=== PATIENT | male | born 1950 | race Caucasian/White ===

== ENCOUNTER 2017-01-30 04:39 | Inpatient (IN) | payer MEDICARE, BC ==
[2017-01-30] VITALS (11 sets, daily range): BP systolic 95–115; BP diastolic 51–59; PULSE 107–130; RESP 16–50; TEMP 97.8; Ht 177.8 cm; Wt 108.0 kg
[~2017-01-30] VITALS: Ht 177.8 cm; Wt 108.0 kg
[~2017-01-30 04:39] MED LIST: BICA50TA PO; SMV40T PO; TRIA1TAB PO; WARF2TAB PO
[2017-01-30] MEDS ORDERED: CEFTRIAXONE 1 GM/50 ML (PMX) 50 ML IVPB ONE (05:00)
[2017-01-30] MEDS ORDERED: SOD CHLORIDE 0.9% 1,000 ML IV ONE ×4 (05:00→07:00)
[2017-01-30 05:27] LABS: ADD SCAN DIFF NO
[2017-01-30] MEDS ORDERED: SOD CHLORIDE 0.9% 500 ML IV ONE (05:30)
[2017-01-30 05:34] LABS: ABNORMAL IP MESSAGE 1; BASOPHIL # 0.1 10^3/ul (0.0-0.1); BASOPHILS % 0.2 % (0.0-2.0); EOSINOPHILS % 0.1 % (0.0-7.0); HEMATOCRIT 35.5 % (42.0-52.0); HEMOGLOBIN 11.3 g/dl (14.0-18.0); LYMPHOCYTES # 1.3 10^3/ul (0.8-2.9); LYMPHOCYTES % 5.4 % (15.0-51.0); MEAN CORPUSCULAR HEMOGLOBIN 27.2 pg (29.0-33.0); MEAN CORPUSCULAR HGB CONC 31.8 g/dl (32.0-37.0); MEAN CORPUSCULAR VOLUME 85.5 fl (82.0-101.0); MEAN PLATELET VOLUME 11.8 fl (7.4-10.4); MONOCYTE # 1.2 10^3/ul (0.3-0.9); NEUTROPHIL # 20.1 10^3/ul (1.6-7.5); NEUTROPHILS % 85.3 % (39.0-77.0); NUCLEATED RED BLOOD CELLS% 0.1 /100WBC (0.0-0.0); PLATELET COUNT 345 10^3/UL (140-415); RED BLOOD COUNT 4.15 10^6/ul (4.70-6.10); RED CELL DISTRIBUTION WIDTH 16.3 % (11.5-14.5); WHITE BLOOD COUNT 23.5 10^3/ul (4.8-10.8)
[2017-01-30 05:42] LABS: ALBUMIN 3.8 g/dl (3.3-4.9)
[2017-01-30 05:43] LABS: INR 5.83; POTASSIUM 4.3 mmol/L (3.5-5.1)
[2017-01-30 05:45] LABS: ALBUMIN/GLOBULIN RATIO 0.9; BILIRUBIN,INDIRECT 0.9 mg/dl (0-1.1); BILIRUBIN,TOTAL 0.9 mg/dl (0.2-1.3); CALCIUM 9.7 mg/dl (8.4-10.2); CREATININE 1.74 mg/dl (0.61-1.24)
[2017-01-30 05:57] LABS: TROPONIN-I 0.03 ng/ml (0.00-0.12)
[2017-01-30] MEDS ORDERED: VANCOMYCIN 1 GM (PMX) 250 ML IVPB SCH (06:00)
[2017-01-30 06:25] LABS: URINE BILIRUBIN (Dip) NEGATIVE (NEGATIVE); URINE BLOOD (Dip) NEGATIVE (NEGATIVE); URINE COLOR LT. YELLOW (YELLOW); URINE GLUCOSE (Dip) NEGATIVE (NEGATIVE); URINE KETONES (Dip) NEGATIVE (NEGATIVE); URINE LEUKOCYTE ESTERASE (Dip) NEGATIVE (NEGATIVE); URINE NITRITE (Dip) NEGATIVE (NEGATIVE); URINE UROBILINOGEN (Dip) 0.2 E.U./dL (0.1-1.0)
[2017-01-30 06:33] LABS: ADD UMIC NO; URINE TOTAL PROTEIN (Dip) NEGATIVE (NEGATIVE)
[2017-01-30 06:39] LABS: PARTIAL THROMBOPLASTIN TIME 117.5 Sec (25.0-35.0)
[2017-01-30 06:42] LABS: PROTIME 54.7 Sec (12.2-14.2); PT RATIO 4.3
--- NOTE | 2017-01-30 06:49 | ERA ---
ER Documentation Chief Complaint Date/Time DATE: 01/30/17 TIME: 06:32 Chief Complaint hypotension, sob, diaphoresis tonight, from home HPI This 66-year-old male is brought in by ambulance for feeling "sick" at home. Patient states that he has had some chest pain with cough. He was hypotensive according to paramedics blood pressure of 60/40 with significant tachycardia. He has remained completely conscious is alert and oriented. Denies any abdominal pain though states he does have a history of a AAA. Also has current prostate cancer. ROS All systems reviewed and are negative except as per history of present illness. Medications Home Meds Reported Medications Bicalutamide* (Casodex*) 50 Mg Tablet, PO DAILY 09/23/13 Triamterene-HCTZ* (Triamterene-HCTZ*) 1 Tab Tablet, PO DAILY 09/23/13 Warfarin Sodium* (Coumadin*) 2 Mg Tablet, 7.5 MG PO DAILY 09/23/13 Simvastatin (Simvastatin) 40 Mg Tablet, PO HS 09/23/13 Allergies Allergies: Coded Allergies: No Known Allergy (Unverified , 09/23/13) PMhx/Soc History of Surgery: Yes (lt knee surgery,AVR 1989) Anesthesia Reaction: No Hx Neurological Disorder: No Hx Respiratory Disorders: No Hx Cardiac Disorders: Yes (AORTIC STENOSIS) Hx Psychiatric Problems: No Hx Miscellaneous Medical Probl: Yes (cardiac history) Hx Alcohol Use: Yes (8 OZ OF RED WINE PER DAY) Hx Substance Use: No Hx Tobacco Use: No Smoking Status: Never smoker Physical Exam Vitals Vital Signs Date Time Temp Pulse Resp B/P Pulse Ox O2 Delivery O2 Flow Rate FiO2 01/30/17 07:05 97.8 109 21 83/56 98 Room Air 01/30/17 06:00 97.6 106 22 107/80 98 Room Air 01/30/17 05:21 97.6 113 22 76/57 97 Room Air 01/30/17 05:04 97.6 133 22 76/57 97 Physical Exam Const: [] Mild distress, somewhat diaphoretic Head: Atraumatic Eyes: Normal Conjunctiva ENT: Normal External Ears, Nose and Mouth. Neck: Full range of motion..~ No meningismus. Resp: Decreased bibasilar breath sounds otherwise clear with good air movement Cardio: Regular tachycardia, no murmurs Abd: Soft, non tender, non distended. Normal bowel sounds Skin: No petechiae or rashes, cold clammy Back: No midline or flank tenderness Ext: No cyanosis, or edema Neur: Awake and alert and oriented 3, cranial nerves II through XII intact, no focal deficits Psych: Normal Mood and Affect Result Diagram: 01/30/17 0450 01/30/17 0450 Results 24 hrs Laboratory Tests Test 01/30/17 04:50 01/30/17 06:00 Activated Partial Thromboplast Time 117.5Sec Alanine Aminotransferase (ALT/SGPT) 60IU/L Albumin 3.8g/dl Albumin/Globulin Ratio 0.90 Alkaline Phosphatase 417IU/L Anion Gap 24 Aspartate Amino Transf (AST/SGOT) 183IU/L Basophils # 0.110^3/ul Basophils % 0.2% Blood Urea Nitrogen 34mg/dl Calcium Level 9.7mg/dl Carbon Dioxide Level 21mmol/L Chloride Level 95mmol/L Creatinine 1.74mg/dl Direct Bilirubin 0.00mg/dl Eosinophils # 0.010^3/ul Eosinophils % 0.1% Globulin 4.20g/dl Glucose Level 168mg/dl Hematocrit 35.5% Hemoglobin 11.3g/dl INR International Normalized Ratio 5.83 Indirect Bilirubin 0.9mg/dl Lactic Acid Level 7.8mmol/L Lymphocytes # 1.310^3/ul Lymphocytes % 5.4% Mean Corpuscular Hemoglobin 27.2pg Mean Corpuscular Hemoglobin Concent 31.8g/dl Mean Corpuscular Volume 85.5fl Mean Platelet Volume 11.8fl Monocytes # 1.210^3/ul Monocytes % 5.0% Neutrophils # 20.110^3/ul Neutrophils % 85.3% Nucleated Red Blood Cells # 0.010^3/ul Nucleated Red Blood Cells % 0.1/100WBC Platelet Count 09296^3/UL Potassium Level 4.3mmol/L Prothrombin Time 54.7Sec Prothrombin Time Ratio 4.3 Red Blood Count 4.1510^6/ul Red Cell Distribution Width 16.3% Sodium Level 136mmol/L Total Bilirubin 0.9mg/dl Total Protein 8.0g/dl Troponin I 0.030ng/ml White Blood Count 23.510^3/ul Urine Bilirubin NEGATIVE Urine Clarity CLEAR Urine Color LT. YELLOW Urine Glucose NEGATIVE% Urine Hemoglobin NEGATIVE Urine Ketones NEGATIVE Urine Leukocyte Esterase NEGATIVE Urine Nitrite NEGATIVE Urine Specific [place] 1.020 Urine Total Protein NEGATIVE Urine Urobilinogen 0.2 E.U./dL Urine pH 5.5 Current Medications Medications (Trade) Dose Ordered Sig/Dario Route PRN Reason Start Time Stop Time Status Last Admin Dose Admin Ceftriaxone Sodium 50 ml @ 100 mls/hr ONCE ONCE IVPB 01/30/17 05:00 01/30/17 05:29 DC 01/30/17 05:16 Sodium Chloride 1,000 ml @ 1,000 mls/hr Q1H ONCE IV 01/30/17 05:00 01/30/17 05:59 DC 01/30/17 05:16 Sodium Chloride 1,000 ml @ 1,000 mls/hr Q1H ONCE IV 01/30/17 05:30 01/30/17 06:29 DC 01/30/17 05:19 Sodium Chloride 1,000 ml @ 1,000 mls/hr Q1H ONCE IV 01/30/17 05:30 01/30/17 06:29 DC 01/30/17 05:43 Sodium Chloride 500 ml @ 500 mls/hr Q1H ONCE IV 01/30/17 05:30 01/30/17 06:29 DC 01/30/17 05:18 Vancomycin HCl 250 ml @ 125 mls/hr ONCE IVPB 01/30/17 06:00 01/30/17 07:59 01/30/17 06:14 Sodium Chloride (NS) 1,000 ml @ 1,000 mls/hr Q1H ONCE IV 01/30/17 07:00 01/30/17 07:59 Ondansetron HCl (Zofran Inj) 4 mg ER BRIDGE PRN IV NAUSEA AND/OR VOMITING 01/30/17 07:00 01/31/17 06:59 Acetaminophen (Tylenol Tab) 650 mg ER BRIDGE PRN PO MILD PAIN/FEVER 01/30/17 07:00 01/31/17 06:59 Procedures/MDM Patient with septic shock with no apparent source yet. Urinalysis is negative for infections. Most likely patient has a respiratory infection as his symptoms of all been upper respiratory with cough and shortness of breath. I see no obvious pneumonia on x-ray. Patient is wide awake with no abdominal pain or tenderness. This hydrated with 30 cc/kg of IV fluid. Given Rocephin and vancomycin. Tachycardia improved greatly. Blood pressure improved significantly however patient still had a systolic around 100. From the patient would like to place a central line however he refused. He states that he would like to try more fluid and does not want a central line placed. Patient is supratherapeutic on his Coumadin and also has an elevated PTT currently. No signs of active bleeding. I spoke with Dr. aMrtin will be admitting the patient to telemetry. Critical care time 41 minutes: This includes treatment of septic shock from unknown source, careful fluid administration, correction of unstable vital signs , early antibiotic administration, multiple visits the patient's bedside to reassess status, chart reviewed, discussion with patient, family and admitting doctor. This does not include any billable procedures. Ultrasound-guided peripheral line placement: Indication is that the staff could not obtain may be large enough to draw blood through. Patient in need of fluid hydration. Ultrasound guidance was used easily introduced an 18-gauge Angiocath the patient's right basilic vein. There is good blood flow and labs are obtained from this port. IV line flushed well. Patient tolerated procedure well with no complications. Reperfusion assessment for septic shock: Time 06 30 Vital signs: Blood pressure 107/68, heart rate 104, respiratory rate 16, temperature 97.4, oxygen saturation 96% on room air Cardiac exam: Sinus tachycardia without murmurs, lung exam, mild decreased bibasilar breath sounds without any rails Skin exam: No mottling,, dry warm Capillary refill: Less than 1 second Distal pulses intact all 4 extremities EKG interpretation: Sinus tachycardia rate of 137, normal axis, no ST or T-wave changes concerning for acute ischemia. Single PVC versus artifact, normal intervals. business banking representative interpretation: Sinus tachycardia greatly improved with IV fluids. Chest x-ray interpretation: Poor inspiration, I see no other acute process, no infiltrates, no pneumothorax, no obvious pulmonary edema, no fractures Departure Diagnosis: Primary Impression: Septic shock Additional Impressions: Renal insufficiency Lactic acidosis Chest pain Condition: Serious MICHA MOORE DO Jan 30, 2017 06:42
[2017-01-30] MEDS ORDERED: ACETAMINOPHEN 325 MG TAB PO PRN (07:00)
[2017-01-30] MEDS ORDERED: ONDANSETRON 4 MG INJ IV PRN (07:00)
--- NOTE | 2017-01-30 07:58 | RADRPT ---
PROCEDURE: XR Chest. CLINICAL INDICATION: 66-year-old male with sepsis. TECHNIQUE: Single frontal view of the chest was obtained COMPARISON: Chest x-ray 09/23/2013 11:08 p.m. FINDINGS: The soft tissues are normal. There are degenerative osteophytes in the thoracic spine. The heart i s enlarged. The cardiomediastinal silhouette, pulmonary vasculature and hilar structures are normal . There are vascular calcifications and ectasia of the left-sided aorta. There is compressive atelec tasis in the bases of the lungs. The costophrenic angles are normal. A mediastinotomy was performed . No significant changes noted compared to the prior study. IMPRESSION: 1. Cardiomegaly with compressive atelectasis in the bases of the lungs. 2. Status post median sternotomy. 3. Atherosclerotic vascular disease with ectasia of the left-sided aorta. RPTAT:AAJJ Physician Usha Date Time Electronically viewed and signed by Physician Usha on 01/30/2017 07:58 /
[2017-01-30] MEDS ORDERED: SOD CHLORIDE 0.9% 1,000 ML IV SCH (10:55)
[2017-01-30] MEDS ORDERED: NACL 0.9% 3 ML SYG IV SCH (11:00)
[2017-01-30] MEDS ORDERED: DOCUSATE SODIUM 100 MG CAP PO PRN (11:00)
--- NOTE | 2017-01-30 11:31 | HP ---
Date/Time of Note Date/Time of Note DATE: 01/30/17 TIME: 11:16 Assessment/Plan VTE Prophylaxis VTE Prophylaxis Intervention: contraindicated VTE Contraindication Reason: patient non compliant Lines/Catheters IV Catheter Type (from Nrs): Peripheral IV Assessment/Plan Chief Complaint/Hosp Course see above Problems: Assessment/Plan see note HPI/ROS Admit Date/Time Admit Date/Time Jan 30, 2017 at 07:00 Hx of Present Illness 67 yo male fell at home early this am and was brought to ER. Found to have hypotension, elevated WBC, mild anemia and creatinine of 1.7. stabilized in ER and admitted to telemetry PMH/Family/Social Past Medical History HTN Obesity [facility] AVR in 1989 Chronic anticoagulation mild anemia Mild renal insufficiency Prostate cancer on hormone deprivation Rx; GNRH agonist and bicalutamide. last PSA >100. bicalutamide stopped and awaiting visit with oncology Prior CVA Ataxia Aortic Aneurism Past Surgical History AVR [facility] Umbilical hernai Tonsils Family History Significant Family History: no pertinent family hx Social History Alcohol Use: none Smoking Status: Never smoker Drug Use: none Exam/Review of Systems Vital Signs Vitals Vital Signs Date Time Temp Pulse Resp B/P Pulse Ox O2 Delivery O2 Flow Rate FiO2 01/30/17 09:41 117 01/30/17 08:33 21 123/89 99 Room Air 01/30/17 07:41 97.8 Exam Exam ROS completed . Family History noncontributory alert. seen with daughter . reports tired and some reduction ni speech fluency. recent increased low back and ribcage pain HEENT supple no bruit UMER speech fluent oriented x4 Chest clear Cor crisp valve sounds Abd soft Ext 1+ pitting edema Neuro moves all extremities neg Babinski Assessment: hypotension; renal insufficiency; full Code; fall ; altered mental state: AVR; castration resistant prostate cancer Plan antibiotics; cultures; CT of head ; MRI of LS s[pine Neuro checks; Echocardiogram; cardiology and oncology consults Constitutional: No alert, No distress, No frail, No non-verbal, No oriented, No other, No well developed Labs Result Diagram: 01/30/17 0450 01/30/17 0450 Medications Medications Current Medications Sodium Chloride (NS) 1,000 ml @ 20 mls/hr Q24H IV ; Start 01/30/17 at 10:55; Status UNV Docusate Sodium (Colace) 100 mg Q12H PRN PO CONSTIPATION; Start 01/30/17 at 11: 00; Status UNV Magnesium Hydroxide (Milk Of Mag) 30 ml DAILY PRN PO CONSTIPATION; Start at 11:00; Status UNV Pantoprazole (Protonix Tab) 40 mg DAILY@06 PO ; Start 01/31/17 at 06:00; Status UNV BETTY CUMMINGS MD Jan 30, 2017 11:28
[2017-01-30 11:47] LABS: BARBITURATES Negative (NEGATIVE)
[2017-01-30 11:48] LABS: CANNABINOIDS Negative (NEGATIVE); COCAINE Negative (NEGATIVE)
[2017-01-30 12:09] LABS: CREATINE KINASE 171 IU/L (23-200)
[2017-01-30 13:30] LABS: CK-MB < 0.22 ng/ml (0.0-2.4); TROPONIN-I < 0.012 ng/ml (0.00-0.12)
[2017-01-30 14:02] LABS: BENZODIAZEPINES Negative (NEGATIVE); OPIATES Positive (NEGATIVE)
[2017-01-30 14:06] LABS: CREATINE KINASE 163 IU/L (23-200)
[2017-01-30 14:27] LABS: CK-MB < 0.22 ng/ml (0.0-2.4); TROPONIN-I < 0.012 ng/ml (0.00-0.12)
[2017-01-30] MEDS ORDERED: VANCOMYCIN IV PER PHARMACY XX SCH (16:00)
[2017-01-30] MEDS ORDERED: VANCOMYCIN 1 GM in NS 250 ML IVPB SCH (17:00)
[2017-01-30 17:22] LABS: CREATINE KINASE 175 IU/L (23-200)
--- NOTE | 2017-01-30 17:27 | RADRPT ---
PROCEDURE: CT Head without. CLINICAL INDICATION: Fall, altered speech. TECHNIQUE: The study was performed utilizing a multi-slice, multidetector CT scanner. Direct spira l 1 mm axial sections were obtained through the head without the use of intravenous contrast materia l. 1 or more of the following dose reduction techniques were utilized: Automated exposure control, adjustment of the mA and/or kV according to patient's size, iterative reconstruction technique. Co audi and sagittal reformations were obtained. The images were reviewed on a PACS workstation. RADIATION DOSE: CTDIvol: 45.0 mGyDLP: 990.3 mGy-cm COMPARISON: No prior studies are available for comparison. FINDINGS: There is a moderate amount of motion artifact through the mid and lower cranial vault as well as the skull base, slightly limiting evaluation in these regions. There is no intracranial hemorrhage, ex tra-axial fluid collection, mass lesion, midline shift or hydrocephalus. There is mild prominence o f the cerebral sulci, lateral and third ventricles. There is mild periventricular and subcortical w jean matter hypodensity. There is mild arteriosclerotic calcification of the parasellar internal ca rotid arteries. The blackburn-white matter differentiation is preserved. The basal cisterns are patent. The midline structures are intact. The orbits, calvarium and extracranial soft tissues are normal in appearance. There is a prominent mucous attention cyst in the inferior left maxillary sinus. Th ere is a small mucous attention cyst in the anterior aspect of the left sphenoid sinus. The mastoid air cells and middle ear cavities are normally aerated. IMPRESSION: 1. No acute intracranial abnormality. No intracranial hemorrhage, extra-axial fluid collection, ma ss lesion or hydrocephalous. 2. Mild peripheral and central cerebral volume loss. 3. Mild periventricular and subcortical white matter hypodensity, likely related to chronic microan giopathic changes. RPTAT: HGAS .Yazan Bateman MD, Date Time Electronically viewed and signed by .Yazan Bateman MD, MD on 01/30/2017 17:27 .S/
[2017-01-30 17:39] LABS: CK-MB < 0.22 ng/ml (0.0-2.4); TROPONIN-I < 0.012 ng/ml (0.00-0.12)
--- NOTE | 2017-01-30 17:44 | RADRPT ---
PROCEDURE: US bilateral lower extremity veins. CLINICAL INDICATION: Bilateral leg pain and swelling. TECHNIQUE: Multiple longitudinal and transverse images of the bilateral lower extremity veins were obtained with blackburn scale and color Doppler imaging. The common femoral vein, femoral vein, and popl iteal vein were evaluated. 2D grayscale measurements with compression sonography, color Doppler, and pulsed Doppler with augmentation. COMPARISON: No prior studies are available for comparison. FINDINGS: The bilateral common femoral, femoral and popliteal veins are normally compressible throughout. Col or flow demonstrates normal filling of the vessels. Normal waveforms are visualized and there is no rmal response to augmentation. IMPRESSION: 1. No evidence of deep vein thrombosis involving either lower extremity. RPTAT: QQ .Curt Lee MD, MD Date Time Electronically viewed and signed by .Curt Lee MD, on 01/30/2017 17:44 .R/
[2017-01-30 19:41] LABS: CREATINE KINASE 198 IU/L (23-200)
[2017-01-30 20:00] LABS: CK-MB < 0.22 ng/ml (0.0-2.4)
[2017-01-30 20:05] LABS: TROPONIN-I 0.013 ng/ml (0.00-0.12)
[2017-01-30] MEDS ORDERED: FUROSEMIDE 40 MG INJ IV ONE (21:30)
[2017-01-30] MEDS ORDERED: HYDROCODONE/APAP (5/325) TAB PO PRN (21:30)
[2017-01-30] MEDS ORDERED: FUROSEMIDE 20 MG INJ IV ONE (22:00)
[2017-01-30] MEDS: PIPER-TAZO 3.375 GM IV (PMX) 100 ML IVPB SCH (23:22)
[2017-01-31] VITALS (36 sets, daily range): BP systolic 89–137; BP diastolic 49–85; PULSE 109–145; RESP 24–47
[2017-01-31 00:56] LABS: AADO2 Arterial 91.3 mmHg (7.0-24.0); Allen Test ACCEPTAB; Arterial Base Excess -1.8 mmol/L (-3.0-3); Arterial COHb 0.5 % (0.0-3.0); Arterial Fraction of Oxyhgb 95.6 % (93.0-99.0); Arterial HCO3 20.5 mmol/L (22.0-26.0); Arterial MetHb 0.3 % (0.0-1.5); Arterial Total Hemglobin 12.9 g/dl (12.0-18.0); MODE NASAL CANNULA
--- NOTE | 2017-01-31 01:38 | RADRPT ---
PROCEDURE: XR Chest. CLINICAL INDICATION: Congestive heart failure. TECHNIQUE: Single frontal view of the chest was obtained COMPARISON: Chest dated today, about 18 hours ago. FINDINGS: Hypoinflated lungs, patient body habitus and portable technique accentuates pulmonary vascular boo ngs. There is cardiomegaly. Mild bilateral patchy air space disease with small pleural effusions. L judi inflation is decreased over interval. There is no pneumothorax. IMPRESSION: Mild failure. RPTAT: UU Physician Miki Date Time Electronically viewed and signed by Eyal Morelos Physician on 01/31/2017 01:37 RS/
--- NOTE | 2017-01-31 03:27 | CONS ---
DATE OF ADMISSION: 01/30/2017 DATE OF CONSULTATION: 01/30/2017 CARDIOLOGY CONSULTATION HISTORY OF PRESENT ILLNESS: Mr. Noel is a 66-year-old gentleman who presents with cough and feelin g ill. On admission, he was noted to be hypotensive with blood pressure of 60/40 and elevated white blood count. He was treated for sepsis and was given ceftriaxone and vancomycin for possible pneumo naman. His blood pressures improved, and he was transferred to telemetry. Here he has remained alert and oriented; however, he is noted to have increasing congestion and persistent tachycardia. REVIEW OF SYSTEMS: As per HPI. HOME MEDICATIONS: 1. Casodex. 2. Triamterene-hydrochlorothiazide. 3. Warfarin. 4. Simvastatin. ALLERGIES: NO KNOWN ALLERGIES. PAST MEDICAL HISTORY: Aortic valve replacement in 1989. PHYSICAL EXAMINATION: VITAL SIGNS: Temperature 99.4, pulse 129, blood pressure 115/56, O2 saturation 97% on 2 liters of n josue cannula. GENERAL: He is cold and clammy to the touch. He is mildly diaphoretic. CARDIAC: Reveals a metallic valve, tachycardic rhythm. LABORATORY DATA: INR 5.8. Troponins negative x3. Sodium 136, potassium 4.3, BUN 34, creatinine 1. 7, lactic acid 7.3. ASSESSMENT: The patient is suffering from septic shock. He has received reportedly 5 liters of flu id and appears congested at this time. I will give him a small dose of Lasix with monitoring of his blood pressure. However, I am concerned that he is not being adequately treated with broad spectru m antibiotics as he is only on vancomycin which does not provide adequate coverage at this time. I will attempt to consult critical care for broadening of antibiotic advice. I will order repeat x- ray and labs at this time. He will be monitored carefully with low threshold to transfer to intensi ve care. Dictated By: WEI LEONARDO/MALICK Conf#: [id number] DID#: [id number]
[2017-01-31] MEDS: ACETAMINOPHEN 325 MG TAB PO PRN (05:17)
[2017-01-31] MEDS: PANTOPRAZOLE (EC) 40 MG TAB PO SCH (05:29)
[2017-01-31] MEDS: PIPER-TAZO 3.375 GM IV (PMX) 100 ML IVPB SCH ×3 (05:30→18:22)
[2017-01-31] MEDS ORDERED: VANCOMYCIN 2 GM in SOD CHLORIDE 0.9% 500 ML IVPB SCH (06:00)
[2017-01-31 06:38] LABS: ADD SCAN DIFF NO
[2017-01-31 06:55] LABS: ABNORMAL IP MESSAGE 1; HEMOGLOBIN 8.7 g/dl (14.0-18.0); MEAN CORPUSCULAR HEMOGLOBIN 26.8 pg (29.0-33.0); MEAN CORPUSCULAR HGB CONC 31.1 g/dl (32.0-37.0); MEAN CORPUSCULAR VOLUME 86.2 fl (82.0-101.0); MEAN PLATELET VOLUME 11.9 fl (7.4-10.4); PLATELET COUNT 266 10^3/UL (140-415); RED BLOOD COUNT 3.25 10^6/ul (4.70-6.10); RED CELL DISTRIBUTION WIDTH 16.2 % (11.5-14.5); WHITE BLOOD COUNT 22.9 10^3/ul (4.8-10.8)
[2017-01-31 06:59] LABS: POTASSIUM 4.2 mmol/L (3.5-5.1)
[2017-01-31 07:02] LABS: CREATININE 0.92 mg/dl (0.61-1.24)
[2017-01-31 07:03] LABS: CALCIUM 8.4 mg/dl (8.4-10.2)
[2017-01-31] MEDS ORDERED: MELA5TAB4 PO (07:03)
[2017-01-31] MEDS ORDERED: TAMS-14 PO (07:03)
[2017-01-31] MEDS ORDERED: METO-448 PO (07:03)
[2017-01-31] MEDS ORDERED: COU25 PO ×2 (07:03)
[2017-01-31] MEDS ORDERED: TRAM50TA2 PO (07:03)
--- NOTE | 2017-01-31 07:40 | RADRPT ---
PROCEDURE: XR Chest. CLINICAL INDICATION: Shortness of breath. TECHNIQUE: Single frontal view. COMPARISON: 01/30/2017. FINDINGS: There is mild atelectasis at the lung bases and mild pulmonary edema, slightly worse than seen previ ously. The lungs are otherwise clear. The heart is enlarged. There are sternal wires. Calcification is present in the aorta consistent w ith atherosclerosis. There is no pleural effusion. There is no pneumothorax. IMPRESSION: 1. Slightly worse appearance of the lungs. 2. Cardiomegaly and previous median sternotomy. RPTAT: QQ .Curt Lee MD, MD Date Time Electronically viewed and signed by .Curt Lee MD, MD on 01/31/2017 07:39 .R/
[2017-01-31 08:35] LABS: AADO2 Arterial 64.4 mmHg (7.0-24.0); Allen Test ACCEPTAB; Arterial Base Excess -2.7 mmol/L (-3.0-3); Arterial COHb 0.2 % (0.0-3.0); Arterial Fraction of Oxyhgb 96.7 % (93.0-99.0); Arterial HCO3 20.3 mmol/L (22.0-26.0); Arterial MetHb 0.3 % (0.0-1.5); Arterial Total Hemglobin 9.8 g/dl (12.0-18.0); MODE NASAL CANNULA
--- NOTE | 2017-01-31 08:55 | PN ---
Date/Time of Note Date/Time of Note DATE: 01/31/17 TIME: 08:49 Assessment/Plan VTE Prophylaxis VTE Prophylaxis Intervention: contraindicated VTE Contraindication Reason: bleeding Lines/Catheters IV Catheter Type (from Nrs): Saline Lock Urinary Cath still in place: No Assessment/Plan Chief Complaint/Hosp Course see above Problems: Subjective 24 Hr Interval Summary Free Text/Dictation developed tachycardia and pulmonary edema . transferred to ICU and diuresed 600cc with iv lasix. seen by cardiology and echocardiogram pending. positive 1/ 2 blood cultures for gram positive in clusters. Hb down from 11 to 8.5 this am. no evidence of bleeding meds reviewed. CXR this am shows cardiomegaly and pulmonary edema P.E.: alert. seen with daughter. Chest scattered rhonchi Cor rapid rhythm no rub ext 1+ pitting edema Assessment: bacteremia; CHF; AVR; anemia; CHF Plan: repeat Hb. diuresis. Echocardiogram. full code Exam/Review of Systems Vital Signs Vitals Vital Signs Date Time Temp Pulse Resp B/P Pulse Ox O2 Delivery O2 Flow Rate FiO2 01/31/17 07:00 133 39 105/60 99 01/31/17 05:00 99.0 01/31/17 03:31 Nasal Cannula 2.0 Intake and Output 01/30/17 01/30/17 01/31/17 15:00 23:00 07:00 Intake Total 2770 ml 1230 ml Output Total 750 ml 1530 ml Balance 2020 ml -300 ml Results Result Diagram: 01/31/17 0600 01/31/17 0530 Results 24 hrs Laboratory Tests Test 01/30/17 11:43 01/30/17 13:40 01/30/17 16:43 01/30/17 19:06 Creatine Kinase 171 163 175 198 Creatine Kinase Index 0.1 0.1 Creatinine Kinase MB (Mass) < 0.22 < 0.22 < 0.22 < 0.22 Troponin I < 0.012 < 0.012 < 0.012 0.013 Uric Acid 8.1 H Test 01/30/17 23:36 01/31/17 00:30 01/31/17 02:01 01/31/17 05:30 Bedside Glucose 153 164 Arterial Blood HCO3 20.5 L Arterial Blood Base Excess -1.8 Arterial Blood Oxygen Saturation 96.4 [place] Test ACCEPTAB Arterial Blood Gas Puncture Site Right Radial Arterial Blood Carboxyhemoglobin 0.5 Arterial Blood Date Drawn 01/31/2017 12:48:24 AM Arterial Blood Methemoglobin 0.3 Arterial Blood pCO2 (Temp correct) 28.2 L Arterial Blood pH (Temp corrected) 7.479 H Arterial Blood pO2 (Temp corrected) 82.3 Blood Gas A-a O2 Differential 91.3 H Blood Gas Modality NASAL CANNULA Blood Gas Notified Time 01/31/2017 12:55:53 AM Blood Gas Notified Whom BR Blood Gas Specimen Source Blood arterial Blood Gas Temperature 37.0 FiO2 29.0 Oxyhemoglobin Percent 95.6 Total Hemoglobin 12.9 Anion Gap 16 # Blood Urea Nitrogen 21 #H Calcium Level 8.4 Carbon Dioxide Level 25 Chloride Level 93 L Creatinine 0.92 Glucose Level 122 # Potassium Level 4.2 Sodium Level 130 L Test 01/31/17 05:38 01/31/17 06:00 01/31/17 07:00 Thyroid Stimulating Hormone (TSH) 0.609 Basophils # 0.0 Basophils % 0.1 Eosinophils # 0.0 Eosinophils % 0.0 Hematocrit 28.0 #L Hemoglobin 8.7 #L Lymphocytes # 1.2 Lymphocytes % 5.2 L Mean Corpuscular Hemoglobin 26.8 L Mean Corpuscular Hemoglobin Concent 31.1 L Mean Corpuscular Volume 86.2 Mean Platelet Volume 11.9 H Monocytes # 0.6 Monocytes % 2.6 Neutrophils # 19.5 H Neutrophils % 85.5 H Nucleated Red Blood Cells # 0.0 Nucleated Red Blood Cells % 0.0 Platelet Count 266 # Red Blood Count 3.25 #L Red Cell Distribution Width 16.2 H White Blood Count 22.9 H Arterial Blood HCO3 20.3 L Arterial Blood Base Excess -2.7 Arterial Blood Oxygen Saturation 97.2 [place] Test ACCEPTAB Arterial Blood Gas Puncture Site Left Radial Arterial Blood Carboxyhemoglobin 0.2 Arterial Blood Date Drawn 01/31/2017 7:40:50 AM Arterial Blood Methemoglobin 0.3 Arterial Blood pCO2 (Temp correct) 28.8 L Arterial Blood pH (Temp corrected) 7.465 H Arterial Blood pO2 (Temp corrected) 94.1 Blood Gas A-a O2 Differential 64.4 H Blood Gas Modality NASAL CANNULA Blood Gas Notified Time 01/31/2017 8:35:14 AM Blood Gas Notified Whom SELENED Blood Gas Specimen Source Blood arterial Blood Gas Temperature 37.0 FiO2 27.0 Oxyhemoglobin Percent 96.7 Total Hemoglobin 9.8 L Medications Medications Current Medications Docusate Sodium (Colace) 100 mg Q12H PRN PO CONSTIPATION; Start 01/30/17 at 11: 00 Magnesium Hydroxide (Milk Of Mag) 30 ml DAILY PRN PO CONSTIPATION; Start at 11:00 Pantoprazole 40 mg 40 mg DAILY@06 PO Last administered on 01/31/17 05:29; Admin Dose 40 MG; Start 01/31/17 at 06:00 Vancomycin HCl/ Sodium Chloride (Vancocin/NS) 500 ml @ 125 mls/hr Q24H IVPB Last administered on 01/31/17 05:30; Admin Dose 125 MLS/HR; Start 01/31/17 at 06:00 Acetaminophen (Tylenol Tab) 650 mg Q6H PRN PO PAIN AND OR ELEVATED TEMP Last administered on 01/31/17 05:17; Admin Dose 650 MG; Start 01/30/17 at 21:30 Acetaminophen/ Hydrocodone Bitart 1 tab 1 tab Q6H PRN PO PAIN; Start 01/30/17 at 21:30 Piperacillin Sod/ Tazobactam Sod (Zosyn 3.375gm/ 100 ml (Pmx)) 100 ml @ 200 mls /hr Q6 IVPB Last administered on 01/31/17 05:30; Admin Dose 200 MLS/HR; Start 01/30/17 at 23:00 Furosemide (Lasix) 20 mg ONCE ONCE IV ; Start 01/31/17 at 09:00; Stop 01/31/17 at 09:01; Status BETTY JAIMES MD Jan 31, 2017 08:54
[2017-01-31] MEDS ORDERED: FUROSEMIDE 20 MG INJ IV ONE ×2 (09:00→16:00)
[2017-01-31] MEDS ORDERED: DIGOXIN 500 MCG INJ IV ONE ×2 (10:30→16:30)
--- NOTE | 2017-01-31 12:45 | RADRPT ---
PROCEDURE: MRI lumbar spine without contrast CLINICAL INDICATION: Back pain ; prostate cancer, ataxia TECHNIQUE: An high-resolution MRI of the lumbar spine was performed utilizing the following sequen allison: Sagittal and axial T1 weighted, sagittal and axial T2 weighted, and sagittal fat suppressed T2. COMPARISON: None FINDINGS: No acute vertebral compression fracture. Heterogeneous T1 hypointense marrow signal identified. The conus medullaris terminates at L1-2. T11-12: Small disk bulge with central disk annular fissure narrowing the ventral thecal sac with mi ld spinal canal narrowing. T12 - L1: Degenerative appearance of the disk. There is no significant disk protrusion, spinal lili l or foraminal stenosis. L1 - L2: Degenerative appearance of the disk. Facet arthropathy. No significant spinal canal or foraminal stenosis. L2 - L3: Degenerative appearance of the disk. Facet arthropathy. Small disk bulge with central d isk annular fissure. No significant spinal canal or foraminal stenosis. L3 - L4: Degenerative appearance of the disk. Facet arthropathy. Moderate disk bulge without sig nificant spinal canal or foraminal stenosis. L4 - L5: Degenerative appearance of the disk. Facet arthropathy. Moderate disk bulge with mild bilateral foraminal narrowing. No significant spinal canal stenosis. L5 - S1: Degenerative appearance of the disk. Facet arthropathy. No significant spinal canal or foraminal stenosis. Scattered prominent retroperitoneal lymph nodes are seen. IMPRESSION: No acute compression fracture or high-grade lumbar spinal canal stenosis. Mild spinal canal stenosis T11-12. Mild multilevel degenerative changes. Heterogeneous T1 hypointense marrow signal identified. This may be due to red marrow reconversion, h owever, given the provided history, osseous metastasis cannot be excluded. Recommend future followu p with nuclear medicine bone scan and CT as warranted. RPTAT: AA .Faisal Hernandez MD, Date Time Electronically viewed and signed by .Faisal Hernandez MD, MD on 01/31/2017 12:44 .T/
[2017-01-31 13:28] LABS: LYMPHOCYTES # 2.1 10^3/ul (0.8-2.9); MONOCYTE # 0.5 10^3/ul (0.3-0.9); NEUTROPHIL # 15.8 10^3/ul (1.6-7.5)
[2017-01-31 13:29] LABS: PLATELET ESTIMATE PLT APPEAR ADEQUATE
--- NOTE | 2017-01-31 15:08 | RADRPT ---
Echocardiogram Report Patient Name: BANDAR SOLIZ Gender: Male Date: 1950 Study Date: 31-Jan-2017 [employer] [facility] Coordinator: Bishop Ward RDCS Location: [id number] Ref. Physician: EBTTY CUMMINGS Quality: Adequate Procedures: Transthoracic echocardiogram with complete 2D, M-Mode, and doppler examination. Indications: Aortic Valve Replacement. Fever. 2D/M Mode Doppler Measurement Value Normal Ranges Measurement Value Normal Ranges LVIDd 2D 5.3 3.5 - 5.6 cm AV Mean Eloy 1.6 m/sec LVIDs 2D 3.6 2.1 - 4.1 cm AV Mean PG 12.3 mmHg LVPWd 2D 1.2 0.6 - 1.1 cm AV Peak Eloy 2.3 m/sec IVSd 2D 1.3 0.6 - 1.1 cm AV Peak PG 22.0 mmHg AoR Diam 2D 2.4 2.0 - 3.7 cm AV VTI 36.9 cm EDV 2D 132.8 cm3 LVOT Peak Eloy 1.0 m/sec ESV 2D 46.1 cm3 LVOT Peak PG 4.2 mmHg LA Dimen 2D 4.5 2.3 - 4.0 cm Findings Left Ventricle: Normal left ventricular systolic function. Normal left ventricular cavity size. Normal left ventricular wall thickness. Ejection fraction is visually estimated at 55 %. Abnormal Diastolic Function. Right Ventricle: Normal right ventricular size. Normal right ventricular systolic function. Left Atrium: There is mild enlargement of left atrium. Right Atrium: The right atrium is normal in size. Mitral Valve: Mild mitral leaflet calcification. Moderate mitral annular calcification. Trace mitral regurgitation. Aortic Valve: Aortic Valve Bio Prosthesis. Aortic valve Max velocity 2.35 m/sec. Max PG 22.00 mmHg. Mean PG 12.00 mmHg. Tricuspid Valve: Normal appearance of the tricuspid valve. Unable to obtain RVSP due to minimal presence of tricuspid regurgitation. Pulmonic Valve: Normal pulmonic valve appearance. Pericardium: Normal pericardium with no significant pericardial effusion. Aorta: Normal aortic root. IVC: Dilated IVC with respiratory collapse consistent with elevated right atrial pressure. Conclusions Normal left ventricular systolic function. Normal left ventricular cavity size. Normal left ventricular wall thickness. Ejection fraction is visually estimated at 55 %. Abnormal Diastolic Function. Normal right ventricular size. Normal right ventricular systolic function. There is mild enlargement of left atrium. The right atrium is normal in size. Aortic Valve Bio Prosthesis. Normal functioning. No significant valvular stenosis or regurgitation seen of remaining visualized valves. Normal pericardium with no significant pericardial effusion. Electronically Signed By: Elias Deleon 31-Jan-2017 15:07:46 -0700 Patient Name: BANDAR SOLIZ Study Date: 31-Jan-2017 [id number]
[2017-01-31 15:17] LABS: INR 6.04; POTASSIUM 4.1 mmol/L (3.5-5.1); PT RATIO 4.3
[2017-01-31 15:19] LABS: CREATININE 0.84 mg/dl (0.61-1.24)
[2017-01-31 15:20] LABS: ALBUMIN/GLOBULIN RATIO 0.81; CALCIUM 8.6 mg/dl (8.4-10.2); TOTAL PROTEIN 6.7 g/dl (6.1-8.1)
[2017-01-31 15:35] LABS: ADD SCAN DIFF NO
[2017-01-31 15:37] LABS: ABNORMAL IP MESSAGE 1; HEMATOCRIT 31.2 % (42.0-52.0); HEMOGLOBIN 9.7 g/dl (14.0-18.0); MEAN CORPUSCULAR HEMOGLOBIN 27.3 pg (29.0-33.0); MEAN CORPUSCULAR HGB CONC 31.1 g/dl (32.0-37.0); MEAN CORPUSCULAR VOLUME 87.9 fl (82.0-101.0); MEAN PLATELET VOLUME 11.7 fl (7.4-10.4); PLATELET COUNT 261 10^3/UL (140-415); RED BLOOD COUNT 3.55 10^6/ul (4.70-6.10); RED CELL DISTRIBUTION WIDTH 16.5 % (11.5-14.5); WHITE BLOOD COUNT 21.3 10^3/ul (4.8-10.8)
[2017-01-31] MEDS ORDERED: METOPROLOL 25 MG TAB PO ONE (16:04)
[2017-01-31] MEDS ORDERED: DILTIAZEM 25 MG INJ IV STA (16:35)
[2017-01-31 16:54] LABS: HYPOCHROMASIA 1+; LYMPHOCYTES # 1.9 10^3/ul (0.8-2.9); NEUTROPHIL # 19.4 10^3/ul (1.6-7.5); PLATELET ESTIMATE PLT APPEAR ADEQUATE
[2017-01-31] MEDS ORDERED: MAGNESIUM SULFATE 2 GM/50 ML 50 ML IVPB ONE (17:30)
[2017-01-31] MEDS ORDERED: AMIODARONE 150MG/D5W BOLUS 100 ML IV ONE (17:30)
--- NOTE | 2017-01-31 17:31 | CONS ---
Date/Time of Note Date/Time of Note DATE: 01/31/17 TIME: 17:26 Assessment/Plan Assessment/Plan Additional Assessment/Plan SIRS with concern for sepsis Acute decompensated diastolic congestive heart failure History of mechanical aortic valve replacement Preserved ejection fraction Bacteremia Prostate cancer Tachycardia -Patient with improvement in symptoms after diuretics. Concern of sepsis and source is still unclear. Patient initially with elevated lactic acid and leukocytosis. Blood cultures are positive, would repeat, consider ID evaluation , follow lactic acid levels. Patient also with tachycardia, at times it appears atrial flutter and at times atrial tachycardia. Given the fast heart rates, this could possibly be contributing to his lower blood pressure. Patient is anticoagulated secondary to mechanical valve, would start IV amiodarone. Beta-kamini as blood pressure permits. Would continue diuretics as blood pressure and renal function permits. Plan of care discussed in detail with patient's family at bedside. Consultation Date/Type/Reason Admit Date/Time Jan 30, 2017 at 07:00 Initial Consult Date Type of Consultation: cv 24 HR Interval Summary Free Text/Dictation Patient feeling better, still with shortness of breath but improved. Denies fevers or chills, denies chest pain, nausea or abdominal pain Exam/Review of Systems Vital Signs Vitals Vital Signs Date Time Temp Pulse Resp B/P Pulse Ox O2 Delivery O2 Flow Rate FiO2 01/31/17 16:00 139 01/31/17 15:25 98 2.0 01/31/17 14:00 29 109/62 01/31/17 12:00 98.5 01/31/17 08:15 Nasal Cannula Intake and Output 01/30/17 01/30/17 01/31/17 14:59 22:59 06:59 Intake Total 2770 ml 1105 ml Output Total 750 ml 1530 ml Balance 2020 ml -425 ml Exam Mildly dyspneic Constitutional: alert, obese, oriented Head: normocephalic Neck: supple Respiratory: other (Coarse breath sounds bilaterally, scattered mild crackles, no wheezing) Cardiovascular: other (S1-S2 heard), regular rate and rhythm, systolic murmur Gastrointestinal: bowel sounds, non-tender, other (No guarding), soft Extremities: edema, other (No cyanosis) Results Result Diagram: 01/31/17 1525 01/31/17 1416 Results 24 hrs Laboratory Tests Test 01/30/17 19:06 01/30/17 23:36 01/31/17 00:30 01/31/17 02:01 Creatine Kinase 198 Creatine Kinase Index Creatinine Kinase MB (Mass) < 0.22 Troponin I 0.013 Bedside Glucose 153 164 Arterial Blood HCO3 20.5 L Arterial Blood Base Excess -1.8 Arterial Blood Oxygen Saturation 96.4 [place] Test ACCEPTAB Arterial Blood Gas Puncture Site Right Radial Arterial Blood Carboxyhemoglobin 0.5 Arterial Blood Date Drawn 01/31/2017 12:48:24 AM Arterial Blood Methemoglobin 0.3 Arterial Blood pCO2 (Temp correct) 28.2 L Arterial Blood pH (Temp corrected) 7.479 H Arterial Blood pO2 (Temp corrected) 82.3 Blood Gas A-a O2 Differential 91.3 H Blood Gas Modality NASAL CANNULA Blood Gas Notified Time 01/31/2017 12:55:53 AM Blood Gas Notified Whom BR Blood Gas Specimen Source Blood arterial Blood Gas Temperature 37.0 FiO2 29.0 Oxyhemoglobin Percent 95.6 Total Hemoglobin 12.9 Test 01/31/17 05:30 01/31/17 05:38 01/31/17 06:00 01/31/17 07:00 Anion Gap 16 # Blood Urea Nitrogen 21 #H Calcium Level 8.4 Carbon Dioxide Level 25 Chloride Level 93 L Creatinine 0.92 Glucose Level 122 # Potassium Level 4.2 Sodium Level 130 L Thyroid Stimulating Hormone (TSH) 0.609 Basophils # Basophils % Eosinophils # Eosinophils % Hematocrit 28.0 #L Hemoglobin 8.7 #L Lymphocytes # 2.1 Lymphocytes % 9.0 L Mean Corpuscular Hemoglobin 26.8 L Mean Corpuscular Hemoglobin Concent 31.1 L Mean Corpuscular Volume 86.2 Mean Platelet Volume 11.9 H Monocytes # 0.5 Monocytes % 2.0 Neutrophils # 15.8 H Neutrophils % 69.0 Nucleated Red Blood Cells # 0.0 Nucleated Red Blood Cells % 0.0 Platelet Count 266 # Platelet Estimate PLT APPEAR ADEQUATE Red Blood Count 3.25 #L Red Cell Distribution Width 16.2 H White Blood Count 22.9 H Arterial Blood HCO3 20.3 L Arterial Blood Base Excess -2.7 Arterial Blood Oxygen Saturation 97.2 [place]w Test ACCEPTAB Arterial Blood Gas Puncture Site Left Radial Arterial Blood Carboxyhemoglobin 0.2 Arterial Blood Date Drawn 01/31/2017 7:40:50 AM Arterial Blood Methemoglobin 0.3 Arterial Blood pCO2 (Temp correct) 28.8 L Arterial Blood pH (Temp corrected) 7.465 H Arterial Blood pO2 (Temp corrected) 94.1 Blood Gas A-a O2 Differential 64.4 H Blood Gas Modality NASAL CANNULA Blood Gas Notified Time 01/31/2017 8:35:14 AM Blood Gas Notified Whom JLD Blood Gas Specimen Source Blood arterial Blood Gas Temperature 37.0 FiO2 27.0 Oxyhemoglobin Percent 96.7 Total Hemoglobin 9.8 L Test 01/31/17 14:16 01/31/17 15:25 Alanine Aminotransferase (ALT/SGPT) 36 Albumin 3.0 L Albumin/Globulin Ratio 0.81 Alkaline Phosphatase 544 H Anion Gap 19 H Aspartate Amino Transf (AST/SGOT) 181 H Blood Urea Nitrogen 20 Calcium Level 8.6 Carbon Dioxide Level 22 Chloride Level 97 Creatinine 0.84 Direct Bilirubin 0.00 Globulin 3.70 H Glucose Level 132 INR International Normalized Ratio 6.04 *H Indirect Bilirubin 1.0 Magnesium Level 1.9 Potassium Level 4.1 Prothrombin Time 55.0 H Prothrombin Time Ratio 4.3 Sodium Level 134 L Total Bilirubin 1.0 Total Protein 6.7 # Hematocrit 31.2 L Hemoglobin 9.7 L Hypochromasia 1+ Lymphocytes # 1.9 Lymphocytes % 9.0 L Mean Corpuscular Hemoglobin 27.3 L Mean Corpuscular Hemoglobin Concent 31.1 L Mean Corpuscular Volume 87.9 Mean Platelet Volume 11.7 H Neutrophils # 19.4 H Neutrophils % 91.0 H Platelet Count 261 Platelet Estimate PLT APPEAR ADEQUATE Red Blood Count 3.55 L Red Cell Distribution Width 16.5 H White Blood Count 21.3 H Medications Medications Current Medications Docusate Sodium (Colace) 100 mg Q12H PRN PO CONSTIPATION; Start 01/30/17 at 11: 00 Magnesium Hydroxide (Milk Of Mag) 30 ml DAILY PRN PO CONSTIPATION; Start at 11:00 Pantoprazole (Protonix Tab) 40 mg DAILY@06 PO Last administered on 01/31/17 05 :29; Admin Dose 40 MG; Start 01/31/17 at 06:00 Acetaminophen (Tylenol Tab) 650 mg Q6H PRN PO PAIN AND OR ELEVATED TEMP Last administered on 01/31/17 05:17; Admin Dose 650 MG; Start 01/30/17 at 21:30 Acetaminophen/ Hydrocodone Bitart 1 tab 1 tab Q6H PRN PO PAIN; Start 01/30/17 at 21:30 Piperacillin Sod/ Tazobactam Sod 100 ml @ 200 mls/hr Q6 IVPB Last administered on 01/31/17t 14:53; Admin Dose 200 MLS/HR; Start 01/30/17 at 23:00 Vancomycin HCl/ Sodium Chloride (Vancocin/NS) 250 ml @ 83.333 mls/ hr Q12H IVPB ; Start 01/31/17 at 18:00 Miscellaneous Information (*Rx Drug Level Order Reminder*) 1 ONCE ONCE XX ; Start 02/01/17 at 05:00; Stop 02/01/17 at 05:01 Metoprolol Tartrate 25 mg 25 mg BID PO ; Start 01/31/17 at 21:00 Amiodarone HCl 100 ml @ 600 mls/hr ONCE ONCE IV ; Start 01/31/17 at 17:30; Stop 01/31/17 at 17:39; Status UNV Amiodarone HCl 900 mg/Dextrose 500 ml @ 0 mls/hr Q0M IV ; Start 01/31/17 at 17: 30; Status UNV Magnesium Sulfate (Magnesium Sulfate 2 Gm/50 ml) 50 ml @ 25 mls/hr ONCE ONCE IVPB ; Start 01/31/17 at 17:30; Stop 01/31/17 at 19:29; Status UNV Elias Deleon DO Jan 31, 2017 17:30
[2017-01-31] MEDS ORDERED: AMIODARONE 900 MG in DEXTROSE 5% 482 ML IV SCH (18:30)
[2017-01-31] MEDS: VANCOMYCIN 1.25 GM in SOD CHLORIDE 0.9% 250 ML IVPB SCH (19:50)
--- NOTE | 2017-01-31 21:20 | CONS ---
DATE OF ADMISSION: 01/30/2017 DATE OF CONSULTATION: TYPE OF CONSULTATION: Medical oncology. PHYSICIAN REQUESTING CONSULTATION: Dr. Diego Gagnon REASON FOR CONSULTATION: Hormone-resistant prostatic carcinoma. Dear Dr. Gagnon: Thank you very much for asking us to see this very interesting and pleasant patient in oncologic consultation. HISTORY OF PRESENT ILLNESS: As you know, Mr. Noel is a 66-year-old male who has a history of prostatic carcinoma. The patient diagnosis was made approximately 18 months ago. The patient was diagnosed after being found to have a rising PSA. The patient apparently was found to have prostatic nodule which was biopsied and found to be prostatic carcinoma. It was decided at that time, the patient would be treated only with hormonal therapy. The patient did receive Lupron (leuprolide) and bicalutamide for 1 year with an excellent response. The patient was taken off Lupron and continued on bicalutamide but has recently been noted to have a rising PSA. Leuprolide was reinstituted, but the PSA has continued to rise. At the same time, the patient has been experiencing increasing diffuse and migratory bone pain over the past 2 months. The patient also has become increasingly debilitated over the past 5 to 6 weeks. He is no longer able to ambulate. According to a petal shaper hand, he has lost approximately 20 pounds in the past 2 months, but this may be attributed to a change in diet. The patient has had the bicalutamide discontinued and was to see Dr. Brynn Herron in outpatient oncologic consultation tomorrow. The patient, however, was admitted to [facility] on morning of 01/30/2017 after having a fall at home and being unable to get up. On admission, the patient had a white count of 23,500 with an absolute neutrophil count of 20,100, hemoglobin 11.3, hematocrit 35.5 and platelet count was 345,000. Also on admission, the patient's chemistry panel revealed a BUN of 34, creatinine 1.74. AST was 183. Alkaline phosphatase was 417, albumin 3.8, globulin 4.2. Lactic acid was 7.8. Today, the sodium is 130, creatinine is now 0.92, BUN 21, white count 22,900, hemoglobin 8.7, hematocrit 38.0, and platelet count is 266,000. Other studies have included a bilateral lower extremity venous Doppler study which did not show any evidence of deep vein thrombosis. A brain scan did not show any acute intracranial process. An MRI of the lumbosacral spine done without contrast does show some changes in marrow suggesting the possibility of osseous metastases. There are also scattered prominent retroperitoneal lymph nodes seen. The patient has had positive blood cultures. There is a gram-positive in clusters in 1 out of 2 bottles suggesting a Staphylococcus species. There is also gram-positive elizabeth seen in 1 bottle. PAST MEDICAL HISTORY: Significant in that he does have a history of a congenital bicuspid aortic valve, which was replaced with a [employer] Angel Luis valve in 1989. He has since been on chronic anticoagulation with warfarin. 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 The patient has a history of hypertension, as well as obesity. MEDICATIONS AT THE TIME OF ADMISSION: Included: 1. Bicalutamide 50 mg daily. 2. Triamterene with hydrochlorothiazide 1 tablet daily. 3. Warfarin 7.5 mg alternating with 5 mg. 4. Simvastatin 40 mg per day. ALLERGIES: HE HAS NO KNOWN ALLERGIES. FAMILY HISTORY: Includes the fact that his father did have prostatic carcinoma. SOCIAL HISTORY: The patient is . He has never been a smoker or user of tobacco products. He does drink 1 glass of wine per day. PHYSICAL EXAMINATION GENERAL: Reveals a well-developed, obese male who is in no acute distress. VITAL SIGNS: Temperature 98.5, pulse 120 per minute and regular, respirations 28 per minute. Blood pressure is 106/58, pulse oximetry 100% nasal cannula by 2 liters. SKIN: Pale but no ecchymosis, no petechiae or rashes. HEENT: Normocephalic. No evidence of trauma. Pupils equal, round, reactive to light and accommodation. Sclerae nonicteric. Oral mucosa is moist without lesions. Tongue is well papillated. There is nasal oxygen in place. NECK: Supple, no jugular venous distention or thyroid enlargement. CHEST: Decreased breath sounds in both bases. There is a sternotomy scar. There is also a sinus tachycardia. There is a sound of the clicking of the prosthetic aortic valve. ABDOMEN: Obese without masses or ascites. Bowel sounds are active. EXTREMITIES: Trace bilateral pretibial pitting edema. There are no palpable cords or Homans sign. NEUROLOGIC: Normal except for some right-sided weakness. DISCUSSION: This patient has a history of prostatic carcinoma. He did have x- rays of the pelvis and left hip in November of this year as an outpatient when he was complaining of pain in these areas. These x-rays apparently did not show evidence of metastases or pathologic fractures. I do feel, however, that the patient's migratory bone pain is likely on the basis of metastatic prostate carcinoma. This is further suggested by the alkaline phosphatase level of 417 on admission. Also, the patient is said to have had rising PSA in spite of hormonal therapy. It is likely that the patient has now become hormonal resistant. If osseous metastases are actually demonstrated and these are felt to be the etiology for the bone pain, then a change in therapy will be indicated. This could include enzalutamide or similar agents such as abiraterone. Other options would include chemotherapy with docetaxel. I have had a long discussion with the patient's family including ex-, son, daughter as well the patient describing the above concerns. Would suggest a bone scan when the patient is physically able. Also, would consider acute rehabilitation evaluation. Dictated By: PIPPA MONTGOMERY MD, SR/MALICK Conf#: [id number] DID#: [id number] MTDD
--- NOTE | 2017-01-31 21:58 | RADRPT ---
PROCEDURE: Complete abdominal and retroperitoneum ultrasound. CLINICAL INDICATION: Abdominal pain TECHNIQUE: Miguel scale and color doppler ultrasound images of the abdomen and retroperitoneum. COMPARISON: None FINDINGS: Pancreas: Poorly visualized due to overlying bowel gas. Liver: Morphology: The right lobe of the liver is elongated measuring up to 26.4 cm which may reflect Christen del's lobe configuration. Echogenicity: Mildly increased echogenicity of the liver suggestive of hepatic steatosis. Focal lesions: None. Main portal vein: Patent with hepatopetal flow. Biliary System: Degraded visualization of the gallbladder wall. Gallbladder is completely filled with gallstones. No intrahepatic biliary dilatation. Common bile duct diameter: 3.6 mm Kidneys: Right length: 12.6 cm. Right renal cortical thickness is preserved. Left length: 11.6 cm. Left renal cortical thickness is preserved. Normal echogenicity. No hydronephrosis. No renal calculi. No focal renal lesions. Spleen: Slightly enlarged measuring 13.9 cm. No free fluid identified. Normal caliber of the partially visualized aorta. IMPRESSION: Gallbladder is completely filled with gallstones. Shadowing from gallstones degrades evaluation gallbladder wall thickness. Gallbladder wall thickeni ng cannot be completely excluded. If clinical concern for cholecystitis suggest HIDA scan for furth er evaluation. No intrahepatic or extrahepatic biliary dilatation. . Enlarged liver and spleen. Mildly increased echogenicity of the liver suggestive of hepatic steatosis. RPTAT: AADD .Agustin Lynch MD, MD Date Time Electronically viewed and signed by .Agustin Lynch MD, MD on 01/31/2017 21:57 .B/
[2017-01-31] MEDS: METOPROLOL 25 MG TAB PO SCH (23:04)
[2017-02-01] VITALS (30 sets, daily range): BP systolic 88–120; BP diastolic 49–80; PULSE 90–118; RESP 24–43
[2017-02-01 06:16] LABS: INR 4.4; PROTIME 42.8 Sec (12.2-14.2); PT RATIO 3.3
[2017-02-01 06:25] LABS: POTASSIUM 3.7 mmol/L (3.5-5.1)
[2017-02-01] MEDS: PIPER-TAZO 3.375 GM IV (PMX) 100 ML IVPB SCH ×4 (06:25→17:38)
[2017-02-01 06:27] LABS: CREATININE 0.91 mg/dl (0.61-1.24)
[2017-02-01 06:28] LABS: CALCIUM 8.4 mg/dl (8.4-10.2)
[2017-02-01] MEDS: PANTOPRAZOLE (EC) 40 MG TAB PO SCH (06:28)
[2017-02-01] MEDS: VANCOMYCIN 1.25 GM in SOD CHLORIDE 0.9% 250 ML IVPB SCH ×2 (07:03→18:22)
--- NOTE | 2017-02-01 07:57 | CONS ---
DATE OF ADMISSION: 01/30/2017 DATE OF CONSULTATION: 01/31/2017 INFECTIOUS DISEASE CONSULTATION REASON FOR CONSULTATION: Antibiotic management. HISTORY OF PRESENT ILLNESS: Fahad Noel is a 66-year-old male patient of Dr. Gagnon who fell at home on the , was brought to the emergency room was found to be hypotensive with an elevated whi te count and was admitted. His past problems include: 1. Hypertension. 2. Obesity. 3. Aortic valve replacement with a [employer]. Angel Luis valve in 1989. 4. Chronic anticoagulation. 5. Mild anemia. 6. Mild renal insufficiency. 7. Prostate cancer, on hormone deprivation. 8. Prior CVA. 9. Ataxia. 10. Aortic aneurysm. 11. Umbilical hernia repair. 12. Status post tonsillectomy and adenoidectomy. PAST MEDICAL HISTORY: Operations as outlined. FAMILY HISTORY: Noncontributory. SOCIAL HISTORY: He does not smoke, drink or abuse drugs. ALLERGIES: NONE TO PENICILLIN, SULFA OR FOODS. MEDICATIONS: Per chart. REVIEW OF SYSTEMS: Noncontributory. PHYSICAL EXAMINATION: GENERAL: The patient is a well-developed, well-nourished male who is awake, responsive, in no acute distress. VITAL SIGNS: Stable. He is afebrile. SKIN: Without generalized rash. HEENT: Within normal limits. NECK: Supple. LYMPH NODES: None palpable. CHEST: Decreased breath sounds at the bases. HEART: Without murmur or gallop. He has crisp valve sounds. ABDOMEN: Soft, nontender, without organosplenomegaly or masses. EXTREMITIES: Without cyanosis or clubbing. He has 1+ pitting edema. RECTAL AND GENITAL: Deferred. NEUROLOGIC: No focal neurological abnormalities. ANCILLARY LABORATORY DATA: White count 23.5 on admission, H and H 11.3 and 35.5, platelet count 345 ,000. BUN and creatinine 34/1.74, glucose 168. IMPRESSION AND PLAN: The patient comes in with hypotension, renal insufficiency, altered mental sta tus, and numerous other problems. He was started on vancomycin and Zosyn. Blood cultures were posit shaan for staph species and Clostridium perfringens, actually both drawn 15 minutes apart, so these re sults are probably accurate. Urine culture is negative. Influenza A and B are negative. Urine cul ture is negative. HOSPITAL COURSE Doppler study was negative. Chest x-ray shows cardiomegaly with compressive atelect asis in the bases of the lung, status post median sternotomy, atherosclerotic vascular disease with ectasia of the left side of the aorta. A lumbar spine MRI was done which showed no acute compressio n fracture or high grade lumbar spinal canal stenosis. Heterogeneous T1 hypointense marrow signal i dentified. Given the provided history, osseous metastasis cannot be excluded. Recommend follow up with nuclear medicine bone scan and CT as warranted. The patient had an abdominal ultrasound, gallb ladder completely filled with gallstones, shadowing from gallstones to grades evaluation of the gall bladder wall thickening. His clinical concern for cholecystitis suggests HIDA scan, enlarged liver and spleen, mild increased echogenicity of the liver suggesting a hepatic steatosis. A chest x-ray today slightly worse appearance of the lungs with some mild pulmonary edema. The patient was also s een in consultation by Dr. Godwin Solis, hematology/oncology, who noted he had a history of prost atic carcinoma. He had x-rays of the pelvis and left hip in November, which did not show pathologica l fractures. He does think that the migratory bone pain is secondary to metastatic prostate carcino ma. He has and alkaline phosphatase of 417 and is said to have a rising PSA. He may be hormone res istant at this point and may need a change in therapy. He suggested that a bone scan be done. Give n his blood culture positivity, it is unclear exactly where the source of infection is, it could cer tainly be his gallbladder. Currently he is covered well with vancomycin and Zosyn. I will dictate my findings to Dr. Gagnon and to Dr. Solis. Dictated By: LIVE GOLDMAN MD, JD/MALICK Conf#: [id number] DID#: [id number]
--- NOTE | 2017-02-01 08:11 | RADRPT ---
PROCEDURE: XR Chest. CLINICAL INDICATION: Sepsis, CHF TECHNIQUE: An AP view of the chest was obtained. COMPARISON: Chest x-ray dated 01/31/2017 FINDINGS: Lung volumes are low. There is prominence of the interstitial markings with small bilateral pleura l effusions. No focal airspace opacification or pneumothorax is seen. The cardiomediastinal silho uette is mildly enlarged . Calcifications are seen within the aortic arch. There are post cardiac s urgery changes with sternotomy wires. The osseous structures demonstrate senescent changes. IMPRESSION: 1. Low lung volumes with findings suggesting interstitial edema and small bilateral pleural effusio ns. Lung aeration is mildly improved when compared to the prior examination. 2. Mild cardiomegaly and aortic atherosclerosis. RPTAT: HH .Nathaly Singh MD, MD Date Time Electronically viewed and signed by .Nathaly Singh MD, on 02/01/2017 08:11 .G/
[2017-02-01 08:21] LABS: THYROID STIMULATING HORMONE 0.648 MIU/L (0.465-4.680)
--- NOTE | 2017-02-01 08:30 | PN ---
Date/Time of Note Date/Time of Note DATE: 02/01/17 TIME: 08:26 Assessment/Plan VTE Prophylaxis VTE Prophylaxis Intervention: other VTE Contraindication Reason: bleeding Lines/Catheters IV Catheter Type (from Nrs): Saline Lock Urinary Cath still in place: No Assessment/Plan Chief Complaint/Hosp Course see above Problems: Subjective 24 Hr Interval Summary Free Text/Dictation seen in ICU. positive blood C&S for clostridium perfrengens and seen by ID DR Blevins and Oncology. heart rate 117 and feels less dyspneic. Echocardiogram shows 55 EF diastolic dysfunction and intact AVR function. Abd ultrasound shows GB stones. Blood C&S from 01/31/17 negative Exam : alert VS stable pulse 117 bpm sinus rhythm Chest decreased sounds Cor no rub abd soft Ext 1+ pitting edema Assessment: CHF clost perfrengens bacteremia; GB stones Plan: antibiotics rate control Exam/Review of Systems Vital Signs Vitals Vital Signs Date Time Temp Pulse Resp B/P Pulse Ox O2 Delivery O2 Flow Rate FiO2 02/01/17 06:30 110 38 98/70 96 02/01/17 06:00 Nasal Cannula 01/31/17 20:44 2.0 01/31/17 20:00 97.6 Intake and Output 01/31/17 01/31/17 02/01/17 15:00 23:00 07:00 Intake Total 395 ml 867.333 ml 1133.36 ml Output Total 1370 ml 440 ml 930 ml Balance -975 ml 427.333 ml 203.36 ml Results Result Diagram: 01/31/17 1525 02/01/17 0525 Results 24 hrs Laboratory Tests Test 01/31/17 14:16 01/31/17 15:25 01/31/17 19:22 02/01/17 05:25 Alanine Aminotransferase (ALT/SGPT) 36 Albumin 3.0 L Albumin/Globulin Ratio 0.81 Alkaline Phosphatase 544 H Anion Gap 19 H 16 Aspartate Amino Transf (AST/SGOT) 181 H Blood Urea Nitrogen 20 21 H Calcium Level 8.6 8.4 Carbon Dioxide Level 22 25 Chloride Level 97 95 L Creatinine 0.84 0.91 Direct Bilirubin 0.00 Globulin 3.70 H Glucose Level 132 122 INR International Normalized Ratio 6.04 *H 4.40 Indirect Bilirubin 1.0 Magnesium Level 1.9 2.0 Potassium Level 4.1 3.7 Prothrombin Time 55.0 H 42.8 #H Prothrombin Time Ratio 4.3 3.3 Sodium Level 134 L 132 L Total Bilirubin 1.0 Total Protein 6.7 # Hematocrit 31.2 L Hemoglobin 9.7 L Hypochromasia 1+ Lymphocytes # 1.9 Lymphocytes % 9.0 L Mean Corpuscular Hemoglobin 27.3 L Mean Corpuscular Hemoglobin Concent 31.1 L Mean Corpuscular Volume 87.9 Mean Platelet Volume 11.7 H Neutrophils # 19.4 H Neutrophils % 91.0 H Platelet Count 261 Platelet Estimate PLT APPEAR ADEQUATE Red Blood Count 3.55 L Red Cell Distribution Width 16.5 H White Blood Count 21.3 H Lactic Acid Level 2.3 H 1.6 Thyroid Stimulating Hormone (TSH) 0.648 Vancomycin Level Trough 15.1 Medications Medications Current Medications Docusate Sodium (Colace) 100 mg Q12H PRN PO CONSTIPATION; Start 01/30/17 at 11: 00 Magnesium Hydroxide (Milk Of Mag) 30 ml DAILY PRN PO CONSTIPATION; Start at 11:00 Pantoprazole (Protonix Tab) 40 mg DAILY@06 PO Last administered on 02/01/17 06 :28; Admin Dose 40 MG; Start 01/31/17 at 06:00 Acetaminophen (Tylenol Tab) 650 mg Q6H PRN PO PAIN AND OR ELEVATED TEMP Last administered on 01/31/17 05:17; Admin Dose 650 MG; Start 01/30/17 at 21:30 Acetaminophen/ Hydrocodone Bitart 1 tab 1 tab Q6H PRN PO PAIN; Start 01/30/17 at 21:30 Piperacillin Sod/ Tazobactam Sod 100 ml @ 200 mls/hr Q6 IVPB Last administered on 02/01/17 06:25; Admin Dose 200 MLS/HR; Start 01/30/17 at 23:00 Vancomycin HCl/ Sodium Chloride (Vancocin/NS) 250 ml @ 83.333 mls/ hr Q12H IVPB Last administered on 02/01/17 07:03; Admin Dose 83.333 MLS/HR; Start at 18:00 Metoprolol Tartrate 25 mg 25 mg BID PO Last administered on 01/31/17 23:04; Admin Dose 25 MG; Start 01/31/17 at 21:00 Amiodarone HCl/ Dextrose (Cordarone Iv/ D5W) 500 ml @ 0 mls/hr Q0M IV Last administered on 01/31/17t 18:00; Admin Dose 33.4 MLS/HR; Start 01/31/17 at 18:30 BETTY CUMMINGS MD Feb 01, 2017 08:30
[2017-02-01] MEDS: METOPROLOL 25 MG TAB PO SCH ×2 (12:14→21:59)
[2017-02-01] MEDS: MAGNESIUM HYDROXIDE 30ML CUP PO PRN (12:19)
--- NOTE | 2017-02-01 13:21 | PN ---
Date/Time of Note Date/Time of Note DATE: 02/01/17 TIME: 13:17 Assessment/Plan VTE Prophylaxis VTE Prophylaxis Intervention: other (per primary) Lines/Catheters [facility] Saline Lock Urinary Cath still in place: No Assessment/Plan Assessment/Plan Pt is stable presently. He will need a bone scan to see if he should continue Lupron and Casodex or change to another program. Please also note that the current hormonal program is not immunosuppressive and would not be an explanation for infection. Bone scan will be ordered once he is stable and able to leave ICU. Subjective 24 Hr Interval Summary Free Text/Dictation Pt is alert and oriented. He says that he is feeling better and is not having pain now. Exam/Review of Systems Vital Signs Vitals Vital Signs Date Time Temp Pulse Resp B/P Pulse Ox O2 Delivery O2 Flow Rate FiO2 02/01/17 08:00 115 02/01/17 06:30 38 98/70 96 02/01/17 06:00 Nasal Cannula 01/31/17 20:44 2.0 01/31/17 20:00 97.6 Intake and Output 01/31/17 01/31/17 02/01/17 15:00 23:00 07:00 Intake Total 395 ml 867.333 ml 1133.36 ml Output Total 1370 ml 440 ml 930 ml Balance -975 ml 427.333 ml 203.36 ml Exam Constitutional: alert, oriented Head: normocephalic Eyes: nl conjunctiva ENMT: nl external ears & nose Neck: non-tender, supple Respiratory: clear to auscultation Cardiovascular: regular rate and rhythm Gastrointestinal: non-tender, soft Results Result Diagram: 01/31/17 1525 02/01/17 0525 Results 24 hrs Laboratory Tests Test 01/31/17 14:16 01/31/17 15:25 01/31/17 19:22 02/01/17 05:25 Alanine Aminotransferase (ALT/SGPT) 36 Albumin 3.0 L Albumin/Globulin Ratio 0.81 Alkaline Phosphatase 544 H Anion Gap 19 H 16 Aspartate Amino Transf (AST/SGOT) 181 H Blood Urea Nitrogen 20 21 H Calcium Level 8.6 8.4 Carbon Dioxide Level 22 25 Chloride Level 97 95 L Creatinine 0.84 0.91 Direct Bilirubin 0.00 Globulin 3.70 H Glucose Level 132 122 INR International Normalized Ratio 6.04 *H 4.40 Indirect Bilirubin 1.0 Magnesium Level 1.9 2.0 Potassium Level 4.1 3.7 Prothrombin Time 55.0 H 42.8 #H Prothrombin Time Ratio 4.3 3.3 Sodium Level 134 L 132 L Total Bilirubin 1.0 Total Protein 6.7 # Hematocrit 31.2 L Hemoglobin 9.7 L Hypochromasia 1+ Lymphocytes # 1.9 Lymphocytes % 9.0 L Mean Corpuscular Hemoglobin 27.3 L Mean Corpuscular Hemoglobin Concent 31.1 L Mean Corpuscular Volume 87.9 Mean Platelet Volume 11.7 H Neutrophils # 19.4 H Neutrophils % 91.0 H Platelet Count 261 Platelet Estimate PLT APPEAR ADEQUATE Red Blood Count 3.55 L Red Cell Distribution Width 16.5 H White Blood Count 21.3 H Lactic Acid Level 2.3 H 1.6 Thyroid Stimulating Hormone (TSH) 0.648 Vancomycin Level Trough 15.1 Medications Medications Current Medications Docusate Sodium (Colace) 100 mg Q12H PRN PO CONSTIPATION; Start 01/30/17 at 11: 00 Magnesium Hydroxide (Milk Of Mag) 30 ml DAILY PRN PO CONSTIPATION Last administered on 02/01/17 12:19; Admin Dose 30 ML; Start 01/30/17 at 11:00 Pantoprazole (Protonix Tab) 40 mg DAILY@06 PO Last administered on 02/01/17 06 :28; Admin Dose 40 MG; Start 01/31/17 at 06:00 Acetaminophen (Tylenol Tab) 650 mg Q6H PRN PO PAIN AND OR ELEVATED TEMP Last administered on 01/31/17 05:17; Admin Dose 650 MG; Start 01/30/17 at 21:30 Acetaminophen/ Hydrocodone Bitart 1 tab 1 tab Q6H PRN PO PAIN; Start 01/30/17 at 21:30 Piperacillin Sod/ Tazobactam Sod 100 ml @ 200 mls/hr Q6 IVPB Last administered on 02/01/17 12:13; Admin Dose 200 MLS/HR; Start 01/30/17 at 23:00 Vancomycin HCl/ Sodium Chloride (Vancocin/NS) 250 ml @ 83.333 mls/ hr Q12H IVPB Last administered on 02/01/17 07:03; Admin Dose 83.333 MLS/HR; Start at 18:00 Metoprolol Tartrate 25 mg 25 mg BID PO Last administered on 02/01/17 12:14; Admin Dose 25 MG; Start 01/31/17 at 21:00 Amiodarone HCl/ Dextrose (Cordarone Iv/ D5W) 500 ml @ 0 mls/hr Q0M IV Last administered on 01/31/17 18:00; Admin Dose 33.4 MLS/HR; Start 01/31/17 at 18:30 Furosemide (Lasix) 40 mg ONCE ONCE IV Last administered on 02/01/17 13:14; Admin Dose 40 MG; Start 02/01/17 at 13:30; Stop 02/01/17 at 13:31 FELICITAS THURMAN MD Feb 01, 2017 13:21
[2017-02-01] MEDS ORDERED: FUROSEMIDE 40 MG INJ IV ONE (13:30)
[2017-02-01] MEDS ORDERED: POTASSIUM CHLORIDE (SR) 20 MEQ TAB PO STA (14:39)
--- NOTE | 2017-02-01 14:46 | CONS ---
Date/Time of Note Date/Time of Note DATE: 02/01/17 TIME: 14:41 Assessment/Plan Assessment/Plan Additional Assessment/Plan Sepsis with bacteremia Acute decompensated diastolic congestive heart failure, improving History of mechanical aortic valve replacement Preserved ejection fraction Prostate cancer -Patient lung examination improved. Would start standing IV diuretics to assist with diuresis as blood pressure and renal function permits. Abdominal ultrasound with evidence of gallstones, unclear if acute cholecystitis. Patient undergoing infectious disease workup. Limited transthoracic echocardiogram performed today with lower heart rates to better visualize aortic valve. No clear vegetation seen but there is shadowing secondary to prosthetic valve. If respiratory status improves, would plan to proceed with trans-esophageal echocardiogram. Antibiotics as per infectious disease colleagues. Maintain potassium above 4.0 and magnesium above 2.0. Plan of care discussed with patient and daughter at bedside. Consultation Date/Type/Reason Admit Date/Time Jan 30, 2017 at 07:00 Type of Consultation: cv 24 HR Interval Summary Free Text/Dictation Patient with improved shortness of breath. Denies abdominal pain, chest pain Exam/Review of Systems Vital Signs Vitals Vital Signs Date Time Temp Pulse Resp B/P Pulse Ox O2 Delivery O2 Flow Rate FiO2 02/01/17 12:00 116 02/01/17 06:30 38 98/70 96 02/01/17 06:00 Nasal Cannula 01/31/17 20:44 2.0 01/31/17 20:00 97.6 Intake and Output 01/31/17 01/31/17 02/01/17 15:00 23:00 07:00 Intake Total 395 ml 867.333 ml 1133.36 ml Output Total 1370 ml 440 ml 930 ml Balance -975 ml 427.333 ml 203.36 ml Exam No apparent distress Constitutional: alert, obese, oriented Head: normocephalic Neck: supple Respiratory: other (Coarse breath sounds bilaterally with mild scattered crackles, no wheezing) Cardiovascular: other (S1-S2 heard), regular rate and rhythm, systolic murmur Gastrointestinal: bowel sounds, non-tender, other (No guarding), soft Extremities: edema, other (No cyanosis) Results Result Diagram: 01/31/17 1525 02/01/17 0525 Results 24 hrs Laboratory Tests Test 01/31/17 15:25 01/31/17 19:22 02/01/17 05:25 Hematocrit 31.2 L Hemoglobin 9.7 L Hypochromasia 1+ Lymphocytes # 1.9 Lymphocytes % 9.0 L Mean Corpuscular Hemoglobin 27.3 L Mean Corpuscular Hemoglobin Concent 31.1 L Mean Corpuscular Volume 87.9 Mean Platelet Volume 11.7 H Neutrophils # 19.4 H Neutrophils % 91.0 H Platelet Count 261 Platelet Estimate PLT APPEAR ADEQUATE Red Blood Count 3.55 L Red Cell Distribution Width 16.5 H White Blood Count 21.3 H Lactic Acid Level 2.3 H 1.6 Anion Gap 16 Blood Urea Nitrogen 21 H Calcium Level 8.4 Carbon Dioxide Level 25 Chloride Level 95 L Creatinine 0.91 Glucose Level 122 INR International Normalized Ratio 4.40 Magnesium Level 2.0 Potassium Level 3.7 Prothrombin Time 42.8 #H Prothrombin Time Ratio 3.3 Sodium Level 132 L Thyroid Stimulating Hormone (TSH) 0.648 Vancomycin Level Trough 15.1 Medications Medications Current Medications Docusate Sodium (Colace) 100 mg Q12H PRN PO CONSTIPATION; Start 01/30/17 at 11: 00 Magnesium Hydroxide (Milk Of Mag) 30 ml DAILY PRN PO CONSTIPATION Last administered on 02/01/17 12:19; Admin Dose 30 ML; Start 01/30/17 at 11:00 Pantoprazole (Protonix Tab) 40 mg DAILY@06 PO Last administered on 02/01/17 06 :28; Admin Dose 40 MG; Start 01/31/17 at 06:00 Acetaminophen (Tylenol Tab) 650 mg Q6H PRN PO PAIN AND OR ELEVATED TEMP Last administered on 01/31/17 05:17; Admin Dose 650 MG; Start 01/30/17 at 21:30 Acetaminophen/ Hydrocodone Bitart 1 tab 1 tab Q6H PRN PO PAIN; Start 01/30/17 at 21:30 Piperacillin Sod/ Tazobactam Sod 100 ml @ 200 mls/hr Q6 IVPB Last administered on 02/01/17 12:13; Admin Dose 200 MLS/HR; Start 01/30/17 at 23:00 Vancomycin HCl/ Sodium Chloride (Vancocin/NS) 250 ml @ 83.333 mls/ hr Q12H IVPB Last administered on 02/01/17 07:03; Admin Dose 83.333 MLS/HR; Start at 18:00 Metoprolol Tartrate 25 mg 25 mg BID PO Last administered on 02/01/17 12:14; Admin Dose 25 MG; Start 01/31/17 at 21:00 Amiodarone HCl/ Dextrose (Cordarone Iv/ D5W) 500 ml @ 0 mls/hr Q0M IV Last administered on 01/31/17 18:00; Admin Dose 33.4 MLS/HR; Start 01/31/17 at 18:30 Elias Deleon DO Feb 01, 2017 14:45
[2017-02-01] MEDS ORDERED: MAGNESIUM SULFATE 3 GM in SOD CHLORIDE 0.9% 100 ML IVPB ONE (16:30)
--- NOTE | 2017-02-01 16:59 | RADRPT ---
Vent Rate: 110 bpm RR Interval: [address] Interval: 184 msec QRS Duration: 100 msec QT Interval: 328 msec QTC Interval: 443 msec P-R-T [place]: 19 - -3 - 84 degrees Sinus tachycardia Left ventricular hypertrophy with repolarization abnormality Abnormal ECG Electronically Signed By: Ryan Kearney [id number]
[2017-02-01] MEDS ORDERED: FUROSEMIDE 20 MG INJ IV SCH (18:00)
[2017-02-01] MEDS ORDERED: MAGNESIUM SULFATE 1 GM/D5W 100 ML IVPB ONE (19:00)
[2017-02-01] MEDS ORDERED: POTASSIUM CHLORIDE (SR) 20 MEQ TAB PO ONE (22:00)
[2017-02-01] MEDS: ACETAMINOPHEN 325 MG TAB PO PRN (22:02)
[2017-02-02] VITALS (30 sets, daily range): BP systolic 95–136; BP diastolic 60–103; PULSE 84–112; RESP 20–41
[2017-02-02] MEDS: PIPER-TAZO 3.375 GM IV (PMX) 100 ML IVPB SCH ×5 (00:39→23:44)
[2017-02-02] MEDS: PANTOPRAZOLE (EC) 40 MG TAB PO SCH (05:45)
[2017-02-02] MEDS ORDERED: FUROSEMIDE 20 MG INJ IV SCH (06:00)
[2017-02-02] MEDS: VANCOMYCIN 1.25 GM in SOD CHLORIDE 0.9% 250 ML IVPB SCH ×2 (06:26→17:57)
--- NOTE | 2017-02-02 08:16 | RADRPT ---
Vent Rate: 139 bpm RR Interval: 0 msec CA Interval: 128 msec QRS Duration: 86 msec QT Interval: 326 msec QTC Interval: 496 msec P-R-T [place]: 0 - -24 - 76 degrees Sinus tachycardia with premature atrial complexes Left ventricular hypertrophy with repolarization abnormality Abnormal ECG Electronically Signed By: Ryan Kearney [id number]
--- NOTE | 2017-02-02 08:17 | RADRPT ---
Vent Rate: 141 bpm RR Interval: 0 msec AL Interval: 120 msec QRS Duration: 86 msec QT Interval: 284 msec QTC Interval: 434 msec P-R-T [place]: 34 - -1 - 83 degrees Sinus tachycardia with occasional premature ventricular complexes and fusion complexes Cannot rule out Anterior infarct , age undetermined Abnormal ECG Electronically Signed By: Ryan Kearney [id number]
--- NOTE | 2017-02-02 08:21 | PN ---
DATE: 02/02/2017 HEMATOLOGY/ONCOLOGY PROGRESS NOTE HISTORY OF PRESENT ILLNESS: Mr. Noel is doing well. He states he is feeling better. He is not ex periencing any pain at this time. The patient does complain of a productive cough. He states he is producing white sputum. There has been no hemoptysis. He is not experiencing any pleuritic chest pain. OBJECTIVE PHYSICAL EXAMINATION: VITAL SIGNS: Temperature 98.4, pulse 99 per minute and regular, respirations 30 per minute, blood p ressure 105/63 and pulse oximetry is 100% on 2 liters. SKIN: Pale. No ecchymosis, no petechiae or rashes. HEENT: No mucosal lesions. No scleral icterus. The mucosa is pale. There is nasal oxygen in plac e. NECK: Supple, no jugular venous distention or thyroid enlargement. CHEST: Decreased breath sounds in the bases. There are bilateral rhonchi which do not clear comple tely with cough. No rubs or wheezes. HEART: Sinus tachycardia. There is clicking sounds of the prosthetic aortic valve. ABDOMEN: Obese without masses or ascites. EXTREMITIES: Trace pretibial pitting edema. NEUROLOGIC: Right-sided weakness. The patient has had an ultrasound of the abdomen which does show evidence of hepatosplenomegaly. Th ere is also some degree of possible fatty infiltration of the liver. Although, there is a mention of splenomegaly, the spleen size is only 13.9 which is only slightly ab ove the upper limits of normal. Blood cultures are growing Clostridium perfringens as well as coagulase negative staph. ASSESSMENT: 1. Septicemia. 2. Mild congestive heart failure. 3. Probable metastatic prostate carcinoma. PLAN: The patient is to have a transesophageal echocardiogram. I will repeat a CBC and a CMP today. The patient has had leukocytosis which is most likely due to i nfection. I feel it is unlikely this patient has a myeloproliferative disorder but if the leukocyto sis persists, will request a JAK2 mutation as well as BCR-ABL. This is especially pertinent given t he finding of mild splenomegaly. The patient is improving sufficiently that I feel a bone scan will be able to be done in the next 24 to 48 hours. Dictated By: PIPPA MONTGOMERY MD SR/NTS Conf#: [id number] DID#: [id number] CC: BETTY CUMMINGS MD;*End*
[2017-02-02 08:24] LABS: ADD SCAN DIFF NO
[2017-02-02 08:27] LABS: BASOPHILS % 0.1 % (0.0-2.0); EOSINOPHILS # 0.1 10^3/ul (0.0-0.5); EOSINOPHILS % 0.7 % (0.0-7.0); HEMATOCRIT 27.3 % (42.0-52.0); HEMOGLOBIN 8.4 g/dl (14.0-18.0); LYMPHOCYTES # 1.2 10^3/ul (0.8-2.9); LYMPHOCYTES % 7.1 % (15.0-51.0); MEAN CORPUSCULAR HEMOGLOBIN 26.3 pg (29.0-33.0); MEAN CORPUSCULAR HGB CONC 30.8 g/dl (32.0-37.0); MEAN CORPUSCULAR VOLUME 85.6 fl (82.0-101.0); MEAN PLATELET VOLUME 11.3 fl (7.4-10.4); MONOCYTE # 0.8 10^3/ul (0.3-0.9); NEUTROPHIL # 13.8 10^3/ul (1.6-7.5); NEUTROPHILS % 82.3 % (39.0-77.0); NUCLEATED RED BLOOD CELLS # 0.1 10^3/ul (0.0-0.0); NUCLEATED RED BLOOD CELLS% 0.4 /100WBC (0.0-0.0); PLATELET COUNT 296 10^3/UL (140-415); RED BLOOD COUNT 3.19 10^6/ul (4.70-6.10); RED CELL DISTRIBUTION WIDTH 16.8 % (11.5-14.5); WHITE BLOOD COUNT 16.8 10^3/ul (4.8-10.8)
--- NOTE | 2017-02-02 08:35 | PN ---
Date/Time of Note Date/Time of Note DATE: 02/02/17 TIME: 08:33 Assessment/Plan VTE Prophylaxis VTE Prophylaxis Intervention: other VTE Contraindication Reason: bleeding Lines/Catheters IV Catheter Type (from Nrs): Saline Lock Urinary Cath still in place: No Assessment/Plan Chief Complaint/Hosp Course see above Problems: Subjective 24 Hr Interval Summary Free Text/Dictation seen in room with son. rate 110 bpm. color and breathing better. TTE today. cultures from 01/31/2017 negative so far meds re viewed. Exam: alert skin warm dry. Chest clear Cor drisp valve sounds Abd soft Ext 1 + pitting edema Plan: CXR; [id number] blood C&S. TTE Exam/Review of Systems Vital Signs Vitals Vital Signs Date Time Temp Pulse Resp B/P Pulse Ox O2 Delivery O2 Flow Rate FiO2 02/02/17 06:00 99 32 105/63 100 Nasal Cannula 2.0 02/02/17 04:00 98.4 Intake and Output 02/01/17 02/01/17 02/02/17 14:59 22:59 06:59 Intake Total 430 ml 400 ml 100 ml Output Total 1060 ml 100 ml 850 ml Balance -630 ml 300 ml -750 ml Results Result Diagram: 01/31/17 1525 02/01/17 0525 Medications Medications Current Medications Docusate Sodium (Colace) 100 mg Q12H PRN PO CONSTIPATION; Start 01/30/17 at 11: 00 Magnesium Hydroxide (Milk Of Mag) 30 ml DAILY PRN PO CONSTIPATION Last administered on 02/01/17 12:19; Admin Dose 30 ML; Start 01/30/17 at 11:00 Pantoprazole (Protonix Tab) 40 mg DAILY@06 PO Last administered on 02/01/17 06 :28; Admin Dose 40 MG; Start 01/31/17 at 06:00 Acetaminophen (Tylenol Tab) 650 mg Q6H PRN PO PAIN AND OR ELEVATED TEMP Last administered on 02/01/17 22:02; Admin Dose 650 MG; Start 01/30/17 at 21:30 Acetaminophen/ Hydrocodone Bitart 1 tab 1 tab Q6H PRN PO PAIN; Start 01/30/17 at 21:30 Piperacillin Sod/ Tazobactam Sod 100 ml @ 200 mls/hr Q6 IVPB Last administered on 02/02/17 05:44; Admin Dose 200 MLS/HR; Start 01/30/17 at 23:00 Vancomycin HCl/ Sodium Chloride (Vancocin/NS) 250 ml @ 83.333 mls/ hr Q12H IVPB Last administered on 02/02/17 06:26; Admin Dose 83.333 MLS/HR; Start at 18:00 Metoprolol Tartrate (Lopressor) 25 mg BID PO Last administered on 02/01/17 21: 59; Admin Dose 25 MG; Start 01/31/17 at 21:00 BETTY CUMMINGS MD Feb 02, 2017 08:35
[2017-02-02 08:40] LABS: ALBUMIN 2.9 g/dl (3.3-4.9)
[2017-02-02 08:41] LABS: POTASSIUM 4.1 mmol/L (3.5-5.1)
[2017-02-02 08:43] LABS: ALBUMIN/GLOBULIN RATIO 0.8; BILIRUBIN,INDIRECT 0.6 mg/dl (0-1.1); BILIRUBIN,TOTAL 0.6 mg/dl (0.2-1.3); CALCIUM 8.7 mg/dl (8.4-10.2); CREATININE 1.04 mg/dl (0.61-1.24); TOTAL PROTEIN 6.5 g/dl (6.1-8.1)
[2017-02-02] MEDS: METOPROLOL 25 MG TAB PO SCH ×2 (08:43→22:28)
[2017-02-02] MEDS ORDERED: MAGNESIUM HYDROXIDE 30ML CUP PO PRN (09:00)
--- NOTE | 2017-02-02 10:21 | RADRPT ---
PROCEDURE: XR Chest 1 view. CLINICAL INDICATION: Shortness of breath TECHNIQUE: AP views of the chest was obtained. COMPARISON: Yesterday FINDINGS: The heart is large. Calcified atherosclerosis is noted in the aorta. Median sternotomy wires overli e the heart. The lungs are hypoinflated. Small bilateral pleural effusions with associated basilar atelectasis/infiltrates are unchanged. The osseous structures are unchanged. IMPRESSION: Cardiomegaly with calcified atherosclerosis in the aorta. Hypoinflated lungs. Stable small bilateral pleural effusions with associated basilar atelectasis/infiltrates. RPTAT: AA .Luigi Acosta MD, Date Time Electronically viewed and signed by .Luigi Acosta MD, on 02/02/2017 10:21 .P/
[2017-02-02] MEDS ORDERED: PROPOFOL 20 ML ONE (15:12)
--- NOTE | 2017-02-02 15:41 | CONS ---
Date/Time of Note Date/Time of Note DATE: 02/02/17 TIME: 15:36 Assessment/Plan Assessment/Plan Additional Assessment/Plan Sepsis with bacteremia Acute decompensated diastolic congestive heart failure, improving History of mechanical aortic valve replacement Preserved ejection fraction Prostate cancer -Patient with improvement in respiratory status. Transesophageal echocardiogram performed today. No evidence of vegetation on visualized portions of mechanical aortic valve, or on paimiut mitral valve. Would pursue other etiologies of patient's sepsis. Would increase diuretic regimen to 40 mg IV twice daily as blood pressure and renal function permits. Continue beta- kamini as blood pressure permits. 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 Consultation Date/Type/Reason Admit Date/Time Jan 30, 2017 at 07:00 Type of Consultation: cv 24 HR Interval Summary Free Text/Dictation Shortness of breath is better today. Denies chest pain, palpitations, dizziness Exam/Review of Systems Vital Signs Vitals Vital Signs Date Time Temp Pulse Resp B/P Pulse Ox O2 Delivery O2 Flow Rate FiO2 02/02/17 12:00 91 02/02/17 12:00 97.5 37 121/72 97 Nasal Cannula 2.0 Intake and Output 02/01/17 02/01/17 02/02/17 15:00 23:00 07:00 Intake Total 430 ml 400 ml 283.33 ml Output Total 950 ml 100 ml 850 ml Balance -520 ml 300 ml -566.67 ml Exam No apparent distress Constitutional: alert, obese, oriented Head: normocephalic Neck: supple Respiratory: other (Coarse breath sounds bilaterally, decreased at the bases, mild scattered crackles, no wheezing) Cardiovascular: other (S1-S2 heard), regular rate and rhythm, systolic murmur Gastrointestinal: bowel sounds, non-tender, other (No guarding), soft Extremities: edema (Trace), other (No cyanosis) Results Result Diagram: 02/02/17 0818 02/02/17 0818 Results 24 hrs Laboratory Tests Test 02/02/17 08:18 White Blood Count 16.8 #H Red Blood Count 3.19 L Hemoglobin 8.4 L Hematocrit 27.3 L Mean Corpuscular Volume 85.6 Mean Corpuscular Hemoglobin 26.3 L Mean Corpuscular Hemoglobin Concent 30.8 L Red Cell Distribution Width 16.8 H Platelet Count 296 Mean Platelet Volume 11.3 H Neutrophils % 82.3 H Lymphocytes % 7.1 L Monocytes % 5.0 Eosinophils % 0.7 Basophils % 0.1 Nucleated Red Blood Cells % 0.4 H Neutrophils # 13.8 H Lymphocytes # 1.2 Monocytes # 0.8 Eosinophils # 0.1 Basophils # 0.0 Nucleated Red Blood Cells # 0.1 H Sodium Level 138 Potassium Level 4.1 Chloride Level 100 Carbon Dioxide Level 25 Anion Gap 17 H Blood Urea Nitrogen 23 H Creatinine 1.04 Glucose Level 105 Calcium Level 8.7 Total Bilirubin 0.6 Direct Bilirubin 0.00 Indirect Bilirubin 0.6 Aspartate Amino Transf (AST/SGOT) 128 H Alanine Aminotransferase (ALT/SGPT) 36 Alkaline Phosphatase 581 H Total Protein 6.5 Albumin 2.9 L Globulin 3.60 H Albumin/Globulin Ratio 0.80 Medications Medications Current Medications Docusate Sodium (Colace) 100 mg Q12H PRN PO CONSTIPATION; Start 01/30/17 at 11: 00 Magnesium Hydroxide (Milk Of Mag) 30 ml DAILY PRN PO CONSTIPATION Last administered on 02/01/17 12:19; Admin Dose 30 ML; Start 01/30/17 at 11:00 Pantoprazole (Protonix Tab) 40 mg DAILY@06 PO Last administered on 02/01/17 06 :28; Admin Dose 40 MG; Start 01/31/17 at 06:00 Acetaminophen (Tylenol Tab) 650 mg Q6H PRN PO PAIN AND OR ELEVATED TEMP Last administered on 02/01/17 22:02; Admin Dose 650 MG; Start 01/30/17 at 21:30 Acetaminophen/ Hydrocodone Bitart 1 tab 1 tab Q6H PRN PO PAIN; Start 01/30/17 at 21:30 Piperacillin Sod/ Tazobactam Sod 100 ml @ 200 mls/hr Q6 IVPB Last administered on 02/02/17 12:30; Admin Dose 200 MLS/HR; Start 01/30/17 at 23:00 Vancomycin HCl/ Sodium Chloride (Vancocin/NS) 250 ml @ 83.333 mls/ hr Q12H IVPB Last administered on 02/02/17 06:26; Admin Dose 83.333 MLS/HR; Start at 18:00 Metoprolol Tartrate (Lopressor) 25 mg BID PO Last administered on 02/02/17 08: 43; Admin Dose 25 MG; Start 01/31/17 at 21:00 Polyethylene Glycol (Miralax) 17 gm DAILY PO ; Start 02/02/17 at 09:00 Magnesium Hydroxide (Milk Of Mag) 30 ml ONCE PRN PO CONSTIPATION; Start at 09:00; Stop 02/04/17 at 08:59 Elias Deleon DO Feb 02, 2017 15:41
--- NOTE | 2017-02-02 17:28 | CARRPT ---
DATE OF PROCEDURE: 02/02/2017 PROCEDURE: Transesophageal echocardiogram. PATIENT HISTORY: The patient presents with sepsis with a mechanical aortic valve, to be evaluated for endocarditis. DESCRIPTION OF PROCEDURE: The patient was seen in the ICU. Anesthesia was available for anesthesia. As the patient was consented, the patient was anesthetized. The patient was intubated with RICHARD probe. Images were obtained and probed removed. There were no immediate complications. FINDINGS: 1. LV function is normal with ejection fraction of 55%. 2. Aortic valve is mechanical. There is shadowing seen. Visualized portions of the aortic valve do not demonstrate any vegetation. There is trace regurgitation. 3. Mitral valve appears thickened with mitral annular calcification. There is no clear vegetation seen. There is mild to moderate regurgitation seen. 4. Tricuspid valve is poorly visualized with mild regurgitation seen. 5. Right ventricle appears grossly normal with grossly normal systolic function. 6. Right atrial size appears within normal limits. The size appears mildly enlarged. 7. Visualized portions of the aorta, descending, evidence of mild diffuse atheroma. IMPRESSION: 1. Status post aortic valve mechanical valve. 2. Mitral and tricuspid valve regurgitation. 3. No clear evidence of valvular vegetations. COMPLICATIONS: None. BLOOD LOSS: None. RECOMMENDATIONS: As per primary team. Dictated By: ISABEL PATEL/MALICK Conf#: [id number] DID#: [id number] MTDD
--- NOTE | 2017-02-02 17:43 | PN ---
DATE: 02/02/2017 SUBJECTIVE: Infectious disease consultation. No acute changes overnight. The patient looks comfortable. He is sleeping. No fevers overnight per report. He had a RICHARD this morning and preliminary report negative. VITAL SIGNS: Temperature 97.5, pulse 100, respirations 20, blood pressure 95/ 81, saturation 98% on 2 liters. WBC 16.8, H and H 8.4 and 27.3, platelets 296, neutrophils 82.3. BUN 23, creatinine 1.04. MICROBIOLOGY: Blood culture on admission grew coag negative staph species and Clostridium perfringens. Urine culture had been negative. Influenza swab came back negative. Repeat blood culture as well negative. DIAGNOSTICS: Chest x-ray this morning revealed cardiomegaly, hypoinflated lungs. Stable bilateral pleural effusion with associated basilar atelectasis/ infiltrates. INDWELLINGS: Peripheral IV. ANTIMICROBIALS: The patient is on vancomycin and Zosyn. PHYSICAL EXAMINATION: GENERAL: This is an obese, well-developed elderly man who is in no distress. HEENT: Head atraumatic, normocephalic. Sclerae anicteric. Buccal mucosa dry. NECK: Supple, trachea midline. CHEST: Rise symmetrical. Breath sounds diminished to bases. HEART: S1, S2. ABDOMEN: Soft, bowel tones present. EXTREMITIES: Without cyanosis. ASSESSMENT: 1. Sepsis with GNR bacteremia on admission==> coag negative staph cw contaminant. Repeat blood cultures negative. 2. Gall stones. Questionable cholecystitis. 3. History of aortic valve replacement. 4. History of prostate cancer. 5. History of cerebrovascular accident. 6. Obesity. 7. Sta PLAN: The patient remains stable. White blood cell count tracing down. RICHARD negative. Repeat blood cultures negative. We will keep him on Zosyn and dc Vanco. Pending HIDA scan. DW Dr Blevins Dictated By: JAMES KAPLAN SPOOL CLEANER HAND for LIVE GRANDA/MALICK Conf#: [id number] DID#: [id number] MTDD
[2017-02-02] MEDS: FUROSEMIDE 40 MG INJ IV SCH (17:58)
[2017-02-02] MEDS: POLYETHYLENE GLYCOL 17 GM PACKET PO SCH (22:28)
--- NOTE | 2017-02-02 22:33 | RADRPT ---
PROCEDURE: Nuclear medicine HIDA scan CLINICAL INDICATION: Right upper quadrant pain. TECHNIQUE: 8.6 mCi of technetium-99m Choletec was administered intravenously. Planar imaging of t he hepatic biliary system was performed. Delayed images were obtained. Images were reviewed on the high resolution PACS workstation. COMPARISON: Abdominal ultrasound dated 01/31/2017. FINDINGS: There is normal homogeneous hepatic uptake. The bile ducts are visualized at 10 minutes. The common bile duct is not dilated. There is visualization of the small bowel at 10 minutes. There is no gallb ladder visualization for 60 minutes, after which the study was halted. IMPRESSION: 1. No gallbladder visualization for the length of the examination, compatible with cystic duct obst ruction. This could represent cholecystitis in the correct clinical setting. 2. Normal radiotracer excretion through the common bile duct into the small bowel. RPTAT: HTAR .Ari Hilario MD, Date Time Electronically viewed and signed by .Ari Hilario MD, on 02/02/2017 22:33 .R/
[2017-02-03] VITALS (24 sets, daily range): BP systolic 89–119; BP diastolic 58–77; PULSE 83–113; RESP 23–37
[2017-02-03] MEDS: PIPER-TAZO 3.375 GM IV (PMX) 100 ML IVPB SCH ×3 (05:25→19:12)
[2017-02-03] MEDS: PANTOPRAZOLE (EC) 40 MG TAB PO SCH (05:25)
[2017-02-03] MEDS: FUROSEMIDE 40 MG INJ IV SCH ×2 (05:26→19:12)
--- NOTE | 2017-02-03 08:28 | PN ---
Date/Time of Note Date/Time of Note DATE: 02/03/17 TIME: 08:26 Assessment/Plan VTE Prophylaxis VTE Prophylaxis Intervention: contraindicated VTE Contraindication Reason: bleeding Lines/Catheters IV Catheter Type (from Nrs): Saline Lock Urinary Cath still in place: No Assessment/Plan Chief Complaint/Hosp Course see above Problems: Subjective 24 Hr Interval Summary Free Text/Dictation alert. VS stable. CXR pleural effusions with clearing of CHF. HIDA scan shows cystic duct obstruction. PE: tired. seen in ICU VS stable sinus rhythm Chest clear Cor reg rhythm Abd soft Ext 1+ pitting edema Plan : surgery consult. transfer to tele when cleared by cardiology Exam/Review of Systems Vital Signs Vitals Vital Signs Date Time Temp Pulse Resp B/P Pulse Ox O2 Delivery O2 Flow Rate FiO2 02/03/17 08:00 97.7 97 29 109/58 94 Nasal Cannula 2.0 Intake and Output 02/02/17 02/02/17 02/03/17 14:59 22:59 06:59 Intake Total 470.00 ml 733.33 ml 700 ml Output Total 450 ml 850 ml 250 ml Balance 20.00 ml -116.67 ml 450 ml Results Result Diagram: 02/02/1718 02/02/17 0818 Results 24 hrs Laboratory Tests Test 02/03/17 05:18 Magnesium Level 2.1 Medications Medications Current Medications Docusate Sodium (Colace) 100 mg Q12H PRN PO CONSTIPATION; Start 01/30/17 at 11: 00 Magnesium Hydroxide (Milk Of Mag) 30 ml DAILY PRN PO CONSTIPATION Last administered on 02/01/17 12:19; Admin Dose 30 ML; Start 01/30/17 at 11:00 Pantoprazole (Protonix Tab) 40 mg DAILY@06 PO Last administered on 02/03/17 05 :25; Admin Dose 40 MG; Start 01/31/17 at 06:00 Acetaminophen (Tylenol Tab) 650 mg Q6H PRN PO PAIN AND OR ELEVATED TEMP Last administered on 02/01/17 22:02; Admin Dose 650 MG; Start 01/30/17 at 21:30 Acetaminophen/ Hydrocodone Bitart 1 tab 1 tab Q6H PRN PO PAIN; Start 01/30/17 at 21:30 Piperacillin Sod/ Tazobactam Sod (Zosyn 3.375gm/ 100 ml (Pmx)) 100 ml @ 200 mls /hr Q6 IVPB Last administered on 02/03/17 05:25; Admin Dose 200 MLS/HR; Start 01/30/17 at 23:00 Metoprolol Tartrate (Lopressor) 25 mg BID PO Last administered on 02/02/17 22: 28; Admin Dose 25 MG; Start 01/31/17 at 21:00 Polyethylene Glycol (Miralax) 17 gm DAILY PO ; Start 02/02/17 at 09:00 Magnesium Hydroxide (Milk Of Mag) 30 ml ONCE PRN PO CONSTIPATION; Start at 09:00; Stop 02/04/17 at 08:59 BETTY CUMMINGS MD Feb 03, 2017 08:28
[2017-02-03] MEDS: METOPROLOL 25 MG TAB PO SCH ×2 (09:00→20:57)
[2017-02-03] MEDS: POLYETHYLENE GLYCOL 17 GM PACKET PO SCH (09:00)
--- NOTE | 2017-02-03 11:22 | CONS ---
Date/Time of Note Date/Time of Note DATE: 02/03/17 TIME: 11:18 Assessment/Plan Assessment/Plan Additional Assessment/Plan Sepsis with bacteremia (no vegetation seen on RICHARD) Acute decompensated diastolic congestive heart failure, improving History of mechanical aortic valve replacement Preserved ejection fraction Prostate cancer -Patient with improvement in symptoms with increased dose of Lasix. Would continue as blood pressure and renal function permits. Would check chemistry panel today as well as INR level. Continue beta-kamini as blood pressure permits. Okay to transfer out of ICU from a cardiovascular standpoint. Consultation Date/Type/Reason Admit Date/Time Jan 30, 2017 at 07:00 Type of Consultation: cv 24 HR Interval Summary Free Text/Dictation Patient feeling better with less shortness of breath. Denies chest pain or dizziness Exam/Review of Systems Vital Signs Vitals Vital Signs Date Time Temp Pulse Resp B/P Pulse Ox O2 Delivery O2 Flow Rate FiO2 02/03/17 08:00 97.7 97 29 109/58 94 Nasal Cannula 2.0 Intake and Output 02/02/17 02/02/17 02/03/17 15:00 23:00 07:00 Intake Total 286.67 ml 733.33 ml 700 ml Output Total 450 ml 850 ml 250 ml Balance -163.33 ml -116.67 ml 450 ml Exam No apparent distress Constitutional: alert, obese, oriented Head: normocephalic Neck: supple Respiratory: other (Coarse breath sounds bilaterally, no wheezing) Cardiovascular: other (S1-S2 heard), regular rate and rhythm, systolic murmur Gastrointestinal: bowel sounds, non-tender, other (No guarding), soft Extremities: edema (Trace), other (No cyanosis) Results Result Diagram: 02/02/1781702/02/1718 Results 24 hrs Laboratory Tests Test 02/03/17 05:18 Magnesium Level 2.1 Medications Medications Current Medications Docusate Sodium (Colace) 100 mg Q12H PRN PO CONSTIPATION; Start 01/30/17 at 11: 00 Magnesium Hydroxide (Milk Of Mag) 30 ml DAILY PRN PO CONSTIPATION Last administered on 02/01/17 12:19; Admin Dose 30 ML; Start 01/30/17 at 11:00 Pantoprazole (Protonix Tab) 40 mg DAILY@06 PO Last administered on 02/03/17 05 :25; Admin Dose 40 MG; Start 01/31/17 at 06:00 Acetaminophen (Tylenol Tab) 650 mg Q6H PRN PO PAIN AND OR ELEVATED TEMP Last administered on 02/01/17 22:02; Admin Dose 650 MG; Start 01/30/17 at 21:30 Acetaminophen/ Hydrocodone Bitart 1 tab 1 tab Q6H PRN PO PAIN; Start 01/30/17 at 21:30 Piperacillin Sod/ Tazobactam Sod (Zosyn 3.375gm/ 100 ml (Pmx)) 100 ml @ 200 mls /hr Q6 IVPB Last administered on 02/03/17 05:25; Admin Dose 200 MLS/HR; Start 01/30/17 at 23:00 Metoprolol Tartrate (Lopressor) 25 mg BID PO Last administered on 02/02/17 22: 28; Admin Dose 25 MG; Start 01/31/17 at 21:00 Polyethylene Glycol (Miralax) 17 gm DAILY PO ; Start 02/02/17 at 09:00 Magnesium Hydroxide (Milk Of Mag) 30 ml ONCE PRN PO CONSTIPATION; Start at 09:00; Stop 02/04/17 at 08:59 Elias Deleon DO Feb 03, 2017 11:22
[2017-02-03] MEDS ORDERED: BARIUM SULF 2% 450 ML BTL (BERRY SMOOTHIE) PO ONE (11:30)
--- NOTE | 2017-02-03 12:12 | CONS ---
DATE OF ADMISSION: 01/30/2017 DATE OF CONSULTATION: GASTROENTEROLOGY CONSULTATION Dear Dr. Gagnon: Thank you for asking me to participate in the care of Fahad Noel. HISTORY OF PRESENT ILLNESS: The patient is a pleasant 66-year-old gentleman who presented, history is obtained from the patient's fall, from the patient. He has a history of multiple medical problem s including congestive heart failure. According to the patient, he had a fall. He was placed on IV antibiotics and the patient was noted to have positive blood cultures for Clostridium perfringens. He also had a HIDA scan. The patient was unable to complete a total HIDA scan because of back prob lems. The patient denies having any abdominal pain, weight loss, nausea, or vomiting. He has not b een having any fever or chills. REVIEW OF SYSTEMS: GENERAL: No fever, chills, weight loss, or night sweats. EYES: No eye pain, tearing, visual loss, double vision. EARS, NOSE, AND THROAT: No symptoms. RESPIRATORY: No wheezing, shortness of breath, TB, wheezing, hemoptysis, or asthma. CARDIAC: No recent symptoms. GASTROINTESTINAL: See history of present illness. GENITOURINARY: No complaints. DERMATOLOGIC: No complaints. NEUROLOGIC: History of a fall, but no other neurologic problems. PAST MEDICAL HISTORY: Review of chart reveals the patient has a history of hypertension, obesity, S t. Angel Luis's aortic valve replacement 1989, chronic anticoagulation, anemia, renal insufficiency, prost ate cancer, on hormone deprivation, prior CVA, ataxia, aortic aneurysm, umbilical hernia repair, ton sillectomy. FAMILY HISTORY: Nothing pertinent. HABITS: Alcohol use negative. The patient is a nonsmoker, nondrug user. PHYSICAL EXAMINATION: GENERAL: Reveals a well-developed, well-nourished gentleman with slight tachypnea. He has not comp laining of any pain or acute distress otherwise. HEENT: Normocephalic, atraumatic. Pupils equal and reactive to light. No scleral icterus. Fundi benign without hemorrhages or exudate. Ears clear. Nose clear. Mouth, no lesions. NECK: Supple without adenopathy, masses, thyromegaly, or carotid bruits. CHEST: Clear to auscultation and percussion. HEART: Regular rhythm. No murmurs or gallops. ABDOMEN: No masses, tenderness, hepatosplenomegaly. Abdomen is soft. EXTREMITIES: No cyanosis, clubbing, edema. Pulses 2+ bilaterally. LABORATORY DATA: Yesterday white count 16.8, hemoglobin 8.4, hematocrit 27.3, platelet count 296. PT 42.8 on February 01, INR 4.4. Chemistries: Calcium 2.1, albumin 2.9. TSH 0.6 yesterday. Sodium , potassium normal, chloride, CO2 normal, BUN 17, creatinine 1.04, glucose 105. Chest x-ray yesterd ay: Cardiomegaly, calcified atherosclerosis of the aorta, hypo-inflation of the lungs, stable pulmo nary effusions with bibasilar atelectasis and infiltrates. Lower extremity venous Doppler negative. HIDA scan reveals non-filling of gallbladder with normal trace radiotracer excretion through the co mmon bile duct into the small bowel. Urinalysis unremarkable. On 01/30/2017, 2 blood cultures were positive for Clostridium perfringens. IMPRESSION: Clostridium perfringens sepsis, etiology unclear. PLAN: Will order a CAT scan of the abdomen and pelvis to identify any GI source other than the gall bladder. The cystic duct is obstructed. The patient may require laparoscopic cholecystectomy as we ll. Thank you for this interesting consultation. Dictated By: BRUCE COLLADO/MALICK Conf#: [id number] DID#: [id number]
[2017-02-03 12:13] LABS: ADD SCAN DIFF NO
[2017-02-03 12:15] LABS: ABNORMAL IP MESSAGE 1; MEAN CORPUSCULAR HEMOGLOBIN 26.5 pg (29.0-33.0); MEAN CORPUSCULAR HGB CONC 30.8 g/dl (32.0-37.0); MEAN CORPUSCULAR VOLUME 86.1 fl (82.0-101.0); MEAN PLATELET VOLUME 11.2 fl (7.4-10.4); PLATELET COUNT 269 10^3/UL (140-415); RED BLOOD COUNT 3.02 10^6/ul (4.70-6.10); RED CELL DISTRIBUTION WIDTH 16.9 % (11.5-14.5); WHITE BLOOD COUNT 12.2 10^3/ul (4.8-10.8)
[2017-02-03 12:26] LABS: ALBUMIN/GLOBULIN RATIO 0.78; BILIRUBIN,INDIRECT 0.5 mg/dl (0-1.1); BILIRUBIN,TOTAL 0.5 mg/dl (0.2-1.3); CALCIUM 8.5 mg/dl (8.4-10.2); CREATININE 0.96 mg/dl (0.61-1.24); TOTAL PROTEIN 6.8 g/dl (6.1-8.1)
[2017-02-03 12:30] LABS: INR 3.56; PROTIME 36.2 Sec (12.2-14.2); PT RATIO 2.8
--- NOTE | 2017-02-03 12:39 | PN ---
Date/Time of Note Date/Time of Note DATE: 02/03/17 TIME: 12:31 Assessment/Plan VTE Prophylaxis VTE Prophylaxis Intervention: other (per primary) Lines/Catheters [facility] Saline Lock Urinary Cath still in place: No Assessment/Plan Assessment/Plan WBC continues to decline and is now down to ~12K. I do not think this is a myeloproliferative or myelodysplastic disorder. Hgb is 8.0 but he is clinically stable. Will follow but he may need transfusion is it falls further. Continue treatment of his infection as is being done. INR is coming down and is now 3.56. Bone scan will be needed ( Re: prostate cancer). RICHARD negative for valvular vegetations. Subjective 24 Hr Interval Summary Free Text/Dictation Pt is eating without problem. He says he had a bowel movement . Exam/Review of Systems Vital Signs Vitals Vital Signs Date Time Temp Pulse Resp B/P Pulse Ox O2 Delivery O2 Flow Rate FiO2 02/03/17 08:00 Nasal Cannula 2.0 02/03/17 08:00 97.7 97 29 109/58 94 Intake and Output 02/02/17 02/02/17 02/03/17 15:00 23:00 07:00 Intake Total 286.67 ml 733.33 ml 700 ml Output Total 450 ml 850 ml 250 ml Balance -163.33 ml -116.67 ml 450 ml Exam Constitutional: alert, oriented Head: normocephalic Eyes: nl conjunctiva, other (pallor) Neck: supple Respiratory: clear to auscultation Cardiovascular: regular rate and rhythm Gastrointestinal: non-tender, soft Lymph: nl lymph nodes Results Result Diagram: 02/03/17 1210 02/02/17 0818 Results 24 hrs Laboratory Tests Test 02/03/17 05:18 02/03/17 12:10 Magnesium Level 2.1 White Blood Count 12.2 #H Red Blood Count 3.02 L Hemoglobin 8.0 L Hematocrit 26.0 L Mean Corpuscular Volume 86.1 Mean Corpuscular Hemoglobin 26.5 L Mean Corpuscular Hemoglobin Concent 30.8 L Red Cell Distribution Width 16.9 H Platelet Count 269 Mean Platelet Volume 11.2 H Prothrombin Time Pending Prothrombin Time Ratio 2.8 INR International Normalized Ratio 3.56 Medications Medications Current Medications Docusate Sodium (Colace) 100 mg Q12H PRN PO CONSTIPATION; Start 01/30/17 at 11: 00 Magnesium Hydroxide (Milk Of Mag) 30 ml DAILY PRN PO CONSTIPATION Last administered on 02/01/17 12:19; Admin Dose 30 ML; Start 01/30/17 at 11:00 Pantoprazole (Protonix Tab) 40 mg DAILY@06 PO Last administered on 02/03/17 05 :25; Admin Dose 40 MG; Start 01/31/17 at 06:00 Acetaminophen (Tylenol Tab) 650 mg Q6H PRN PO PAIN AND OR ELEVATED TEMP Last administered on 02/01/17 22:02; Admin Dose 650 MG; Start 01/30/17 at 21:30 Acetaminophen/ Hydrocodone Bitart 1 tab 1 tab Q6H PRN PO PAIN; Start 01/30/17 at 21:30 Piperacillin Sod/ Tazobactam Sod (Zosyn 3.375gm/ 100 ml (Pmx)) 100 ml @ 200 mls /hr Q6 IVPB Last administered on 02/03/17 05:25; Admin Dose 200 MLS/HR; Start 01/30/17 at 23:00 Metoprolol Tartrate (Lopressor) 25 mg BID PO Last administered on 02/02/17 22: 28; Admin Dose 25 MG; Start 01/31/17 at 21:00 Polyethylene Glycol (Miralax) 17 gm DAILY PO ; Start 02/02/17 at 09:00 Magnesium Hydroxide (Milk Of Mag) 30 ml ONCE PRN PO CONSTIPATION; Start at 09:00; Stop 02/04/17 at 08:59 FELICITAS THURMAN MD Feb 03, 2017 12:39
[2017-02-03 12:59] LABS: HYPOCHROMASIA 2+; LYMPHOCYTES # 1.7 10^3/ul (0.8-2.9); MICROCYTOSIS 1+; MONOCYTE # 0.6 10^3/ul (0.3-0.9); MYELOCYTES # 0.1; NEUTROPHIL # 8.3 10^3/ul (1.6-7.5); POLYCHROMASIA OCCASIONAL
--- NOTE | 2017-02-03 13:31 | PN ---
DATE: 02/03/2017 SUBJECTIVE: No acute changes. The patient is alert, feels better. Looks comfortable. No fevers. VITAL SIGNS: Stable, temperature 97.7, pulse 99, respirations 29, blood pressure 109/58, saturation 94% on 2 liters. LABORATORY DATA: WBC 12.2, H and H 8 and 26, platelets 269, bands 9, lymphs 14, monos 5. BUN 21, c reatinine 0.96. MICROBIOLOGY: Blood culture on admission grew Clostridium perfringens and coagulase-negative staph species. Repeat blood culture negative. Urine culture negative. DIAGNOSTICS: The patient had a RICHARD that revealed no vegetations. A HIDA scan was compatible with c ystic duct obstruction and possible cholecystitis. ANTIMICROBIALS: 1. Zosyn. 2. Status post vancomycin. PHYSICAL EXAMINATION: GENERAL: This is a morbidly obese elderly man who is alert, in no distress. HEENT: Head atraumatic, normocephalic. Sclerae anicteric. Buccal mucosa pink. NECK: Supple. CHEST: Rise symmetrical. Breath sounds diminished to bases. HEART: S1, S2. ABDOMEN: Obese, soft, bowel sounds present. EXTREMITIES: Without cyanosis. Bilateral edema, right upper extremity more edematous than left. ASSESSMENT: 1. Biliary sepsis. 2. Clostridium perfringens bacteremia secondary to #1. 3. Choledocholithiasis with cystic duct obstruction as per HIDA scan. 4. Right upper extremity edema, rule out deep venous thrombosis. 5. Coronary artery disease, history of aortic valve replacement. 6. History of prostate cancer. PLAN: The patient remains hemodynamically stable, covered with appropriate antimicrobials. He is b eing seen by multiple consultants. He was seen by gastroenterology, pending CAT scan of the abdomen and pelvis. We will order ultrasound of his right upper extremity to rule out DVT. Dictated By: JAMES KAPLAN FICTION AND NONFICTION AUTHOR for LIVE GRANDA/MALICK Conf#: [id number] DID#: [id number]
[2017-02-03] MEDS ORDERED: DIATR MEGLU/DIATRIZOATE SODIUM 30 ML SOLUTION PO SCH (14:00)
[2017-02-03] MEDS ORDERED: IOHEXOL 300MG/ML 30 ML BTL ONE (14:29)
--- NOTE | 2017-02-03 14:33 | RADRPT ---
PROCEDURE: US right upper extremity veins. CLINICAL INDICATION: Right arm pain and swelling. TECHNIQUE: Multiple longitudinal and transverse images of the right upper extremity venous tree wa s obtained with blackburn scale, pulsed Doppler, and color Doppler imaging. COMPARISON: None available FINDINGS: The right internal jugular, subclavian, axillary, brachial, basilic, cephalic, radial, and ulnar vei ns are patent. There is normal flow with augmentation and compressibility throughout. There is no t hrombus or occlusion. IMPRESSION: 1. Normal venous system of the right upper extremity. No evidence of thrombus or occlusion. RPTAT: QQ .Curt Lee MD, MD Date Time Electronically viewed and signed by .Curt Lee MD, MD on 02/03/2017 14:32 .R/
--- NOTE | 2017-02-03 16:50 | RADRPT ---
Echocardiogram Report Patient Name: BANDAR SOLIZ Gender: Male Date: 1950 Study Date: 01-Feb-2017 Wire Products Inspector: Bishop Ward BRETT Location: 118 Ref. Physician: ELIAS DELEON Quality: Adequate Procedures: Transthoracic echocardiogram examination. Indications: Aortic Valve Replacement. Findings Left Ventricle: Normal left ventricular systolic function. Mitral Valve: Mitral valve leaflets appear mildly thickened. Aortic Valve: Mechanical aortic valve. The aortic valve is not well visualized secondary to shadowing. No clear vegetation seen. Recommendations: Consider RICHARD if clinically indicated. Conclusions 1.Normal left ventricular systolic function. 2.Mechanical aortic valve. The aortic valve is not well visualized secondary to shadowing. No clear vegetation seen. 3.Mitral valve leaflets appear mildly thickened. Electronically Signed By: Elias Deleon 03-Feb-2017 16:49:50 -0700 Patient Name: BANDAR SOLIZ Study Date: 01-Feb-2017 [id number]
--- NOTE | 2017-02-03 20:24 | RADRPT ---
PROCEDURE: CT Abdomen and Pelvis without contrast. CLINICAL INDICATION: Abdominal and pelvic pain. TECHNIQUE: CT scan of the abdomen and pelvis without contrast was performed. Coronal and sagittal reformatted images were obtained from the axial source images. Images were reviewed on a high-resolu JIT [employer] PACS workstation. Total exam DLP is 1543.28 mGy-cm. CTDIvol is 22.07 mGy. One or more of the following dose reduction techniques were used: Automated exposure control, adjustment of the mA and/ or kV according to patient size, use of iterative reconstruction technique. COMPARISON: Ultrasound of the abdomen and retroperitoneum dated 01/31/2017. FINDINGS: There are small bilateral pleural effusions and there is atelectasis at the lung bases posteriorly. The lung bases are otherwise normal. The heart is enlarged. There is no pericardial effusion. Th ere are sternal wires and there is a mitral valve replacement. There may also be an aortic valve re placement. The ascending aorta is dilated measuring 5.5 cm. The liver is normal in size and attenuation. There is no focal hepatic lesion. Multiple gallstones are present in the gallbladder. There is no evidence of cholecystitis. The melyssa e ducts are normal. There is a small hiatus hernia. The spleen is normal in size. There is no focal splenic lesion. Both adrenals are normal with no enlargement or mass. The pancreas is unremarkable with no mass or evidence of pancreatitis. There is no renal mass or hydronephrosis. There is no renal calculus or ureteral calculus. The abdominal aorta is not dilated. There is calcification in the aorta consistent with atheroscler osis. There are multiple mildly enlarged retroperitoneal lymph nodes extending from the retrocrural region to the aortic bifurcation region. These measure between 0.2 cm and 1.6 cm. There is bilateral pelvic lymphadenopathy. A left pelvic sidewall lymph node measures 5.0 x 2.3 cm and a right distal iliac lymph node measures 5.0 x 3.4 cm. The bladder and distal ureters are normal. The appendix is well seen and appears normal. The bowel and mesentery are normal. There is no free fluid or free gas. There are multiple mixed lytic and blastic lesions throughout the visualized ribs, spine, and pelvis . There is no fracture. IMPRESSION: 1. Small bilateral pleural effusions and atelectasis at the lung bases posteriorly. 2. Cardiomegaly. 3. Prior mitral valve replacement and possible aortic valve replacement. 4. Dilated ascending aorta measures 5.5 cm. 5. Gallstones in the gallbladder. No evidence of cholecystitis. 6. Atherosclerosis. 7. Retroperitoneal and pelvic lymphadenopathy, consistent with neoplasm. 8. Multiple mixed lytic and blastic lesions throughout the visualized ribs, spine, and pelvis consi stent with metastatic disease. RPTAT: QQ .Curt Lee MD, MD Date Time Electronically viewed and signed by .Curt Lee MD, MD on 02/03/2017 20:24 .R/
[2017-02-04] VITALS (21 sets, daily range): BP systolic 97–125; BP diastolic 59–78; PULSE 80–103; RESP 18–33
[2017-02-04] MEDS: PIPER-TAZO 3.375 GM IV (PMX) 100 ML IVPB SCH ×4 (00:33→18:09)
[2017-02-04] MEDS: PANTOPRAZOLE (EC) 40 MG TAB PO SCH (06:04)
[2017-02-04] MEDS: FUROSEMIDE 40 MG INJ IV SCH ×2 (06:04→18:10)
[2017-02-04 06:31] LABS: ADD SCAN DIFF NO
[2017-02-04 06:57] LABS: POTASSIUM 3.7 mmol/L (3.5-5.1)
[2017-02-04 06:58] LABS: INR 3.29; PT RATIO 2.7
[2017-02-04 06:59] LABS: CREATININE 0.96 mg/dl (0.61-1.24)
[2017-02-04 07:00] LABS: CALCIUM 8.6 mg/dl (8.4-10.2)
[2017-02-04 07:03] LABS: ABNORMAL IP MESSAGE 1; BASOPHILS % 0.2 % (0.0-2.0); EOSINOPHILS # 0.2 10^3/ul (0.0-0.5); EOSINOPHILS % 1.9 % (0.0-7.0); HEMATOCRIT 26.4 % (42.0-52.0); HEMOGLOBIN 7.9 g/dl (14.0-18.0); LYMPHOCYTES # 1.3 10^3/ul (0.8-2.9); MEAN CORPUSCULAR HEMOGLOBIN 26.2 pg (29.0-33.0); MEAN CORPUSCULAR HGB CONC 29.9 g/dl (32.0-37.0); MEAN CORPUSCULAR VOLUME 87.4 fl (82.0-101.0); MEAN PLATELET VOLUME 11.8 fl (7.4-10.4); MONOCYTE # 0.8 10^3/ul (0.3-0.9); MONOCYTES % 6.3 % (0.0-11.0); NEUTROPHIL # 8.2 10^3/ul (1.6-7.5); NEUTROPHILS % 66.7 % (39.0-77.0); NUCLEATED RED BLOOD CELLS # 0.1 10^3/ul (0.0-0.0); NUCLEATED RED BLOOD CELLS% 0.5 /100WBC (0.0-0.0); PLATELET COUNT 278 10^3/UL (140-415); RED BLOOD COUNT 3.02 10^6/ul (4.70-6.10); RED CELL DISTRIBUTION WIDTH 17.2 % (11.5-14.5); WHITE BLOOD COUNT 12.2 10^3/ul (4.8-10.8)
[2017-02-04] MEDS: POLYETHYLENE GLYCOL 17 GM PACKET PO SCH (08:16)
--- NOTE | 2017-02-04 08:22 | PN ---
Date/Time of Note Date/Time of Note DATE: 02/04/17 TIME: 08:19 Assessment/Plan VTE Prophylaxis VTE Prophylaxis Intervention: contraindicated VTE Contraindication Reason: bleeding Lines/Catheters IV [facility]from [facility]): Saline Lock Urinary Cath still in place: No Assessment/Plan Chief Complaint/Hosp Course see above Problems: Subjective 24 Hr Interval Summary Free Text/Dictation alert. seen in ICU. CT of abdomen shows metastatic disease, no abscess. 5.5 cm dilated ascending aorta. VS stable and rate <100. labs reviewed Hb 7.9 Exam alert tired Chest fairly clear Cor reg rhythm ext 1+ pitting edema Plan: type and hold. await GI [id number] re possible cholecystectomy. transfer to telemetry Exam/Review of Systems Vital Signs Vitals Vital Signs Date Time Temp Pulse Resp B/P Pulse Ox O2 Delivery O2 Flow Rate FiO2 02/04/17 06:00 98.3 94 31 118/73 88 Nasal Cannula 02/04/17 01:30 2.0 Intake and Output 02/03/17 02/03/17 02/04/17 15:00 23:00 07:00 Intake Total 700 ml 390 ml 540 ml Output Total 850 ml 975 ml 700 ml Balance -150 ml -585 ml -160 ml Results Result Diagram: 02/04/17 0525 02/04/17 0525 Results 24 hrs Laboratory Tests Test 02/03/17 12:00 02/03/17 12:10 02/04/17 05:25 Stool Occult Blood NEGATIVE White Blood Count 12.2 #H 12.2 H Red Blood Count 3.02 L 3.02 L Hemoglobin 8.0 L 7.9 L Hematocrit 26.0 L 26.4 L Mean Corpuscular Volume 86.1 87.4 Mean Corpuscular Hemoglobin 26.5 L 26.2 L Mean Corpuscular Hemoglobin Concent 30.8 L 29.9 L Red Cell Distribution Width 16.9 H 17.2 H Platelet Count 269 278 Mean Platelet Volume 11.2 H 11.8 H Neutrophils % 68.0 66.7 Band Neutrophils % 9.0 H Lymphocytes % 14.0 L 11.0 L Monocytes % 5.0 6.3 Metamyelocytes % 3.0 H Myelocytes % 1.0 H Neutrophils # 8.3 H 8.2 H Lymphocytes # 1.7 1.3 Monocytes # 0.6 0.8 Metamyelocytes # 0.4 Myelocytes # 0.1 Differential Comment MANUAL DIFF Large Platelets FEW Giant Platelets OCCASIONAL Polychromasia OCCASIONAL Hypochromasia 2+ Microcytosis 1+ Prothrombin Time 36.2 H 34.0 H Prothrombin Time Ratio 2.8 2.7 INR International Normalized Ratio 3.56 3.29 Sodium Level 138 137 Potassium Level 4.0 3.7 Chloride Level 99 100 Carbon Dioxide Level 28 28 Anion Gap 15 13 Blood Urea Nitrogen 21 H 19 Creatinine 0.96 0.96 Glucose Level 87 122 Calcium Level 8.5 8.6 Total Bilirubin 0.5 Direct Bilirubin 0.00 Indirect Bilirubin 0.5 Aspartate Amino Transf (AST/SGOT) 83 H Alanine Aminotransferase (ALT/SGPT) 34 Alkaline Phosphatase 486 H Total Protein 6.8 Albumin 3.0 L Globulin 3.80 H Albumin/Globulin Ratio 0.78 Eosinophils % 1.9 Basophils % 0.2 Nucleated Red Blood Cells % 0.5 H Eosinophils # 0.2 Basophils # 0.0 Nucleated Red Blood Cells # 0.1 H Medications Medications Current Medications Docusate Sodium (Colace) 100 mg Q12H PRN PO CONSTIPATION; Start 01/30/17 at 11: 00 Magnesium Hydroxide (Milk Of Mag) 30 ml DAILY PRN PO CONSTIPATION Last administered on 02/01/17 12:19; Admin Dose 30 ML; Start 01/30/17 at 11:00 Pantoprazole (Protonix Tab) 40 mg DAILY@06 PO Last administered on 02/04/17 06 :04; Admin Dose 40 MG; Start 01/31/17 at 06:00 Acetaminophen (Tylenol Tab) 650 mg Q6H PRN PO PAIN AND OR ELEVATED TEMP Last administered on 02/01/17 22:02; Admin Dose 650 MG; Start 01/30/17 at 21:30 Acetaminophen/ Hydrocodone Bitart 1 tab 1 tab Q6H PRN PO PAIN; Start 01/30/17 at 21:30 Piperacillin Sod/ Tazobactam Sod (Zosyn 3.375gm/ 100 ml (Pmx)) 100 ml @ 200 mls /hr Q6 IVPB Last administered on 02/04/17 06:04; Admin Dose 200 MLS/HR; Start 01/30/17 at 23:00 Metoprolol Tartrate (Lopressor) 25 mg BID PO Last administered on 3/23/17at 20: 57; Admin Dose 25 MG; Start 01/31/17 at 21:00 Polyethylene Glycol (Miralax) 17 gm DAILY PO ; Start 02/02/17 at 09:00 Magnesium Hydroxide (Milk Of Mag) 30 ml ONCE PRN PO CONSTIPATION; Start at 09:00; Stop 02/04/17 at 08:59 BETTY CUMMINGS MD Feb 04, 2017 08:22
--- NOTE | 2017-02-04 08:56 | RADRPT ---
PROCEDURE: Chest Radiograph. CLINICAL INDICATION: CHF TECHNIQUE: Single frontal chest radiograph. COMPARISON: Chest radiograph 02/02/2017 FINDINGS: Patient is status post sternotomy. The heart is enlarged. Atherosclerotic calcifications are prese nt. There is mild improved ventilation and aeration of the bilateral lung maldonado with persistent mi ld basilar atelectasis. Trace bilateral pleural effusions persist. No confluent or lobar infiltrate is seen. The bones are intact. IMPRESSION: 1. Trace bilateral pleural effusions with adjacent atelectasis. 2. Cardiomegaly and atherosclerotic vascular disease. RPTAT: KK .Geovanni Dee MD, MD Date Time Electronically viewed and signed by .Geovanni Dee MD, on 02/04/2017 08:55 .B/
[2017-02-04] MEDS: METOPROLOL 25 MG TAB PO SCH ×3 (09:00→21:48)
--- NOTE | 2017-02-04 09:50 | CONS ---
DATE OF ADMISSION: 01/30/2017 DATE OF CONSULTATION: 02/04/2017 SUBJECTIVE: The patient seems more comfortable. He has no new specific complaints. OBJECTIVE: VITAL SIGNS: Temperature 98.3, pulse 94 per minute and regular, respirations 30, blood pressure 118 /73, oxygen saturation is 94% on 2 liters oxygen by nasal cannula . SKIN: Pale, with scattered ecchymoses. No petechiae or rashes. HEENT: No mucosal lesions. No scleral icterus. There is nasal oxygen in place. NECK: Supple. No jugular venous distention or thyroid enlargement. CHEST: Clear to auscultation and percussion. No rhonchi, wheezes, rales or rubs. NODES: No palpable lymphadenopathy in lymph node bearing areas. ABDOMEN: Soft, but obese. No masses or ascites. EXTREMITIES: No clubbing or cyanosis. LABORATORY: White count is 12,400, hemoglobin is 7.9, hematocrit is 26.4, platelet count 278,000. Protime 34 seconds, INR of 3.39. Sodium 137, potassium 3.7, creatinine 0.96, BUN 19. The patient has had a venous Doppler study of the right upper extremity, which does not reveal any e vidence of deep vein thrombosis. A CT scan of the abdomen and pelvis was performed as well. This s hows cardiomegaly, as well as bilateral pleural effusions. There is evidence of the mitral valve an d possible aortic valve replacement. There is retroperitoneal and pelvic lymphadenopathy noted, as well as mixed lytic and blastic lesions throughout the visualized ribs, spine and pelvis, which are consistent with metastatic disease. ASSESSMENT: 1. Septicemia. 2. Congestive heart failure. 3. Metastatic prostate carcinoma. The patient's white count is normalizing. This makes the possibility of an underlying bone marrow p rocess much less likely. The findings on CT scan of mixed osteoblastic and lytic lesions involving the axial skeleton are con sistent with metastatic prostate carcinoma. This makes the need for a bone scan superfluous. This patient is hormonal refractory. Should receive zoledronic acid or demosumab for treatment of b one pain and prevention of skeletal metastases. I would also suggest that this patient be changed t o other therapies such as amiodarone or enzalutamide. Dictated By: PIPPA MONTGOMERY MD, SR/NTS Conf#: [id number] [facility]#: [id number]
[2017-02-04 10:17] LABS: IRON 41 ug/dl (35-150)
[2017-02-04 10:26] LABS: TOTAL IRON BINDING CAPACITY 287 ug/dl (241-421)
--- NOTE | 2017-02-04 10:54 | PN ---
Date/Time of Note Date/Time of Note DATE: 02/04/17 TIME: 10:49 Assessment/Plan VTE Prophylaxis VTE Prophylaxis Intervention: other Lines/Catheters IV Catheter Type (from Nrsg): Saline Lock Urinary Cath still in place: No Subjective 24 Hr Interval Summary Free Text/Dictation Pt feels better Denies abdominal pain. CT abd and pelvis no abcess, or evid of perforation. abd soft non tender chest clear. IMP C Perf bacteremia unknown source Obst cystic duct and gallstones Improving PLN considerr rangel consult will dw Dr Gagnon Exam/Review of Systems Vital Signs Vitals Vital Signs Date Time Temp Pulse Resp B/P Pulse Ox O2 Delivery O2 Flow Rate FiO2 02/04/17 09:25 97 23 105/70 94 Nasal Cannula 02/04/17 08:00 97.6 02/04/17 01:30 2.0 Intake and Output 02/03/17 02/03/17 02/04/17 15:00 23:00 07:00 Intake Total 700 ml 390 ml 540 ml Output Total 850 ml 975 ml 700 ml Balance -150 ml -585 ml -160 ml Results Result Diagram: 02/04/17 0525 02/04/17 0525 Results 24 hrs Laboratory Tests Test 02/03/17 12:00 02/03/17 12:10 02/04/17 05:25 02/04/17 08:21 Stool Occult Blood NEGATIVE White Blood Count 12.2 #H 12.2 H Red Blood Count 3.02 L 3.02 L Hemoglobin 8.0 L 7.9 L Hematocrit 26.0 L 26.4 L Mean Corpuscular Volume 86.1 87.4 Mean Corpuscular Hemoglobin 26.5 L 26.2 L Mean Corpuscular Hemoglobin Concent 30.8 L 29.9 L Red Cell Distribution Width 16.9 H 17.2 H Platelet Count 269 278 Mean Platelet Volume 11.2 H 11.8 H Neutrophils % 68.0 66.7 Band Neutrophils % 9.0 H Lymphocytes % 14.0 L 11.0 L Monocytes % 5.0 6.3 Metamyelocytes % 3.0 H Myelocytes % 1.0 H Neutrophils # 8.3 H 8.2 H Lymphocytes # 1.7 1.3 Monocytes # 0.6 0.8 Metamyelocytes # 0.4 Myelocytes # 0.1 Differential Comment MANUAL DIFF Large Platelets FEW Giant Platelets OCCASIONAL Polychromasia OCCASIONAL Hypochromasia 2+ Microcytosis 1+ Prothrombin Time 36.2 H 34.0 H Prothrombin Time Ratio 2.8 2.7 INR International Normalized Ratio 3.56 3.29 Sodium Level 138 137 Potassium Level 4.0 3.7 Chloride Level 99 100 Carbon Dioxide Level 28 28 Anion Gap 15 13 Blood Urea Nitrogen 21 H 19 Creatinine 0.96 0.96 Glucose Level 87 122 Calcium Level 8.5 8.6 Total Bilirubin 0.5 Direct Bilirubin 0.00 Indirect Bilirubin 0.5 Aspartate Amino Transf (AST/SGOT) 83 H Alanine Aminotransferase (ALT/SGPT) 34 Alkaline Phosphatase 486 H Total Protein 6.8 Albumin 3.0 L Globulin 3.80 H Albumin/Globulin Ratio 0.78 Eosinophils % 1.9 Basophils % 0.2 Nucleated Red Blood Cells % 0.5 H Eosinophils # 0.2 Basophils # 0.0 Nucleated Red Blood Cells # 0.1 H Iron Level 41 Total Iron Binding Capacity 287 Percent Iron Saturation 14 L Ferritin 221.0 Vitamin B12 Level 462 Medications Medications Current Medications Docusate Sodium (Colace) 100 mg Q12H PRN PO CONSTIPATION; Start 01/30/17 at 11: 00 Magnesium Hydroxide (Milk Of Mag) 30 ml DAILY PRN PO CONSTIPATION Last administered on 02/01/17 12:19; Admin Dose 30 ML; Start 01/30/17 at 11:00 Pantoprazole (Protonix Tab) 40 mg DAILY@06 PO Last administered on 02/04/17 06 :04; Admin Dose 40 MG; Start 01/31/17 at 06:00 Acetaminophen (Tylenol Tab) 650 mg Q6H PRN PO PAIN AND OR ELEVATED TEMP Last administered on 02/01/17 22:02; Admin Dose 650 MG; Start 01/30/17 at 21:30 Acetaminophen/ Hydrocodone Bitart 1 tab 1 tab Q6H PRN PO PAIN; Start 01/30/17 at 21:30 Piperacillin Sod/ Tazobactam Sod (Zosyn 3.375gm/ 100 ml (Pmx)) 100 ml @ 200 mls /hr Q6 IVPB Last administered on 02/04/17 06:04; Admin Dose 200 MLS/HR; Start 01/30/17 at 23:00 Metoprolol Tartrate (Lopressor) 25 mg BID PO Last administered on 02/04/17 10: 16; Admin Dose 25 MG; Start 01/31/17 at 21:00 Polyethylene Glycol 17 gm 17 gm DAILY PO ; Start 02/02/17 at 09:00 Zoledronic Acid/ Sodium Chloride (Zometa/NS) 105 ml @ 210 mls/hr ONCE ONCE IVPB ; Start 02/04/17 at 11:00; Stop 02/04/17 at 11:29 BRUCE MARTINEZ MD Feb 04, 2017 10:54
[2017-02-04] MEDS ORDERED: ZOLEDRONIC ACID 4 MG in SOD CHLORIDE 0.9% 100 ML IVPB ONE (11:00)
--- NOTE | 2017-02-04 11:21 | CONS ---
Date/Time of Note Date/Time of Note DATE: 02/04/17 TIME: 11:19 Assessment/Plan Assessment/Plan Chief Complaint/Hosp Course SUBJECTIVE: No acute changes. The patient is alert. Looks comfortable. No fevers. MICROBIOLOGY: Blood culture on admission grew Clostridium perfringens and coagulase-negative staph species. Repeat blood culture negative. Urine culture negative. DIAGNOSTICS: The patient had a RICHARD that revealed no vegetations. A HIDA scan was compatible with cystic duct obstruction and possible cholecystitis ANTIMICROBIALS: Zosyn PHYSICAL EXAMINATION: GENERAL: This is a morbidly obese elderly man who is alert, in no distress. HEENT: Head atraumatic, normocephalic. Sclerae anicteric. Buccal mucosa pink. NECK: Supple. CHEST: Rise symmetrical. Breath sounds diminished to bases. HEART: S1, S2. ABDOMEN: Obese, soft, bowel sounds present. EXTREMITIES: Without cyanosis. Bilateral edema, right upper extremity more edematous than left. ASSESSMENT: 1. Biliary sepsis. 2. Clostridium perfringens bacteremia secondary to #1. 3. Choledocholithiasis with cystic duct obstruction as per HIDA scan. 4. Right upper extremity edema==> no deep venous thrombosis per US. 5. Coronary artery disease, history of aortic valve replacement. 6. History of met prostate cancer. PLAN: The patient remains hemodynamically stable, covered with appropriate antimicrobials. Gastroenterology rec-s noted, pending surgical eval [facility] staff Problems: Consultation Date/Type/Reason Admit Date/Time Jan 30, 2017 at 07:00 Initial Consult Date Type of Consultation: ID Exam/Review of Systems Vital Signs Vitals Vital Signs Date Time Temp Pulse Resp B/P Pulse Ox O2 Delivery O2 Flow Rate FiO2 02/04/17 09:25 97 23 105/70 94 Nasal Cannula 02/04/17 08:00 97.6 02/04/17 08:00 2.0 Intake and Output 02/03/17 02/03/17 02/04/17 15:00 23:00 07:00 Intake Total 700 ml 390 ml 540 ml Output Total 850 ml 975 ml 700 ml Balance -150 ml -585 ml -160 ml Results Result Diagram: 02/04/17 0525 02/04/17 0525 Results 24 hrs Laboratory Tests Test 02/03/17 12:00 02/03/17 12:10 02/04/17 05:25 02/04/17 08:21 Stool Occult Blood NEGATIVE White Blood Count 12.2 #H 12.2 H Red Blood Count 3.02 L 3.02 L Hemoglobin 8.0 L 7.9 L Hematocrit 26.0 L 26.4 L Mean Corpuscular Volume 86.1 87.4 Mean Corpuscular Hemoglobin 26.5 L 26.2 L Mean Corpuscular Hemoglobin Concent 30.8 L 29.9 L Red Cell Distribution Width 16.9 H 17.2 H Platelet Count 269 278 Mean Platelet Volume 11.2 H 11.8 H Neutrophils % 68.0 66.7 Band Neutrophils % 9.0 H Lymphocytes % 14.0 L 11.0 L Monocytes % 5.0 6.3 Metamyelocytes % 3.0 H Myelocytes % 1.0 H Neutrophils # 8.3 H 8.2 H Lymphocytes # 1.7 1.3 Monocytes # 0.6 0.8 Metamyelocytes # 0.4 Myelocytes # 0.1 Differential Comment MANUAL DIFF Large Platelets FEW Giant Platelets OCCASIONAL Polychromasia OCCASIONAL Hypochromasia 2+ Microcytosis 1+ Prothrombin Time 36.2 H 34.0 H Prothrombin Time Ratio 2.8 2.7 INR International Normalized Ratio 3.56 3.29 Sodium Level 138 137 Potassium Level 4.0 3.7 Chloride Level 99 100 Carbon Dioxide Level 28 28 Anion Gap 15 13 Blood Urea Nitrogen 21 H 19 Creatinine 0.96 0.96 Glucose Level 87 122 Calcium Level 8.5 8.6 Total Bilirubin 0.5 Direct Bilirubin 0.00 Indirect Bilirubin 0.5 Aspartate Amino Transf (AST/SGOT) 83 H Alanine Aminotransferase (ALT/SGPT) 34 Alkaline Phosphatase 486 H Total Protein 6.8 Albumin 3.0 L Globulin 3.80 H Albumin/Globulin Ratio 0.78 Eosinophils % 1.9 Basophils % 0.2 Nucleated Red Blood Cells % 0.5 H Eosinophils # 0.2 Basophils # 0.0 Nucleated Red Blood Cells # 0.1 H Iron Level 41 Total Iron Binding Capacity 287 Percent Iron Saturation 14 L Ferritin 221.0 Vitamin B12 Level 462 Medications Medications Current Medications Docusate Sodium (Colace) 100 mg Q12H PRN PO CONSTIPATION; Start 01/30/17 at 11: 00 Magnesium Hydroxide (Milk Of Mag) 30 ml DAILY PRN PO CONSTIPATION Last administered on 02/01/17t 12:19; Admin Dose 30 ML; Start 01/30/17 at 11:00 Pantoprazole (Protonix Tab) 40 mg DAILY@06 PO Last administered on 02/04/17 06 :04; Admin Dose 40 MG; Start 01/31/17 at 06:00 Acetaminophen (Tylenol Tab) 650 mg Q6H PRN PO PAIN AND OR ELEVATED TEMP Last administered on 02/01/17 22:02; Admin Dose 650 MG; Start 01/30/17 at 21:30 Acetaminophen/ Hydrocodone Bitart 1 tab 1 tab Q6H PRN PO PAIN; Start 01/30/17 at 21:30 Piperacillin Sod/ Tazobactam Sod (Zosyn 3.375gm/ 100 ml (Pmx)) 100 ml @ 200 mls /hr Q6 IVPB Last administered on 02/04/17 06:04; Admin Dose 200 MLS/HR; Start 01/30/17 at 23:00 Metoprolol Tartrate (Lopressor) 25 mg BID PO Last administered on 02/04/17 10: 16; Admin Dose 25 MG; Start 01/31/17 at 21:00 Polyethylene Glycol 17 gm 17 gm DAILY PO ; Start 02/02/17 at 09:00 Zoledronic Acid/ Sodium Chloride (Zometa/NS) 105 ml @ 210 mls/hr ONCE ONCE IVPB ; Start 02/04/17 at 11:00; Stop 02/04/17 at 11:29 JAMES KAPLAN NP Feb 04, 2017 11:21
[2017-02-04] MEDS ORDERED: POTASSIUM CHLORIDE (SR) 20 MEQ TAB PO STA (15:31)
--- NOTE | 2017-02-04 15:36 | CONS ---
Date/Time of Note Date/Time of Note DATE: 02/04/17 TIME: 15:32 Assessment/Plan Assessment/Plan Additional Assessment/Plan Sepsis with bacteremia (no vegetation seen on RICHARD) Acute decompensated diastolic congestive heart failure, improving History of mechanical aortic valve replacement Preserved ejection fraction Prostate cancer Aortic aneurysm Anemia -Patient with improvement in respiratory status on current dose of diuretics. Would continue as blood pressure and renal function permits. Supplement potassium to maintain above 4.0 and magnesium above 2.0. INR is trending down, would defer to our board-certified dual rate dealer regarding Coumadin management. Continue beta-kamini as blood pressure tolerates. Patient's CT abdomen pelvis with evidence of metastases. Undergoing oncology evaluation and management. Consultation Date/Type/Reason Admit Date/Time Jan 30, 2017 at 07:00 Type of Consultation: cv 24 HR Interval Summary Free Text/Dictation Patient feeling better today. Less shortness of breath. Denies chest pain, palpitations or dizziness. Exam/Review of Systems Vital Signs Vitals Vital Signs Date Time Temp Pulse Resp B/P Pulse Ox O2 Delivery O2 Flow Rate FiO2 02/04/17 14:42 87 02/04/17 12:00 22 97/69 96 Nasal Cannula 2.0 02/04/17 08:00 97.6 Intake and Output 02/03/17 02/03/17 02/04/17 15:00 23:00 07:00 Intake Total 700 ml 390 ml 540 ml Output Total 850 ml 975 ml 700 ml Balance -150 ml -585 ml -160 ml Exam No apparent distress Constitutional: alert, obese, oriented Head: normocephalic Neck: supple Respiratory: other (Coarse breath sounds bilaterally, mild scattered crackles, no wheezing) Cardiovascular: other (S1-S2 heard), regular rate and rhythm, systolic murmur Gastrointestinal: bowel sounds, non-tender, other (No guarding), soft Extremities: edema, other (No cyanosis) Results Result Diagram: 02/04/17 0525 02/04/17 0525 Results 24 hrs Laboratory Tests Test 02/04/17 05:25 02/04/17 08:21 White Blood Count 12.2 H Red Blood Count 3.02 L Hemoglobin 7.9 L Hematocrit 26.4 L Mean Corpuscular Volume 87.4 Mean Corpuscular Hemoglobin 26.2 L Mean Corpuscular Hemoglobin Concent 29.9 L Red Cell Distribution Width 17.2 H Platelet Count 278 Mean Platelet Volume 11.8 H Neutrophils % 66.7 Lymphocytes % 11.0 L Monocytes % 6.3 Eosinophils % 1.9 Basophils % 0.2 Nucleated Red Blood Cells % 0.5 H Neutrophils # 8.2 H Lymphocytes # 1.3 Monocytes # 0.8 Eosinophils # 0.2 Basophils # 0.0 Nucleated Red Blood Cells # 0.1 H Prothrombin Time 34.0 H Prothrombin Time Ratio 2.7 INR International Normalized Ratio 3.29 Sodium Level 137 Potassium Level 3.7 Chloride Level 100 Carbon Dioxide Level 28 Anion Gap 13 Blood Urea Nitrogen 19 Creatinine 0.96 Glucose Level 122 Calcium Level 8.6 Iron Level 41 Total Iron Binding Capacity 287 Percent Iron Saturation 14 L Ferritin 221.0 Vitamin B12 Level 462 Medications Medications Current Medications Docusate Sodium (Colace) 100 mg Q12H PRN PO CONSTIPATION; Start 01/30/17 at 11: 00 Magnesium Hydroxide (Milk Of Mag) 30 ml DAILY PRN PO CONSTIPATION Last administered on 02/01/17 12:19; Admin Dose 30 ML; Start 01/30/17 at 11:00 Pantoprazole (Protonix Tab) 40 mg DAILY@06 PO Last administered on 02/04/17 06 :04; Admin Dose 40 MG; Start 01/31/17 at 06:00 Acetaminophen (Tylenol Tab) 650 mg Q6H PRN PO PAIN AND OR ELEVATED TEMP Last administered on 02/01/17 22:02; Admin Dose 650 MG; Start 01/30/17 at 21:30 Acetaminophen/ Hydrocodone Bitart 1 tab 1 tab Q6H PRN PO PAIN; Start 01/30/17 at 21:30 Piperacillin Sod/ Tazobactam Sod (Zosyn 3.375gm/ 100 ml (Pmx)) 100 ml @ 200 mls /hr Q6 IVPB Last administered on 02/04/17 12:40; Admin Dose 200 MLS/HR; Start 01/30/17 at 23:00 Metoprolol Tartrate (Lopressor) 25 mg BID PO Last administered on 02/04/17 10: 16; Admin Dose 25 MG; Start 01/31/17 at 21:00 Polyethylene Glycol (Miralax) 17 gm DAILY PO ; Start 02/02/17 at 09:00 Elias Deleon DO Feb 04, 2017 15:36
--- NOTE | 2017-02-04 20:00 | CONS ---
[facility] INITIAL INPATIENT CONSULTATION NOTE DATE OF CONSULTATION: 02/04/2017 PLACE OF SERVICE: [facility], 5th floor telemetry. ASSESSMENT AND PLAN: A very pleasant but unfortunate 66-year-old gentleman with multiple issues including BMI of 34.2, and most likely metastatic prostate cancer, and cardiovascular disease with mechanical heart valve and evidence of cardiac congestion, aortic dilatation and atherosclerotic vascular disease, who appears to be getting better with intravenous antimicrobials from bacteremic shock. Certainly, his gallbladder can be a source of this problem, although the overall images do not suggest an acute inflammation of the gallbladder. He could have chronic inflammation with complete filling of his gallbladder with stones. Fortunately, he does not represent a picture that requires an immediate surgical intervention today. We have a little bit of time to try and optimize his medical condition and for me to understand his risks a bit more after discussions with Dr. Deleon from cardiology as well as the rest of the medical team. He may benefit from further diuresis and we may need to do further cardiac testing to evaluate the risk of operative intervention. The gallbladder can certainly come out during this admission and it may be an operation that we may schedule for early next week depending on medical clearance. In the meantime, he should be continued on his intravenous antimicrobials and aggressive supportive care. I explained all of this to the patient in detail and answered all of his questions to the best of my ability. I believe that the patient understands and agrees with the plans. Note that no family was present during my discussions with the patient. With above assessment I have recommended the followin. Continue aggressive medical management with broad-spectrum antimicrobials. 2. Follow cultures. 3. Cardiac clearance and medical clearance for possible laparoscopic, possible open cholecystectomy towards the end of this admission. Thank you again for allowing us to participate in the care of this very pleasant gentleman and I am certain his wonderful family. If there are any questions, please feel free to call me at [phone]. TOTAL VISIT TIME: 45 minutes of which more than half was spent in [id number] discussion with the patient as well as coordination of care between multiple physicians and providers. UPDATED CLINICAL SUMMARY: The patient is a very pleasant but unfortunate 66- year-old gentleman with likely metastatic prostate cancer who was admitted through the emergency department at [facility] on 01/30/2017 with septic shock and bacteremia. The patient was found to have significant cholelithiasis. COMORBIDITIES: 1. BMI of 34.2. 2. Prostate cancer diagnosed 3 to 4 years ago, diagnosed after elevation in his PSA was noted. Prostate nodule was found and biopsied and found it to be prostatic carcinoma. Hormonal therapy was initiated with Lupron and bicalutamide for 1 year and then he was taken off Lupron, which was reinitiated recently after rising PSA was noted. Also, with migratory bone pain over the last 2 months with lytic lesions noted on the most recent MRIs. 3. Congenital bicuspid aortic valve, status post replacement with a [facility] valve in 1989, and on chronic anticoagulation with Coumadin. 4. Previous cerebrovascular accident with right-sided weakness and some ataxia. 5. Hypertension. 6. Hyperlipidemia. 7. Septic shock with bacteremia (Clostridium perfringens growing in blood cultures x2 on 01/30/2017). 8. Cholelithiasis with HIDA scan dated 02/02/2017 showing no gallbladder visualization consistent with cystic duct obstruction. The common bile duct was open. Right upper quadrant ultrasound 01/31/2017 showed gallbladder completely filled with gallstones and gallbladder wall thickening was somewhat hampered by the amount of shadowing of the gallstones. No intrahepatic or extrahepatic biliary dilatation was noted. There was mild increased echogenicity of the liver suggestive of hepatic steatosis. 9. CT scan of abdomen and pelvis on 02/03/2017 shows multiple mixed lytic and blastic lesions throughout the visualized ribs, spine and pelvis consistent with metastatic disease as well as presence of retroperitoneal and pelvic lymphadenopathy consistent with neoplasm. There is also cardiomegaly and dilated ascending aorta measuring 5.5 cm. Atherosclerosis was also noted. DATE OF ADMISSION: 01/30/2017 HISTORY OF PRESENT ILLNESS: The patient is a very pleasant but unfortunate 66- year-old gentleman with above-mentioned comorbidities who we were kindly asked to consult regarding management of his gallbladder. He was admitted with septic shock and bacteremia, as noted above, and spent quite a bit of time in the intensive care unit. He was recently transferred out of the ICU to telemetry. The patient himself reports no abdominal pain, no nausea, no vomiting, no diarrhea and no constipation. He has never had any problems with his gallbladder in the past. ALLERGIES: NO KNOWN DRUG ALLERGIES. MEDICATIONS: At home, the patient is on: 1. Melatonin. 2. Metoprolol. 3. Simvastatin. 4. Tamsulosin. 5. Tramadol. 6. Triamterene/hydrochlorothiazide. 7. Coumadin 2.5 mg in the form of 5 mg p.o. every other day and 7.5 mg p.o. every other day. SOCIAL HISTORY: The patient is currently . He has never smoked in the past. He drinks 1 glass of wine per day. No intravenous drug use reported. FAMILY HISTORY: Patient's father from prostatic carcinoma. No other major medical, surgical or oncologic problems reported in the family. REVIEW OF SYSTEMS: Other than the above-mentioned, there are no other pertinent positives or pertinent negatives in a complete 14-point review of systems. PHYSICAL EXAMINATION: GENERAL: The patient appears to be a very pleasant gentleman of non- descent, appearing stated age, lying in bed comfortably and in no acute distress. BMI is 34.2. VITAL SIGNS: Temperature is 97.8, blood pressure 113/63, pulse 92, respiratory rate 20, pulse oximetry 98% on 2 liters of nasal cannula. HEENT: Normocephalic and atraumatic. Extraocular muscles and hearing are grossly intact bilaterally and symmetrically. Sclerae are nonicteric. Oral cavity is clear; oral mucosa appeared to be pink and moist. Dentition: fair to poor. NECK: Supple. There is no lymphadenopathy or JVD. There is no submental, submandibular or supraclavicular lymphadenopathy. CHEST: Rises symmetrically with each breath; patient is breathing comfortably. There are no audible wheezes, rales or rhonchi on the gross exam. HEART: Pulse is regular and palpable on the right wrist. Capillary refill was normal. Carotid pulses are palpable bilaterally and symmetrically in the neck. EXTREMITIES: Lower extremities contain no pitting edema around the ankles bilaterally and symmetrically. ABDOMEN: Soft, protuberant but nondistended and nontender. There is no evidence of organomegaly, caput medusae, engorged subcutaneous veins, or evidence of ascites. There are no peritoneal signs or guarding. SKIN: Appears to be pink and feels warm to touch. NEUROLOGIC: Awake, alert, and follows commands appropriately. LABORATORY DATA: White blood cell count 12.2, down from 23.5 on admission. Hemoglobin 7.9, platelets 278. Electrolytes show a normal creatinine at 0.69. CO2 of 28. Total bilirubin 0.5, AST 83, ALT 34, alkaline phosphatase 486, albumin 3.0 after hydration. INR 3.29. ABGs on 01/31/2017 showed a base deficit of 2.7. Urinalysis was negative. Toxicology negative. Stool occult blood test was negative. IMAGING: As above. Note that I personally reviewed all the pertinent and available images and I agree in general with their overall reported findings. Dictated By: NEDA HILL/MALICK Conf#: [id number] DID#: [id number]
[2017-02-05] VITALS (12 sets, daily range): BP systolic 107–124; BP diastolic 61–67; PULSE 86–110; RESP 17–20
[2017-02-05] MEDS: PIPER-TAZO 3.375 GM IV (PMX) 100 ML IVPB SCH ×4 (00:29→18:00)
[2017-02-05] MEDS: PANTOPRAZOLE (EC) 40 MG TAB PO SCH (05:39)
[2017-02-05] MEDS: FUROSEMIDE 40 MG INJ IV SCH ×2 (05:40→16:45)
[2017-02-05 07:07] LABS: ADD SCAN DIFF NO
[2017-02-05 07:10] LABS: ABNORMAL IP MESSAGE 1; HEMATOCRIT 26.7 % (42.0-52.0); HEMOGLOBIN 8.3 g/dl (14.0-18.0); MEAN CORPUSCULAR HGB CONC 31.1 g/dl (32.0-37.0); MEAN PLATELET VOLUME 11.4 fl (7.4-10.4); PLATELET COUNT 312 10^3/UL (140-415); RED BLOOD COUNT 3.07 10^6/ul (4.70-6.10); WHITE BLOOD COUNT 11.5 10^3/ul (4.8-10.8)
[2017-02-05 07:25] LABS: CREATININE 0.95 mg/dl (0.61-1.24)
[2017-02-05 07:26] LABS: CALCIUM 8.3 mg/dl (8.4-10.2)
[2017-02-05 07:27] LABS: INR 2.7; PT RATIO 2.3
[2017-02-05] MEDS ORDERED: SOD CHLORIDE 0.9% 250 ML IV* ONE (07:46)
--- NOTE | 2017-02-05 07:59 | PN ---
Date/Time of Note Date/Time of Note DATE: 02/05/17 TIME: 07:55 Assessment/Plan VTE Prophylaxis VTE Prophylaxis Intervention: contraindicated VTE Contraindication Reason: bleeding Lines/Catheters IV Catheter Type (from Nrs): Saline Lock Urinary Cath still in place: No Assessment/Plan Chief Complaint/Hosp Course see above Problems: Subjective 24 Hr Interval Summary Free Text/Dictation alert. transferred to telemetry. seen by surgery and will need lap cholecystectomy. reports extreme fatigue. Hb 8 and will need transfusion prior to surgery Exam alert Chest fairly clear Cor reg rhythm Abd soft Ext 1+ pitting edema Plan: transfuse 2 units prbcs to get Hb > 10. diuresis. hold coumadin PTINR 2.4 repeat labs in am Exam/Review of Systems Vital Signs Vitals Vital Signs Date Time Temp Pulse Resp B/P Pulse Ox O2 Delivery O2 Flow Rate FiO2 02/05/17 07:54 98.3 70 19 123/67 96 02/05/17 04:00 Nasal Cannula 2.0 Intake and Output 02/04/17 02/04/17 02/05/17 15:00 23:00 07:00 Intake Total 605 ml 400 ml 250 ml Output Total 955 ml 220 ml 1200 ml Balance -350 ml 180 ml -950 ml Results Result Diagram: 02/05/17 0628 02/04/17 0525 Results 24 hrs Laboratory Tests Test 02/04/17 08:21 02/05/17 06:28 Iron Level 41 Total Iron Binding Capacity 287 Percent Iron Saturation 14 L Ferritin 221.0 Vitamin B12 Level 462 White Blood Count 11.5 H Red Blood Count 3.07 L Hemoglobin 8.3 L Hematocrit 26.7 L Mean Corpuscular Volume 87.0 Mean Corpuscular Hemoglobin 27.0 L Mean Corpuscular Hemoglobin Concent 31.1 L Red Cell Distribution Width 17.0 H Platelet Count 312 Mean Platelet Volume 11.4 H Neutrophils % Eosinophils % Neutrophils # Eosinophils # Prothrombin Time 29.0 H Prothrombin Time Ratio 2.3 INR International Normalized Ratio 2.70 Medications Medications Current Medications Docusate Sodium (Colace) 100 mg Q12H PRN PO CONSTIPATION; Start 01/30/17 at 11: 00 Magnesium Hydroxide (Milk Of Mag) 30 ml DAILY PRN PO CONSTIPATION Last administered on 02/01/17t 12:19; Admin Dose 30 ML; Start 01/30/17 at 11:00 Pantoprazole (Protonix Tab) 40 mg DAILY@06 PO Last administered on 02/05/17 05 :39; Admin Dose 40 MG; Start 01/31/17 at 06:00 Acetaminophen (Tylenol Tab) 650 mg Q6H PRN PO PAIN AND OR ELEVATED TEMP Last administered on 02/01/17 22:02; Admin Dose 650 MG; Start 01/30/17 at 21:30 Acetaminophen/ Hydrocodone Bitart 1 tab 1 tab Q6H PRN PO PAIN; Start 01/30/17 at 21:30 Piperacillin Sod/ Tazobactam Sod (Zosyn 3.375gm/ 100 ml (Pmx)) 100 ml @ 200 mls /hr Q6 IVPB Last administered on 02/05/17 05:40; Admin Dose 200 MLS/HR; Start 01/30/17 at 23:00 Metoprolol Tartrate (Lopressor) 25 mg BID PO Last administered on 02/04/17 21: 48; Admin Dose 25 MG; Start 01/31/17 at 21:00 Polyethylene Glycol 17 gm 17 gm DAILY PO ; Start 02/02/17 at 09:00 Sodium Chloride (NS) 250 ml @ 0 mls/hr Q0M ONCE IV* ; Start 02/05/17 at 07:46; Stop 02/05/17 at 07:47; Status BETTY JAIMES MD Feb 05, 2017 07:59
[2017-02-05] MEDS: POLYETHYLENE GLYCOL 17 GM PACKET PO SCH ×2 (09:00→10:12)
--- NOTE | 2017-02-05 09:52 | CONS ---
Date/Time of Note Date/Time of Note DATE: 02/05/17 TIME: 09:52 Assessment/Plan Assessment/Plan Chief Complaint/Hosp Course ID PROGRESS NOTE TOTAL ABX DAY # => Zosyn 24H INTERVAL SUMMARY * Obese M resting VSS, NAD -> awakens easily, no c/o * NO fevers, chart reviewed * MICROBIOLOGY: Blood culture on admission grew Clostridium perfringens and coagulase-negative staph species. Repeat blood culture negative. Urine culture negative. * DIAGNOSTICS: The patient had a RICHARD that revealed no vegetations. A HIDA scan was compatible with cystic duct obstruction and possible cholecystitis PHYSICAL EXAMINATION: GENERAL: VSS, NAD HEENT: Unremarkable NECK: Trach midline CHEST: Equal chest rise bilaterally, without dyspnea on observation HEART: Pulse RRR ABDOMEN: Obese, soft EXTREMITIES: Warm - Bilateral edema, right upper extremity more edematous than left. SKIN: See hard chart skin assessment ID ASSESSMENT: 66 yo M w/PMHx 1. Biliary sepsis. 2. Clostridium perfringens bacteremia secondary to #1. * Repeat BCx (-) 3. Choledocholithiasis with cystic duct obstruction as per HIDA scan. 4. Right upper extremity edema==> no deep venous thrombosis per US. 5. Coronary artery disease, history of aortic valve replacement. 6. History of met prostate cancer w/ CT scan with diffuse skeletal metastases (-)MRSA Nares INVASIVES: PIV ABX ALLERGY: KNDA CURRENT ABX: Zosyn ID RECOMMENDATIONS: 1. Continue ABX 2. Pending surgical belem . . Problems: Consultation Date/Type/Reason Admit Date/Time Jan 30, 2017 at 07:00 Initial Consult Date Type of Consultation: ID Exam/Review of Systems Vital Signs Vitals Vital Signs Date Time Temp Pulse Resp B/P Pulse Ox O2 Delivery O2 Flow Rate FiO2 02/05/17 08:22 108 02/05/17 08:20 2.0 28 02/05/17 07:54 98.3 19 123/67 96 02/05/17 04:00 Nasal Cannula Intake and Output 02/04/17 02/04/17 02/05/17 15:00 23:00 07:00 Intake Total 605 ml 400 ml 250 ml Output Total 955 ml 220 ml 1200 ml Balance -350 ml 180 ml -950 ml Results Result Diagram: 02/05/1728 3/25/17 0628 Results 24 hrs Laboratory Tests Test 02/05/17 06:28 White Blood Count 11.5 H Red Blood Count 3.07 L Hemoglobin 8.3 L Hematocrit 26.7 L Mean Corpuscular Volume 87.0 Mean Corpuscular Hemoglobin 27.0 L Mean Corpuscular Hemoglobin Concent 31.1 L Red Cell Distribution Width 17.0 H Platelet Count 312 Mean Platelet Volume 11.4 H Neutrophils % Eosinophils % Neutrophils # Eosinophils # Prothrombin Time 29.0 H Prothrombin Time Ratio 2.3 INR International Normalized Ratio 2.70 Sodium Level 136 Potassium Level 4.0 Chloride Level 98 Carbon Dioxide Level 29 Anion Gap 13 Blood Urea Nitrogen 18 Creatinine 0.95 Glucose Level 122 Calcium Level 8.3 L Magnesium Level 1.8 Medications Medications Current Medications Docusate Sodium (Colace) 100 mg Q12H PRN PO CONSTIPATION; Start 01/30/17 at 11: 00 Magnesium Hydroxide (Milk Of Mag) 30 ml DAILY PRN PO CONSTIPATION Last administered on 02/01/17 12:19; Admin Dose 30 ML; Start 01/30/17 at 11:00 Pantoprazole (Protonix Tab) 40 mg DAILY@06 PO Last administered on 02/05/17 05 :39; Admin Dose 40 MG; Start 01/31/17 at 06:00 Acetaminophen (Tylenol Tab) 650 mg Q6H PRN PO PAIN AND OR ELEVATED TEMP Last administered on 02/01/17 22:02; Admin Dose 650 MG; Start 01/30/17 at 21:30 Acetaminophen/ Hydrocodone Bitart 1 tab 1 tab Q6H PRN PO PAIN; Start 01/30/17 at 21:30 Piperacillin Sod/ Tazobactam Sod (Zosyn 3.375gm/ 100 ml (Pmx)) 100 ml @ 200 mls /hr Q6 IVPB Last administered on 02/05/17 05:40; Admin Dose 200 MLS/HR; Start 01/30/17 at 23:00 Metoprolol Tartrate (Lopressor) 25 mg BID PO Last administered on 02/04/17 21: 48; Admin Dose 25 MG; Start 01/31/17 at 21:00 Polyethylene Glycol (Miralax) 17 gm DAILY PO ; Start 02/02/17 at 09:00 PERFECTO HERRERA NP Feb 05, 2017 09:52
[2017-02-05 10:02] LABS: EOSINOPHILS # 0.1 10^3/ul (0.0-0.5); LYMPHOCYTES # 0.9 10^3/ul (0.8-2.9); MONOCYTE # 1.4 10^3/ul (0.3-0.9); MYELOCYTES # 0.1; NEUTROPHIL # 7.5 10^3/ul (1.6-7.5)
[2017-02-05 10:03] LABS: HYPOCHROMASIA 1+; POLYCHROMASIA 1+
[2017-02-05 10:04] LABS: ALBUMIN 3.1 g/dl (3.3-4.9)
[2017-02-05 10:07] LABS: BILIRUBIN,INDIRECT 0.5 mg/dl (0-1.1); BILIRUBIN,TOTAL 0.5 mg/dl (0.2-1.3); TOTAL PROTEIN 6.7 g/dl (6.1-8.1)
[2017-02-05] MEDS: METOPROLOL 25 MG TAB PO SCH ×2 (10:12→21:23)
--- NOTE | 2017-02-05 10:12 | PN ---
Date/Time of Note Date/Time of Note DATE: 02/05/17 TIME: 10:10 Assessment/Plan VTE Prophylaxis VTE Prophylaxis Intervention: other Lines/Catheters IV Catheter Type (from Nrs): Saline Lock Urinary Cath still in place: No Subjective 24 Hr Interval Summary Free Text/Dictation Imp Improving Clost perf bacteremia Cholecystitis Plan Lap belem to follow Exam/Review of Systems Vital Signs Vitals Vital Signs Date Time Temp Pulse Resp B/P Pulse Ox O2 Delivery O2 Flow Rate FiO2 02/05/17 08:22 108 02/05/17 08:20 2.0 28 02/05/17 07:54 98.3 19 123/67 96 02/05/17 04:00 Nasal Cannula Intake and Output 02/04/17 02/04/17 02/05/17 15:00 23:00 07:00 Intake Total 605 ml 400 ml 250 ml Output Total 955 ml 220 ml 1200 ml Balance -350 ml 180 ml -950 ml Results Result Diagram: 02/05/1728 02/05/17 0628 Results 24 hrs Laboratory Tests Test 02/05/17 04:00 02/05/17 06:28 Total Bilirubin 0.5 Direct Bilirubin 0.00 Indirect Bilirubin 0.5 Aspartate Amino Transf (AST/SGOT) 82 H Alanine Aminotransferase (ALT/SGPT) 33 Alkaline Phosphatase 381 H Total Protein 6.7 Albumin 3.1 L White Blood Count 11.5 H Red Blood Count 3.07 L Hemoglobin 8.3 L Hematocrit 26.7 L Mean Corpuscular Volume 87.0 Mean Corpuscular Hemoglobin 27.0 L Mean Corpuscular Hemoglobin Concent 31.1 L Red Cell Distribution Width 17.0 H Platelet Count 312 Mean Platelet Volume 11.4 H Neutrophils % 65.0 Band Neutrophils % 12.0 H Lymphocytes % 8.0 L Monocytes % 12.0 H Eosinophils % 1.0 Metamyelocytes % 1.0 H Myelocytes % 1.0 H Neutrophils # 7.5 Lymphocytes # 0.9 Monocytes # 1.4 H Eosinophils # 0.1 Metamyelocytes # 0.1 Myelocytes # 0.1 Polychromasia 1+ Hypochromasia 1+ Prothrombin Time 29.0 H Prothrombin Time Ratio 2.3 INR International Normalized Ratio 2.70 Sodium Level 136 Potassium Level 4.0 Chloride Level 98 Carbon Dioxide Level 29 Anion Gap 13 Blood Urea Nitrogen 18 Creatinine 0.95 Glucose Level 122 Calcium Level 8.3 L Magnesium Level 1.8 Medications Medications Current Medications Docusate Sodium (Colace) 100 mg Q12H PRN PO CONSTIPATION; Start 01/30/17 at 11: 00 Magnesium Hydroxide (Milk Of Mag) 30 ml DAILY PRN PO CONSTIPATION Last administered on 02/01/17 12:19; Admin Dose 30 ML; Start 01/30/17 at 11:00 Pantoprazole (Protonix Tab) 40 mg DAILY@06 PO Last administered on 02/05/17 05 :39; Admin Dose 40 MG; Start 01/31/17 at 06:00 Acetaminophen (Tylenol Tab) 650 mg Q6H PRN PO PAIN AND OR ELEVATED TEMP Last administered on 02/01/17 22:02; Admin Dose 650 MG; Start 01/30/17 at 21:30 Acetaminophen/ Hydrocodone Bitart 1 tab 1 tab Q6H PRN PO PAIN; Start 01/30/17 at 21:30 Piperacillin Sod/ Tazobactam Sod (Zosyn 3.375gm/ 100 ml (Pmx)) 100 ml @ 200 mls /hr Q6 IVPB Last administered on 02/05/17 05:40; Admin Dose 200 MLS/HR; Start 01/30/17 at 23:00 Metoprolol Tartrate (Lopressor) 25 mg BID PO Last administered on 02/04/17 21: 48; Admin Dose 25 MG; Start 01/31/17 at 21:00 Polyethylene Glycol (Miralax) 17 gm DAILY PO ; Start 02/02/17 at 09:00 BRUCE MARTINEZ MD Feb 05, 2017 10:12
--- NOTE | 2017-02-05 10:21 | PN ---
Date/Time of Note Date/Time of Note DATE: 02/05/17 TIME: 10:20 Assessment/Plan VTE Prophylaxis VTE Prophylaxis Intervention: SCD's Lines/Catheters IV [facility] Saline Lock Urinary Cath still in place: No Assessment/Plan Assessment/Plan Sepsis with bacteremia (no vegetation seen on RICHARD) Acute decompensated diastolic congestive heart failure, improving History of mechanical aortic valve replacement Preserved ejection fraction Prostate cancer Aortic aneurysm Anemia -Patient with improvement in respiratory status on current dose of diuretics. Would continue as blood pressure and renal function permits. Supplement potassium to maintain above 4.0 and magnesium above 2.0. INR is trending down, would defer to our board-certified pharmacists (dr Gagnon) regarding Coumadin management. Continue beta-kamini as blood pressure tolerates. Patient's CT abdomen pelvis with evidence of metastases. Undergoing oncology evaluation and management - INR 2.7 - would suggest resuming coumadin so that INR stays between 2-3 going forward Subjective 24 Hr Interval Summary Free Text/Dictation The patient with no change Exam/Review of Systems Vital Signs Vitals Vital Signs Date Time Temp Pulse Resp B/P Pulse Ox O2 Delivery O2 Flow Rate FiO2 02/05/17 08:22 108 02/05/17 08:20 2.0 28 02/05/17 07:54 98.3 19 123/67 96 02/05/17 04:00 Nasal Cannula Intake and Output 02/04/17 02/04/17 02/05/17 15:00 23:00 07:00 Intake Total 605 ml 400 ml 250 ml Output Total 955 ml 220 ml 1200 ml Balance -350 ml 180 ml -950 ml Results Result Diagram: 02/05/17 0628 02/05/17 0628 Results 24 hrs Laboratory Tests Test 02/05/17 04:00 02/05/17 06:28 Total Bilirubin 0.5 Direct Bilirubin 0.00 Indirect Bilirubin 0.5 Aspartate Amino Transf (AST/SGOT) 82 H Alanine Aminotransferase (ALT/SGPT) 33 Alkaline Phosphatase 381 H Total Protein 6.7 Albumin 3.1 L White Blood Count 11.5 H Red Blood Count 3.07 L Hemoglobin 8.3 L Hematocrit 26.7 L Mean Corpuscular Volume 87.0 Mean Corpuscular Hemoglobin 27.0 L Mean Corpuscular Hemoglobin Concent 31.1 L Red Cell Distribution Width 17.0 H Platelet Count 312 Mean Platelet Volume 11.4 H Neutrophils % 65.0 Band Neutrophils % 12.0 H Lymphocytes % 8.0 L Monocytes % 12.0 H Eosinophils % 1.0 Metamyelocytes % 1.0 H Myelocytes % 1.0 H Neutrophils # 7.5 Lymphocytes # 0.9 Monocytes # 1.4 H Eosinophils # 0.1 Metamyelocytes # 0.1 Myelocytes # 0.1 Polychromasia 1+ Hypochromasia 1+ Prothrombin Time 29.0 H Prothrombin Time Ratio 2.3 INR International Normalized Ratio 2.70 Sodium Level 136 Potassium Level 4.0 Chloride Level 98 Carbon Dioxide Level 29 Anion Gap 13 Blood Urea Nitrogen 18 Creatinine 0.95 Glucose Level 122 Calcium Level 8.3 L Magnesium Level 1.8 Medications Medications Current Medications Docusate Sodium (Colace) 100 mg Q12H PRN PO CONSTIPATION; Start 01/30/17 at 11: 00 Magnesium Hydroxide (Milk Of Mag) 30 ml DAILY PRN PO CONSTIPATION Last administered on 02/01/17 12:19; Admin Dose 30 ML; Start 01/30/17 at 11:00 Pantoprazole (Protonix Tab) 40 mg DAILY@06 PO Last administered on 02/05/17 05 :39; Admin Dose 40 MG; Start 01/31/17 at 06:00 Acetaminophen (Tylenol Tab) 650 mg Q6H PRN PO PAIN AND OR ELEVATED TEMP Last administered on 02/01/17 22:02; Admin Dose 650 MG; Start 01/30/17 at 21:30 Acetaminophen/ Hydrocodone Bitart 1 tab 1 tab Q6H PRN PO PAIN; Start 01/30/17 at 21:30 Piperacillin Sod/ Tazobactam Sod (Zosyn 3.375gm/ 100 ml (Pmx)) 100 ml @ 200 mls /hr Q6 IVPB Last administered on 02/05/17 05:40; Admin Dose 200 MLS/HR; Start 01/30/17 at 23:00 Metoprolol Tartrate (Lopressor) 25 mg BID PO Last administered on 02/05/17 10: 12; Admin Dose 25 MG; Start 01/31/17 at 21:00 Polyethylene Glycol (Miralax) 17 gm DAILY PO ; Start 02/02/17 at 09:00 GOSIA HERR MD Feb 05, 2017 10:21
--- NOTE | 2017-02-05 14:34 | PN ---
DATE: 02/05/2017 The patient has been moved to floor care. HISTORY OF PRESENT ILLNESS: He states he is not experiencing any bone pain at this time. No abdomi nal pain. He has had no nausea or vomiting. Denies any fevers or shaking chills. OBJECTIVE: VITAL SIGNS: Temperature 98.2, pulse 90 per minute and regular, respirations 110/65, pulse oximetry is 98% on 2 liters of oxygen. NECK: Supple, no jugular venous distention or thyroid enlargement. CHEST: Clear to auscultation and percussion. No rhonchi, wheezes, rales or rubs. There is a newell otomy scar present. HEART: Sinus tachycardia. No S3, S4 or murmurs. ABDOMEN: Slightly distended but soft. There are no palpable masses. No rebound tenderness. Bowel sounds are active. EXTREMITIES: No clubbing, edema or cyanosis. No palpable cords or Homans sign. NEUROLOGIC: Reveals right-sided weakness. As previously noted, the patient does have diffuse osteoblastic and osteolytic lesions in the axial skeleton as seen on CT scan. CT scan does not show cholecystitis, but HIDA scan suggests the cysti c duct obstruction. ASSESSMENT: 1. Clostridium perfringens septicemia. 2. Possible cholecystitis. 3. Metastatic prostate carcinoma. PLAN: The patient apparently is scheduled to have a cholecystectomy, as the gallbladder may be the source of the patient's Gram-positive elizabeth bacteremia. I have informed him of the findings of the CT scan, which verify diffuse skeletal metastases. When able, we will have to change the patient's therapy for prostatic carcinoma, as he has become refract ory to the usual hormonal therapy. Dictated By: PIPPA MONTGOMERY MD, SR/MALICK Conf#: [id number] DID#: [id number]
--- NOTE | 2017-02-05 17:21 | PN ---
Date/Time of Note Date/Time of Note DATE: 02/05/17 TIME: 17:16 Assessment/Plan Lines/Catheters IV Catheter Type (from Nrs): Saline Lock Briones in Place (from Nrs): No Assessment/Plan Assessment/Plan [facility] Progress Note Date of Service: 02/05/17 Today's Impression & Plan: Overall stable. Discussed case with Dr. Deleon. We agree that we need a few more days to optimize patient's cardiac condition to minimize his correctable perioperative risk. His gallbladder needs to come out for two main reasons. First, it is the main suspect for the source of patient's bacteremic shock. Secondly, with his need for systemic chemotherapy for his widely metastatic prostate cancer, he would benefit from having his stone filled gallbladder out and not risk the chance of severe cholecystitis during the treatment phase. I explained all of this to the patient and his son and answered all of their questions. With above assessment, I've recommended the following for today: 1. Cont aggressive medical and cardiac management 2. Will consider lap belem later this week (perhaps of this coming week ) Thank you again for your great care of this very pleasant patient and wonderful family. If there are any questions, please feel free to call me at [phone]. TOTAL VISIT TIME: 20 minutes of which more than half was spent in [id number] discussion with the patient, possibly including family, as well as coordination of care between multiple physicians and providers. Disclaimer: Inadvertent spelling or grammatical errors are likely due to EHR/ dictation software use and do not reflect on the overall quality of patient care. Updated Clinical Summary: The patient is a very pleasant but unfortunate 66-year-old gentleman with likely metastatic prostate cancer who was admitted through the emergency department at [facility] on 01/30/2017 with septic shock and bacteremia. The patient was found to have significant cholelithiasis. COMORBIDITIES: 1. BMI of 34.2. 2. Prostate cancer diagnosed 3 to 4 years ago, diagnosed after elevation in his PSA was noted. Prostate nodule was found and biopsied and found it to be prostatic carcinoma. Hormonal therapy was initiated with Lupron and bicalutamide for 1 year and then he was taken off Lupron, which was reinitiated recently after rising PSA was noted. Also, with migratory bone pain over the last 2 months with lytic lesions noted on the most recent MRIs. 3. Congenital bicuspid aortic valve, status post replacement with a [employer] valve in 1989, and on chronic anticoagulation with Coumadin. 4. Previous cerebrovascular accident with right-sided weakness and some ataxia. 5. Hypertension. 6. Hyperlipidemia. 7. Septic shock with bacteremia (Clostridium perfringens growing in blood cultures x2 on 01/30/2017). 8. Cholelithiasis with HIDA scan dated 02/02/2017 showing no gallbladder visualization consistent with cystic duct obstruction. The common bile duct was open. Right upper quadrant ultrasound 01/31/2017 showed gallbladder completely filled with gallstones and gallbladder wall thickening was somewhat hampered by the amount of shadowing of the gallstones. No intrahepatic or extrahepatic biliary dilatation was noted. There was mild increased echogenicity of the liver suggestive of hepatic steatosis. 9. CT scan of abdomen and pelvis on 02/03/2017 shows multiple mixed lytic and blastic lesions throughout the visualized ribs, spine and pelvis consistent with metastatic disease as well as presence of retroperitoneal and pelvic lymphadenopathy consistent with neoplasm. There is also cardiomegaly and dilated ascending aorta measuring 5.5 cm. Atherosclerosis was also noted. Subjective: No major events or complaints; no major abd pain and under control with medications; no n/v/d; no sob or cp; + flatus; + BM; - activity Objective: Vitals: See below Exam: GENERAL: On exam, the patient was laying in bed and appeared to be comfortable and in no acute distress. ABDOMEN: Soft, nontender and nondistended. There are no peritoneal signs or guarding. SKIN: Skin appears to be pink and feels warm to touch. NEUROLOGIC: Patient is awake, alert, and follows commands appropriately. Exam/Review of Systems Vital Signs Vitals Vital Signs Date Time Temp Pulse Resp B/P Pulse Ox O2 Delivery O2 Flow Rate FiO2 02/05/17 16:19 101 02/05/17 14:56 98.7 18 124/63 96 02/05/17 12:45 2.0 28 02/05/17 08:15 Nasal Cannula Intake and Output 02/04/17 02/04/17 02/05/17 15:00 23:00 07:00 Intake Total 605 ml 400 ml 250 ml Output Total 955 ml 220 ml 1200 ml Balance -350 ml 180 ml -950 ml Results Result Diagram: 02/05/17 0628 02/05/17 0628 NEDA FLOOD M.D. Feb 05, 2017 17:21
[2017-02-06] VITALS (13 sets, daily range): BP systolic 103–115; BP diastolic 54–82; PULSE 79–102; RESP 15–18
[2017-02-06] MEDS: PIPER-TAZO 3.375 GM IV (PMX) 100 ML IVPB SCH ×4 (00:30→18:01)
[2017-02-06] MEDS: PANTOPRAZOLE (EC) 40 MG TAB PO SCH (06:18)
[2017-02-06] MEDS: FUROSEMIDE 40 MG INJ IV SCH ×2 (06:19→18:01)
[2017-02-06] MEDS: POLYETHYLENE GLYCOL 17 GM PACKET PO SCH (09:00)
--- NOTE | 2017-02-06 09:06 | PN ---
Date/Time of Note Date/Time of Note DATE: 02/06/17 TIME: 09:04 Assessment/Plan VTE Prophylaxis VTE Prophylaxis Intervention: other Lines/Catheters IV Catheter Type (from Nrsg): Saline Lock Urinary Cath still in place: No Subjective 24 Hr Interval Summary Free Text/Dictation Imp Cholecystitis Sepsis Clos Perf Plan antibiotics Lap belem Exam/Review of Systems Vital Signs Vitals Vital Signs Date Time Temp Pulse Resp B/P Pulse Ox O2 Delivery O2 Flow Rate FiO2 02/06/17 08:03 98.1 98 18 115/62 95 02/06/17 04:00 Nasal Cannula 2.0 02/05/17 18:23 28 Intake and Output 02/05/17 02/05/17 02/06/17 15:00 23:00 07:00 Intake Total 1290 ml 1150 ml Output Total 350 ml 900 ml Balance -350 ml 390 ml 1150 ml Results Result Diagram: 02/05/1762702/05/17627 Medications Medications Current Medications Docusate Sodium (Colace) 100 mg Q12H PRN PO CONSTIPATION; Start 01/30/17 at 11: 00 Magnesium Hydroxide (Milk Of Mag) 30 ml DAILY PRN PO CONSTIPATION Last administered on 02/01/17 12:19; Admin Dose 30 ML; Start 01/30/17 at 11:00 Pantoprazole (Protonix Tab) 40 mg DAILY@06 PO Last administered on 02/06/17 06 :18; Admin Dose 40 MG; Start 01/31/17 at 06:00 Acetaminophen (Tylenol Tab) 650 mg Q6H PRN PO PAIN AND OR ELEVATED TEMP Last administered on 02/01/17 22:02; Admin Dose 650 MG; Start 01/30/17 at 21:30 Acetaminophen/ Hydrocodone Bitart 1 tab 1 tab Q6H PRN PO PAIN; Start 01/30/17 at 21:30 Piperacillin Sod/ Tazobactam Sod (Zosyn 3.375gm/ 100 ml (Pmx)) 100 ml @ 200 mls /hr Q6 IVPB Last administered on 02/06/17 06:19; Admin Dose 200 MLS/HR; Start 01/30/17 at 23:00 Metoprolol Tartrate (Lopressor) 25 mg BID PO Last administered on 02/05/17 21: 23; Admin Dose 25 MG; Start 01/31/17 at 21:00 Polyethylene Glycol (Miralax) 17 gm DAILY PO ; Start 02/02/17 at 09:00 BRUCE MARTINEZ MD Feb 06, 2017 09:06
[2017-02-06] MEDS: METOPROLOL 25 MG TAB PO SCH ×2 (09:12→21:39)
--- NOTE | 2017-02-06 09:46 | PN ---
Date/Time of Note Date/Time of Note DATE: 02/06/17 TIME: 09:43 Assessment/Plan Lines/Catheters IV Catheter Type (from [facility]): Saline Lock Briones in Place (from [facility]): No Assessment/Plan Assessment/Plan [facility] Progress Note Date of Service: 02/06/17 Today's Impression & Plan: Overall stable. Awaiting medical and cardiac clearance for surgery. Answered all questions. With above assessment, I've recommended the following for today: 1. Cont aggressive medical and cardiac management 2. Will consider lap belem later this week (perhaps of this coming week ) Thank you again for your great care of this very pleasant patient and wonderful family. If there are any questions, please feel free to call me at [phone]. TOTAL VISIT TIME: 20 minutes of which more than half was spent in [id number] discussion with the patient, possibly including family, as well as coordination of care between multiple physicians and providers. Disclaimer: Inadvertent spelling or grammatical errors are likely due to EHR/ dictation software use and do not reflect on the overall quality of patient care. Updated Clinical Summary: The patient is a very pleasant but unfortunate 66-year-old gentleman with likely metastatic prostate cancer who was admitted through the emergency department at [facility] on 01/30/2017 with septic shock and bacteremia. The patient was found to have significant cholelithiasis. Discussed case with Dr. Deleon (his technical instructor course developer). We agreed that we needed a few more days to optimize patient's cardiac condition to minimize his correctable perioperative risk. His gallbladder needed to come out for two main reasons. First, it was the main suspect for the source of patient's bacteremic shock. Secondly, with his need for systemic chemotherapy for his widely metastatic prostate cancer, he would benefit from having his stone filled gallbladder out and not risk the chance of severe cholecystitis during the treatment phase. He received 2 units of PRBC 02/05/17 in preparation for his upcoming surgery. COMORBIDITIES: 1. BMI of 34.2. 2. Prostate cancer diagnosed 3 to 4 years ago, diagnosed after elevation in his PSA was noted. Prostate nodule was found and biopsied and found it to be prostatic carcinoma. Hormonal therapy was initiated with Lupron and bicalutamide for 1 year and then he was taken off Lupron, which was reinitiated recently after rising PSA was noted. Also, with migratory bone pain over the last 2 months with lytic lesions noted on the most recent MRIs. 3. Congenital bicuspid aortic valve, status post replacement with a [employer] valve in 1989, and on chronic anticoagulation with Coumadin. 4. Previous cerebrovascular accident with right-sided weakness and some ataxia. 5. Hypertension. 6. Hyperlipidemia. 7. Septic shock with bacteremia (Clostridium perfringens growing in blood cultures x2 on 01/30/2017). 8. Cholelithiasis with HIDA scan dated 02/02/2017 showing no gallbladder visualization consistent with cystic duct obstruction. The common bile duct was open. Right upper quadrant ultrasound 01/31/2017 showed gallbladder completely filled with gallstones and gallbladder wall thickening was somewhat hampered by the amount of shadowing of the gallstones. No intrahepatic or extrahepatic biliary dilatation was noted. There was mild increased echogenicity of the liver suggestive of hepatic steatosis. 9. CT scan of abdomen and pelvis on 02/03/2017 shows multiple mixed lytic and blastic lesions throughout the visualized ribs, spine and pelvis consistent with metastatic disease as well as presence of retroperitoneal and pelvic lymphadenopathy consistent with neoplasm. There is also cardiomegaly and dilated ascending aorta measuring 5.5 cm. Atherosclerosis was also noted. Subjective: No major events or complaints; no major abd pain and under control with medications; no n/v/d; no sob or cp; + flatus; + BM; - activity Objective: Vitals: See below Exam: GENERAL: On exam, the patient was laying in bed and appeared to be comfortable and in no acute distress. ABDOMEN: Soft, nontender and nondistended. There are no peritoneal signs or guarding. SKIN: Skin appears to be pink and feels warm to touch. NEUROLOGIC: Patient is awake, alert, and follows commands appropriately. Exam/Review of Systems Vital Signs Vitals Vital Signs Date Time Temp Pulse Resp B/P Pulse Ox O2 Delivery O2 Flow Rate FiO2 02/06/17 08:30 Nasal Cannula 2.0 02/06/17 08:03 98.1 98 18 115/62 95 02/05/17 18:23 28 Intake and Output 02/05/17 02/05/17 02/06/17 15:00 23:00 07:00 Intake Total 1290 ml 1150 ml Output Total 350 ml 900 ml Balance -350 ml 390 ml 1150 ml Results Result Diagram: 02/05/17 0628 02/05/17 0628 NEDA FLOOD M.D. Feb 06, 2017 09:46
--- NOTE | 2017-02-06 10:50 | PN ---
DATE: 02/06/2017 CARDIOLOGY PROGRESS NOTE SUBJECTIVE: The patient is alert, states he feels somewhat better but still weak and fatigued, awai kaylahg possible laparoscopic cholecystectomy. OBJECTIVE: VITAL SIGNS: Temperature 98.1, pulse 98, blood pressure 115/62. LUNGS: Decreased breath sounds bilaterally. CARDIAC: Regular tachycardic rhythm with a metallic click. ABDOMEN: Soft. EXTREMITIES: Reveal no edema. CURRENT MEDICATIONS: 1. Furosemide 40 mg b.i.d. 2. MiraLax. 3. Metoprolol. 4. Protonix. 5. Zosyn. 6. Colace. LABORATORY RESULTS: White count 11.5, hematocrit 26.7, platelet count 312. Sodium 136, potassium 4 .0, BUN 18, creatinine 0.9. INR not performed today. Yesterday was 2.7. ASSESSMENT: 1. Sepsis, possibly due to cholecystitis. 2. Acute decompensated heart failure, clinically improving. 3. Mechanical aortic valve with preserved ejection fraction. INRs need to be followed. When INR b elow 2, the patient will need heparin. Plan for possible laparoscopic cholecystectomy later this weekend. If so, may want to bridge with anne marie mccarthy. I will defer this decision to Dr. Diego Gagnon, the patient's primary treating physician. Dictated By: WEI LEONARDO/MALICK Conf#: [id number] DID#: [id number]
--- NOTE | 2017-02-06 11:03 | PN ---
Date/Time of Note Date/Time of Note DATE: 02/06/17 TIME: 11:01 Assessment/Plan VTE Prophylaxis VTE Prophylaxis Intervention: contraindicated VTE Contraindication Reason: bleeding Lines/Catheters IV Catheter Type (from Nrs): Saline Lock Urinary Cath still in place: No Assessment/Plan Chief Complaint/Hosp Course see above Problems: Subjective 24 Hr Interval Summary Free Text/Dictation received 2 units prbcs. labs and PTINR pending. not being ambulated. VS stable Chest fairly clear Cor reg rhythm ext 1+ pitting edema Plan: mobilize with walker. medically cleared for lap cholecystectomy Exam/Review of Systems Vital Signs Vitals Vital Signs Date Time Temp Pulse Resp B/P Pulse Ox O2 Delivery O2 Flow Rate FiO2 02/06/17 08:30 Nasal Cannula 2.0 02/06/17 08:03 98.1 98 18 115/62 95 02/05/17 18:23 28 Intake and Output 02/05/17 02/05/17 02/06/17 15:00 23:00 07:00 Intake Total 1290 ml 1150 ml Output Total 350 ml 900 ml Balance -350 ml 390 ml 1150 ml Results Result Diagram: 02/05/1728 02/05/1728 Results 24 hrs Laboratory Tests Test 02/06/17 10:31 Lab Scanned Report REFERENCE LAB Medications Medications Current Medications Docusate Sodium (Colace) 100 mg Q12H PRN PO CONSTIPATION; Start 01/30/17 at 11: 00 Magnesium Hydroxide (Milk Of Mag) 30 ml DAILY PRN PO CONSTIPATION Last administered on 02/01/17 12:19; Admin Dose 30 ML; Start 01/30/17 at 11:00 Pantoprazole (Protonix Tab) 40 mg DAILY@06 PO Last administered on 02/06/17 06 :18; Admin Dose 40 MG; Start 01/31/17 at 06:00 Acetaminophen (Tylenol Tab) 650 mg Q6H PRN PO PAIN AND OR ELEVATED TEMP Last administered on 02/01/17 22:02; Admin Dose 650 MG; Start 01/30/17 at 21:30 Acetaminophen/ Hydrocodone Bitart 1 tab 1 tab Q6H PRN PO PAIN; Start 01/30/17 at 21:30 Piperacillin Sod/ Tazobactam Sod (Zosyn 3.375gm/ 100 ml (Pmx)) 100 ml @ 200 mls /hr Q6 IVPB Last administered on 02/06/17 06:19; Admin Dose 200 MLS/HR; Start 01/30/17 at 23:00 Metoprolol Tartrate (Lopressor) 25 mg BID PO Last administered on 02/06/17 09: 12; Admin Dose 25 MG; Start 01/31/17 at 21:00 Polyethylene Glycol (Miralax) 17 gm DAILY PO ; Start 02/02/17 at 09:00 Folic Acid (Folic Acid) 1 mg DAILY PO ; Start 02/06/17 at 11:00 BETTY CUMMINGS MD Feb 06, 2017 11:03
[2017-02-06] MEDS: FOLIC ACID 1 MG TAB PO SCH (12:49)
[2017-02-06 13:28] LABS: ADD SCAN DIFF NO
[2017-02-06 13:30] LABS: ABNORMAL IP MESSAGE 1; BASOPHILS % 0.3 % (0.0-2.0); EOSINOPHILS # 0.2 10^3/ul (0.0-0.5); EOSINOPHILS % 1.7 % (0.0-7.0); HEMATOCRIT 27.1 % (42.0-52.0); HEMOGLOBIN 8.7 g/dl (14.0-18.0); LYMPHOCYTES # 1.4 10^3/ul (0.8-2.9); LYMPHOCYTES % 12.2 % (15.0-51.0); MEAN CORPUSCULAR HEMOGLOBIN 27.4 pg (29.0-33.0); MEAN CORPUSCULAR HGB CONC 32.1 g/dl (32.0-37.0); MEAN CORPUSCULAR VOLUME 85.5 fl (82.0-101.0); MEAN PLATELET VOLUME 10.9 fl (7.4-10.4); MONOCYTE # 0.6 10^3/ul (0.3-0.9); MONOCYTES % 5.5 % (0.0-11.0); NEUTROPHIL # 7.2 10^3/ul (1.6-7.5); NEUTROPHILS % 64.3 % (39.0-77.0); NUCLEATED RED BLOOD CELLS% 0.3 /100WBC (0.0-0.0); PLATELET COUNT 274 10^3/UL (140-415); RED BLOOD COUNT 3.17 10^6/ul (4.70-6.10); RED CELL DISTRIBUTION WIDTH 16.3 % (11.5-14.5); WHITE BLOOD COUNT 11.2 10^3/ul (4.8-10.8)
[2017-02-06 13:38] LABS: POTASSIUM 3.5 mmol/L (3.5-5.1)
[2017-02-06 13:39] LABS: INR 1.91; PROTIME 22.1 Sec (12.2-14.2); PT RATIO 1.7
[2017-02-06 13:40] LABS: CREATININE 0.88 mg/dl (0.61-1.24)
[2017-02-06 13:41] LABS: CALCIUM 6.5 mg/dl (8.4-10.2)
--- NOTE | 2017-02-06 19:07 | CONS ---
Date/Time of Note Date/Time of Note DATE: 02/06/17 TIME: 19:04 Assessment/Plan Assessment/Plan Chief Complaint/Hosp Course ID PROGRESS NOTE TOTAL ABX DAY # => Zosyn 24H INTERVAL SUMMARY * Awake, stable, waiting for lap=belem, VSS, NAD, No fevers * s/p 2Units PRBCs today * MICROBIOLOGY: Blood culture on admission grew Clostridium perfringens and coagulase-negative staph species. Repeat blood culture negative. Urine culture negative. * DIAGNOSTICS: The patient had a RICHARD that revealed no vegetations. A HIDA scan was compatible with cystic duct obstruction and possible cholecystitis PHYSICAL EXAMINATION: GENERAL: VSS, NAD HEENT: Unremarkable NECK: Trach midline CHEST: Equal chest rise bilaterally, without dyspnea on observation HEART: Pulse RRR ABDOMEN: Obese, soft EXTREMITIES: Warm - Bilateral edema, right upper extremity more edematous than left. SKIN: See hard chart skin assessment ID ASSESSMENT: 66 yo M w/PMHx 1. Biliary sepsis. 2. Clostridium perfringens bacteremia secondary to #1. * Repeat BCx (-) 3. Choledocholithiasis with cystic duct obstruction as per HIDA scan. 4. Right upper extremity edema==> no deep venous thrombosis per US. 5. Coronary artery disease, history of aortic valve replacement. 6. History of metastatic prostate cancer w/ CT scan with diffuse skeletal metastases 7. Anemia -> s/p 2 Units PRBCs 02/06/17 8. Chronic pain 2/2 skeletal mets -> opioids onboard (-)MRSA Nares INVASIVES: PIV ABX ALLERGY: KNDA CURRENT ABX: Zosyn ID RECOMMENDATIONS: 1. Continue ABX 2. Pending surgical scheduling of Lap-Belem . . Problems: Consultation Date/Type/Reason Admit Date/Time Jan 30, 2017 at 07:00 Type of Consultation: ID Exam/Review of Systems Vital Signs Vitals Vital Signs Date Time Temp Pulse Resp B/P Pulse Ox O2 Delivery O2 Flow Rate FiO2 02/06/17 16:00 89 02/06/17 15:44 98.0 18 105/64 95 02/06/17 08:30 Nasal Cannula 2.0 02/05/17 18:23 28 Intake and Output 02/05/17 02/05/17 02/06/17 15:00 23:00 07:00 Intake Total 1290 ml 1150 ml Output Total 350 ml 900 ml Balance -350 ml 390 ml 1150 ml Results Result Diagram: 02/06/17 1310 02/06/17 1310 Results 24 hrs Laboratory Tests Test 02/06/17 10:31 02/06/17 13:10 Lab Scanned Report REFERENCE LAB White Blood Count 11.2 H Red Blood Count 3.17 L Hemoglobin 8.7 L Hematocrit 27.1 L Mean Corpuscular Volume 85.5 Mean Corpuscular Hemoglobin 27.4 L Mean Corpuscular Hemoglobin Concent 32.1 Red Cell Distribution Width 16.3 H Platelet Count 274 Mean Platelet Volume 10.9 H Neutrophils % 64.3 Lymphocytes % 12.2 L Monocytes % 5.5 Eosinophils % 1.7 Basophils % 0.3 Nucleated Red Blood Cells % 0.3 H Neutrophils # 7.2 Lymphocytes # 1.4 Monocytes # 0.6 Eosinophils # 0.2 Basophils # 0.0 Nucleated Red Blood Cells # 0.0 Prothrombin Time 22.1 #H Prothrombin Time Ratio 1.7 INR International Normalized Ratio 1.91 Sodium Level 133 L Potassium Level 3.5 Chloride Level 98 Carbon Dioxide Level 28 Anion Gap 11 Blood Urea Nitrogen 18 Creatinine 0.88 Glucose Level 104 Calcium Level 6.5 L Medications Medications Current Medications Docusate Sodium (Colace) 100 mg Q12H PRN PO CONSTIPATION; Start 01/30/17 at 11: 00 Magnesium Hydroxide (Milk Of Mag) 30 ml DAILY PRN PO CONSTIPATION Last administered on 02/01/17 12:19; Admin Dose 30 ML; Start 01/30/17 at 11:00 Pantoprazole (Protonix Tab) 40 mg DAILY@06 PO Last administered on 02/06/17 06 :18; Admin Dose 40 MG; Start 01/31/17 at 06:00 Acetaminophen (Tylenol Tab) 650 mg Q6H PRN PO PAIN AND OR ELEVATED TEMP Last administered on 02/01/17 22:02; Admin Dose 650 MG; Start 01/30/17 at 21:30 Acetaminophen/ Hydrocodone Bitart 1 tab 1 tab Q6H PRN PO PAIN; Start 01/30/17 at 21:30 Piperacillin Sod/ Tazobactam Sod (Zosyn 3.375gm/ 100 ml (Pmx)) 100 ml @ 200 mls /hr Q6 IVPB Last administered on 02/06/17 18:01; Admin Dose 200 MLS/HR; Start 01/30/17 at 23:00 Metoprolol Tartrate (Lopressor) 25 mg BID PO Last administered on 02/06/17 09: 12; Admin Dose 25 MG; Start 01/31/17 at 21:00 Polyethylene Glycol (Miralax) 17 gm DAILY PO ; Start 02/02/17 at 09:00 Folic Acid (Folic Acid) 1 mg DAILY PO Last administered on 02/06/17 12:49; Admin Dose 1 MG; Start 02/06/17 at 11:00 PERFECTO HERRERA NP Feb 06, 2017 19:07
[2017-02-07] VITALS (12 sets, daily range): BP systolic 108–118; BP diastolic 55–67; PULSE 85–95; RESP 16–19
[2017-02-07] MEDS: PIPER-TAZO 3.375 GM IV (PMX) 100 ML IVPB SCH ×4 (01:09→18:01)
[2017-02-07] MEDS: PANTOPRAZOLE (EC) 40 MG TAB PO SCH (06:23)
[2017-02-07] MEDS: FUROSEMIDE 40 MG INJ IV SCH ×2 (06:23→18:01)
[2017-02-07 07:34] LABS: ADD SCAN DIFF NO
[2017-02-07 07:43] LABS: ABNORMAL IP MESSAGE 1; BASOPHILS % 0.2 % (0.0-2.0); EOSINOPHILS # 0.2 10^3/ul (0.0-0.5); EOSINOPHILS % 1.7 % (0.0-7.0); HEMATOCRIT 27.8 % (42.0-52.0); HEMOGLOBIN 8.7 g/dl (14.0-18.0); LYMPHOCYTES # 1.5 10^3/ul (0.8-2.9); LYMPHOCYTES % 13.1 % (15.0-51.0); MEAN CORPUSCULAR HEMOGLOBIN 26.9 pg (29.0-33.0); MEAN CORPUSCULAR HGB CONC 31.3 g/dl (32.0-37.0); MEAN CORPUSCULAR VOLUME 86.1 fl (82.0-101.0); MEAN PLATELET VOLUME 11.3 fl (7.4-10.4); MONOCYTE # 0.6 10^3/ul (0.3-0.9); MONOCYTES % 5.2 % (0.0-11.0); NEUTROPHIL # 7.6 10^3/ul (1.6-7.5); NEUTROPHILS % 68.1 % (39.0-77.0); NUCLEATED RED BLOOD CELLS% 0.2 /100WBC (0.0-0.0); PLATELET COUNT 300 10^3/UL (140-415); RED BLOOD COUNT 3.23 10^6/ul (4.70-6.10); RED CELL DISTRIBUTION WIDTH 16.4 % (11.5-14.5); WHITE BLOOD COUNT 11.1 10^3/ul (4.8-10.8)
[2017-02-07 07:50] LABS: INR 1.56; PROTIME 18.8 Sec (12.2-14.2); PT RATIO 1.5
[2017-02-07 07:55] LABS: POTASSIUM 3.1 mmol/L (3.5-5.1)
[2017-02-07 07:58] LABS: CALCIUM 6.2 mg/dl (8.4-10.2); CREATININE 0.85 mg/dl (0.61-1.24)
--- NOTE | 2017-02-07 08:52 | PN ---
Date/Time of Note Date/Time of Note DATE: 02/07/17 TIME: 08:50 Assessment/Plan VTE Prophylaxis VTE Prophylaxis Intervention: contraindicated VTE Contraindication Reason: bleeding Lines/Catheters IV Catheter Type (from Nrs): Saline Lock Urinary Cath still in place: No Assessment/Plan Chief Complaint/Hosp Course see above Problems: Subjective 24 Hr Interval Summary Free Text/Dictation alert. K 3.1 from diuresis. Hb 8.7 after transfusion. awaiting surgery. PT^INR 1.5 off warfarin. on lovenox until surgery scheduled Exam. breathing better. monitor sinus rhythm Chest c lwear Cor re grhythm Ext trace edema Assessment. replace KCl [id number] this week Exam/Review of Systems Vital Signs Vitals Vital Signs Date Time Temp Pulse Resp B/P Pulse Ox O2 Delivery O2 Flow Rate FiO2 02/07/17 08:15 88 02/07/17 07:38 98.2 18 118/67 94 02/07/17 05:45 2.0 02/06/17 20:08 Nasal Cannula 02/05/17 18:23 28 Intake and Output 02/06/17 02/06/17 02/07/17 15:00 23:00 07:00 Intake Total 2500 ml 2100 ml Output Total 1100 ml 2310 ml Balance 1400 ml -210 ml Results Result Diagram: 02/07/1735 02/07/17 0635 Results 24 hrs Laboratory Tests Test 02/06/17 10:31 02/06/17 13:10 02/07/17 06:35 Lab Scanned Report REFERENCE LAB White Blood Count 11.2 H 11.1 H Red Blood Count 3.17 L 3.23 L Hemoglobin 8.7 L 8.7 L Hematocrit 27.1 L 27.8 L Mean Corpuscular Volume 85.5 86.1 Mean Corpuscular Hemoglobin 27.4 L 26.9 L Mean Corpuscular Hemoglobin Concent 32.1 31.3 L Red Cell Distribution Width 16.3 H 16.4 H Platelet Count 274 300 Mean Platelet Volume 10.9 H 11.3 H Neutrophils % 64.3 68.1 Lymphocytes % 12.2 L 13.1 L Monocytes % 5.5 5.2 Eosinophils % 1.7 1.7 Basophils % 0.3 0.2 Nucleated Red Blood Cells % 0.3 H 0.2 H Neutrophils # 7.2 7.6 H Lymphocytes # 1.4 1.5 Monocytes # 0.6 0.6 Eosinophils # 0.2 0.2 Basophils # 0.0 0.0 Nucleated Red Blood Cells # 0.0 0.0 Prothrombin Time 22.1 #H 18.8 H Prothrombin Time Ratio 1.7 1.5 INR International Normalized Ratio 1.91 1.56 Sodium Level 133 L 133 L Potassium Level 3.5 3.1 L Chloride Level 98 98 Carbon Dioxide Level 28 27 Anion Gap 11 11 Blood Urea Nitrogen 18 14 Creatinine 0.88 0.85 Glucose Level 104 93 Calcium Level 6.5 L 6.2 L Medications Medications Current Medications Docusate Sodium (Colace) 100 mg Q12H PRN PO CONSTIPATION; Start 01/30/17 at 11: 00 Magnesium Hydroxide (Milk Of Mag) 30 ml DAILY PRN PO CONSTIPATION Last administered on 02/01/17 12:19; Admin Dose 30 ML; Start 01/30/17 at 11:00 Pantoprazole (Protonix Tab) 40 mg DAILY@06 PO Last administered on 02/07/17 06 :23; Admin Dose 40 MG; Start 01/31/17 at 06:00 Acetaminophen (Tylenol Tab) 650 mg Q6H PRN PO PAIN AND OR ELEVATED TEMP Last administered on 02/01/17 22:02; Admin Dose 650 MG; Start 01/30/17 at 21:30 Acetaminophen/ Hydrocodone Bitart 1 tab 1 tab Q6H PRN PO PAIN; Start 01/30/17 at 21:30 Piperacillin Sod/ Tazobactam Sod (Zosyn 3.375gm/ 100 ml (Pmx)) 100 ml @ 200 mls /hr Q6 IVPB Last administered on 02/07/17 06:23; Admin Dose 200 MLS/HR; Start 01/30/17 at 23:00 Metoprolol Tartrate (Lopressor) 25 mg BID PO Last administered on 02/06/17 21: 39; Admin Dose 25 MG; Start 01/31/17 at 21:00 Polyethylene Glycol (Miralax) 17 gm DAILY PO ; Start 02/02/17 at 09:00 Folic Acid (Folic Acid) 1 mg DAILY PO Last administered on 02/06/17 12:49; Admin Dose 1 MG; Start 02/06/17 at 11:00 Potassium Chloride (Klor-Con 20) 20 meq BID PO ; Start 02/07/17 at 09:00; Status BETTY JAIMES MD Feb 07, 2017 08:52
[2017-02-07] MEDS: POLYETHYLENE GLYCOL 17 GM PACKET PO SCH (09:00)
[2017-02-07] MEDS ORDERED: ENOXAPARIN 40 MG/0.4 ML SYG SC SCH (09:30)
[2017-02-07] MEDS: POTASSIUM CHLORIDE (SR) 20 MEQ TAB PO SCH ×2 (09:43→21:57)
[2017-02-07] MEDS: FOLIC ACID 1 MG TAB PO SCH (09:43)
[2017-02-07] MEDS: METOPROLOL 25 MG TAB PO SCH ×2 (09:43→21:57)
--- NOTE | 2017-02-07 10:30 | RADRPT ---
PROCEDURE: CHEST 1VW CLINICAL INDICATION: Shortness of breath TECHNIQUE: Single frontal view of the chest was obtained COMPARISON: 02/04/2017 FINDINGS: Stable sternotomy wires. The cardiac size is moderately enlarged, stable. Aortic vascular calcifications are demonstrated. There is no pulmonary vascular congestion. Bibasilar atelectasis. Trace right effusion with associated atelectasis. Mild degenerative changes of the visualized osseous structures are visualized. IMPRESSION: 1. Stable cardiomegaly with trace right effusion and associated atelectasis. 2. Atherosclerosis. RPTAT:PP .Kaiser Sullivan MD, Date Time Electronically viewed and signed by .Kaiser Sullivan MD, on 02/07/2017 10:29 .V/
--- NOTE | 2017-02-07 12:53 | CONS ---
Date/Time of Note Date/Time of Note DATE: 02/07/17 TIME: 12:52 Assessment/Plan Assessment/Plan Chief Complaint/Hosp Course SUBJECTIVE: No acute changes. The patient is alert. Looks comfortable. No fevers. MICROBIOLOGY: Blood culture on admission grew Clostridium perfringens and coagulase-negative staph species. Repeat blood culture negative. Urine culture negative. DIAGNOSTICS: The patient had a RICHARD that revealed no vegetations. A HIDA scan was compatible with cystic duct obstruction and possible cholecystitis ANTIMICROBIALS: Zosyn PHYSICAL EXAMINATION: GENERAL: This is a morbidly obese elderly man who is alert, in no distress. HEENT: Head atraumatic, normocephalic. Sclerae anicteric. Buccal mucosa pink. NECK: Supple. CHEST: Rise symmetrical. Breath sounds diminished to bases. HEART: S1, S2. ABDOMEN: Obese, soft, bowel sounds present. EXTREMITIES: Without cyanosis. Bilateral edema, right upper extremity more edematous than left. ASSESSMENT: 1. Biliary sepsis. 2. Clostridium perfringens bacteremia secondary to #1. 3. Choledocholithiasis with cystic duct obstruction as per HIDA scan. 4. Right upper extremity edema==> no deep venous thrombosis per US. 5. Coronary artery disease, history of aortic valve replacement. 6. History of met prostate cancer. PLAN: The patient remains stable, covered with appropriate antimicrobials. Pending lap cholecystectomy, oncology rec-s noted [facility] staff Problems: Consultation Date/Type/Reason Admit Date/Time Jan 30, 2017 at 07:00 Type of Consultation: ID Exam/Review of Systems Vital Signs Vitals Vital Signs Date Time Temp Pulse Resp B/P Pulse Ox O2 Delivery O2 Flow Rate FiO2 02/07/17 12:38 88 02/07/17 11:13 98.3 18 117/65 97 02/07/17 08:15 Nasal Cannula 2.0 02/05/17 18:23 28 Intake and Output 02/06/17 02/06/17 02/07/17 15:00 23:00 07:00 Intake Total 100 ml 2600 ml 2100 ml Output Total 1100 ml 2310 ml Balance 100 ml 1500 ml -210 ml Results Result Diagram: 02/07/17 0635 02/07/17 0635 Results 24 hrs Laboratory Tests Test 02/06/17 13:10 02/07/17 06:35 White Blood Count 11.2 H 11.1 H Red Blood Count 3.17 L 3.23 L Hemoglobin 8.7 L 8.7 L Hematocrit 27.1 L 27.8 L Mean Corpuscular Volume 85.5 86.1 Mean Corpuscular Hemoglobin 27.4 L 26.9 L Mean Corpuscular Hemoglobin Concent 32.1 31.3 L Red Cell Distribution Width 16.3 H 16.4 H Platelet Count 274 300 Mean Platelet Volume 10.9 H 11.3 H Neutrophils % 64.3 68.1 Lymphocytes % 12.2 L 13.1 L Monocytes % 5.5 5.2 Eosinophils % 1.7 1.7 Basophils % 0.3 0.2 Nucleated Red Blood Cells % 0.3 H 0.2 H Neutrophils # 7.2 7.6 H Lymphocytes # 1.4 1.5 Monocytes # 0.6 0.6 Eosinophils # 0.2 0.2 Basophils # 0.0 0.0 Nucleated Red Blood Cells # 0.0 0.0 Prothrombin Time 22.1 #H 18.8 H Prothrombin Time Ratio 1.7 1.5 INR International Normalized Ratio 1.91 1.56 Sodium Level 133 L 133 L Potassium Level 3.5 3.1 L Chloride Level 98 98 Carbon Dioxide Level 28 27 Anion Gap 11 11 Blood Urea Nitrogen 18 14 Creatinine 0.88 0.85 Glucose Level 104 93 Calcium Level 6.5 L 6.2 L Medications Medications Current Medications Docusate Sodium (Colace) 100 mg Q12H PRN PO CONSTIPATION; Start 01/30/17 at 11: 00 Magnesium Hydroxide (Milk Of Mag) 30 ml DAILY PRN PO CONSTIPATION Last administered on 02/01/17 12:19; Admin Dose 30 ML; Start 01/30/17 at 11:00 Pantoprazole (Protonix Tab) 40 mg DAILY@06 PO Last administered on 02/07/17 06 :23; Admin Dose 40 MG; Start 01/31/17 at 06:00 Acetaminophen (Tylenol Tab) 650 mg Q6H PRN PO PAIN AND OR ELEVATED TEMP Last administered on 02/01/17 22:02; Admin Dose 650 MG; Start 01/30/17 at 21:30 Acetaminophen/ Hydrocodone Bitart 1 tab 1 tab Q6H PRN PO PAIN; Start 01/30/17 at 21:30 Piperacillin Sod/ Tazobactam Sod (Zosyn 3.375gm/ 100 ml (Pmx)) 100 ml @ 200 mls /hr Q6 IVPB Last administered on 02/07/17 12:11; Admin Dose 200 MLS/HR; Start 01/30/17 at 23:00 Metoprolol Tartrate (Lopressor) 25 mg BID PO Last administered on 02/07/17 09: 43; Admin Dose 25 MG; Start 01/31/17 at 21:00 Polyethylene Glycol (Miralax) 17 gm DAILY PO ; Start 02/02/17 at 09:00 Folic Acid (Folic Acid) 1 mg DAILY PO Last administered on 02/07/17 09:43; Admin Dose 1 MG; Start 02/06/17 at 11:00 Potassium Chloride (Klor-Con 20) 20 meq BID PO Last administered on 02/07/17 09:43; Admin Dose 20 MEQ; Start 02/07/17 at 09:00 Enoxaparin Sodium (Lovenox) 40 mg DAILY SC Last administered on 02/07/17 09:45 ; Admin Dose 40 MG; Start 02/07/17 at 09:30 JAMES KAPLAN NP Feb 07, 2017 12:53
--- NOTE | 2017-02-07 14:22 | CONS ---
DATE OF ADMISSION: 01/30/2017 DATE OF CONSULTATION: 02/07/2017 TYPE OF CONSULTATION: Medical oncology. HISTORY OF PRESENT ILLNESS: Mr. Noel states he is feeling much better. He feels that his respirat ions are better. He has no cough. No complaints of chest pain. VITAL SIGNS: Temperature 98.3, pulse 86 per minute and regular, respirations 18, blood pressure is 117/65 and pulse oximetry 97% on 2 liters of oxygen by nasal cannula. HEENT: No mucosal lesions. No scleral icterus. NECK: Supple. No jugular venous distention or thyroid enlargement. CHEST: Decreased breath sounds bilaterally. There is a sternotomy scar present. HEART: Regular sinus rhythm. SKIN: There is loud clicking of a prosthetic valve. ABDOMEN: Soft, no masses, no ascites. EXTREMITIES: No clubbing or cyanosis. There is marked ecchymoses in the right upper extremity. LABORATORIES: White count 11,100, hemoglobin 8.7, hematocrit 27.8 and platelet count 300,000. Prot joe 18.8 seconds, INR 1.56. His creatinine is 0.85, BUN 14. ASSESSMENT: 1. Corynebacterium pharynges septicemia. 2. Probable cholecystitis. 3. Metastatic prostate carcinoma. The patient is off warfarin. Protime is still marginal with an INR 1.56. The patient may need bronwyn min K to further correct protime, although it is gradually getting better. He is being covered by t he enoxaparin subcutaneously. Following cholecystectomy, we will then consider institution of a new therapy for prostate carcinoma . I would favor the use of enzalutamide 160 mg daily. This is favored over the use of abiraterone, which requires concomitant use of corticosteroids. Dictated By: PIPPA MONTGOMERY MD SR/NTS Conf#: [id number] DID#: [id number]
[2017-02-07] MEDS ORDERED: HEPARIN 1000 UNITS/ML 10 ML INJ IV PRN (14:30)
[2017-02-07] MEDS ORDERED: HEPARIN 1000 UNITS/ML 10 ML INJ IV ONE (14:30)
[2017-02-07 14:43] LABS: ADD SCAN DIFF NO
[2017-02-07 14:45] LABS: ABNORMAL IP MESSAGE 1; BASOPHILS % 0.1 % (0.0-2.0); EOSINOPHILS # 0.2 10^3/ul (0.0-0.5); EOSINOPHILS % 2.2 % (0.0-7.0); HEMATOCRIT 28.2 % (42.0-52.0); HEMOGLOBIN 8.9 g/dl (14.0-18.0); LYMPHOCYTES # 1.3 10^3/ul (0.8-2.9); LYMPHOCYTES % 12.6 % (15.0-51.0); MEAN CORPUSCULAR HEMOGLOBIN 27.1 pg (29.0-33.0); MEAN CORPUSCULAR HGB CONC 31.6 g/dl (32.0-37.0); MEAN PLATELET VOLUME 11.1 fl (7.4-10.4); MONOCYTE # 0.6 10^3/ul (0.3-0.9); MONOCYTES % 5.7 % (0.0-11.0); NEUTROPHIL # 7.3 10^3/ul (1.6-7.5); NEUTROPHILS % 69.3 % (39.0-77.0); PLATELET COUNT 297 10^3/UL (140-415); RED BLOOD COUNT 3.28 10^6/ul (4.70-6.10); RED CELL DISTRIBUTION WIDTH 16.3 % (11.5-14.5); WHITE BLOOD COUNT 10.5 10^3/ul (4.8-10.8)
[2017-02-07 14:56] LABS: INR 1.59; PROTIME 19.1 Sec (12.2-14.2); PT RATIO 1.5
[2017-02-07 14:57] LABS: PARTIAL THROMBOPLASTIN TIME 60.4 Sec (25.0-35.0)
[2017-02-07] MEDS ORDERED: MAGNESIUM SULFATE 2 GM/50 ML 50 ML IVPB ONE (15:00)
--- NOTE | 2017-02-07 15:02 | CONS ---
Date/Time of Note Date/Time of Note DATE: 02/07/17 TIME: 14:59 Assessment/Plan Assessment/Plan Additional Assessment/Plan Sepsis with bacteremia (no vegetation seen on RICHARD) Acute decompensated diastolic congestive heart failure, improving History of mechanical aortic valve replacement Preserved ejection fraction Prostate cancer Aortic aneurysm Anemia -Patient with subtherapeutic INR. Patient has been started on Lovenox 40 mg subcu daily which is DVT prophylaxis dose, not treatment dose given patient would need full anticoagulation secondary to mechanical aortic valve. Would DC Lovenox and start IV heparin full dose with titration based on PTT. Patient with progressive improvement in decompensated congestive heart failure. Would plan to down titrate IV diuretics in the next 1-2 days based on renal function, blood pressure and examination. Supplement potassium to maintain above 4.0 and magnesium above 2.0. In discussion with our surgery colleagues Dr. Nunez, high concern of multiple gallstones as etiology of his septicemia. Patient undergoing cardiac optimization in regards to heart failure management prior to planned surgery this . Antibiotics as per primary team. Consultation Date/Type/Reason Admit Date/Time Jan 30, 2017 at 07:00 Type of Consultation: cv 24 HR Interval Summary Free Text/Dictation Patient with significant improvement in shortness of breath. Denies chest pain , dizziness or lightheadedness. Complains of fatigue. Overall feeling better Exam/Review of Systems Vital Signs Vitals Vital Signs Date Time Temp Pulse Resp B/P Pulse Ox O2 Delivery O2 Flow Rate FiO2 02/07/17 12:38 88 02/07/17 11:13 98.3 18 117/65 97 02/07/17 08:15 Nasal Cannula 2.0 02/05/17 18:23 28 Intake and Output 02/06/17 02/06/17 02/07/17 14:59 22:59 06:59 Intake Total 200 ml 2600 ml 2100 ml Output Total 1100 ml 2310 ml Balance 200 ml 1500 ml -210 ml Exam No apparent distress, speaking in complete sentences Constitutional: alert, obese, oriented Head: normocephalic Neck: supple Respiratory: other (Coarse breath sounds bilaterally, no wheezing or rhonchi) Cardiovascular: other (S1-S2 heard), regular rate and rhythm, systolic murmur Gastrointestinal: bowel sounds, non-tender, other (No guarding), soft Extremities: edema (Trace), other (No cyanosis) Results Result Diagram: 02/07/17 0635 02/07/17 0635 Results 24 hrs Laboratory Tests Test 02/07/17 06:35 02/07/17 14:15 White Blood Count 11.1 H Red Blood Count 3.23 L Hemoglobin 8.7 L Hematocrit 27.8 L Mean Corpuscular Volume 86.1 Mean Corpuscular Hemoglobin 26.9 L Mean Corpuscular Hemoglobin Concent 31.3 L Red Cell Distribution Width 16.4 H Platelet Count 300 Mean Platelet Volume 11.3 H Neutrophils % 68.1 Lymphocytes % 13.1 L Monocytes % 5.2 Eosinophils % 1.7 Basophils % 0.2 Nucleated Red Blood Cells % 0.2 H Neutrophils # 7.6 H Lymphocytes # 1.5 Monocytes # 0.6 Eosinophils # 0.2 Basophils # 0.0 Nucleated Red Blood Cells # 0.0 Prothrombin Time 18.8 H 19.1 H Prothrombin Time Ratio 1.5 1.5 INR International Normalized Ratio 1.56 1.59 Sodium Level 133 L Potassium Level 3.1 L Chloride Level 98 Carbon Dioxide Level 27 Anion Gap 11 Blood Urea Nitrogen 14 Creatinine 0.85 Glucose Level 93 Calcium Level 6.2 L Activated Partial Thromboplast Time 60.4 H Medications Medications Current Medications Docusate Sodium (Colace) 100 mg Q12H PRN PO CONSTIPATION; Start 01/30/17 at 11: 00 Magnesium Hydroxide (Milk Of Mag) 30 ml DAILY PRN PO CONSTIPATION Last administered on 02/01/17 12:19; Admin Dose 30 ML; Start 01/30/17 at 11:00 Pantoprazole (Protonix Tab) 40 mg DAILY@06 PO Last administered on 02/07/17 06 :23; Admin Dose 40 MG; Start 01/31/17 at 06:00 Acetaminophen (Tylenol Tab) 650 mg Q6H PRN PO PAIN AND OR ELEVATED TEMP Last administered on 02/01/17 22:02; Admin Dose 650 MG; Start 01/30/17 at 21:30 Acetaminophen/ Hydrocodone Bitart 1 tab 1 tab Q6H PRN PO PAIN; Start 01/30/17 at 21:30 Piperacillin Sod/ Tazobactam Sod (Zosyn 3.375gm/ 100 ml (Pmx)) 100 ml @ 200 mls /hr Q6 IVPB Last administered on 02/07/17 12:11; Admin Dose 200 MLS/HR; Start 01/30/17 at 23:00 Metoprolol Tartrate (Lopressor) 25 mg BID PO Last administered on 02/07/17 09: 43; Admin Dose 25 MG; Start 01/31/17 at 21:00 Polyethylene Glycol (Miralax) 17 gm DAILY PO ; Start 02/02/17 at 09:00 Folic Acid (Folic Acid) 1 mg DAILY PO Last administered on 02/07/17 09:43; Admin Dose 1 MG; Start 02/06/17 at 11:00 Potassium Chloride (Klor-Con 20) 20 meq BID PO Last administered on 02/07/17 09:43; Admin Dose 20 MEQ; Start 02/07/17 at 09:00 Elias Deleon DO Feb 07, 2017 15:02
--- NOTE | 2017-02-07 17:02 | PN ---
Date/Time of Note Date/Time of Note DATE: 02/07/17 TIME: 17:00 Assessment/Plan Lines/Catheters IV Catheter Type (from [facility] Saline Lock Briones in Place (from [facility]): No Assessment/Plan Assessment/Plan [facility] Progress Note Date of Service: 02/07/17 Today's Impression & Plan: Overall stable and improving. Answered all questions. With above assessment, I've recommended the following for today: 1. Cont aggressive medical and cardiac management 2. Lap belem on the schedule for 02/10/17 3. Anticoagulation management (will need to be off of Coumadin now; can consider heparin drip with plans to stop the drip the night before surgery and resume anticoagulation the day after surgery) Thank you again for your great care of this very pleasant patient and wonderful family. If there are any questions, please feel free to call me at [phone]. TOTAL VISIT TIME: 20 minutes of which more than half was spent in [id number] discussion with the patient, possibly including family, as well as coordination of care between multiple physicians and providers. Disclaimer: Inadvertent spelling or grammatical errors are likely due to EHR/ dictation software use and do not reflect on the overall quality of patient care. Updated Clinical Summary: The patient is a very pleasant but unfortunate 66-year-old gentleman with likely metastatic prostate cancer who was admitted through the emergency department at [facility] on 01/30/2017 with septic shock and bacteremia. The patient was found to have significant cholelithiasis. Discussed case with Dr. Deleon (his linux server engineer). We agreed that we needed a few more days to optimize patient's cardiac condition to minimize his correctable perioperative risk. His gallbladder needed to come out for two main reasons. First, it was the main suspect for the source of patient's bacteremic shock. Secondly, with his need for systemic chemotherapy for his widely metastatic prostate cancer, he would benefit from having his stone filled gallbladder out and not risk the chance of severe cholecystitis during the treatment phase. He received 2 units of PRBC 02/05/17 in preparation for his upcoming surgery. COMORBIDITIES: 1. BMI of 34.2. 2. Prostate cancer diagnosed 3 to 4 years ago, diagnosed after elevation in his PSA was noted. Prostate nodule was found and biopsied and found it to be prostatic carcinoma. Hormonal therapy was initiated with Lupron and bicalutamide for 1 year and then he was taken off Lupron, which was reinitiated recently after rising PSA was noted. Also, with migratory bone pain over the last 2 months with lytic lesions noted on the most recent MRIs. 3. Congenital bicuspid aortic valve, status post replacement with a [facility] valve in 1989, and on chronic anticoagulation with Coumadin. 4. Previous cerebrovascular accident with right-sided weakness and some ataxia. 5. Hypertension. 6. Hyperlipidemia. 7. Septic shock with bacteremia (Clostridium perfringens growing in blood cultures x2 on 01/30/2017). 8. Cholelithiasis with HIDA scan dated 02/02/2017 showing no gallbladder visualization consistent with cystic duct obstruction. The common bile duct was open. Right upper quadrant ultrasound 01/31/2017 showed gallbladder completely filled with gallstones and gallbladder wall thickening was somewhat hampered by the amount of shadowing of the gallstones. No intrahepatic or extrahepatic biliary dilatation was noted. There was mild increased echogenicity of the liver suggestive of hepatic steatosis. 9. CT scan of abdomen and pelvis on 02/03/2017 shows multiple mixed lytic and blastic lesions throughout the visualized ribs, spine and pelvis consistent with metastatic disease as well as presence of retroperitoneal and pelvic lymphadenopathy consistent with neoplasm. There is also cardiomegaly and dilated ascending aorta measuring 5.5 cm. Atherosclerosis was also noted. Subjective: No major events or complaints; no major abd pain and under control with medications; no n/v/d; no sob or cp; + flatus; + BM; - activity Objective: Vitals: See below Exam: GENERAL: On exam, the patient was laying in bed and appeared to be comfortable and in no acute distress. ABDOMEN: Soft, nontender and nondistended. There are no peritoneal signs or guarding. SKIN: Skin appears to be pink and feels warm to touch. NEUROLOGIC: Patient is awake, alert, and follows commands appropriately. Exam/Review of Systems Vital Signs Vitals Vital Signs Date Time Temp Pulse Resp B/P Pulse Ox O2 Delivery O2 Flow Rate FiO2 02/07/17 16:24 86 02/07/17 15:41 2.0 02/07/17 15:03 97.5 18 108/55 96 02/07/17 08:15 Nasal Cannula 02/05/17 18:23 28 Intake and Output 02/06/17 02/06/17 02/07/17 15:00 23:00 07:00 Intake Total 100 ml 2600 ml 2100 ml Output Total 1100 ml 2310 ml Balance 100 ml 1500 ml -210 ml Results Result Diagram: 02/07/17 1415 02/07/17 0635 NEDA FLOOD M.D. Feb 07, 2017 17:01
[2017-02-07] MEDS ORDERED: POTASSIUM CHLORIDE (SR) 20 MEQ TAB PO ONE (18:00)
[2017-02-08] VITALS (11 sets, daily range): BP systolic 108–129; BP diastolic 58–70; PULSE 79–92; RESP 17–20
[2017-02-08] MEDS: PIPER-TAZO 3.375 GM IV (PMX) 100 ML IVPB SCH ×2 (00:07→05:30)
[2017-02-08] MEDS: HEPARIN 25000 UNITS/250 ML 250 ML IV SCH ×3 (00:12→14:55)
[2017-02-08] MEDS: FUROSEMIDE 40 MG INJ IV SCH (05:29)
[2017-02-08] MEDS: PANTOPRAZOLE (EC) 40 MG TAB PO SCH (05:30)
[2017-02-08 07:40] LABS: ADD SCAN DIFF NO
[2017-02-08 07:47] LABS: ABNORMAL IP MESSAGE 1; BASOPHILS % 0.1 % (0.0-2.0); EOSINOPHILS # 0.3 10^3/ul (0.0-0.5); EOSINOPHILS % 2.6 % (0.0-7.0); HEMATOCRIT 29.4 % (42.0-52.0); HEMOGLOBIN 9.1 g/dl (14.0-18.0); LYMPHOCYTES # 1.3 10^3/ul (0.8-2.9); LYMPHOCYTES % 12.6 % (15.0-51.0); MEAN CORPUSCULAR HEMOGLOBIN 26.9 pg (29.0-33.0); MEAN PLATELET VOLUME 11.1 fl (7.4-10.4); MONOCYTE # 0.6 10^3/ul (0.3-0.9); MONOCYTES % 5.3 % (0.0-11.0); NEUTROPHIL # 7.4 10^3/ul (1.6-7.5); NEUTROPHILS % 69.9 % (39.0-77.0); NUCLEATED RED BLOOD CELLS% 0.3 /100WBC (0.0-0.0); PLATELET COUNT 310 10^3/UL (140-415); RED BLOOD COUNT 3.38 10^6/ul (4.70-6.10); RED CELL DISTRIBUTION WIDTH 16.6 % (11.5-14.5); WHITE BLOOD COUNT 10.5 10^3/ul (4.8-10.8)
[2017-02-08 07:57] LABS: INR 1.3; PROTIME 16.3 Sec (12.2-14.2); PT RATIO 1.3
[2017-02-08 07:58] LABS: PARTIAL THROMBOPLASTIN TIME 61.5 Sec (25.0-35.0)
[2017-02-08 08:06] LABS: POTASSIUM 3.2 mmol/L (3.5-5.1)
[2017-02-08 08:08] LABS: CREATININE 0.82 mg/dl (0.61-1.24)
[2017-02-08 08:09] LABS: CALCIUM 6.4 mg/dl (8.4-10.2)
--- NOTE | 2017-02-08 08:22 | PN ---
Date/Time of Note Date/Time of Note DATE: 02/08/17 TIME: 08:19 Assessment/Plan VTE Prophylaxis VTE Prophylaxis Intervention: contraindicated VTE Contraindication Reason: bleeding Lines/Catheters IV Catheter Type (from Nrs): Saline Lock Urinary Cath still in place: No Assessment/Plan Chief Complaint/Hosp Course see above Problems: Subjective 24 Hr Interval Summary Free Text/Dictation alert. on iv heparin infusion pending surgery scheduled for 02/10/17. CXR shows clearing of CHF reports breathing comfortable, Monitor sinus rhythm Exam: alert Chest clear Cor crisp valve sounds Abd soft Ext trace edema Assessment: medically stable for surgery. Exam/Review of Systems Vital Signs Vitals Vital Signs Date Time Temp Pulse Resp B/P Pulse Ox O2 Delivery O2 Flow Rate FiO2 02/08/17 08:09 90 02/08/17 07:24 98.5 20 117/62 95 02/07/17 20:10 Nasal Cannula 2.0 02/05/17 18:23 28 Intake and Output 02/07/17 02/07/17 02/08/17 15:00 23:00 07:00 Intake Total 200 ml 850 ml 800 ml Output Total 1000 ml 790 ml Balance 200 ml -150 ml 10 ml Results Result Diagram: 02/08/17 0633 02/08/17 0633 Results 24 hrs Laboratory Tests Test 02/07/17 14:15 02/07/17 22:43 02/08/17 06:33 White Blood Count 10.5 10.5 Red Blood Count 3.28 L 3.38 L Hemoglobin 8.9 L 9.1 L Hematocrit 28.2 L 29.4 L Mean Corpuscular Volume 86.0 87.0 Mean Corpuscular Hemoglobin 27.1 L 26.9 L Mean Corpuscular Hemoglobin Concent 31.6 L 31.0 L Red Cell Distribution Width 16.3 H 16.6 H Platelet Count 297 310 Mean Platelet Volume 11.1 H 11.1 H Neutrophils % 69.3 69.9 Lymphocytes % 12.6 L 12.6 L Monocytes % 5.7 5.3 Eosinophils % 2.2 2.6 Basophils % 0.1 0.1 Nucleated Red Blood Cells % 0.0 0.3 H Neutrophils # 7.3 7.4 Lymphocytes # 1.3 1.3 Monocytes # 0.6 0.6 Eosinophils # 0.2 0.3 Basophils # 0.0 0.0 Nucleated Red Blood Cells # 0.0 0.0 Prothrombin Time 19.1 H 16.3 H Prothrombin Time Ratio 1.5 1.3 INR International Normalized Ratio 1.59 1.30 Activated Partial Thromboplast Time 60.4 H 71.6 *H 61.5 H Sodium Level 135 Potassium Level 3.2 L Chloride Level 99 Carbon Dioxide Level Pending Anion Gap Pending Blood Urea Nitrogen Pending Creatinine Pending Glucose Level Pending Calcium Level Pending Medications Medications Current Medications Docusate Sodium (Colace) 100 mg Q12H PRN PO CONSTIPATION; Start 01/30/17 at 11: 00 Magnesium Hydroxide (Milk Of Mag) 30 ml DAILY PRN PO CONSTIPATION Last administered on 02/01/17 12:19; Admin Dose 30 ML; Start 01/30/17 at 11:00 Pantoprazole (Protonix Tab) 40 mg DAILY@06 PO Last administered on 02/08/17 05 :30; Admin Dose 40 MG; Start 01/31/17 at 06:00 Acetaminophen (Tylenol Tab) 650 mg Q6H PRN PO PAIN AND OR ELEVATED TEMP Last administered on 02/01/17 22:02; Admin Dose 650 MG; Start 01/30/17 at 21:30 Acetaminophen/ Hydrocodone Bitart 1 tab 1 tab Q6H PRN PO PAIN; Start 01/30/17 at 21:30 Piperacillin Sod/ Tazobactam Sod (Zosyn 3.375gm/ 100 ml (Pmx)) 100 ml @ 200 mls /hr Q6 IVPB Last administered on 02/08/17 05:30; Admin Dose 200 MLS/HR; Start 01/30/17 at 23:00 Metoprolol Tartrate (Lopressor) 25 mg BID PO Last administered on 02/07/17 21: 57; Admin Dose 25 MG; Start 01/31/17 at 21:00 Polyethylene Glycol (Miralax) 17 gm DAILY PO ; Start 02/02/17 at 09:00 Folic Acid (Folic Acid) 1 mg DAILY PO Last administered on 02/07/17 09:43; Admin Dose 1 MG; Start 02/06/17 at 11:00 Potassium Chloride (Klor-Con 20) 20 meq BID PO Last administered on 02/07/17 21:57; Admin Dose 20 MEQ; Start 02/07/17 at 09:00 BETTY CUMMINGS MD Feb 08, 2017 08:22
--- NOTE | 2017-02-08 08:29 | PN ---
Date/Time of Note Date/Time of Note DATE: 02/08/17 TIME: 08:26 Assessment/Plan VTE Prophylaxis VTE Prophylaxis Intervention: heparin Lines/Catheters IV [facility] Type [facility] Saline Lock Urinary Cath still in place: No Assessment/Plan Assessment/Plan Cholecystectomy tentatively scheduled for two days from now. Heparin infusion to be stopped prior to the procedure. Prostate cancer treatment to be given once he recovers from the surgery. Subjective 24 Hr Interval Summary Free Text/Dictation Pt is comfortably lying in bed conversing with Dr. Gagnon and me. Constitutional: no complaints Eyes: no complaints Exam/Review of Systems Vital Signs Vitals Vital Signs Date Time Temp Pulse Resp B/P Pulse Ox O2 Delivery O2 Flow Rate FiO2 02/08/17 08:09 90 02/08/17 07:24 98.5 20 117/62 95 02/07/17 20:10 Nasal Cannula 2.0 02/05/17 18:23 28 Intake and Output 02/07/17 02/07/17 02/08/17 15:00 23:00 07:00 Intake Total 200 ml 850 ml 800 ml Output Total 1000 ml 790 ml Balance 200 ml -150 ml 10 ml Exam Constitutional: alert, oriented Psych: no complaints Head: normocephalic Eyes: nl conjunctiva Neck: supple Respiratory: clear to auscultation Cardiovascular: regular rate and rhythm Gastrointestinal: non-tender, soft Skin: nl turgor Lymph: nl lymph nodes Results Result Diagram: 02/08/17 0633 02/08/17 0633 Results 24 hrs Laboratory Tests Test 02/07/17 14:15 02/07/17 22:43 02/08/17 06:33 White Blood Count 10.5 10.5 Red Blood Count 3.28 L 3.38 L Hemoglobin 8.9 L 9.1 L Hematocrit 28.2 L 29.4 L Mean Corpuscular Volume 86.0 87.0 Mean Corpuscular Hemoglobin 27.1 L 26.9 L Mean Corpuscular Hemoglobin Concent 31.6 L 31.0 L Red Cell Distribution Width 16.3 H 16.6 H Platelet Count 297 310 Mean Platelet Volume 11.1 H 11.1 H Neutrophils % 69.3 69.9 Lymphocytes % 12.6 L 12.6 L Monocytes % 5.7 5.3 Eosinophils % 2.2 2.6 Basophils % 0.1 0.1 Nucleated Red Blood Cells % 0.0 0.3 H Neutrophils # 7.3 7.4 Lymphocytes # 1.3 1.3 Monocytes # 0.6 0.6 Eosinophils # 0.2 0.3 Basophils # 0.0 0.0 Nucleated Red Blood Cells # 0.0 0.0 Prothrombin Time 19.1 H 16.3 H Prothrombin Time Ratio 1.5 1.3 INR International Normalized Ratio 1.59 1.30 Activated Partial Thromboplast Time 60.4 H 71.6 *H 61.5 H Sodium Level 135 Potassium Level 3.2 L Chloride Level 99 Carbon Dioxide Level 27 Anion Gap 12 Blood Urea Nitrogen 13 Creatinine 0.82 Glucose Level 96 Calcium Level 6.4 L Medications Medications Current Medications Docusate Sodium (Colace) 100 mg Q12H PRN PO CONSTIPATION; Start 01/30/17 at 11: 00 Magnesium Hydroxide (Milk Of Mag) 30 ml DAILY PRN PO CONSTIPATION Last administered on 02/01/17 12:19; Admin Dose 30 ML; Start 01/30/17 at 11:00 Pantoprazole (Protonix Tab) 40 mg DAILY@06 PO Last administered on 02/08/17 05 :30; Admin Dose 40 MG; Start 01/31/17 at 06:00 Acetaminophen (Tylenol Tab) 650 mg Q6H PRN PO PAIN AND OR ELEVATED TEMP Last administered on 02/01/17 22:02; Admin Dose 650 MG; Start 01/30/17 at 21:30 Acetaminophen/ Hydrocodone Bitart 1 tab 1 tab Q6H PRN PO PAIN; Start 01/30/17 at 21:30 Piperacillin Sod/ Tazobactam Sod (Zosyn 3.375gm/ 100 ml (Pmx)) 100 ml @ 200 mls /hr Q6 IVPB Last administered on 02/08/17 05:30; Admin Dose 200 MLS/HR; Start 01/30/17 at 23:00 Metoprolol Tartrate (Lopressor) 25 mg BID PO Last administered on 02/07/17 21: 57; Admin Dose 25 MG; Start 01/31/17 at 21:00 Polyethylene Glycol (Miralax) 17 gm DAILY PO ; Start 02/02/17 at 09:00 Folic Acid (Folic Acid) 1 mg DAILY PO Last administered on 02/07/17 09:43; Admin Dose 1 MG; Start 02/06/17 at 11:00 Potassium Chloride (Klor-Con 20) 20 meq BID PO Last administered on 02/07/17t 21:57; Admin Dose 20 MEQ; Start 02/07/17 at 09:00 FELICITAS THURMAN MD Feb 08, 2017 08:29
[2017-02-08] MEDS: POLYETHYLENE GLYCOL 17 GM PACKET PO SCH (09:48)
[2017-02-08] MEDS: FOLIC ACID 1 MG TAB PO SCH (09:49)
[2017-02-08] MEDS: METOPROLOL 25 MG TAB PO SCH ×2 (09:49→21:14)
[2017-02-08] MEDS: POTASSIUM CHLORIDE (SR) 20 MEQ TAB PO SCH ×2 (09:49→21:13)
--- NOTE | 2017-02-08 12:56 | CONS ---
Date/Time of Note Date/Time of Note DATE: 02/08/17 TIME: 12:54 Assessment/Plan Assessment/Plan Chief Complaint/Hosp Course SUBJECTIVE: No acute changes. Alert. Feels ok. No fevers. MICROBIOLOGY: Blood culture on admission grew Clostridium perfringens and coagulase-negative staph species. Repeat blood culture negative. Urine culture negative. DIAGNOSTICS: The patient had a RICHARD that revealed no vegetations. A HIDA scan was compatible with cystic duct obstruction and possible cholecystitis ANTIMICROBIALS: Zosyn PHYSICAL EXAMINATION: GENERAL: This is a morbidly obese elderly man who is alert, in no distress. HEENT: Head atraumatic, normocephalic. Sclerae anicteric. Buccal mucosa pink. NECK: Supple. CHEST: Rise symmetrical. Breath sounds diminished to bases. HEART: S1, S2. ABDOMEN: Obese, soft, bowel sounds present. EXTREMITIES: Without cyanosis. Bilateral edema, right upper extremity more edematous than left. ASSESSMENT: 1. Biliary sepsis. 2. Clostridium perfringens bacteremia secondary to #1. 3. Choledocholithiasis with cystic duct obstruction as per HIDA scan. 4. Right upper extremity edema==> no deep venous thrombosis per US. 5. Coronary artery disease, history of aortic valve replacement. 6. History of met prostate cancer. PLAN: The patient remains stable, will change abx to Flagyl and Rocephin to complete treatment for bacteremia, pending lap belem, oncology/card rec-s, incentive spirometry DW pt Problems: Consultation Date/Type/Reason Admit Date/Time Jan 30, 2017 at 07:00 Type of Consultation: id Exam/Review of Systems Vital Signs Vitals Vital Signs Date Time Temp Pulse Resp B/P Pulse Ox O2 Delivery O2 Flow Rate FiO2 02/08/17 12:18 79 02/08/17 11:33 98.2 18 118/68 97 02/07/17 20:10 Nasal Cannula 2.0 02/05/17 18:23 28 Intake and Output 02/07/17 02/07/17 02/08/17 15:00 23:00 07:00 Intake Total 200 ml 850 ml 800 ml Output Total 1000 ml 790 ml Balance 200 ml -150 ml 10 ml Results Result Diagram: 02/08/17 0633 02/08/17 0633 Results 24 hrs Laboratory Tests Test 02/07/17 14:15 02/07/17 22:43 02/08/17 06:33 White Blood Count 10.5 10.5 Red Blood Count 3.28 L 3.38 L Hemoglobin 8.9 L 9.1 L Hematocrit 28.2 L 29.4 L Mean Corpuscular Volume 86.0 87.0 Mean Corpuscular Hemoglobin 27.1 L 26.9 L Mean Corpuscular Hemoglobin Concent 31.6 L 31.0 L Red Cell Distribution Width 16.3 H 16.6 H Platelet Count 297 310 Mean Platelet Volume 11.1 H 11.1 H Neutrophils % 69.3 69.9 Lymphocytes % 12.6 L 12.6 L Monocytes % 5.7 5.3 Eosinophils % 2.2 2.6 Basophils % 0.1 0.1 Nucleated Red Blood Cells % 0.0 0.3 H Neutrophils # 7.3 7.4 Lymphocytes # 1.3 1.3 Monocytes # 0.6 0.6 Eosinophils # 0.2 0.3 Basophils # 0.0 0.0 Nucleated Red Blood Cells # 0.0 0.0 Prothrombin Time 19.1 H 16.3 H Prothrombin Time Ratio 1.5 1.3 INR International Normalized Ratio 1.59 1.30 Activated Partial Thromboplast Time 60.4 H 71.6 *H 61.5 H Sodium Level 135 Potassium Level 3.2 L Chloride Level 99 Carbon Dioxide Level 27 Anion Gap 12 Blood Urea Nitrogen 13 Creatinine 0.82 Glucose Level 96 Calcium Level 6.4 L Magnesium Level 2.1 Medications Medications Current Medications Docusate Sodium (Colace) 100 mg Q12H PRN PO CONSTIPATION; Start 01/30/17 at 11: 00 Magnesium Hydroxide (Milk Of Mag) 30 ml DAILY PRN PO CONSTIPATION Last administered on 02/01/17 12:19; Admin Dose 30 ML; Start 01/30/17 at 11:00 Pantoprazole (Protonix Tab) 40 mg DAILY@06 PO Last administered on 02/08/17 05 :30; Admin Dose 40 MG; Start 01/31/17 at 06:00 Acetaminophen (Tylenol Tab) 650 mg Q6H PRN PO PAIN AND OR ELEVATED TEMP Last administered on 02/01/17 22:02; Admin Dose 650 MG; Start 01/30/17 at 21:30 Acetaminophen/ Hydrocodone Bitart 1 tab 1 tab Q6H PRN PO PAIN; Start 01/30/17 at 21:30 Piperacillin Sod/ Tazobactam Sod (Zosyn 3.375gm/ 100 ml (Pmx)) 100 ml @ 200 mls /hr Q6 IVPB Last administered on 02/08/17 05:30; Admin Dose 200 MLS/HR; Start 01/30/17 at 23:00 Metoprolol Tartrate (Lopressor) 25 mg BID PO Last administered on 02/08/17 09: 49; Admin Dose 25 MG; Start 01/31/17 at 21:00 Polyethylene Glycol (Miralax) 17 gm DAILY PO Last administered on 02/08/17 09: 48; Admin Dose 17 GM; Start 02/02/17 at 09:00 Folic Acid (Folic Acid) 1 mg DAILY PO Last administered on 02/08/17 09:49; Admin Dose 1 MG; Start 02/06/17 at 11:00 Potassium Chloride (Klor-Con 20) 20 meq BID PO Last administered on 02/08/17 09:49; Admin Dose 20 MEQ; Start 02/07/17 at 09:00 JAMES KAPLAN NP Feb 08, 2017 12:56
[2017-02-08] MEDS: CEFTRIAXONE 1 GM/50 ML (PMX) 50 ML IVPB SCH (14:34)
[2017-02-08] MEDS: metroNIDAZOLE 500 MG/NS (PMX) 100 ML IVPB SCH ×2 (15:56→21:15)
[2017-02-08] MEDS ORDERED: POTASSIUM CHLORIDE (SR) 20 MEQ TAB PO STA (16:33)
--- NOTE | 2017-02-08 16:37 | CONS ---
Date/Time of Note Date/Time of Note DATE: 02/08/17 TIME: 16:36 Assessment/Plan Assessment/Plan Additional Assessment/Plan Sepsis with bacteremia (no vegetation seen on RICHARD) Acute decompensated diastolic congestive heart failure, improving History of mechanical aortic valve replacement Preserved ejection fraction Prostate cancer Aortic aneurysm Anemia -Patient with continual improvement and congestive heart failure and appears near euvolemic. With switch diuretics to p.o. Extra potassium supplementation ordered an additional to standing dose. Continue IV heparin until surgery. Consultation Date/Type/Reason Admit Date/Time Jan 30, 2017 at 07:00 Type of Consultation: cv 24 HR Interval Summary Free Text/Dictation Denies shortness of breath, chest pain or palpitations. Has been increasing ambulation Exam/Review of Systems Vital Signs Vitals Vital Signs Date Time Temp Pulse Resp B/P Pulse Ox O2 Delivery O2 Flow Rate FiO2 02/08/17 16:06 88 02/08/17 15:11 97.8 18 108/62 95 02/07/17 20:10 Nasal Cannula 2.0 02/05/17 18:23 28 Intake and Output 02/07/17 02/07/17 02/08/17 15:00 23:00 07:00 Intake Total 200 ml 850 ml 800 ml Output Total 1000 ml 790 ml Balance 200 ml -150 ml 10 ml Exam No apparent distress Constitutional: alert, obese, oriented Head: normocephalic Neck: supple Respiratory: other (Coarse breath sounds bilaterally, no wheezing) Cardiovascular: other (S1-S2 heard), regular rate and rhythm, systolic murmur Gastrointestinal: bowel sounds, non-tender, other (No guarding), soft Extremities: edema (Trace), other (No cyanosis) Results Result Diagram: 02/08/17 0633 02/08/1733 Results 24 hrs Laboratory Tests Test 02/07/17 22:43 02/08/17 06:33 02/08/17 13:15 Activated Partial Thromboplast Time 71.6 *H 61.5 H 63.1 H White Blood Count 10.5 Red Blood Count 3.38 L Hemoglobin 9.1 L Hematocrit 29.4 L Mean Corpuscular Volume 87.0 Mean Corpuscular Hemoglobin 26.9 L Mean Corpuscular Hemoglobin Concent 31.0 L Red Cell Distribution Width 16.6 H Platelet Count 310 Mean Platelet Volume 11.1 H Neutrophils % 69.9 Lymphocytes % 12.6 L Monocytes % 5.3 Eosinophils % 2.6 Basophils % 0.1 Nucleated Red Blood Cells % 0.3 H Neutrophils # 7.4 Lymphocytes # 1.3 Monocytes # 0.6 Eosinophils # 0.3 Basophils # 0.0 Nucleated Red Blood Cells # 0.0 Prothrombin Time 16.3 H Prothrombin Time Ratio 1.3 INR International Normalized Ratio 1.30 Sodium Level 135 Potassium Level 3.2 L Chloride Level 99 Carbon Dioxide Level 27 Anion Gap 12 Blood Urea Nitrogen 13 Creatinine 0.82 Glucose Level 96 Calcium Level 6.4 L Magnesium Level 2.1 Medications Medications Current Medications Docusate Sodium (Colace) 100 mg Q12H PRN PO CONSTIPATION; Start 01/30/17 at 11: 00 Magnesium Hydroxide (Milk Of Mag) 30 ml DAILY PRN PO CONSTIPATION Last administered on 02/01/17 12:19; Admin Dose 30 ML; Start 01/30/17 at 11:00 Pantoprazole (Protonix Tab) 40 mg DAILY@06 PO Last administered on 02/08/17 05 :30; Admin Dose 40 MG; Start 01/31/17 at 06:00 Acetaminophen (Tylenol Tab) 650 mg Q6H PRN PO PAIN AND OR ELEVATED TEMP Last administered on 02/01/17 22:02; Admin Dose 650 MG; Start 01/30/17 at 21:30 Acetaminophen/ Hydrocodone Bitart ([place] (5/325)) 1 tab Q6H PRN PO PAIN; Start 01/30/17 at 21:30 Metoprolol Tartrate (Lopressor) 25 mg BID PO Last administered on 02/08/17 09: 49; Admin Dose 25 MG; Start 01/31/17 at 21:00 Polyethylene Glycol (Miralax) 17 gm DAILY PO Last administered on 02/08/17 09: 48; Admin Dose 17 GM; Start 02/02/17 at 09:00 Folic Acid (Folic Acid) 1 mg DAILY PO Last administered on 02/08/17 09:49; Admin Dose 1 MG; Start 02/06/17 at 11:00 Potassium Chloride 20 meq 20 meq BID PO Last administered on 02/08/17 09:49; Admin Dose 20 MEQ; Start 02/07/17 at 09:00 Metronidazole 100 ml @ 100 mls/hr Q8 IVPB Last administered on 02/08/17 15:56 ; Admin Dose 100 MLS/HR; Start 02/08/17 at 14:00 Ceftriaxone Sodium (Rocephin) 50 ml @ 100 mls/hr Q24H IVPB Last administered on 02/08/17 14:34; Admin Dose 100 MLS/HR; Start 02/08/17 at 13:00 Elias Deleon DO Feb 08, 2017 16:37
[2017-02-09] VITALS (12 sets, daily range): BP systolic 110–122; BP diastolic 60–69; PULSE 82–101; RESP 17–18
[2017-02-09] MEDS: HEPARIN 25000 UNITS/250 ML 250 ML IV SCH ×5 (01:51→23:02)
[2017-02-09] MEDS: metroNIDAZOLE 500 MG/NS (PMX) 100 ML IVPB SCH ×3 (06:23→22:53)
[2017-02-09] MEDS: PANTOPRAZOLE (EC) 40 MG TAB PO SCH (06:23)
[2017-02-09 07:49] LABS: ADD SCAN DIFF NO
[2017-02-09 07:59] LABS: ABNORMAL IP MESSAGE 1; BASOPHILS % 0.2 % (0.0-2.0); EOSINOPHILS # 0.3 10^3/ul (0.0-0.5); EOSINOPHILS % 2.6 % (0.0-7.0); HEMATOCRIT 29.6 % (42.0-52.0); LYMPHOCYTES # 1.4 10^3/ul (0.8-2.9); LYMPHOCYTES % 13.7 % (15.0-51.0); MEAN CORPUSCULAR HGB CONC 30.4 g/dl (32.0-37.0); MEAN CORPUSCULAR VOLUME 88.9 fl (82.0-101.0); MEAN PLATELET VOLUME 11.2 fl (7.4-10.4); MONOCYTE # 0.6 10^3/ul (0.3-0.9); MONOCYTES % 5.9 % (0.0-11.0); NEUTROPHIL # 7.3 10^3/ul (1.6-7.5); NEUTROPHILS % 71.8 % (39.0-77.0); NUCLEATED RED BLOOD CELLS% 0.4 /100WBC (0.0-0.0); PLATELET COUNT 311 10^3/UL (140-415); RED BLOOD COUNT 3.33 10^6/ul (4.70-6.10); RED CELL DISTRIBUTION WIDTH 16.8 % (11.5-14.5); WHITE BLOOD COUNT 10.1 10^3/ul (4.8-10.8)
[2017-02-09 08:09] LABS: INR 1.16; PROTIME 14.9 Sec (12.2-14.2); PT RATIO 1.2
[2017-02-09 08:13] LABS: CREATININE 0.66 mg/dl (0.61-1.24); POTASSIUM 4.2 mmol/L (3.5-5.1)
[2017-02-09 08:14] LABS: CALCIUM 6.7 mg/dl (8.4-10.2)
--- NOTE | 2017-02-09 08:30 | PN ---
Date/Time of Note Date/Time of Note DATE: 02/09/17 TIME: 08:26 Assessment/Plan VTE Prophylaxis VTE Prophylaxis Intervention: heparin VTE Contraindication Reason: bleeding Lines/Catheters IV Catheter Type (from Nrs): Peripheral IV Urinary Cath still in place: No Assessment/Plan Chief Complaint/Hosp Course see above Problems: Subjective 24 Hr Interval Summary Free Text/Dictation alert. comfortable. inr 1.2 LABS AND REPORTS REVIEWED. SCHEDULED FOR LAP SUKUMAR TOMORROW Physical examination: alert VS stable Chest clear cor reg rhythm Abd soft Ext trace edema plan: surgery in am Exam/Review of Systems Vital Signs Vitals Vital Signs Date Time Temp Pulse Resp B/P Pulse Ox O2 Delivery O2 Flow Rate FiO2 02/09/17 08:07 84 02/09/17 07:35 98.2 18 111/69 97 02/09/17 02:16 2.0 02/08/17 21:25 Nasal Cannula 02/05/17 18:23 28 Intake and Output 02/08/17 02/08/17 02/09/17 15:00 23:00 07:00 Intake Total 550 ml 1350 ml 100 ml Output Total 200 ml 900 ml Balance 350 ml 450 ml 100 ml Results Result Diagram: 02/09/17 0630 02/09/17 0630 Results 24 hrs Laboratory Tests Test 02/08/17 13:15 02/08/17 18:25 02/09/17 00:32 02/09/17 06:30 Activated Partial Thromboplast Time 63.1 H 62.1 H 44.2 H White Blood Count 10.1 Red Blood Count 3.33 L Hemoglobin 9.0 L Hematocrit 29.6 L Mean Corpuscular Volume 88.9 Mean Corpuscular Hemoglobin 27.0 L Mean Corpuscular Hemoglobin Concent 30.4 L Red Cell Distribution Width 16.8 H Platelet Count 311 Mean Platelet Volume 11.2 H Neutrophils % 71.8 Lymphocytes % 13.7 L Monocytes % 5.9 Eosinophils % 2.6 Basophils % 0.2 Nucleated Red Blood Cells % 0.4 H Neutrophils # 7.3 Lymphocytes # 1.4 Monocytes # 0.6 Eosinophils # 0.3 Basophils # 0.0 Nucleated Red Blood Cells # 0.0 Prothrombin Time 14.9 H Prothrombin Time Ratio 1.2 INR International Normalized Ratio 1.16 Sodium Level 136 Potassium Level 4.2 Chloride Level 104 Carbon Dioxide Level 23 Anion Gap 13 Blood Urea Nitrogen 12 Creatinine 0.66 Glucose Level 100 Calcium Level 6.7 L Magnesium Level 2.1 Medications Medications Current Medications Docusate Sodium (Colace) 100 mg Q12H PRN PO CONSTIPATION; Start 01/30/17 at 11: 00 Magnesium Hydroxide (Milk Of Mag) 30 ml DAILY PRN PO CONSTIPATION Last administered on 02/01/17 12:19; Admin Dose 30 ML; Start 01/30/17 at 11:00 Pantoprazole (Protonix Tab) 40 mg DAILY@06 PO Last administered on 02/09/17 06 :23; Admin Dose 40 MG; Start 01/31/17 at 06:00 Acetaminophen (Tylenol Tab) 650 mg Q6H PRN PO PAIN AND OR ELEVATED TEMP Last administered on 02/01/17 22:02; Admin Dose 650 MG; Start 01/30/17 at 21:30 Acetaminophen/ Hydrocodone Bitart ([place] (5/325)) 1 tab Q6H PRN PO PAIN; Start 01/30/17 at 21:30 Metoprolol Tartrate (Lopressor) 25 mg BID PO Last administered on 02/08/17 21: 14; Admin Dose 25 MG; Start 01/31/17 at 21:00 Polyethylene Glycol (Miralax) 17 gm DAILY PO Last administered on 02/08/17 09: 48; Admin Dose 17 GM; Start 02/02/17 at 09:00 Folic Acid (Folic Acid) 1 mg DAILY PO Last administered on 02/08/17 09:49; Admin Dose 1 MG; Start 02/06/17 at 11:00 Potassium Chloride 20 meq 20 meq BID PO Last administered on 02/08/17 21:13; Admin Dose 20 MEQ; Start 02/07/17 at 09:00 Metronidazole 100 ml @ 100 mls/hr Q8 IVPB Last administered on 02/09/17 06:23 ; Admin Dose 100 MLS/HR; Start 02/08/17 at 14:00 Ceftriaxone Sodium (Rocephin) 50 ml @ 100 mls/hr Q24H IVPB Last administered on 02/08/17 14:34; Admin Dose 100 MLS/HR; Start 02/08/17 at 13:00 Furosemide (Lasix) 40 mg DAILY PO ; Start 02/09/17 at 09:00 BETTY CUMMINGS MD Feb 09, 2017 08:29
[2017-02-09] MEDS: POLYETHYLENE GLYCOL 17 GM PACKET PO SCH (09:02)
[2017-02-09] MEDS: FUROSEMIDE 20 MG TAB PO SCH (09:03)
[2017-02-09] MEDS: FOLIC ACID 1 MG TAB PO SCH (09:03)
[2017-02-09] MEDS: METOPROLOL 25 MG TAB PO SCH ×2 (09:04→20:24)
[2017-02-09] MEDS: POTASSIUM CHLORIDE (SR) 20 MEQ TAB PO SCH ×2 (09:05→20:22)
--- NOTE | 2017-02-09 09:43 | RADRPT ---
PROCEDURE: XR Chest. CLINICAL INDICATION: CHF TECHNIQUE: An AP view of the chest was obtained. COMPARISON: Chest x-ray dated 02/07/2017 FINDINGS: Lung volumes are low. There is prominence of the interstitial markings with small bilateral pleura l effusions. No pneumothorax is seen. The cardiomediastinal silhouette is mildly enlarged . Calc ifications are seen within the aortic arch. There are post cardiac surgery changes with sternotomy w ires. The osseous structures demonstrate senescent changes. IMPRESSION: 1. Low lung volumes with findings suggesting mild interstitial edema and small bilateral pleural ef fusions. Lung aeration is mildly improved when compared to the prior examination. 2. Mild cardiomegaly and aortic atherosclerosis. RPTAT: HH .Nathaly Singh MD, Date Time Electronically viewed and signed by .Nathaly Singh MD, on 02/09/2017 09:43 .G/
--- NOTE | 2017-02-09 10:10 | PN ---
DATE: 02/09/2017 HEMATOLOGY/ONCOLOGY PROGRESS NOTE SUBJECTIVE: The patient states he is feeling well. He has no complaints of bone pain. No shortnes s of breath or cough. OBJECTIVE: VITAL SIGNS: Temperature 98.2, pulse 78 per minute and regular, respirations 18, blood pressure 110 /69, pulse oximetry 97% on 2 liters. SKIN: There are scattered ecchymoses, particularly a large ecchymotic in the area of the right ant ecubital fossa. HEENT: No mucosal lesions. No scleral icterus. No mucosal purpura. NECK: Supple. No jugular venous distention or thyroid enlargement. CHEST: Decreased breath sounds throughout, but no rhonchi, wheezes, rales or rubs. There is a ster notomy scar. HEART: Regular sinus rhythm. Clicking of a prosthetic valve is heard. ABDOMEN: Mildly obese, but without masses or ascites. EXTREMITIES: No clubbing, edema or cyanosis. NEUROLOGIC: Right-sided weakness. LABORATORY DATA: White count 10,100, hemoglobin 9, hematocrit 29.6, and platelet count is 131,000. Prothrombin time is 14.9 seconds, INR of 1.16, PTT 44.2 seconds. ASSESSMENT: 1. Corynebacterium perfringens septicemia, resolved 2. Metastatic prostate carcinoma. 3. Cholecystitis. PLAN: The patient still has a prolonged PTT despite normalization of the pro time after discontinua tion of warfarin. This is most likely due to the heparin that the patient is infusing. We will obt ain a thrombin time to verify that heparin is the cause for the patient's prolonged PTT. Of course, heparin will need to be discontinued at least 4 hours prior to surgery. Dictated By: PIPPA MONTGOMERY MD, SR/NTS Conf#: [id number] DID#: [id number]
[2017-02-09] MEDS: CEFTRIAXONE 1 GM/50 ML (PMX) 50 ML IVPB SCH (12:43)
--- NOTE | 2017-02-09 12:51 | CONS ---
Date/Time of Note Date/Time of Note DATE: 02/09/17 TIME: 12:50 Assessment/Plan Assessment/Plan Chief Complaint/Hosp Course SUBJECTIVE: No acute changes No fevers. Awake, looks comfortable MICROBIOLOGY: Blood culture on admission grew Clostridium perfringens and coagulase-negative staph species. Repeat blood culture negative. Urine culture negative. DIAGNOSTICS: The patient had a RICHARD that revealed no vegetations. A HIDA scan was compatible with cystic duct obstruction and possible cholecystitis ANTIMICROBIALS: Flagyl, Rocephin PHYSICAL EXAMINATION: GENERAL: This is a morbidly obese elderly man who is alert, in no distress. HEENT: Head atraumatic, normocephalic. Sclerae anicteric. Buccal mucosa pink. NECK: Supple. CHEST: Rise symmetrical. Breath sounds diminished to bases. HEART: S1, S2. ABDOMEN: Obese, soft, bowel sounds present. EXTREMITIES: Without cyanosis. Bilateral edema, right upper extremity more edematous than left. ASSESSMENT: 1. Biliary sepsis. 2. Clostridium perfringens bacteremia secondary to #1. 3. Choledocholithiasis with cystic duct obstruction as per HIDA scan. 4. Right upper extremity edema==> no deep venous thrombosis per US. 5. Coronary artery disease, history of aortic valve replacement. 6. History of met prostate cancer. PLAN: The patient remains stable, continue abx to complete treatment for bacteremia, pending lap belem, oncology/card rec-s, incentive spirometry. EDUARDO Nunez Problems: Consultation Date/Type/Reason Admit Date/Time Jan 30, 2017 at 07:00 Type of Consultation: id Exam/Review of Systems Vital Signs Vitals Vital Signs Date Time Temp Pulse Resp B/P Pulse Ox O2 Delivery O2 Flow Rate FiO2 02/09/17 12:05 82 02/09/17 11:18 97.8 18 110/60 96 02/09/17 10:53 Nasal Cannula 2.0 02/05/17 18:23 28 Intake and Output 02/08/17 02/08/17 02/09/17 15:00 23:00 07:00 Intake Total 550 ml 1350 ml 100 ml Output Total 200 ml 900 ml Balance 350 ml 450 ml 100 ml Results Result Diagram: 02/09/17 0630 02/09/17 0630 Results 24 hrs Laboratory Tests Test 02/08/17 13:15 02/08/17 18:25 02/09/17 00:32 02/09/17 06:30 Activated Partial Thromboplast Time 63.1 H 62.1 H 44.2 H 101.4 *H White Blood Count 10.1 Red Blood Count 3.33 L Hemoglobin 9.0 L Hematocrit 29.6 L Mean Corpuscular Volume 88.9 Mean Corpuscular Hemoglobin 27.0 L Mean Corpuscular Hemoglobin Concent 30.4 L Red Cell Distribution Width 16.8 H Platelet Count 311 Mean Platelet Volume 11.2 H Neutrophils % 71.8 Lymphocytes % 13.7 L Monocytes % 5.9 Eosinophils % 2.6 Basophils % 0.2 Nucleated Red Blood Cells % 0.4 H Neutrophils # 7.3 Lymphocytes # 1.4 Monocytes # 0.6 Eosinophils # 0.3 Basophils # 0.0 Nucleated Red Blood Cells # 0.0 Prothrombin Time 14.9 H Prothrombin Time Ratio 1.2 INR International Normalized Ratio 1.16 Sodium Level 136 Potassium Level 4.2 Chloride Level 104 Carbon Dioxide Level 23 Anion Gap 13 Blood Urea Nitrogen 12 Creatinine 0.66 Glucose Level 100 Calcium Level 6.7 L Magnesium Level 2.1 Test 02/09/17 08:40 Thrombin Time 49.2 H Medications Medications Current Medications Docusate Sodium (Colace) 100 mg Q12H PRN PO CONSTIPATION; Start 01/30/17 at 11: 00 Magnesium Hydroxide (Milk Of Mag) 30 ml DAILY PRN PO CONSTIPATION Last administered on 02/01/17 12:19; Admin Dose 30 ML; Start 01/30/17 at 11:00 Pantoprazole (Protonix Tab) 40 mg DAILY@06 PO Last administered on 02/09/17 06 :23; Admin Dose 40 MG; Start 01/31/17 at 06:00 Acetaminophen (Tylenol Tab) 650 mg Q6H PRN PO PAIN AND OR ELEVATED TEMP Last administered on 02/01/17 22:02; Admin Dose 650 MG; Start 01/30/17 at 21:30 Acetaminophen/ Hydrocodone Bitart ([place] (5/325)) 1 tab Q6H PRN PO PAIN; Start 01/30/17 at 21:30 Metoprolol Tartrate (Lopressor) 25 mg BID PO Last administered on 02/09/17 09: 04; Admin Dose 25 MG; Start 01/31/17 at 21:00 Polyethylene Glycol (Miralax) 17 gm DAILY PO Last administered on 02/09/17 09: 02; Admin Dose 17 GM; Start 02/02/17 at 09:00 Folic Acid (Folic Acid) 1 mg DAILY PO Last administered on 02/09/17 09:03; Admin Dose 1 MG; Start 02/06/17 at 11:00 Potassium Chloride 20 meq 20 meq BID PO Last administered on 02/09/17 09:05; Admin Dose 20 MEQ; Start 02/07/17 at 09:00 Metronidazole 100 ml @ 100 mls/hr Q8 IVPB Last administered on 02/09/17 06:23 ; Admin Dose 100 MLS/HR; Start 02/08/17 at 14:00 Ceftriaxone Sodium (Rocephin) 50 ml @ 100 mls/hr Q24H IVPB Last administered on 02/09/17 12:43; Admin Dose 100 MLS/HR; Start 02/08/17 at 13:00 Furosemide (Lasix) 40 mg DAILY PO Last administered on 02/09/17 09:03; Admin Dose 40 MG; Start 02/09/17 at 09:00 JAMES KAPLAN NP Feb 09, 2017 12:51
--- NOTE | 2017-02-09 15:58 | CONS ---
Date/Time of Note Date/Time of Note DATE: 02/09/17 TIME: 15:56 Assessment/Plan Assessment/Plan Additional Assessment/Plan Sepsis with bacteremia (no vegetation seen on RICHARD) Acute decompensated diastolic congestive heart failure, improving History of mechanical aortic valve replacement Preserved ejection fraction Prostate cancer Aortic aneurysm Anemia -Patient with continual improvement in congestive heart failure and appears near euvolemic. Chest x-ray with improved pulmonary vascular congestion, 1 dose of IV Lasix this afternoon. Continue p.o. diuretics. Consultation Date/Type/Reason Admit Date/Time Jan 30, 2017 at 07:00 Type of Consultation: cv 24 HR Interval Summary Free Text/Dictation Patient denies shortness of breath, chest pain or palpitations. Still complains of fatigue with activity Exam/Review of Systems Vital Signs Vitals Vital Signs Date Time Temp Pulse Resp B/P Pulse Ox O2 Delivery O2 Flow Rate FiO2 02/09/17 15:31 97.9 74 18 121/64 97 02/09/17 10:53 Nasal Cannula 2.0 02/05/17 18:23 28 Intake and Output 02/08/17 02/08/17 02/09/17 15:00 23:00 07:00 Intake Total 550 ml 1350 ml 100 ml Output Total 200 ml 900 ml Balance 350 ml 450 ml 100 ml Exam No apparent distress Constitutional: alert, obese, oriented Head: normocephalic Neck: supple Respiratory: other (Coarse breath sounds bilaterally, no wheezing or crackles) Cardiovascular: other (S1-S2), regular rate and rhythm, systolic murmur Gastrointestinal: bowel sounds, non-tender, other (No guarding), soft Extremities: edema (Trace), other (No cyanosis) Results Result Diagram: 02/09/17 0630 02/09/17 0630 Results 24 hrs Laboratory Tests Test 02/08/17 18:25 02/09/17 00:32 02/09/17 06:30 02/09/17 08:40 Activated Partial Thromboplast Time 62.1 H 44.2 H 101.4 *H White Blood Count 10.1 Red Blood Count 3.33 L Hemoglobin 9.0 L Hematocrit 29.6 L Mean Corpuscular Volume 88.9 Mean Corpuscular Hemoglobin 27.0 L Mean Corpuscular Hemoglobin Concent 30.4 L Red Cell Distribution Width 16.8 H Platelet Count 311 Mean Platelet Volume 11.2 H Neutrophils % 71.8 Lymphocytes % 13.7 L Monocytes % 5.9 Eosinophils % 2.6 Basophils % 0.2 Nucleated Red Blood Cells % 0.4 H Neutrophils # 7.3 Lymphocytes # 1.4 Monocytes # 0.6 Eosinophils # 0.3 Basophils # 0.0 Nucleated Red Blood Cells # 0.0 Prothrombin Time 14.9 H Prothrombin Time Ratio 1.2 INR International Normalized Ratio 1.16 Sodium Level 136 Potassium Level 4.2 Chloride Level 104 Carbon Dioxide Level 23 Anion Gap 13 Blood Urea Nitrogen 12 Creatinine 0.66 Glucose Level 100 Calcium Level 6.7 L Magnesium Level 2.1 Thrombin Time 49.2 H Medications Medications Current Medications Docusate Sodium (Colace) 100 mg Q12H PRN PO CONSTIPATION; Start 01/30/17 at 11: 00 Magnesium Hydroxide (Milk Of Mag) 30 ml DAILY PRN PO CONSTIPATION Last administered on 02/01/17 12:19; Admin Dose 30 ML; Start 01/30/17 at 11:00 Pantoprazole (Protonix Tab) 40 mg DAILY@06 PO Last administered on 02/09/17 06 :23; Admin Dose 40 MG; Start 01/31/17 at 06:00 Acetaminophen (Tylenol Tab) 650 mg Q6H PRN PO PAIN AND OR ELEVATED TEMP Last administered on 02/01/17 22:02; Admin Dose 650 MG; Start 01/30/17 at 21:30 Acetaminophen/ Hydrocodone Bitart ([place] (5/325)) 1 tab Q6H PRN PO PAIN; Start 01/30/17 at 21:30 Metoprolol Tartrate (Lopressor) 25 mg BID PO Last administered on 02/09/17 09: 04; Admin Dose 25 MG; Start 01/31/17 at 21:00 Polyethylene Glycol (Miralax) 17 gm DAILY PO Last administered on 02/09/17 09: 02; Admin Dose 17 GM; Start 02/02/17 at 09:00 Folic Acid (Folic Acid) 1 mg DAILY PO Last administered on 02/09/17 09:03; Admin Dose 1 MG; Start 02/06/17 at 11:00 Potassium Chloride 20 meq 20 meq BID PO Last administered on 02/09/17 09:05; Admin Dose 20 MEQ; Start 02/07/17 at 09:00 Metronidazole 100 ml @ 100 mls/hr Q8 IVPB Last administered on 02/09/17 14:26 ; Admin Dose 100 MLS/HR; Start 02/08/17 at 14:00 Ceftriaxone Sodium (Rocephin) 50 ml @ 100 mls/hr Q24H IVPB Last administered on 02/09/17 12:43; Admin Dose 100 MLS/HR; Start 02/08/17 at 13:00 Furosemide (Lasix) 40 mg DAILY PO Last administered on 02/09/17 09:03; Admin Dose 40 MG; Start 02/09/17 at 09:00 Elias Deleon DO Feb 09, 2017 15:58
[2017-02-09] MEDS ORDERED: FUROSEMIDE 20 MG INJ IV ONE (16:00)
--- NOTE | 2017-02-09 18:28 | PN ---
Date/Time of Note Date/Time of Note DATE: 02/09/17 TIME: 18:27 Assessment/Plan Lines/Catheters IV Catheter Type (from [facility]): Peripheral IV Briones in Place (from [facility]): No Assessment/Plan Assessment/Plan [facility] Progress Note Date of Service: 02/09/17 Today's Impression & Plan: Overall stable. Seems medically improved enough to undergo scheduled lap belem tomorrow. Answered all questions. With above assessment, I've recommended the following for today: 1. Cont aggressive medical and cardiac management 2. Lap belem on the schedule for 02/10/17 3. Anticoagulation management (will need to be off of Coumadin now; can consider heparin drip with plans to stop the drip the night before surgery and resume anticoagulation the day after surgery) Thank you again for your great care of this very pleasant patient and wonderful family. If there are any questions, please feel free to call me at [phone]. TOTAL VISIT TIME: 20 minutes of which more than half was spent in [id number] discussion with the patient, possibly including family, as well as coordination of care between multiple physicians and providers. Disclaimer: Inadvertent spelling or grammatical errors are likely due to EHR/ dictation software use and do not reflect on the overall quality of patient care. Updated Clinical Summary: The patient is a very pleasant but unfortunate 66-year-old gentleman with likely metastatic prostate cancer who was admitted through the emergency department at [facility] on 01/30/2017 with septic shock and bacteremia. The patient was found to have significant cholelithiasis. Discussed case with Dr. Deleon (his bottling machine operator). We agreed that we needed a few more days to optimize patient's cardiac condition to minimize his correctable perioperative risk. His gallbladder needed to come out for two main reasons. First, it was the main suspect for the source of patient's bacteremic shock. Secondly, with his need for systemic chemotherapy for his widely metastatic prostate cancer, he would benefit from having his stone filled gallbladder out and not risk the chance of severe cholecystitis during the treatment phase. He received 2 units of PRBC 02/05/17 in preparation for his upcoming surgery. COMORBIDITIES: 1. BMI of 34.2. 2. Prostate cancer diagnosed 3 to 4 years ago, diagnosed after elevation in his PSA was noted. Prostate nodule was found and biopsied and found it to be prostatic carcinoma. Hormonal therapy was initiated with Lupron and bicalutamide for 1 year and then he was taken off Lupron, which was reinitiated recently after rising PSA was noted. Also, with migratory bone pain over the last 2 months with lytic lesions noted on the most recent MRIs. 3. Congenital bicuspid aortic valve, status post replacement with a [facility] [facility] valve in 1989, and on chronic anticoagulation with Coumadin. 4. Previous cerebrovascular accident with right-sided weakness and some ataxia. 5. Hypertension. 6. Hyperlipidemia. 7. Septic shock with bacteremia (Clostridium perfringens growing in blood cultures x2 on 01/30/2017). 8. Cholelithiasis with HIDA scan dated 02/02/2017 showing no gallbladder visualization consistent with cystic duct obstruction. The common bile duct was open. Right upper quadrant ultrasound 01/31/2017 showed gallbladder completely filled with gallstones and gallbladder wall thickening was somewhat hampered by the amount of shadowing of the gallstones. No intrahepatic or extrahepatic biliary dilatation was noted. There was mild increased echogenicity of the liver suggestive of hepatic steatosis. 9. CT scan of abdomen and pelvis on 02/03/2017 shows multiple mixed lytic and blastic lesions throughout the visualized ribs, spine and pelvis consistent with metastatic disease as well as presence of retroperitoneal and pelvic lymphadenopathy consistent with neoplasm. There is also cardiomegaly and dilated ascending aorta measuring 5.5 cm. Atherosclerosis was also noted. Subjective: No major events or complaints; no major abd pain and under control with medications; no n/v/d; no sob or cp; + flatus; + BM; - activity Objective: Vitals: See below Exam: GENERAL: On exam, the patient was laying in bed and appeared to be comfortable and in no acute distress. ABDOMEN: Soft, nontender and nondistended. There are no peritoneal signs or guarding. SKIN: Skin appears to be pink and feels warm to touch. NEUROLOGIC: Patient is awake, alert, and follows commands appropriately. Exam/Review of Systems Vital Signs Vitals Vital Signs Date Time Temp Pulse Resp B/P Pulse Ox O2 Delivery O2 Flow Rate FiO2 02/09/17 17:09 2.0 02/09/17 16:14 95 02/09/17 15:31 97.9 18 121/64 97 02/09/17 10:53 Nasal Cannula 02/05/17 18:23 28 Intake and Output 02/08/17 02/08/17 02/09/17 15:00 23:00 07:00 Intake Total 550 ml 1350 ml 100 ml Output Total 200 ml 900 ml Balance 350 ml 450 ml 100 ml Results Result Diagram: 02/09/17 0630 02/09/17 0630 NEDA FLOOD M.D. Feb 09, 2017 18:28
[2017-02-09] MEDS: MAGNESIUM HYDROXIDE 30ML CUP PO PRN (20:22)
[2017-02-10] VITALS (25 sets, daily range): BP systolic 82–132; BP diastolic 50–86; PULSE 88–112; RESP 18–26
[2017-02-10] MEDS: metroNIDAZOLE 500 MG/NS (PMX) 100 ML IVPB SCH ×3 (05:43→21:49)
[2017-02-10] MEDS: PANTOPRAZOLE (EC) 40 MG TAB PO SCH (05:43)
[2017-02-10] MEDS ORDERED: PROPOFOL 200 MG INJ ONE (07:00)
[2017-02-10 07:43] LABS: ADD SCAN DIFF NO
[2017-02-10 07:50] LABS: ABNORMAL IP MESSAGE 1; BASOPHILS % 0.3 % (0.0-2.0); EOSINOPHILS # 0.2 10^3/ul (0.0-0.5); EOSINOPHILS % 2.4 % (0.0-7.0); HEMATOCRIT 29.2 % (42.0-52.0); LYMPHOCYTES # 1.5 10^3/ul (0.8-2.9); LYMPHOCYTES % 16.1 % (15.0-51.0); MEAN CORPUSCULAR HGB CONC 30.8 g/dl (32.0-37.0); MEAN CORPUSCULAR VOLUME 87.7 fl (82.0-101.0); MEAN PLATELET VOLUME 10.6 fl (7.4-10.4); MONOCYTE # 0.7 10^3/ul (0.3-0.9); MONOCYTES % 7.3 % (0.0-11.0); NEUTROPHIL # 6.4 10^3/ul (1.6-7.5); NEUTROPHILS % 67.3 % (39.0-77.0); NUCLEATED RED BLOOD CELLS # 0.1 10^3/ul (0.0-0.0); NUCLEATED RED BLOOD CELLS% 0.5 /100WBC (0.0-0.0); PLATELET COUNT 325 10^3/UL (140-415); RED BLOOD COUNT 3.33 10^6/ul (4.70-6.10); RED CELL DISTRIBUTION WIDTH 16.6 % (11.5-14.5); WHITE BLOOD COUNT 9.5 10^3/ul (4.8-10.8)
[2017-02-10 07:57] LABS: POTASSIUM 4.2 mmol/L (3.5-5.1)
[2017-02-10 07:59] LABS: CREATININE 0.64 mg/dl (0.61-1.24)
[2017-02-10] MEDS: POTASSIUM CHLORIDE (SR) 20 MEQ TAB PO SCH (08:27)
[2017-02-10] MEDS: FOLIC ACID 1 MG TAB PO SCH (08:27)
[2017-02-10] MEDS: FUROSEMIDE 20 MG TAB PO SCH (08:28)
[2017-02-10] MEDS: METOPROLOL 25 MG TAB PO SCH ×2 (08:28→21:49)
[2017-02-10] MEDS: POLYETHYLENE GLYCOL 17 GM PACKET PO SCH (08:28)
--- NOTE | 2017-02-10 08:36 | PN ---
Date/Time of Note Date/Time of Note DATE: 02/10/17 TIME: 08:34 Assessment/Plan VTE Prophylaxis VTE Prophylaxis Intervention: contraindicated VTE Contraindication Reason: sx procedure on lower extremity Lines/Catheters IV Catheter Type (from Nrs): [place] [facility] Urinary Cath still in place: No Assessment/Plan Chief Complaint/Hosp Course see above Problems: Subjective 24 Hr Interval Summary Free Text/Dictation seen by bedside with RN. reported stable VS and monitor. am labs reviewed. scheduled for lap belem this am. off heparin Exam: alert Chest clear Cor reg rhythm crisp valve sounds Abd soft Ext trace edema Plan: lap belem today. Exam/Review of Systems Vital Signs Vitals Vital Signs Date Time Temp Pulse Resp B/P Pulse Ox O2 Delivery O2 Flow Rate FiO2 02/10/17 08:09 98 02/10/17 07:40 98.2 18 97/57 95 02/10/17 02:53 2.0 02/09/17 20:07 Nasal Cannula Intake and Output 02/09/17 02/09/17 02/10/17 15:00 23:00 07:00 Intake Total 733 ml 1644 ml 300 ml Output Total 800 ml 1350 ml 1200 ml Balance -67 ml 294 ml -900 ml Results Result Diagram: 02/10/17 0725 02/10/17 0725 Results 24 hrs Laboratory Tests Test 02/09/17 08:40 02/09/17 16:25 02/09/17 22:01 02/10/17 07:25 Thrombin Time 49.2 H Activated Partial Thromboplast Time 61.2 H 57.9 H White Blood Count 9.5 Red Blood Count 3.33 L Hemoglobin 9.0 L Hematocrit 29.2 L Mean Corpuscular Volume 87.7 Mean Corpuscular Hemoglobin 27.0 L Mean Corpuscular Hemoglobin Concent 30.8 L Red Cell Distribution Width 16.6 H Platelet Count 325 Mean Platelet Volume 10.6 H Neutrophils % 67.3 Lymphocytes % 16.1 Monocytes % 7.3 Eosinophils % 2.4 Basophils % 0.3 Nucleated Red Blood Cells % 0.5 H Neutrophils # 6.4 Lymphocytes # 1.5 Monocytes # 0.7 Eosinophils # 0.2 Basophils # 0.0 Nucleated Red Blood Cells # 0.1 H Sodium Level 139 Potassium Level 4.2 Chloride Level 106 Carbon Dioxide Level 24 Anion Gap 13 Blood Urea Nitrogen 12 Creatinine 0.64 Glucose Level 94 Calcium Level 7.0 L Magnesium Level 2.1 Medications Medications Current Medications Docusate Sodium (Colace) 100 mg Q12H PRN PO CONSTIPATION; Start 01/30/17 at 11: 00 Magnesium Hydroxide (Milk Of Mag) 30 ml DAILY PRN PO CONSTIPATION Last administered on 02/09/17 20:22; Admin Dose 30 ML; Start 01/30/17 at 11:00 Pantoprazole (Protonix Tab) 40 mg DAILY@06 PO Last administered on 02/10/17 05 :43; Admin Dose 40 MG; Start 01/31/17 at 06:00 Acetaminophen (Tylenol Tab) 650 mg Q6H PRN PO PAIN AND OR ELEVATED TEMP Last administered on 02/01/17 22:02; Admin Dose 650 MG; Start 01/30/17 at 21:30 Acetaminophen/ Hydrocodone Bitart ([place] (5/325)) 1 tab Q6H PRN PO PAIN; Start 01/30/17 at 21:30 Metoprolol Tartrate (Lopressor) 25 mg BID PO Last administered on 02/09/17 20: 24; Admin Dose 25 MG; Start 01/31/17 at 21:00 Polyethylene Glycol (Miralax) 17 gm DAILY PO Last administered on 02/09/17 09: 02; Admin Dose 17 GM; Start 02/02/17 at 09:00 Folic Acid 1 mg 1 mg DAILY PO Last administered on 02/09/17 09:03; Admin Dose 1 MG; Start 02/06/17 at 11:00 Metronidazole 100 ml @ 100 mls/hr Q8 IVPB Last administered on 02/10/17 05:43 ; Admin Dose 100 MLS/HR; Start 02/08/17 at 14:00 Ceftriaxone Sodium (Rocephin) 50 ml @ 100 mls/hr Q24H IVPB Last administered on 02/09/17 12:43; Admin Dose 100 MLS/HR; Start 02/08/17 at 13:00 Furosemide (Lasix) 40 mg DAILY PO Last administered on 02/09/17 09:03; Admin Dose 40 MG; Start 02/09/17 at 09:00 Potassium Chloride (Klor-Con 20) 20 meq DAILY PO ; Start 02/10/17 at 09:00 BETTY CUMMINGS MD Feb 10, 2017 08:36
--- NOTE | 2017-02-10 12:26 | QN ---
Documentation Comment Pt is off floor for cholecystectomy. Chart reviewed. I will check back with staff afterward FELICITAS THURMAN MD Feb 10, 2017 12:26
[2017-02-10] MEDS: CEFTRIAXONE 1 GM/50 ML (PMX) 50 ML IVPB SCH (12:29)
--- NOTE | 2017-02-10 13:26 | HPN ---
Date/Time of Note Date/Time of Note DATE: 02/10/17 TIME: 10:26 Interval H&P Admission Note Pt. seen H&P reviewed: No system changes Pt. seen H&P reviewed. No system changes (I attest that I have seen and examined the patient and reviewed the operation in detail, as well as its risks , benefits and alternatives of the operation). I attest that I have seen and examined the patient and reviewed in detail the operation, and its associated risks, benefits and alternative. I have answered all the patient's questions to the best of my ability and the patient wishes to proceed. Please refer to rest of electronic medical record for additional updates. NEDA FLOOD M.D. Feb 10, 2017 13:26
[2017-02-10] MEDS ORDERED: BUPIVACAINE 0.25%/EPI (SDV) 30 ML INJ ONE (13:31)
[2017-02-10] MEDS ORDERED: ETOMIDATE 20 MG INJ ONE (13:54)
[2017-02-10] MEDS ORDERED: FENTAnyl 50 MCG/ML VIAL ONE ×2 (14:27→16:23)
[2017-02-10] MEDS ORDERED: LABETALOL HCL 20MG INJ ONE (14:27)
[2017-02-10] MEDS ORDERED: EPHEDrine SULFATE 50 MG/5 ML SYG IV PRN (14:30)
[2017-02-10] MEDS ORDERED: hydrALAzine 20 MG INJ IV PRN (14:30)
[2017-02-10] MEDS ORDERED: HYDROmorphONE (0.2 MG/ML) 10ML SYG IV PRN ×3 (14:30)
[2017-02-10] MEDS ORDERED: FENTAnyl 50 MCG/ML VIAL IV PRN ×3 (14:30)
[2017-02-10] MEDS ORDERED: LABETALOL HCL 20MG INJ IV PRN (14:30)
[2017-02-10] MEDS ORDERED: ONDANSETRON 4 MG INJ IV PRN (14:30)
[2017-02-10] MEDS ORDERED: MEPERIDINE 25 MG INJ IV PRN (14:30)
--- NOTE | 2017-02-10 15:54 | CONS ---
Date/Time of Note Date/Time of Note DATE: 02/10/17 TIME: 15:53 Assessment/Plan Assessment/Plan Chief Complaint/Hosp Course SUBJECTIVE: No acute changes No fevers. MICROBIOLOGY: Blood culture on admission grew Clostridium perfringens and coagulase-negative staph species. Repeat blood culture negative. Urine culture negative. DIAGNOSTICS: The patient had a RICHARD that revealed no vegetations. A HIDA scan was compatible with cystic duct obstruction and possible cholecystitis ANTIMICROBIALS: Flagyl, Rocephin PHYSICAL EXAMINATION: GENERAL: This is a morbidly obese elderly man who is alert, in no distress. HEENT: Head atraumatic, normocephalic. Sclerae anicteric. Buccal mucosa pink. NECK: Supple. CHEST: Rise symmetrical. Breath sounds diminished to bases. HEART: S1, S2. ABDOMEN: Obese, soft, bowel sounds present. EXTREMITIES: Without cyanosis. Bilateral edema, right upper extremity more edematous than left. ASSESSMENT: 1. Biliary sepsis. 2. Clostridium perfringens bacteremia secondary to #1. 3. Choledocholithiasis with cystic duct obstruction as per HIDA scan. 4. Right upper extremity edema==> no deep venous thrombosis per US. 5. Coronary artery disease, history of aortic valve replacement. 6. History of met prostate cancer. PLAN: The patient remains stable, pending surgery, continue abx DW staff Problems: Consultation Date/Type/Reason Admit Date/Time Jan 30, 2017 at 07:00 Type of Consultation: id Exam/Review of Systems Vital Signs Vitals Vital Signs Date Time Temp Pulse Resp B/P Pulse Ox O2 Delivery O2 Flow Rate FiO2 02/10/17 14:21 2.0 02/10/17 08:30 Nasal Cannula 02/10/17 08:09 98 02/10/17 07:40 98.2 18 97/57 95 Intake and Output 02/09/17 02/09/17 02/10/17 15:00 23:00 07:00 Intake Total 733 ml 1644 ml 300 ml Output Total 800 ml 1350 ml 1200 ml Balance -67 ml 294 ml -900 ml Results Result Diagram: 02/10/17 0725 02/10/17 0725 Results 24 hrs Laboratory Tests Test 02/09/17 16:25 02/09/17 22:01 02/10/17 07:25 Activated Partial Thromboplast Time 61.2 H 57.9 H White Blood Count 9.5 Red Blood Count 3.33 L Hemoglobin 9.0 L Hematocrit 29.2 L Mean Corpuscular Volume 87.7 Mean Corpuscular Hemoglobin 27.0 L Mean Corpuscular Hemoglobin Concent 30.8 L Red Cell Distribution Width 16.6 H Platelet Count 325 Mean Platelet Volume 10.6 H Neutrophils % 67.3 Lymphocytes % 16.1 Monocytes % 7.3 Eosinophils % 2.4 Basophils % 0.3 Nucleated Red Blood Cells % 0.5 H Neutrophils # 6.4 Lymphocytes # 1.5 Monocytes # 0.7 Eosinophils # 0.2 Basophils # 0.0 Nucleated Red Blood Cells # 0.1 H Sodium Level 139 Potassium Level 4.2 Chloride Level 106 Carbon Dioxide Level 24 Anion Gap 13 Blood Urea Nitrogen 12 Creatinine 0.64 Glucose Level 94 Calcium Level 7.0 L Magnesium Level 2.1 Medications Medications Current Medications Docusate Sodium (Colace) 100 mg Q12H PRN PO CONSTIPATION; Start 01/30/17 at 11: 00 Magnesium Hydroxide (Milk Of Mag) 30 ml DAILY PRN PO CONSTIPATION Last administered on 02/09/17 20:22; Admin Dose 30 ML; Start 01/30/17 at 11:00 Pantoprazole (Protonix Tab) 40 mg DAILY@06 PO Last administered on 02/10/17 05 :43; Admin Dose 40 MG; Start 01/31/17 at 06:00 Acetaminophen (Tylenol Tab) 650 mg Q6H PRN PO PAIN AND OR ELEVATED TEMP Last administered on 02/01/17 22:02; Admin Dose 650 MG; Start 01/30/17 at 21:30 Acetaminophen/ Hydrocodone Bitart ([place] (5/325)) 1 tab Q6H PRN PO PAIN; Start 01/30/17 at 21:30 Metoprolol Tartrate (Lopressor) 25 mg BID PO Last administered on 02/09/17 20: 24; Admin Dose 25 MG; Start 01/31/17 at 21:00 Polyethylene Glycol (Miralax) 17 gm DAILY PO Last administered on 02/09/17 09: 02; Admin Dose 17 GM; Start 02/02/17 at 09:00 Folic Acid 1 mg 1 mg DAILY PO Last administered on 02/09/17 09:03; Admin Dose 1 MG; Start 02/06/17 at 11:00 Metronidazole 100 ml @ 100 mls/hr Q8 IVPB Last administered on 02/10/17 05:43 ; Admin Dose 100 MLS/HR; Start 02/08/17 at 14:00 Ceftriaxone Sodium (Rocephin) 50 ml @ 100 mls/hr Q24H IVPB Last administered on 02/09/17 12:43; Admin Dose 100 MLS/HR; Start 02/08/17 at 13:00 Furosemide (Lasix) 40 mg DAILY PO Last administered on 02/09/17 09:03; Admin Dose 40 MG; Start 02/09/17 at 09:00 Potassium Chloride (Klor-Con 20) 20 meq DAILY PO ; Start 02/10/17 at 09:00 JAMES KAPLAN NP Feb 10, 2017 15:54
[2017-02-10] MEDS ORDERED: DEXAMETHASONE 4 MG/ML 1 ML INJ ONE (16:17)
[2017-02-10] MEDS ORDERED: GLYCOPYRROLATE 1 MG INJ ONE (16:27)
[2017-02-10] MEDS ORDERED: NEOSTIGMINE 3 MG/3 ML SYRINGE ONE (16:27)
--- NOTE | 2017-02-10 16:48 | OPR ---
Date/Time of Note Date/Time of Note DATE: 02/10/17 TIME: 16:37 Operative Report Operative\Procedure Findings [facility] INPATIENT OPERATIVE NOTE PLACE OF SERVICE: [facility] DATE OF SURGERY: 02/10/2017 PREOPERATIVE DIAGNOSIS: 1. Cholelithiasis with HIDA scan dated 02/02/2017 showing no gallbladder visualization consistent with cystic duct obstruction. The common bile duct was open. Right upper quadrant ultrasound 01/31/2017 showed gallbladder completely filled with gallstones and gallbladder wall thickening was somewhat hampered by the amount of shadowing of the gallstones. No intrahepatic or extrahepatic biliary dilatation was noted. There was mild increased echogenicity of the liver suggestive of hepatic steatosis. 2. Prostate cancer diagnosed 3 to 4 years ago, diagnosed after elevation in his PSA was noted. Prostate nodule was found and biopsied and found it to be prostatic carcinoma. Hormonal therapy was initiated with Lupron and bicalutamide for 1 year and then he was taken off Lupron, which was reinitiated recently after rising PSA was noted. Also, with migratory bone pain over the last 2 months with lytic lesions noted on the most recent MRIs. 3. Congenital bicuspid aortic valve, status post replacement with a [employer] valve in 1989, and on chronic anticoagulation with Coumadin. 4. Previous cerebrovascular accident with right-sided weakness and some ataxia. 5. Hypertension. 6. Hyperlipidemia. 7. Septic shock with bacteremia (Clostridium perfringens growing in blood cultures x2 on 01/30/2017). 8. BMI of 34.2. 9. CT scan of abdomen and pelvis on 02/03/2017 shows multiple mixed lytic and blastic lesions throughout the visualized ribs, spine and pelvis consistent with metastatic disease as well as presence of retroperitoneal and pelvic lymphadenopathy consistent with neoplasm. There is also cardiomegaly and dilated ascending aorta measuring 5.5 cm. Atherosclerosis was also noted. POSTOPERATIVE DIAGNOSIS: 1. Severe acute on chronic cholecystitis. Cholelithiasis with HIDA scan dated 02/02/2017 showing no gallbladder visualization consistent with cystic duct obstruction. The common bile duct was open. Right upper quadrant ultrasound showed gallbladder completely filled with gallstones and gallbladder wall thickening was somewhat hampered by the amount of shadowing of the gallstones. No intrahepatic or extrahepatic biliary dilatation was noted. There was mild increased echogenicity of the liver suggestive of hepatic steatosis. 2. Prostate cancer diagnosed 3 to 4 years ago, diagnosed after elevation in his PSA was noted. Prostate nodule was found and biopsied and found it to be prostatic carcinoma. Hormonal therapy was initiated with Lupron and bicalutamide for 1 year and then he was taken off Lupron, which was reinitiated recently after rising PSA was noted. Also, with migratory bone pain over the last 2 months with lytic lesions noted on the most recent MRIs. 3. Congenital bicuspid aortic valve, status post replacement with a [employer] valve in 1989, and on chronic anticoagulation with Coumadin. 4. Previous cerebrovascular accident with right-sided weakness and some ataxia. 5. Hypertension. 6. Hyperlipidemia. 7. Septic shock with bacteremia (Clostridium perfringens growing in blood cultures x2 on 01/30/2017). 8. BMI of 34.2. 9. CT scan of abdomen and pelvis on 02/03/2017 shows multiple mixed lytic and blastic lesions throughout the visualized ribs, spine and pelvis consistent with metastatic disease as well as presence of retroperitoneal and pelvic lymphadenopathy consistent with neoplasm. There is also cardiomegaly and dilated ascending aorta measuring 5.5 cm. Atherosclerosis was also noted. OPERATION: Laparoscopic cholecystectomy SURGEON: Neda Flood M.D. [employer] WALL INSTALLATIONS MECHANIC: None ANESTHESIA: General endotracheal tube anesthesia ANESTHESIOLOGIST: Danita Zhang M.D. BRIEF SUMMARY: An otherwise uncomplicated but somewhat complex laparoscopic cholecystectomy was performed with finding of severe acute on chronic cholecystitis. Updated Clinical Summary: The patient is a very pleasant but unfortunate 66-year-old gentleman with likely metastatic prostate cancer who was admitted through the emergency department at [facility] on 01/30/2017 with septic shock and bacteremia. The patient was found to have significant cholelithiasis. Discussed case with Dr. Deleon (his residential air sealing technician). We agreed that we needed a few more days to optimize patient's cardiac condition to minimize his correctable perioperative risk. His gallbladder needed to come out for two main reasons. First, it was the main suspect for the source of patient's bacteremic shock. Secondly, with his need for systemic chemotherapy for his widely metastatic prostate cancer, he would benefit from having his stone filled gallbladder out and not risk the chance of severe cholecystitis during the treatment phase. He received 2 units of PRBC 02/05/17 in preparation for his upcoming surgery. COMORBIDITIES: 1. BMI of 34.2. 2. Prostate cancer diagnosed 3 to 4 years ago, diagnosed after elevation in his PSA was noted. Prostate nodule was found and biopsied and found it to be prostatic carcinoma. Hormonal therapy was initiated with Lupron and bicalutamide for 1 year and then he was taken off Lupron, which was reinitiated recently after rising PSA was noted. Also, with migratory bone pain over the last 2 months with lytic lesions noted on the most recent MRIs. 3. Congenital bicuspid aortic valve, status post replacement with a [employer] valve in 1989, and on chronic anticoagulation with Coumadin. 4. Previous cerebrovascular accident with right-sided weakness and some ataxia. 5. Hypertension. 6. Hyperlipidemia. 7. Septic shock with bacteremia (Clostridium perfringens growing in blood cultures x2 on 01/30/2017). 8. Cholelithiasis with HIDA scan dated 02/02/2017 showing no gallbladder visualization consistent with cystic duct obstruction. The common bile duct was open. Right upper quadrant ultrasound 01/31/2017 showed gallbladder completely filled with gallstones and gallbladder wall thickening was somewhat hampered by the amount of shadowing of the gallstones. No intrahepatic or extrahepatic biliary dilatation was noted. There was mild increased echogenicity of the liver suggestive of hepatic steatosis. 9. CT scan of abdomen and pelvis on 02/03/2017 shows multiple mixed lytic and blastic lesions throughout the visualized ribs, spine and pelvis consistent with metastatic disease as well as presence of retroperitoneal and pelvic lymphadenopathy consistent with neoplasm. There is also cardiomegaly and dilated ascending aorta measuring 5.5 cm. Atherosclerosis was also noted. BRIEF HISTORY: The patient is a very pleasant 66-year-old gentleman who is well- known to me presenting with above history who was suspected of having cholecystitis as the underlying cause of his sepsis. I had recommended that the patient undergoes a laparoscopic, possible open cholecystectomy once medically stable. He was stabilized and was scheduled for his operation on 02/10/17. I met with the patient and family that included his son and other members and counseled them regarding the possible options of treatment. We reviewed the operation in detail as well as the risks, benefits, alternatives, and expected outcomes of this operation. After careful consideration of all the risks, benefits, and alternatives, the patient and family appeared to understand those risks and wished to proceed with surgery. For a detailed report of my consultation with patient and family, please refer to my separate consultation note. STATEMENT OF THE INFORMED CONSENT: The patient and family appeared to understand the risks of the operation to include, but not be limited to risk of postoperative pain and scar tissue, possible infection or bleeding requiring other interventions such as opening the wound, placement of drainage catheters, or other operative interventions; possible injury to surrounding to structures including bowel, bladder, bile duct, or blood vessels, or solid organs such as liver, kidney, or pancreas requiring other interventions or procedures; possible leakage of bile from surgical clip sites, suture lines, or worse, from common bile duct injury, causing significant increase in morbidity and mortality and requiring multiple interventions including but not limited to, placement of drainage catheters, imaging studies, as well as operative interventions; possible other source of sepsis such as urinary tract infections or pneumonias, or other sources of potentially life threatening problems such as deep venous thrombus formation causing pulmonary embolism, myocardial arrhythmias and infarctions, and even . We also briefly discussed the potential need to receive blood products and their potential complications of blood transfusion reactions, transmission of infections, or other complications. After careful consideration of all their options, the patient and family appeared to understand and wished to proceed with surgery. DESCRIPTION OF PROCEDURE: After obtaining informed consent, the patient was brought into the operating room and was placed in a normal supine position, where successful general endotracheal tube anesthesia was performed. The patient 's abdominal skin was prepped and draped, from the nipple line down to the level of the groins, in the usual sterile fashion. Intravenous access was already in place, and appropriately chosen and dosed prophylactic intravenous antimicrobials were administered. We then called a surgical time-out where patient's identification, date of , nature of the operation, allergies, presence of intravenous antimicrobials, presence of needed equipment, and any other concerns were reviewed and agreed upon by all members of the operating room team. We then started the operation by placing a 5-mm skin incision in the right- upper quadrant, subcostal midclavicular line, and introduced a 5-mm [employer] trocar into the peritoneal space, visualizing all the layers of the abdominal wall as we entered. Note that there was no indication of any injury to underlying structures once we entered the peritoneum. We insufflated the abdominal cavity to a maximum pressure of 15 mmHg, again, confirmed lack of any injury to underlying structures prior to visualizing the rest of the abdominal cavity. We could not see the fundus of the gallbladder due to adhesions from the omentum onto the right upper quadrant. There was no evidence of malignancy. No evidence of calcifications or significant issues with adhesions, or other abnormalities. The liver appeared to be healthy. With this information, we went a head and placed the other trocars under direct visualization, after injecting their sites with 0.25% Marcaine with epinephrine , placing a 5-mm trocar in the umbilical midline area, a 5-mm trocar in the right anterior axillary line, and a 12-mm trocar in the midline subxiphoid region. With our instruments in place, we had excellent visualization and access to the right-upper quadrant. We then we grasped the fundus of the gallbladder and pointed up towards the right-upper quadrant. There were omental adhesions onto the infundibulum which we took down with judicious use of cautery, as well as meticulous blunt dissection. We were then able to grasp the infundibulum and pull it out in order to expose the critical triangle of Calot. We then placed our usual serosal cuts along the long axis of the gallbladder 1 cm away from its attachment to the liver bed up towards the fundus, and then joined these 2 lines under the infundibulum, taking care not to deliver any energy to underlying structures. Due to the significant amount of inflammation in the area and stone packed gallbladder, I decided to maximize the degree of safety of the operation by taking the gallbladder top-down using cautery. We also used meticulous blunt dissection in order to further define the anatomy. We were eventually able to identify and circumferentially isolate both the cystic duct and cystic artery, prior to transecting them between 2 surgical Endoclips, proximally and one distally on the cystic artery and 3 surgical endoclips proximally and one distally on the cystic duct, transecting both using cold scissors, and only after making sure that these were the only 2 structures going into the gallbladder. We also had used clips on the gallbladder bed itself on a few areas of bleeding that appeared to be due to significant chronic inflammation of the gallbladder. We then shaved the gallbladder off the gallbladder bed using cautery, and then delivered it out inside of an EndoCatch bag through the 12-mm trocar site without enlarging the fascia or contaminating the wound. The gallbladder was sent to Pathology for evaluation. Returning to the abdominal cavity, we ensured that there was adequate hemostasis and bile-stasis prior to removal of all of or equipment, including the pneumoperitoneum, and then reapproximating the 12-mm trocar site with one [id number] 0 Vicryl suture, followed by washing the wounds with copious amounts of normal saline, and then reapproximating the skin using interrupted 4- 0 Monocryl sutures. Light dressing was then applied. At the end of the operation, both the sponge count and needle count were reportedly correct x2. The patient tolerated the procedure without any reported complications. ESTIMATED BLOOD LOSS: 100 mL BLOOD OR BLOOD PRODUCT TRANSFUSIONS: None to my knowledge. SPECIMENS: 1. Gallbladder COMPLICATIONS: None. DISPOSITION: Recovery area. Disclaimer: Inadvertent spelling and grammatical errors are likely due to EHR/ dictation software use and do not reflect on the quality of delivered patient care. NEDA FLOOD M.D. Feb 10, 2017 16:48
[2017-02-10] MEDS ORDERED: DOCUSATE SODIUM 100 MG CAP PO PRN (17:30)
[2017-02-10] MEDS ORDERED: NA PHOSPHATE/BIPHOS 133 ML ENEMA PR PRN (17:30)
[2017-02-10] MEDS ORDERED: BISACODYL 10 MG SUPP PR PRN (17:30)
[2017-02-10] MEDS ORDERED: HYDROCODONE/APAP (5/325) TAB PO PRN ×2 (17:30)
[2017-02-10] MEDS ORDERED: HYDROmorphONE 1 MG/ML SYG IV PRN ×2 (17:30)
[2017-02-10] MEDS: D5W-0.45 NACL + KCL 20 MEQ 1,000 ML IV SCH (18:25)
[2017-02-10] MEDS: ACETAMINOPHEN 325 MG TAB PO PRN (18:59)
[2017-02-11] VITALS (13 sets, daily range): BP systolic 102–129; BP diastolic 62–69; PULSE 77–95; RESP 16–20
[2017-02-11] MEDS: D5W-0.45 NACL + KCL 20 MEQ 1,000 ML IV SCH (04:48)
[2017-02-11] MEDS: metroNIDAZOLE 500 MG/NS (PMX) 100 ML IVPB SCH ×3 (06:31→21:57)
[2017-02-11] MEDS: PANTOPRAZOLE (EC) 40 MG TAB PO SCH (06:31)
[2017-02-11] MEDS: ACETAMINOPHEN 325 MG TAB PO PRN ×3 (06:31→20:43)
[2017-02-11 07:17] LABS: ADD SCAN DIFF NO
[2017-02-11 07:23] LABS: BASOPHILS % 0.1 % (0.0-2.0); EOSINOPHILS % 0.2 % (0.0-7.0); HEMATOCRIT 27.5 % (42.0-52.0); HEMOGLOBIN 8.3 g/dl (14.0-18.0); LYMPHOCYTES # 1.2 10^3/ul (0.8-2.9); LYMPHOCYTES % 9.4 % (15.0-51.0); MEAN CORPUSCULAR HEMOGLOBIN 26.8 pg (29.0-33.0); MEAN CORPUSCULAR HGB CONC 30.2 g/dl (32.0-37.0); MEAN CORPUSCULAR VOLUME 88.7 fl (82.0-101.0); MEAN PLATELET VOLUME 10.9 fl (7.4-10.4); MONOCYTE # 0.8 10^3/ul (0.3-0.9); MONOCYTES % 6.2 % (0.0-11.0); NEUTROPHIL # 10.2 10^3/ul (1.6-7.5); NEUTROPHILS % 79.2 % (39.0-77.0); NUCLEATED RED BLOOD CELLS% 0.2 /100WBC (0.0-0.0); PLATELET COUNT 308 10^3/UL (140-415); RED CELL DISTRIBUTION WIDTH 17.3 % (11.5-14.5); WHITE BLOOD COUNT 12.8 10^3/ul (4.8-10.8)
[2017-02-11 07:35] LABS: ALBUMIN 2.8 g/dl (3.3-4.9); INR 1.12; PROTIME 14.4 Sec (12.2-14.2); PT RATIO 1.1
[2017-02-11 07:36] LABS: POTASSIUM 4.7 mmol/L (3.5-5.1)
[2017-02-11 07:38] LABS: ALBUMIN/GLOBULIN RATIO 0.9; BILIRUBIN,INDIRECT 0.6 mg/dl (0-1.1); BILIRUBIN,TOTAL 0.6 mg/dl (0.2-1.3); CALCIUM 6.9 mg/dl (8.4-10.2); CREATININE 0.59 mg/dl (0.61-1.24); PHOSPHORUS 1.9 mg/dl (2.5-4.9); TOTAL PROTEIN 5.9 g/dl (6.1-8.1)
[2017-02-11 07:39] LABS: MAGNESIUM 2.1 mg/dl (1.7-2.5)
[2017-02-11] MEDS: POLYETHYLENE GLYCOL 17 GM PACKET PO SCH (08:13)
[2017-02-11] MEDS: FOLIC ACID 1 MG TAB PO SCH (08:13)
[2017-02-11] MEDS: POTASSIUM CHLORIDE (SR) 20 MEQ TAB PO SCH (08:13)
[2017-02-11] MEDS: FUROSEMIDE 20 MG TAB PO SCH (08:13)
[2017-02-11] MEDS: METOPROLOL 25 MG TAB PO SCH ×2 (08:14→20:44)
--- NOTE | 2017-02-11 08:37 | PN ---
Date/Time of Note Date/Time of Note DATE: 02/11/17 TIME: 08:33 Assessment/Plan VTE Prophylaxis VTE Prophylaxis Intervention: contraindicated VTE Contraindication Reason: sx procedure on lower extremity Lines/Catheters IV Catheter Type (from Nrs): Peripheral IV Urinary Cath still in place: No Assessment/Plan Chief Complaint/Hosp Course see above Problems: Subjective 24 Hr Interval Summary Free Text/Dictation POD #1. Alert. denies pain. passing gas and is on diet Physical Examination: alert. Chest clear Cor reg rhythm Abd soft ext trace edema . labs reviewed. Plan: postop care. Rehab referral Exam/Review of Systems Vital Signs Vitals Vital Signs Date Time Temp Pulse Resp B/P Pulse Ox O2 Delivery O2 Flow Rate FiO2 02/11/17 08:14 79 02/11/17 07:58 97.8 20 116/69 96 02/11/17 04:44 2.0 02/10/17 20:00 Nasal Cannula Intake and Output 02/10/17 02/10/17 02/11/17 15:00 23:00 07:00 Intake Total 100 ml 1200 ml 1450 ml Output Total 970 ml 320 ml Balance 100 ml 230 ml 1130 ml Results Result Diagram: 02/11/17 0645 02/11/17 0645 Results 24 hrs Laboratory Tests Test 02/11/17 06:45 White Blood Count 12.8 #H Red Blood Count 3.10 L Hemoglobin 8.3 L Hematocrit 27.5 L Mean Corpuscular Volume 88.7 Mean Corpuscular Hemoglobin 26.8 L Mean Corpuscular Hemoglobin Concent 30.2 L Red Cell Distribution Width 17.3 H Platelet Count 308 Mean Platelet Volume 10.9 H Neutrophils % 79.2 H Lymphocytes % 9.4 L Monocytes % 6.2 Eosinophils % 0.2 Basophils % 0.1 Nucleated Red Blood Cells % 0.2 H Neutrophils # 10.2 H Lymphocytes # 1.2 Monocytes # 0.8 Eosinophils # 0.0 Basophils # 0.0 Nucleated Red Blood Cells # 0.0 Prothrombin Time 14.4 H Prothrombin Time Ratio 1.1 INR International Normalized Ratio 1.12 Activated Partial Thromboplast Time 36.0 H Sodium Level 135 Potassium Level 4.7 Chloride Level 104 Carbon Dioxide Level 24 Anion Gap 12 Blood Urea Nitrogen 11 Creatinine 0.59 L Glucose Level 159 Lactic Acid Level 2.6 H Calcium Level 6.9 L Phosphorus Level 1.9 L Magnesium Level 2.1 Total Bilirubin 0.6 Direct Bilirubin 0.00 Indirect Bilirubin 0.6 Aspartate Amino Transf (AST/SGOT) 83 H Alanine Aminotransferase (ALT/SGPT) 45 Alkaline Phosphatase 227 H B-Type Natriuretic Peptide 323 H Total Protein 5.9 L Albumin 2.8 L Globulin 3.10 Albumin/Globulin Ratio 0.90 Medications Medications Current Medications Magnesium Hydroxide (Milk Of Mag) 30 ml DAILY PRN PO CONSTIPATION Last administered on 02/09/17 20:22; Admin Dose 30 ML; Start 01/30/17 at 11:00 Pantoprazole (Protonix Tab) 40 mg DAILY@06 PO Last administered on 02/11/17 06 :31; Admin Dose 40 MG; Start 01/31/17 at 06:00 Acetaminophen (Tylenol Tab) 650 mg Q6H PRN PO PAIN AND OR ELEVATED TEMP Last administered on 02/11/17 06:31; Admin Dose 650 MG; Start 01/30/17 at 21:30 Acetaminophen/ Hydrocodone Bitart ([place] (5/325)) 1 tab Q6H PRN PO PAIN; Start 01/30/17 at 21:30 Metoprolol Tartrate (Lopressor) 25 mg BID PO Last administered on 02/11/17 08: 14; Admin Dose 25 MG; Start 01/31/17 at 21:00 Polyethylene Glycol (Miralax) 17 gm DAILY PO Last administered on 02/11/17 08: 13; Admin Dose 17 GM; Start 02/02/17 at 09:00 Folic Acid 1 mg 1 mg DAILY PO Last administered on 02/11/17 08:13; Admin Dose 1 MG; Start 02/06/17 at 11:00 Metronidazole 100 ml @ 100 mls/hr Q8 IVPB Last administered on 02/11/17 06:31 ; Admin Dose 100 MLS/HR; Start 02/08/17 at 14:00 Ceftriaxone Sodium (Rocephin) 50 ml @ 100 mls/hr Q24H IVPB Last administered on 02/09/17 12:43; Admin Dose 100 MLS/HR; Start 02/08/17 at 13:00 Furosemide (Lasix) 40 mg DAILY PO Last administered on 02/11/17 08:13; Admin Dose 40 MG; Start 02/09/17 at 09:00 Potassium Chloride 20 meq 20 meq DAILY PO Last administered on 02/11/17 08:13 ; Admin Dose 20 MEQ; Start 02/10/17 at 09:00 Potassium Chloride/Dextrose/ Sod Cl (D5-1/2ns + KCl 20 Meq) 1,000 ml @ 100 mls/ hr Q10H IV Last administered on 02/11/17 04:48; Admin Dose 100 MLS/HR; Start 02/10/17 at 17:28 Acetaminophen/ Hydrocodone Bitart ([place] (5/325)) 1 tab Q4H PRN PO PAIN LEVEL 4 -7; Start 02/10/17 at 17:30 Acetaminophen/ Hydrocodone Bitart ([place] (5/325)) 2 tab Q4H PRN PO PAIN LEVEL 7 -10; Start 02/10/17 at 17:30 Hydromorphone HCl (Dilaudid) 0.5 mg Q2 PRN IV PAIN; Start 02/10/17 at 17:30 Hydromorphone HCl (Dilaudid) 1 mg Q2 PRN IV PAIN; Start 02/10/17 at 17:30 Docusate Sodium (Colace) 100 mg BID PRN PO CONSTIPATION; Start 02/10/17 at 17: 30 Bisacodyl (Dulcolax Supp) 10 mg BID PRN LA CONSTIPATION; Start 02/10/17 at 17: 30 Sodium Biphosphate/ Sodium Phosphate (Fleet Enema) 133 ml BID PRN LA CONSTIPATION; Start 02/10/17 at 17:30 Bisacodyl (Dulcolax Supp) 10 mg BID PRN LA CONSTIPATION; Start 02/12/17 at 21:00 Sodium Biphosphate/ Sodium Phosphate (Fleet Enema) 133 ml BID LA ; Start at 09:00 Docusate Sodium (Colace) 100 mg BID PO ; Start 02/12/17 at 09:00 BETTY CUMMINGS MD Feb 11, 2017 08:37
--- NOTE | 2017-02-11 09:25 | PN ---
DATE: 02/11/2017 MEDICAL ONCOLOGY PROGRESS NOTE SUBJECTIVE: The patient is doing very well. He has undergone a laparoscopic cholecystectomy on . The patient is now eating. He has had flatus. He is not complaining of abdominal pain, n ausea, or vomiting. The patient states he has no bony pain either. OBJECTIVE: VITAL SIGNS: Temperature 98.2, pulse 79 per minute, respirations 20, blood pressure is 116/69, and pulse oximetry is 96% on 2 liters of oxygen by nasal cannula. SKIN: Pale. No ecchymosis, no petechiae or rashes. HEENT: No mucosal lesions. No scleral icterus. NECK: Supple. There is no jugular venous distention or thyroid enlargement. CHEST: Sternotomy scar is present. There are decreased breath sounds in both bases. CARDIOVASCULAR: No rubs. ABDOMEN: Distended. There is evidence of the recent laparoscopic wounds. No evidence of infection . Bowel sounds are active. EXTREMITIES: No clubbing, edema, or cyanosis. No palpable cords or Homans sign. NEUROLOGIC: Normal. LABORATORY DATA: White count this morning is 12,800, hemoglobin 8.3, hematocrit 27.5, and platelet count 308,000. Sodium 135, potassium 4.7, BUN 11, creatinine 0.59. ASSESSMENT: 1. Corynebacterium perfringens septicemia, resolved. 2. Acute cholecystitis, resolved. 3. Metastatic prostatic carcinoma. PLAN: The patient is likely to go to rehabilitation after discharge from the acute care facility by surgeon. Following this, the patient can be started on new therapy for his hormone refractory meta static prostate carcinoma. Dictated By: PIPPA MONTGOMERY MD SR/NTS Conf#: [id number] DID#: [id number]
--- NOTE | 2017-02-11 12:47 | CONS ---
Date/Time of Note Date/Time of Note DATE: 02/11/17 TIME: 12:42 Assessment/Plan Assessment/Plan Additional Assessment/Plan Sepsis with bacteremia (no vegetation seen on RICHARD) Status post cholecystectomy 02/10/2017 Acute decompensated diastolic congestive heart failure, improving History of mechanical aortic valve replacement Preserved ejection fraction Prostate cancer with metastases Aortic aneurysm Anemia -Patient status post lap belem yesterday and doing well from a cardiac standpoint. Would DC IV fluids, continue maintenance diuretics as blood pressure and renal function permits. Would DC standing potassium order. Discussed with Dr. Nunez and patient able to start IV heparin today for bridging until INR is therapeutic with Coumadin. Daily Coumadin dosing deferred to our board-certified defense attorney, who is our patient's outpatient physician and is knowledgeable of our patients Coumadin treatment regimen. Encourage incentive spirometry and physical therapy. Consultation Date/Type/Reason Admit Date/Time Jan 30, 2017 at 07:00 Type of Consultation: cv 24 HR Interval Summary Free Text/Dictation Patient denies shortness of breath, chest pain or palpitations. Status post lap belem yesterday. Denies abdominal pain, nausea or vomiting Exam/Review of Systems Vital Signs Vitals Vital Signs Date Time Temp Pulse Resp B/P Pulse Ox O2 Delivery O2 Flow Rate FiO2 02/11/17 12:06 77 02/11/17 11:58 97.5 20 124/64 96 02/11/17 07:35 Nasal Cannula 2.0 Intake and Output 02/10/17 02/10/17 02/11/17 15:00 23:00 07:00 Intake Total 100 ml 1200 ml 1450 ml Output Total 970 ml 320 ml Balance 100 ml 230 ml 1130 ml Exam No apparent distress Constitutional: alert, obese, oriented Head: normocephalic Neck: supple Respiratory: other (Coarse breath sounds bilaterally, no wheezing) Cardiovascular: other (S1-S2 heard), regular rate and rhythm Gastrointestinal: bowel sounds, non-tender, other (No guarding, bandages seen) , soft Extremities: edema (Trace), other (No cyanosis) Results Result Diagram: 02/11/17 0645 02/11/17 0645 Results 24 hrs Laboratory Tests Test 02/11/17 06:45 White Blood Count 12.8 #H Red Blood Count 3.10 L Hemoglobin 8.3 L Hematocrit 27.5 L Mean Corpuscular Volume 88.7 Mean Corpuscular Hemoglobin 26.8 L Mean Corpuscular Hemoglobin Concent 30.2 L Red Cell Distribution Width 17.3 H Platelet Count 308 Mean Platelet Volume 10.9 H Neutrophils % 79.2 H Lymphocytes % 9.4 L Monocytes % 6.2 Eosinophils % 0.2 Basophils % 0.1 Nucleated Red Blood Cells % 0.2 H Neutrophils # 10.2 H Lymphocytes # 1.2 Monocytes # 0.8 Eosinophils # 0.0 Basophils # 0.0 Nucleated Red Blood Cells # 0.0 Prothrombin Time 14.4 H Prothrombin Time Ratio 1.1 INR International Normalized Ratio 1.12 Activated Partial Thromboplast Time 36.0 H Sodium Level 135 Potassium Level 4.7 Chloride Level 104 Carbon Dioxide Level 24 Anion Gap 12 Blood Urea Nitrogen 11 Creatinine 0.59 L Glucose Level 159 Lactic Acid Level 2.6 H Calcium Level 6.9 L Phosphorus Level 1.9 L Magnesium Level 2.1 Total Bilirubin 0.6 Direct Bilirubin 0.00 Indirect Bilirubin 0.6 Aspartate Amino Transf (AST/SGOT) 83 H Alanine Aminotransferase (ALT/SGPT) 45 Alkaline Phosphatase 227 H B-Type Natriuretic Peptide 323 H Total Protein 5.9 L Albumin 2.8 L Globulin 3.10 Albumin/Globulin Ratio 0.90 Medications Medications Current Medications Magnesium Hydroxide (Milk Of Mag) 30 ml DAILY PRN PO CONSTIPATION Last administered on 02/09/17 20:22; Admin Dose 30 ML; Start 01/30/17 at 11:00 Pantoprazole (Protonix Tab) 40 mg DAILY@06 PO Last administered on 02/11/17 06 :31; Admin Dose 40 MG; Start 01/31/17 at 06:00 Acetaminophen (Tylenol Tab) 650 mg Q6H PRN PO PAIN AND OR ELEVATED TEMP Last administered on 02/11/17 06:31; Admin Dose 650 MG; Start 01/30/17 at 21:30 Acetaminophen/ Hydrocodone Bitart ([place] (5/325)) 1 tab Q6H PRN PO PAIN; Start 01/30/17 at 21:30 Metoprolol Tartrate (Lopressor) 25 mg BID PO Last administered on 02/11/17 08: 14; Admin Dose 25 MG; Start 01/31/17 at 21:00 Polyethylene Glycol (Miralax) 17 gm DAILY PO Last administered on 02/11/17 08: 13; Admin Dose 17 GM; Start 02/02/17 at 09:00 Folic Acid 1 mg 1 mg DAILY PO Last administered on 02/11/17 08:13; Admin Dose 1 MG; Start 02/06/17 at 11:00 Metronidazole 100 ml @ 100 mls/hr Q8 IVPB Last administered on 02/11/17 06:31 ; Admin Dose 100 MLS/HR; Start 02/08/17 at 14:00 Ceftriaxone Sodium (Rocephin) 50 ml @ 100 mls/hr Q24H IVPB Last administered on 02/09/17 12:43; Admin Dose 100 MLS/HR; Start 02/08/17 at 13:00 Furosemide (Lasix) 40 mg DAILY PO Last administered on 02/11/17 08:13; Admin Dose 40 MG; Start 02/09/17 at 09:00 Potassium Chloride 20 meq 20 meq DAILY PO Last administered on 02/11/17 08:13 ; Admin Dose 20 MEQ; Start 02/10/17 at 09:00 Potassium Chloride/Dextrose/ Sod Cl (D5-1/2ns + KCl 20 Meq) 1,000 ml @ 100 mls/ hr Q10H IV Last administered on 02/11/17 04:48; Admin Dose 100 MLS/HR; Start 02/10/17 at 17:28 Acetaminophen/ Hydrocodone Bitart ([place] (5/325)) 1 tab Q4H PRN PO PAIN LEVEL 4 -7; Start 02/10/17 at 17:30 Acetaminophen/ Hydrocodone Bitart ([place] (5/325)) 2 tab Q4H PRN PO PAIN LEVEL 7 -10; Start 02/10/17 at 17:30 Hydromorphone HCl (Dilaudid) 0.5 mg Q2 PRN IV PAIN; Start 02/10/17 at 17:30 Hydromorphone HCl (Dilaudid) 1 mg Q2 PRN IV PAIN; Start 02/10/17 at 17:30 Docusate Sodium (Colace) 100 mg BID PRN PO CONSTIPATION; Start 02/10/17 at 17: 30 Bisacodyl (Dulcolax Supp) 10 mg BID PRN [place] CONSTIPATION; Start 02/10/17 at 17: 30 Sodium Biphosphate/ Sodium Phosphate (Fleet Enema) 133 ml BID PRN [place] CONSTIPATION; Start 02/10/17 at 17:30 Bisacodyl (Dulcolax Supp) 10 mg BID PRN [place] CONSTIPATION; Start 02/12/17 at 21:00 Sodium Biphosphate/ Sodium Phosphate (Fleet Enema) 133 ml BID [place] ; Start at 09:00 Docusate Sodium (Colace) 100 mg BID PO ; Start 02/12/17 at 09:00 Elias Deleon DO Feb 11, 2017 12:46
[2017-02-11] MEDS ORDERED: HEPARIN 1000 UNITS/ML 10 ML INJ IV PRN (13:00)
[2017-02-11] MEDS: HEPARIN 25000 UNITS/250 ML 250 ML IV SCH ×2 (13:27→21:57)
[2017-02-11] MEDS: CEFTRIAXONE 1 GM/50 ML (PMX) 50 ML IVPB SCH (13:48)
--- NOTE | 2017-02-11 15:38 | CONS ---
Date/Time of Note Date/Time of Note DATE: 02/11/17 TIME: 15:37 Assessment/Plan Assessment/Plan Chief Complaint/Hosp Course SUBJECTIVE: No acute changes awake, nad, No fevers. MICROBIOLOGY: Blood culture on admission grew Clostridium perfringens and coagulase-negative staph species. Repeat blood culture negative. Urine culture negative. DIAGNOSTICS: The patient had a RICHARD that revealed no vegetations. A HIDA scan was compatible with cystic duct obstruction and possible cholecystitis ANTIMICROBIALS: Flagyl, Rocephin PHYSICAL EXAMINATION: GENERAL: This is a morbidly obese elderly man who is alert, in no distress. HEENT: Head atraumatic, normocephalic. Sclerae anicteric. Buccal mucosa pink. NECK: Supple. CHEST: Rise symmetrical. Breath sounds diminished to bases. HEART: S1, S2. ABDOMEN: Obese, soft, bowel sounds present. EXTREMITIES: Without cyanosis. Bilateral edema, right upper extremity more edematous than left. ASSESSMENT: 1. S/p Biliary sepsis. 2. Clostridium perfringens bacteremia secondary to #1. 3. Choledocholithiasis with cystic duct obstruction as per HIDA scan. 4. Right upper extremity edema==> no deep venous thrombosis per US. 5. Coronary artery disease, history of aortic valve replacement. 6. History of met prostate cancer. 7. S/p lap cholecystectomy 8. Reactive leukocytosis PLAN: The patient remains stable, continue abx DW staff Problems: Consultation Date/Type/Reason Admit Date/Time Jan 30, 2017 at 07:00 Type of Consultation: id Exam/Review of Systems Vital Signs Vitals Vital Signs Date Time Temp Pulse Resp B/P Pulse Ox O2 Delivery O2 Flow Rate FiO2 02/11/17 12:06 77 02/11/17 11:58 97.5 20 124/64 96 02/11/17 07:35 Nasal Cannula 2.0 Intake and Output 02/10/17 02/10/17 02/11/17 15:00 23:00 07:00 Intake Total 100 ml 1200 ml 1450 ml Output Total 970 ml 320 ml Balance 100 ml 230 ml 1130 ml Results Result Diagram: 02/11/17 0645 02/11/17 0645 Results 24 hrs Laboratory Tests Test 02/11/17 06:45 White Blood Count 12.8 #H Red Blood Count 3.10 L Hemoglobin 8.3 L Hematocrit 27.5 L Mean Corpuscular Volume 88.7 Mean Corpuscular Hemoglobin 26.8 L Mean Corpuscular Hemoglobin Concent 30.2 L Red Cell Distribution Width 17.3 H Platelet Count 308 Mean Platelet Volume 10.9 H Neutrophils % 79.2 H Lymphocytes % 9.4 L Monocytes % 6.2 Eosinophils % 0.2 Basophils % 0.1 Nucleated Red Blood Cells % 0.2 H Neutrophils # 10.2 H Lymphocytes # 1.2 Monocytes # 0.8 Eosinophils # 0.0 Basophils # 0.0 Nucleated Red Blood Cells # 0.0 Prothrombin Time 14.4 H Prothrombin Time Ratio 1.1 INR International Normalized Ratio 1.12 Activated Partial Thromboplast Time 36.0 H Sodium Level 135 Potassium Level 4.7 Chloride Level 104 Carbon Dioxide Level 24 Anion Gap 12 Blood Urea Nitrogen 11 Creatinine 0.59 L Glucose Level 159 Lactic Acid Level 2.6 H Calcium Level 6.9 L Phosphorus Level 1.9 L Magnesium Level 2.1 Total Bilirubin 0.6 Direct Bilirubin 0.00 Indirect Bilirubin 0.6 Aspartate Amino Transf (AST/SGOT) 83 H Alanine Aminotransferase (ALT/SGPT) 45 Alkaline Phosphatase 227 H B-Type Natriuretic Peptide 323 H Total Protein 5.9 L Albumin 2.8 L Globulin 3.10 Albumin/Globulin Ratio 0.90 Medications Medications Current Medications Magnesium Hydroxide (Milk Of Mag) 30 ml DAILY PRN PO CONSTIPATION Last administered on 02/09/17 20:22; Admin Dose 30 ML; Start 01/30/17 at 11:00 Pantoprazole (Protonix Tab) 40 mg DAILY@06 PO Last administered on 02/11/17 06 :31; Admin Dose 40 MG; Start 01/31/17 at 06:00 Acetaminophen (Tylenol Tab) 650 mg Q6H PRN PO PAIN AND OR ELEVATED TEMP Last administered on 02/11/17 13:23; Admin Dose 650 MG; Start 01/30/17 at 21:30 Acetaminophen/ Hydrocodone Bitart ([place] (5/325)) 1 tab Q6H PRN PO PAIN; Start 01/30/17 at 21:30 Metoprolol Tartrate (Lopressor) 25 mg BID PO Last administered on 02/11/17 08: 14; Admin Dose 25 MG; Start 01/31/17 at 21:00 Polyethylene Glycol (Miralax) 17 gm DAILY PO Last administered on 02/11/17 08: 13; Admin Dose 17 GM; Start 02/02/17 at 09:00 Folic Acid 1 mg 1 mg DAILY PO Last administered on 02/11/17 08:13; Admin Dose 1 MG; Start 02/06/17 at 11:00 Metronidazole 100 ml @ 100 mls/hr Q8 IVPB Last administered on 02/11/17 14:52 ; Admin Dose 100 MLS/HR; Start 02/08/17 at 14:00 Ceftriaxone Sodium (Rocephin) 50 ml @ 100 mls/hr Q24H IVPB Last administered on 02/11/17 13:48; Admin Dose 100 MLS/HR; Start 02/08/17 at 13:00 Furosemide (Lasix) 40 mg DAILY PO Last administered on 02/11/17 08:13; Admin Dose 40 MG; Start 02/09/17 at 09:00 Acetaminophen/ Hydrocodone Bitart ([place] (5/325)) 1 tab Q4H PRN PO PAIN LEVEL 4 -7; Start 02/10/17 at 17:30 Acetaminophen/ Hydrocodone Bitart ([place] (5/325)) 2 tab Q4H PRN PO PAIN LEVEL 7 -10; Start 02/10/17 at 17:30 Hydromorphone HCl (Dilaudid) 0.5 mg Q2 PRN IV PAIN; Start 02/10/17 at 17:30 Hydromorphone HCl (Dilaudid) 1 mg Q2 PRN IV PAIN; Start 02/10/17 at 17:30 Docusate Sodium (Colace) 100 mg BID PRN PO CONSTIPATION; Start 02/10/17 at 17: 30 Bisacodyl (Dulcolax Supp) 10 mg BID PRN [place] CONSTIPATION; Start 02/10/17 at 17: 30 Sodium Biphosphate/ Sodium Phosphate (Fleet Enema) 133 ml BID PRN [place] CONSTIPATION; Start 02/10/17 at 17:30 Bisacodyl (Dulcolax Supp) 10 mg BID PRN [place] CONSTIPATION; Start 02/12/17 at 21:00 Sodium Biphosphate/ Sodium Phosphate (Fleet Enema) 133 ml BID [place] ; Start at 09:00 Docusate Sodium (Colace) 100 mg BID PO ; Start 02/12/17 at 09:00 JAMES KAPLAN NP Feb 11, 2017 15:38
--- NOTE | 2017-02-11 16:12 | PN ---
Date/Time of Note Date/Time of Note DATE: 02/11/17 TIME: 16:10 Assessment/Plan Lines/Catheters IV Catheter Type (from Rust): Peripheral IV Briones in Place (from Rust): No Assessment/Plan Assessment/Plan [facility] Progress Note Date of Service: 02/11/17 Today's Impression & Plan: Overall stable post op. S/p lap belem yesterday with sig chronic inflammation and stone disease. Abd benign. No major complications or wound issues. Happy with his progress. With above assessment, I've recommended the following for today: 1. Increase activity 2. Increase ICS 3. Advance diet 4. Ok to anticoagulate 5. Labs in am Thank you again for your great care of this very pleasant patient and wonderful family. If there are any questions, please feel free to call me at [phone]. TOTAL VISIT TIME: 20 minutes of which more than half was spent in [id number] discussion with the patient, possibly including family, as well as coordination of care between multiple physicians and providers. Disclaimer: Inadvertent spelling or grammatical errors are likely due to EHR/ dictation software use and do not reflect on the overall quality of patient care. Updated Clinical Summary: The patient is a very pleasant but unfortunate 66-year-old gentleman with likely metastatic prostate cancer who was admitted through the emergency department at [facility] on 01/30/2017 with septic shock and bacteremia. The patient was found to have significant cholelithiasis. Discussed case with Dr. Deleon (his christian science reader). We agreed that we needed a few more days to optimize patient's cardiac condition to minimize his correctable perioperative risk. His gallbladder needed to come out for two main reasons. First, it was the main suspect for the source of patient's bacteremic shock. Secondly, with his need for systemic chemotherapy for his widely metastatic prostate cancer, he would benefit from having his stone filled gallbladder out and not risk the chance of severe cholecystitis during the treatment phase. He received 2 units of PRBC 02/05/17 in preparation for his upcoming surgery. COMORBIDITIES: 1. BMI of 34.2. 2. Prostate cancer diagnosed 3 to 4 years ago, diagnosed after elevation in his PSA was noted. Prostate nodule was found and biopsied and found it to be prostatic carcinoma. Hormonal therapy was initiated with Lupron and bicalutamide for 1 year and then he was taken off Lupron, which was reinitiated recently after rising PSA was noted. Also, with migratory bone pain over the last 2 months with lytic lesions noted on the most recent MRIs. 3. Congenital bicuspid aortic valve, status post replacement with a [facility] valve in 1989, and on chronic anticoagulation with Coumadin. 4. Previous cerebrovascular accident with right-sided weakness and some ataxia. 5. Hypertension. 6. Hyperlipidemia. 7. Septic shock with bacteremia (Clostridium perfringens growing in blood cultures x2 on 01/30/2017). 8. Cholelithiasis with HIDA scan dated 02/02/2017 showing no gallbladder visualization consistent with cystic duct obstruction. The common bile duct was open. Right upper quadrant ultrasound 01/31/2017 showed gallbladder completely filled with gallstones and gallbladder wall thickening was somewhat hampered by the amount of shadowing of the gallstones. No intrahepatic or extrahepatic biliary dilatation was noted. There was mild increased echogenicity of the liver suggestive of hepatic steatosis. 9. CT scan of abdomen and pelvis on 02/03/2017 shows multiple mixed lytic and blastic lesions throughout the visualized ribs, spine and pelvis consistent with metastatic disease as well as presence of retroperitoneal and pelvic lymphadenopathy consistent with neoplasm. There is also cardiomegaly and dilated ascending aorta measuring 5.5 cm. Atherosclerosis was also noted. 10. S/p lap belem 02/11/17 (sig chronic cholecystitis and cholelithiasis) Subjective: No major events or complaints; no major abd pain and under control with medications; no n/v/d; no sob or cp; + flatus; - BM; - activity Objective: Vitals: See below Exam: GENERAL: On exam, the patient was laying in bed and appeared to be comfortable and in no acute distress. ABDOMEN: Soft, nontender and nondistended. Incision dressings c/d/i w/o obvious underlying e/e/d/h. There are no peritoneal signs or guarding. SKIN: Skin appears to be pink and feels warm to touch. NEUROLOGIC: Patient is awake, alert, and follows commands appropriately. Exam/Review of Systems Vital Signs Vitals Vital Signs Date Time Temp Pulse Resp B/P Pulse Ox O2 Delivery O2 Flow Rate FiO2 02/11/17 16:08 77 02/11/17 16:04 98.0 20 120/65 97 02/11/17 07:35 Nasal Cannula 2.0 Intake and Output 02/10/17 02/10/17 02/11/17 15:00 23:00 07:00 Intake Total 100 ml 1200 ml 1450 ml Output Total 970 ml 320 ml Balance 100 ml 230 ml 1130 ml Results Result Diagram: 02/11/17 0645 02/11/17 0645 NEDA FLOOD M.D. Feb 11, 2017 16:12
[2017-02-12] VITALS (12 sets, daily range): BP systolic 110–123; BP diastolic 64–74; PULSE 77–98; RESP 16–20
[2017-02-12] MEDS: ACETAMINOPHEN 325 MG TAB PO PRN (04:08)
[2017-02-12 04:23] LABS: ADD SCAN DIFF NO
[2017-02-12 04:28] LABS: ABNORMAL IP MESSAGE 1; BASOPHILS % 0.2 % (0.0-2.0); EOSINOPHILS # 0.3 10^3/ul (0.0-0.5); EOSINOPHILS % 2.4 % (0.0-7.0); HEMATOCRIT 28.9 % (42.0-52.0); HEMOGLOBIN 8.7 g/dl (14.0-18.0); LYMPHOCYTES # 1.6 10^3/ul (0.8-2.9); LYMPHOCYTES % 14.3 % (15.0-51.0); MEAN CORPUSCULAR HEMOGLOBIN 26.9 pg (29.0-33.0); MEAN CORPUSCULAR HGB CONC 30.1 g/dl (32.0-37.0); MEAN CORPUSCULAR VOLUME 89.2 fl (82.0-101.0); MEAN PLATELET VOLUME 10.9 fl (7.4-10.4); MONOCYTE # 0.8 10^3/ul (0.3-0.9); MONOCYTES % 6.9 % (0.0-11.0); NEUTROPHILS % 69.6 % (39.0-77.0); NUCLEATED RED BLOOD CELLS # 0.1 10^3/ul (0.0-0.0); NUCLEATED RED BLOOD CELLS% 1.1 /100WBC (0.0-0.0); PLATELET COUNT 322 10^3/UL (140-415); RED BLOOD COUNT 3.24 10^6/ul (4.70-6.10); RED CELL DISTRIBUTION WIDTH 17.4 % (11.5-14.5); WHITE BLOOD COUNT 11.5 10^3/ul (4.8-10.8)
[2017-02-12 04:41] LABS: POTASSIUM 4.4 mmol/L (3.5-5.1)
[2017-02-12 04:43] LABS: CREATININE 0.68 mg/dl (0.61-1.24)
[2017-02-12 04:44] LABS: CALCIUM 7.3 mg/dl (8.4-10.2); INR 1.02; PROTIME 13.4 Sec (12.2-14.2)
[2017-02-12] MEDS: PANTOPRAZOLE (EC) 40 MG TAB PO SCH (05:58)
[2017-02-12] MEDS: metroNIDAZOLE 500 MG/NS (PMX) 100 ML IVPB SCH ×3 (05:58→22:03)
[2017-02-12] MEDS: HEPARIN 25000 UNITS/250 ML 250 ML IV SCH ×3 (06:18→18:25)
--- NOTE | 2017-02-12 08:14 | PN ---
Date/Time of Note Date/Time of Note DATE: 02/12/17 TIME: 08:11 Assessment/Plan VTE Prophylaxis VTE Prophylaxis Intervention: heparin VTE Contraindication Reason: bleeding Lines/Catheters IV Catheter Type (from Nrsg): Peripheral IV Urinary Cath still in place: No Assessment/Plan Chief Complaint/Hosp Course see above Problems: Subjective 24 Hr Interval Summary Free Text/Dictation POD #2 on bridge therapy and warfarin restarted. transaminases slightly elevated. VS and status stable. decision regarding rehab transfer is pending Chest clear Cor reg rhythm crisp valve sounds Abd soft Ext trace edema Plan: postop care, resume warfarin Exam/Review of Systems Vital Signs Vitals Vital Signs Date Time Temp Pulse Resp B/P Pulse Ox O2 Delivery O2 Flow Rate FiO2 02/12/17 07:46 98.2 77 18 122/68 97 02/12/17 00:56 2.0 02/11/17 20:00 Nasal Cannula Intake and Output 02/11/17 02/11/17 02/12/17 15:00 23:00 07:00 Intake Total 800 ml 837 ml Output Total 1150 ml 1150 ml Balance -350 ml -313 ml Results Result Diagram: 02/12/17 0409 02/12/17 0409 Results 24 hrs Laboratory Tests Test 02/11/17 20:30 02/12/17 04:09 Activated Partial Thromboplast Time 44.5 H 66.3 H White Blood Count 11.5 H Red Blood Count 3.24 L Hemoglobin 8.7 L Hematocrit 28.9 L Mean Corpuscular Volume 89.2 Mean Corpuscular Hemoglobin 26.9 L Mean Corpuscular Hemoglobin Concent 30.1 L Red Cell Distribution Width 17.4 H Platelet Count 322 Mean Platelet Volume 10.9 H Neutrophils % 69.6 Lymphocytes % 14.3 L Monocytes % 6.9 Eosinophils % 2.4 Basophils % 0.2 Nucleated Red Blood Cells % 1.1 H Neutrophils # 8.0 H Lymphocytes # 1.6 Monocytes # 0.8 Eosinophils # 0.3 Basophils # 0.0 Nucleated Red Blood Cells # 0.1 H Prothrombin Time 13.4 Prothrombin Time Ratio 1.0 INR International Normalized Ratio 1.02 Sodium Level 138 Potassium Level 4.4 Chloride Level 108 Carbon Dioxide Level 23 Anion Gap 11 Blood Urea Nitrogen 11 Creatinine 0.68 Glucose Level 104 # Calcium Level 7.3 L Magnesium Level 2.2 Medications Medications Current Medications Magnesium Hydroxide (Milk Of Mag) 30 ml DAILY PRN PO CONSTIPATION Last administered on 02/09/17 20:22; Admin Dose 30 ML; Start 01/30/17 at 11:00 Pantoprazole (Protonix Tab) 40 mg DAILY@06 PO Last administered on 02/12/17 05: 58; Admin Dose 40 MG; Start 01/31/17 at 06:00 Acetaminophen (Tylenol Tab) 650 mg Q6H PRN PO PAIN AND OR ELEVATED TEMP Last administered on 02/12/17 04:08; Admin Dose 650 MG; Start 01/30/17 at 21:30 Acetaminophen/ Hydrocodone Bitart ([place] (5/325)) 1 tab Q6H PRN PO PAIN; Start 01/30/17 at 21:30 Metoprolol Tartrate (Lopressor) 25 mg BID PO Last administered on 02/11/17 20: 44; Admin Dose 25 MG; Start 01/31/17 at 21:00 Polyethylene Glycol (Miralax) 17 gm DAILY PO Last administered on 02/11/17 08: 13; Admin Dose 17 GM; Start 02/02/17 at 09:00 Folic Acid 1 mg 1 mg DAILY PO Last administered on 02/11/17 08:13; Admin Dose 1 MG; Start 02/06/17 at 11:00 Metronidazole 100 ml @ 100 mls/hr Q8 IVPB Last administered on 02/12/17 05:58 ; Admin Dose 100 MLS/HR; Start 02/08/17 at 14:00 Ceftriaxone Sodium (Rocephin) 50 ml @ 100 mls/hr Q24H IVPB Last administered on 02/11/17 13:48; Admin Dose 100 MLS/HR; Start 02/08/17 at 13:00 Furosemide (Lasix) 40 mg DAILY PO Last administered on 02/11/17 08:13; Admin Dose 40 MG; Start 02/09/17 at 09:00 Acetaminophen/ Hydrocodone Bitart ([place] (5/325)) 1 tab Q4H PRN PO PAIN LEVEL 4 -7; Start 02/10/17 at 17:30 Acetaminophen/ Hydrocodone Bitart ([place] (5/325)) 2 tab Q4H PRN PO PAIN LEVEL 7 -10; Start 02/10/17 at 17:30 Hydromorphone HCl (Dilaudid) 0.5 mg Q2 PRN IV PAIN; Start 02/10/17 at 17:30 Hydromorphone HCl (Dilaudid) 1 mg Q2 PRN IV PAIN; Start 02/10/17 at 17:30 Docusate Sodium (Colace) 100 mg BID PRN PO CONSTIPATION; Start 02/10/17 at 17: 30 Bisacodyl (Dulcolax Supp) 10 mg BID PRN [place] CONSTIPATION; Start 02/10/17 at 17: 30 Sodium Biphosphate/ Sodium Phosphate (Fleet Enema) 133 ml BID PRN [place] CONSTIPATION; Start 02/10/17 at 17:30 Bisacodyl (Dulcolax Supp) 10 mg BID PRN [place] CONSTIPATION; Start 02/12/17 at 21:00 Sodium Biphosphate/ Sodium Phosphate (Fleet Enema) 133 ml BID [place] ; Start at 09:00 Docusate Sodium (Colace) 100 mg BID PO ; Start 02/12/17 at 09:00 Warfarin Sodium (Coumadin) 5 mg DAILY@17 PO ; Start 02/12/17 at 17:00; Status BETTY JAIMES MD Feb 12, 2017 08:14
[2017-02-12] MEDS: DOCUSATE SODIUM 100 MG CAP PO SCH ×2 (08:56→22:02)
[2017-02-12] MEDS: FOLIC ACID 1 MG TAB PO SCH (08:56)
[2017-02-12] MEDS: FUROSEMIDE 20 MG TAB PO SCH (08:57)
[2017-02-12] MEDS: METOPROLOL 25 MG TAB PO SCH ×2 (08:58→22:03)
[2017-02-12] MEDS: POLYETHYLENE GLYCOL 17 GM PACKET PO SCH (08:58)
[2017-02-12] MEDS: NA PHOSPHATE/BIPHOS 133 ML ENEMA PR SCH ×2 (09:00→21:00)
--- NOTE | 2017-02-12 10:14 | CONS ---
Date/Time of Note Date/Time of Note DATE: 02/12/17 TIME: 10:12 Assessment/Plan Assessment/Plan Chief Complaint/Hosp Course Sepsis with bacteremia (no vegetation seen on RICHARD) Status post cholecystectomy 02/10/2017 Acute decompensated diastolic congestive heart failure, improving History of mechanical aortic valve replacement Preserved ejection fraction Prostate cancer with metastases Aortic aneurysm Anemia Problems: Additional Assessment/Plan 1) Fluid status improved 2) coumadin as ordered by PCP 3) heparin gtt to be dc'ed once INR> 2 Consultation Date/Type/Reason Admit Date/Time Jan 30, 2017 at 07:00 Initial Consult Date Type of Consultation: cv 24 HR Interval Summary Free Text/Dictation no chest pain, no sob, remains weak Detailed Summary Respiratory: no complaints Cardiovascular: no complaints Gastrointestinal: no complaints Musculoskeletal: no complaints Neurologic: no complaints Exam/Review of Systems Vital Signs Vitals Vital Signs Date Time Temp Pulse Resp B/P Pulse Ox O2 Delivery O2 Flow Rate FiO2 02/12/17 08:12 88 02/12/17 07:46 98.2 18 122/68 97 02/12/17 00:56 2.0 02/11/17 20:00 Nasal Cannula Intake and Output 02/11/17 02/11/17 02/12/17 15:00 23:00 07:00 Intake Total 900 ml 951.5 ml Output Total 1150 ml 1150 ml Balance -250 ml -198.5 ml Exam Constitutional: alert, frail, oriented Head: atraumatic, normocephalic Neck: supple Respiratory: diminished breath sounds Cardiovascular: regular rate and rhythm Musculoskeletal: nl extremities to inspection Results Result Diagram: 02/12/17 0409 02/12/17 0409 Results 24 hrs Laboratory Tests Test 02/11/17 20:30 02/12/17 04:09 Activated Partial Thromboplast Time 44.5 H 66.3 H White Blood Count 11.5 H Red Blood Count 3.24 L Hemoglobin 8.7 L Hematocrit 28.9 L Mean Corpuscular Volume 89.2 Mean Corpuscular Hemoglobin 26.9 L Mean Corpuscular Hemoglobin Concent 30.1 L Red Cell Distribution Width 17.4 H Platelet Count 322 Mean Platelet Volume 10.9 H Neutrophils % 69.6 Lymphocytes % 14.3 L Monocytes % 6.9 Eosinophils % 2.4 Basophils % 0.2 Nucleated Red Blood Cells % 1.1 H Neutrophils # 8.0 H Lymphocytes # 1.6 Monocytes # 0.8 Eosinophils # 0.3 Basophils # 0.0 Nucleated Red Blood Cells # 0.1 H Prothrombin Time 13.4 Prothrombin Time Ratio 1.0 INR International Normalized Ratio 1.02 Sodium Level 138 Potassium Level 4.4 Chloride Level 108 Carbon Dioxide Level 23 Anion Gap 11 Blood Urea Nitrogen 11 Creatinine 0.68 Glucose Level 104 # Calcium Level 7.3 L Magnesium Level 2.2 Medications Medications Current Medications Magnesium Hydroxide (Milk Of Mag) 30 ml DAILY PRN PO CONSTIPATION Last administered on 02/09/17 20:22; Admin Dose 30 ML; Start 01/30/17 at 11:00 Pantoprazole (Protonix Tab) 40 mg DAILY@06 PO Last administered on 02/12/17 05: 58; Admin Dose 40 MG; Start 01/31/17 at 06:00 Acetaminophen (Tylenol Tab) 650 mg Q6H PRN PO PAIN AND OR ELEVATED TEMP Last administered on 02/12/17 04:08; Admin Dose 650 MG; Start 01/30/17 at 21:30 Acetaminophen/ Hydrocodone Bitart ([place] (5/325)) 1 tab Q6H PRN PO PAIN; Start 01/30/17 at 21:30 Metoprolol Tartrate (Lopressor) 25 mg BID PO Last administered on 02/12/17 08: 58; Admin Dose 25 MG; Start 01/31/17 at 21:00 Polyethylene Glycol (Miralax) 17 gm DAILY PO Last administered on 02/11/17 08: 13; Admin Dose 17 GM; Start 02/02/17 at 09:00 Folic Acid 1 mg 1 mg DAILY PO Last administered on 02/12/17 08:56; Admin Dose 1 MG; Start 02/06/17 at 11:00 Metronidazole 100 ml @ 100 mls/hr Q8 IVPB Last administered on 02/12/17 05:58 ; Admin Dose 100 MLS/HR; Start 02/08/17 at 14:00 Ceftriaxone Sodium (Rocephin) 50 ml @ 100 mls/hr Q24H IVPB Last administered on 02/11/17 13:48; Admin Dose 100 MLS/HR; Start 02/08/17 at 13:00 Furosemide (Lasix) 40 mg DAILY PO Last administered on 02/12/17 08:57; Admin Dose 40 MG; Start 02/09/17 at 09:00 Acetaminophen/ Hydrocodone Bitart ([place] (5/325)) 1 tab Q4H PRN PO PAIN LEVEL 4 -7; Start 02/10/17 at 17:30 Acetaminophen/ Hydrocodone Bitart ([place] (5/325)) 2 tab Q4H PRN PO PAIN LEVEL 7 -10; Start 02/10/17 at 17:30 Hydromorphone HCl (Dilaudid) 0.5 mg Q2 PRN IV PAIN; Start 02/10/17 at 17:30 Hydromorphone HCl (Dilaudid) 1 mg Q2 PRN IV PAIN; Start 02/10/17 at 17:30 Docusate Sodium (Colace) 100 mg BID PRN PO CONSTIPATION; Start 02/10/17 at 17: 30 Bisacodyl (Dulcolax Supp) 10 mg BID PRN ID CONSTIPATION; Start 02/10/17 at 17: 30 Sodium Biphosphate/ Sodium Phosphate (Fleet Enema) 133 ml BID PRN ID CONSTIPATION; Start 02/10/17 at 17:30 Bisacodyl (Dulcolax Supp) 10 mg BID PRN ID CONSTIPATION; Start 02/12/17 at 21:00 Sodium Biphosphate/ Sodium Phosphate (Fleet Enema) 133 ml BID ID ; Start at 09:00 Docusate Sodium (Colace) 100 mg BID PO Last administered on 02/12/17t 08:56; Admin Dose 100 MG; Start 02/12/17 at 09:00 Warfarin Sodium (Coumadin) 5 mg DAILY@17 PO ; Start 02/12/17 at 17:00 RAMON RAMIRES MD Feb 12, 2017 10:14
[2017-02-12] MEDS: MAGNESIUM HYDROXIDE 30ML CUP PO PRN (10:25)
[2017-02-12] MEDS: CEFTRIAXONE 1 GM/50 ML (PMX) 50 ML IVPB SCH (13:24)
[2017-02-12] MEDS: WARFARIN 5 MG TAB PO SCH (18:19)
--- NOTE | 2017-02-12 20:13 | PN ---
Date/Time of Note Date/Time of Note DATE: 02/12/17 TIME: 20:10 Assessment/Plan VTE Prophylaxis VTE Prophylaxis Intervention: heparin Lines/Catheters IV C[facility]ter Type (from [facility]): Peripheral IV Urinary Cath still in place: No Assessment/Plan Chief Complaint/Hosp Course ASSESSMENT: 1. Corynebacterium pharynges septicemia. 2. Cholecystitis, recovering well post cholecystectomy. 3. Metastatic prostate carcinoma, progressing. Plan to start Enzelutamide when recovered from current issues. 4. Prosthetic valve. Currently on heparin with transition to coumadin. He will need rehab for generalized weakness. Problems: Subjective 24 Hr Interval Summary Free Text/Dictation He feel well, tolerating orals, has minimal pain. Very weak, hard time walking Exam/Review of Systems Vital Signs Vitals Vital Signs Date Time Temp Pulse Resp B/P Pulse Ox O2 Delivery O2 Flow Rate FiO2 02/12/17 19:47 98.2 94 19 120/67 97 02/12/17 07:45 Nasal Cannula 2.0 Intake and Output 02/11/17 02/11/17 02/12/17 15:00 23:00 07:00 Intake Total 900 ml 951.5 ml Output Total 1150 ml 1150 ml Balance -250 ml -198.5 ml Exam HEENT: No mucosal lesions. No scleral icterus. NECK: Supple. No jugular venous distention or thyroid enlargement. CHEST: Decreased breath sounds bilaterally. There is a sternotomy scar present. HEART: Regular sinus rhythm. SKIN: There is loud clicking of a prosthetic valve. ABDOMEN: Soft, no masses, no ascites. Abd wounds clean and dry. EXTREMITIES: No clubbing or cyanosis. There is marked ecchymoses in the right upper extremity. Results Result Diagram: 02/12/17 0409 02/12/17 0409 Results 24 hrs Laboratory Tests Test 02/11/17 20:30 02/12/17 04:09 02/12/17 11:12 02/12/17 16:40 Activated Partial Thromboplast Time 44.5 H 66.3 H 58.6 H 62.7 H White Blood Count 11.5 H Red Blood Count 3.24 L Hemoglobin 8.7 L Hematocrit 28.9 L Mean Corpuscular Volume 89.2 Mean Corpuscular Hemoglobin 26.9 L Mean Corpuscular Hemoglobin Concent 30.1 L Red Cell Distribution Width 17.4 H Platelet Count 322 Mean Platelet Volume 10.9 H Neutrophils % 69.6 Lymphocytes % 14.3 L Monocytes % 6.9 Eosinophils % 2.4 Basophils % 0.2 Nucleated Red Blood Cells % 1.1 H Neutrophils # 8.0 H Lymphocytes # 1.6 Monocytes # 0.8 Eosinophils # 0.3 Basophils # 0.0 Nucleated Red Blood Cells # 0.1 H Prothrombin Time 13.4 Prothrombin Time Ratio 1.0 INR International Normalized Ratio 1.02 Sodium Level 138 Potassium Level 4.4 Chloride Level 108 Carbon Dioxide Level 23 Anion Gap 11 Blood Urea Nitrogen 11 Creatinine 0.68 Glucose Level 104 # Calcium Level 7.3 L Magnesium Level 2.2 Medications Medications Current Medications Magnesium Hydroxide (Milk Of Mag) 30 ml DAILY PRN PO CONSTIPATION Last administered on 02/12/17 10:25; Admin Dose 30 ML; Start 01/30/17 at 11:00 Pantoprazole (Protonix Tab) 40 mg DAILY@06 PO Last administered on 02/12/17 05: 58; Admin Dose 40 MG; Start 01/31/17 at 06:00 Acetaminophen (Tylenol Tab) 650 mg Q6H PRN PO PAIN AND OR ELEVATED TEMP Last administered on 02/12/17 04:08; Admin Dose 650 MG; Start 01/30/17 at 21:30 Acetaminophen/ Hydrocodone Bitart ([place] (5/325)) 1 tab Q6H PRN PO PAIN; Start 01/30/17 at 21:30 Metoprolol Tartrate (Lopressor) 25 mg BID PO Last administered on 02/12/17 08: 58; Admin Dose 25 MG; Start 01/31/17 at 21:00 Polyethylene Glycol (Miralax) 17 gm DAILY PO Last administered on 02/11/17 08: 13; Admin Dose 17 GM; Start 02/02/17 at 09:00 Folic Acid 1 mg 1 mg DAILY PO Last administered on 02/12/17 08:56; Admin Dose 1 MG; Start 02/06/17 at 11:00 Metronidazole 100 ml @ 100 mls/hr Q8 IVPB Last administered on 02/12/17 14:34 ; Admin Dose 100 MLS/HR; Start 02/08/17 at 14:00 Ceftriaxone Sodium (Rocephin) 50 ml @ 100 mls/hr Q24H IVPB Last administered on 02/12/17 13:24; Admin Dose 100 MLS/HR; Start 02/08/17 at 13:00 Furosemide (Lasix) 40 mg DAILY PO Last administered on 02/12/17 08:57; Admin Dose 40 MG; Start 02/09/17 at 09:00 Acetaminophen/ Hydrocodone Bitart ([place] (5/325)) 1 tab Q4H PRN PO PAIN LEVEL 4 -7; Start 02/10/17 at 17:30 Acetaminophen/ Hydrocodone Bitart ([place] (5/325)) 2 tab Q4H PRN PO PAIN LEVEL 7 -10; Start 02/10/17 at 17:30 Hydromorphone HCl (Dilaudid) 0.5 mg Q2 PRN IV PAIN; Start 02/10/17 at 17:30 Hydromorphone HCl (Dilaudid) 1 mg Q2 PRN IV PAIN; Start 02/10/17 at 17:30 Docusate Sodium (Colace) 100 mg BID PRN PO CONSTIPATION; Start 02/10/17 at 17: 30 Bisacodyl (Dulcolax Supp) 10 mg BID PRN MD CONSTIPATION; Start 02/10/17 at 17: 30 Sodium Biphosphate/ Sodium Phosphate (Fleet Enema) 133 ml BID PRN MD CONSTIPATION; Start 02/10/17 at 17:30 Bisacodyl (Dulcolax Supp) 10 mg BID PRN MD CONSTIPATION; Start 02/12/17 at 21:00 Sodium Biphosphate/ Sodium Phosphate (Fleet Enema) 133 ml BID MD ; Start at 09:00 Docusate Sodium (Colace) 100 mg BID PO Last administered on 02/12/17 08:56; Admin Dose 100 MG; Start 02/12/17 at 09:00 Warfarin Sodium (Coumadin) 5 mg DAILY@17 PO Last administered on 02/12/17 18:19 ; Admin Dose 5 MG; Start 02/12/17 at 17:00 ELVIS FAULKNER MD Feb 12, 2017 20:13
--- NOTE | 2017-02-12 20:25 | CONS ---
Date/Time of Note Date/Time of Note DATE: 02/12/17 TIME: 20:24 Assessment/Plan Assessment/Plan Chief Complaint/Hosp Course SUBJECTIVE: No acute changes, awake, nad, no fevers. MICROBIOLOGY: Blood culture on admission grew Clostridium perfringens and coagulase-negative staph species. Repeat blood culture negative. Urine culture negative. DIAGNOSTICS: The patient had a RICHARD that revealed no vegetations. A HIDA scan was compatible with cystic duct obstruction and possible cholecystitis ANTIMICROBIALS: Flagyl, Rocephin PHYSICAL EXAMINATION: GENERAL: This is a morbidly obese elderly man who is alert, in no distress. HEENT: Head atraumatic, normocephalic. Sclerae anicteric. Buccal mucosa pink. NECK: Supple. CHEST: Rise symmetrical. Breath sounds diminished to bases. HEART: S1, S2. ABDOMEN: Obese, soft, bowel sounds present. EXTREMITIES: Without cyanosis. Bilateral edema, right upper extremity more edematous than left. ASSESSMENT: 1. S/p Biliary sepsis. 2. Clostridium perfringens bacteremia secondary to #1. 3. Choledocholithiasis with cystic duct obstruction as per HIDA scan. 4. Right upper extremity edema==> no deep venous thrombosis per US. 5. Coronary artery disease, history of aortic valve replacement. 6. History of met prostate cancer. 7. S/p lap cholecystectomy 8. Reactive leukocytosis PLAN: The patient remains stable, completing abx DW staff Problems: Consultation Date/Type/Reason Admit Date/Time Jan 30, 2017 at 07:00 Type of Consultation: id Exam/Review of Systems Vital Signs Vitals Vital Signs Date Time Temp Pulse Resp B/P Pulse Ox O2 Delivery O2 Flow Rate FiO2 02/12/17 20:19 98 02/12/17 19:47 98.2 19 120/67 97 02/12/17 07:45 Nasal Cannula 2.0 Intake and Output 02/11/17 02/11/17 02/12/17 15:00 23:00 07:00 Intake Total 900 ml 951.5 ml Output Total 1150 ml 1150 ml Balance -250 ml -198.5 ml Results Result Diagram: 02/12/17 0409 02/12/17 0409 Results 24 hrs Laboratory Tests Test 02/11/17 20:30 02/12/17 04:09 02/12/17 11:12 02/12/17 16:40 Activated Partial Thromboplast Time 44.5 H 66.3 H 58.6 H 62.7 H White Blood Count 11.5 H Red Blood Count 3.24 L Hemoglobin 8.7 L Hematocrit 28.9 L Mean Corpuscular Volume 89.2 Mean Corpuscular Hemoglobin 26.9 L Mean Corpuscular Hemoglobin Concent 30.1 L Red Cell Distribution Width 17.4 H Platelet Count 322 Mean Platelet Volume 10.9 H Neutrophils % 69.6 Lymphocytes % 14.3 L Monocytes % 6.9 Eosinophils % 2.4 Basophils % 0.2 Nucleated Red Blood Cells % 1.1 H Neutrophils # 8.0 H Lymphocytes # 1.6 Monocytes # 0.8 Eosinophils # 0.3 Basophils # 0.0 Nucleated Red Blood Cells # 0.1 H Prothrombin Time 13.4 Prothrombin Time Ratio 1.0 INR International Normalized Ratio 1.02 Sodium Level 138 Potassium Level 4.4 Chloride Level 108 Carbon Dioxide Level 23 Anion Gap 11 Blood Urea Nitrogen 11 Creatinine 0.68 Glucose Level 104 # Calcium Level 7.3 L Magnesium Level 2.2 Medications Medications Current Medications Magnesium Hydroxide (Milk Of Mag) 30 ml DAILY PRN PO CONSTIPATION Last administered on 02/12/17 10:25; Admin Dose 30 ML; Start 01/30/17 at 11:00 Pantoprazole (Protonix Tab) 40 mg DAILY@06 PO Last administered on 02/12/17 05: 58; Admin Dose 40 MG; Start 01/31/17 at 06:00 Acetaminophen (Tylenol Tab) 650 mg Q6H PRN PO PAIN AND OR ELEVATED TEMP Last administered on 02/12/17 04:08; Admin Dose 650 MG; Start 01/30/17 at 21:30 Acetaminophen/ Hydrocodone Bitart ([place] (5/325)) 1 tab Q6H PRN PO PAIN; Start 01/30/17 at 21:30 Metoprolol Tartrate (Lopressor) 25 mg BID PO Last administered on 02/12/17 08: 58; Admin Dose 25 MG; Start 01/31/17 at 21:00 Polyethylene Glycol (Miralax) 17 gm DAILY PO Last administered on 02/11/17 08: 13; Admin Dose 17 GM; Start 02/02/17 at 09:00 Folic Acid 1 mg 1 mg DAILY PO Last administered on 02/12/17 08:56; Admin Dose 1 MG; Start 02/06/17 at 11:00 Metronidazole 100 ml @ 100 mls/hr Q8 IVPB Last administered on 02/12/17 14:34 ; Admin Dose 100 MLS/HR; Start 02/08/17 at 14:00 Ceftriaxone Sodium (Rocephin) 50 ml @ 100 mls/hr Q24H IVPB Last administered on 02/12/17 13:24; Admin Dose 100 MLS/HR; Start 02/08/17 at 13:00 Furosemide (Lasix) 40 mg DAILY PO Last administered on 02/12/17 08:57; Admin Dose 40 MG; Start 02/09/17 at 09:00 Acetaminophen/ Hydrocodone Bitart ([place] (5/325)) 1 tab Q4H PRN PO PAIN LEVEL 4 -7; Start 02/10/17 at 17:30 Acetaminophen/ Hydrocodone Bitart ([place] (5/325)) 2 tab Q4H PRN PO PAIN LEVEL 7 -10; Start 02/10/17 at 17:30 Hydromorphone HCl (Dilaudid) 0.5 mg Q2 PRN IV PAIN; Start 02/10/17 at 17:30 Hydromorphone HCl (Dilaudid) 1 mg Q2 PRN IV PAIN; Start 02/10/17 at 17:30 Docusate Sodium (Colace) 100 mg BID PRN PO CONSTIPATION; Start 02/10/17 at 17: 30 Bisacodyl (Dulcolax Supp) 10 mg BID PRN [place] CONSTIPATION; Start 02/10/17 at 17: 30 Sodium Biphosphate/ Sodium Phosphate (Fleet Enema) 133 ml BID PRN [place] CONSTIPATION; Start 02/10/17 at 17:30 Bisacodyl (Dulcolax Supp) 10 mg BID PRN [place] CONSTIPATION; Start 02/12/17 at 21:00 Sodium Biphosphate/ Sodium Phosphate (Fleet Enema) 133 ml BID [place] ; Start at 09:00 Docusate Sodium (Colace) 100 mg BID PO Last administered on 02/12/17 08:56; Admin Dose 100 MG; Start 02/12/17 at 09:00 Warfarin Sodium (Coumadin) 5 mg DAILY@17 PO Last administered on 02/12/17 18:19 ; Admin Dose 5 MG; Start 02/12/17 at 17:00 JAMES KAPLAN NP Feb 12, 2017 20:25
[2017-02-12] MEDS ORDERED: BISACODYL 10 MG SUPP PR PRN (21:00)
--- NOTE | 2017-02-12 23:04 | PN ---
Date/Time of Note Date/Time of Note DATE: 02/12/17 TIME: 16:00 Assessment/Plan Lines/Catheters IV Catheter Type (from [facility]): Saline Lock Briones in Place (from [facility]): No Assessment/Plan Assessment/Plan [facility] Progress Note Date of Service: 02/12/17 Today's Impression & Plan: Overall stable post op. Abd benign. No major complications or wound issues. Happy with his progress. With above assessment, I've recommended the following for today: 1. Increase activity 2. Increase ICS 3. Cont advancing diet Thank you again for your great care of this very pleasant patient and wonderful family. If there are any questions, please feel free to call me at [phone]. TOTAL VISIT TIME: 20 minutes of which more than half was spent in [id number] discussion with the patient, possibly including family, as well as coordination of care between multiple physicians and providers. Disclaimer: Inadvertent spelling or grammatical errors are likely due to EHR/ dictation software use and do not reflect on the overall quality of patient care. Updated Clinical Summary: The patient is a very pleasant but unfortunate 66-year-old gentleman with likely metastatic prostate cancer who was admitted through the emergency department at [facility] on 01/30/2017 with septic shock and bacteremia. The patient was found to have significant cholelithiasis. Discussed case with Dr. Deleon (his reproductive healthcare assistant). We agreed that we needed a few more days to optimize patient's cardiac condition to minimize his correctable perioperative risk. His gallbladder needed to come out for two main reasons. First, it was the main suspect for the source of patient's bacteremic shock. Secondly, with his need for systemic chemotherapy for his widely metastatic prostate cancer, he would benefit from having his stone filled gallbladder out and not risk the chance of severe cholecystitis during the treatment phase. He received 2 units of PRBC 02/05/17 in preparation for his upcoming surgery. COMORBIDITIES: 1. BMI of 34.2. 2. Prostate cancer diagnosed 3 to 4 years ago, diagnosed after elevation in his PSA was noted. Prostate nodule was found and biopsied and found it to be prostatic carcinoma. Hormonal therapy was initiated with Lupron and bicalutamide for 1 year and then he was taken off Lupron, which was reinitiated recently after rising PSA was noted. Also, with migratory bone pain over the last 2 months with lytic lesions noted on the most recent MRIs. 3. Congenital bicuspid aortic valve, status post replacement with a [facility] [facility] valve in 1989, and on chronic anticoagulation with Coumadin. 4. Previous cerebrovascular accident with right-sided weakness and some ataxia. 5. Hypertension. 6. Hyperlipidemia. 7. Septic shock with bacteremia (Clostridium perfringens growing in blood cultures x2 on 01/30/2017). 8. Cholelithiasis with HIDA scan dated 02/02/2017 showing no gallbladder visualization consistent with cystic duct obstruction. The common bile duct was open. Right upper quadrant ultrasound 01/31/2017 showed gallbladder completely filled with gallstones and gallbladder wall thickening was somewhat hampered by the amount of shadowing of the gallstones. No intrahepatic or extrahepatic biliary dilatation was noted. There was mild increased echogenicity of the liver suggestive of hepatic steatosis. 9. CT scan of abdomen and pelvis on 02/03/2017 shows multiple mixed lytic and blastic lesions throughout the visualized ribs, spine and pelvis consistent with metastatic disease as well as presence of retroperitoneal and pelvic lymphadenopathy consistent with neoplasm. There is also cardiomegaly and dilated ascending aorta measuring 5.5 cm. Atherosclerosis was also noted. 10. S/p lap belem 02/11/17 (sig chronic cholecystitis and cholelithiasis) Subjective: No major events or complaints; no major abd pain and under control with medications; no n/v/d; no sob or cp; + flatus; - BM; - activity Objective: Vitals: See below Exam: GENERAL: On exam, the patient was laying in bed and appeared to be comfortable and in no acute distress. ABDOMEN: Soft, nontender and nondistended. Incision dressings d/c'd and incisions c/d/i w/o obvious e/e/d/h. There are no peritoneal signs or guarding. SKIN: Skin appears to be pink and feels warm to touch. NEUROLOGIC: Patient is awake, alert, and follows commands appropriately. Exam/Review of Systems Vital Signs Vitals Vital Signs Date Time Temp Pulse Resp B/P Pulse Ox O2 Delivery O2 Flow Rate FiO2 02/12/17 20:19 98 02/12/17 19:47 98.2 19 120/67 97 02/12/17 07:45 Nasal Cannula 2.0 Intake and Output 3/31/17 3/31/17 4/1/17 15:00 23:00 07:00 Intake Total 900 ml 951.5 ml Output Total 1150 ml 1150 ml Balance -250 ml -198.5 ml Results Result Diagram: 02/12/17 0409 02/12/17 0409 NEDA FLOOD M.D. Feb 12, 2017 23:04
[2017-02-13] VITALS (11 sets, daily range): BP systolic 121–133; BP diastolic 66–77; PULSE 81–95; RESP 16–20
[2017-02-13] MEDS: HEPARIN 25000 UNITS/250 ML 250 ML IV SCH ×3 (02:13→17:59)
[2017-02-13] MEDS: PANTOPRAZOLE (EC) 40 MG TAB PO SCH (05:35)
[2017-02-13] MEDS: metroNIDAZOLE 500 MG/NS (PMX) 100 ML IVPB SCH ×3 (05:36→21:59)
[2017-02-13 07:01] LABS: INR 0.98
--- NOTE | 2017-02-13 07:51 | PN ---
Date/Time of Note Date/Time of Note DATE: 02/13/17 TIME: 07:49 Assessment/Plan Lines/Catheters IV Catheter Type (from [facility]): Saline Lock Briones in Place (from [facility]): No Assessment/Plan Assessment/Plan [facility] Progress Note Date of Service: 02/13/17 Today's Impression & Plan: Overall stable post op. Abd remains benign. No major complications or wound issues. Happy with his progress. With above assessment, I've recommended the following for today: 1. Increase activity 2. Increase ICS 3. Regular diet Thank you again for your great care of this very pleasant patient and wonderful family. If there are any questions, please feel free to call me at [phone]. TOTAL VISIT TIME: 20 minutes of which more than half was spent in [id number] discussion with the patient, possibly including family, as well as coordination of care between multiple physicians and providers. Disclaimer: Inadvertent spelling or grammatical errors are likely due to EHR/ dictation software use and do not reflect on the overall quality of patient care. Updated Clinical Summary: The patient is a very pleasant but unfortunate 66-year-old gentleman with likely metastatic prostate cancer who was admitted through the emergency department at [facility] on 01/30/2017 with septic shock and bacteremia. The patient was found to have significant cholelithiasis. Discussed case with Dr. Deleon (his barrel maker). We agreed that we needed a few more days to optimize patient's cardiac condition to minimize his correctable perioperative risk. His gallbladder needed to come out for two main reasons. First, it was the main suspect for the source of patient's bacteremic shock. Secondly, with his need for systemic chemotherapy for his widely metastatic prostate cancer, he would benefit from having his stone filled gallbladder out and not risk the chance of severe cholecystitis during the treatment phase. He received 2 units of PRBC 02/05/17 in preparation for his upcoming surgery. COMORBIDITIES: 1. BMI of 34.2. 2. Prostate cancer diagnosed 3 to 4 years ago, diagnosed after elevation in his PSA was noted. Prostate nodule was found and biopsied and found it to be prostatic carcinoma. Hormonal therapy was initiated with Lupron and bicalutamide for 1 year and then he was taken off Lupron, which was reinitiated recently after rising PSA was noted. Also, with migratory bone pain over the last 2 months with lytic lesions noted on the most recent MRIs. 3. Congenital bicuspid aortic valve, status post replacement with a [facility] valve in 1989, and on chronic anticoagulation with Coumadin. 4. Previous cerebrovascular accident with right-sided weakness and some ataxia. 5. Hypertension. 6. Hyperlipidemia. 7. Septic shock with bacteremia (Clostridium perfringens growing in blood cultures x2 on 01/30/2017). 8. Cholelithiasis with HIDA scan dated 02/02/2017 showing no gallbladder visualization consistent with cystic duct obstruction. The common bile duct was open. Right upper quadrant ultrasound 01/31/2017 showed gallbladder completely filled with gallstones and gallbladder wall thickening was somewhat hampered by the amount of shadowing of the gallstones. No intrahepatic or extrahepatic biliary dilatation was noted. There was mild increased echogenicity of the liver suggestive of hepatic steatosis. 9. CT scan of abdomen and pelvis on 02/03/2017 shows multiple mixed lytic and blastic lesions throughout the visualized ribs, spine and pelvis consistent with metastatic disease as well as presence of retroperitoneal and pelvic lymphadenopathy consistent with neoplasm. There is also cardiomegaly and dilated ascending aorta measuring 5.5 cm. Atherosclerosis was also noted. 10. S/p lap belem 02/11/17 (sig chronic cholecystitis and cholelithiasis) Subjective: No major events or complaints; no major abd pain and under control with medications; no n/v/d; no sob or cp; + flatus; + BM; - activity Objective: Vitals: See below Exam: GENERAL: On exam, the patient was laying in bed and appeared to be comfortable and in no acute distress. ABDOMEN: Soft, nontender and nondistended. Incisions c/d/i w/o obvious e/e/d/h. There are no peritoneal signs or guarding. SKIN: Skin appears to be pink and feels warm to touch. NEUROLOGIC: Patient is awake, alert, and follows commands appropriately. Exam/Review of Systems Vital Signs Vitals Vital Signs Date Time Temp Pulse Resp B/P Pulse Ox O2 Delivery O2 Flow Rate FiO2 02/13/17 04:37 98.1 87 20 122/70 91 02/12/17 07:45 Nasal Cannula 2.0 Intake and Output 02/12/17 02/12/17 02/13/17 15:00 23:00 07:00 Intake Total 850 ml 850 ml Output Total 400 ml Balance 450 ml 850 ml Results Result Diagram: 02/12/17 0409 02/12/17 0409 NEDA FLOOD M.D. Feb 13, 2017 07:50
[2017-02-13] MEDS: DOCUSATE SODIUM 100 MG CAP PO SCH ×2 (09:00→21:59)
[2017-02-13] MEDS: NA PHOSPHATE/BIPHOS 133 ML ENEMA PR SCH ×2 (09:00→21:00)
[2017-02-13] MEDS: POLYETHYLENE GLYCOL 17 GM PACKET PO SCH (09:00)
[2017-02-13] MEDS: FUROSEMIDE 20 MG TAB PO SCH (09:11)
[2017-02-13] MEDS: FOLIC ACID 1 MG TAB PO SCH (09:11)
[2017-02-13] MEDS: METOPROLOL 25 MG TAB PO SCH ×2 (09:12→21:00)
[2017-02-13] MEDS: CEFTRIAXONE 1 GM/50 ML (PMX) 50 ML IVPB SCH (13:06)
--- NOTE | 2017-02-13 14:05 | CONS ---
Date/Time of Note Date/Time of Note DATE: 02/13/17 TIME: 14:04 Assessment/Plan Assessment/Plan Additional Assessment/Plan Sepsis with bacteremia (no vegetation seen on RICHARD) Status post cholecystectomy 02/10/2017 Acute decompensated diastolic congestive heart failure, improving History of mechanical aortic valve replacement Preserved ejection fraction Prostate cancer with metastases Aortic aneurysm Anemia -Patient continues to improve from a cardiac standpoint, check chest x-ray in a.m. for titration of diuretics, continue IV heparin for bridging until INR is greater than 2 then heparin could be stopped. Labs ordered for am. PT Consultation Date/Type/Reason Admit Date/Time Jan 30, 2017 at 07:00 Type of Consultation: cv 24 HR Interval Summary Free Text/Dictation no sob, cp, palpitations, dizziness Exam/Review of Systems Vital Signs Vitals Vital Signs Date Time Temp Pulse Resp B/P Pulse Ox O2 Delivery O2 Flow Rate FiO2 02/13/17 12:05 81 02/13/17 11:57 98.1 18 126/67 96 02/13/17 08:20 Nasal Cannula 2.0 Intake and Output 02/12/17 02/12/17 02/13/17 15:00 23:00 07:00 Intake Total 850 ml 850 ml Output Total 400 ml Balance 450 ml 850 ml Exam No apparent distress Constitutional: alert, obese, oriented Head: normocephalic Neck: supple Respiratory: other (course bs, no wheeze) Cardiovascular: other (s1s2), regular rate and rhythm, systolic murmur Gastrointestinal: bowel sounds, non-tender, soft Extremities: edema (tr), other (no cyanosis) Results Result Diagram: 02/12/17 0409 02/12/17 0409 Results 24 hrs Laboratory Tests Test 02/12/17 16:40 02/13/17 06:06 Activated Partial Thromboplast Time 62.7 H 86.4 *H Prothrombin Time 13.0 Prothrombin Time Ratio 1.0 INR International Normalized Ratio 0.98 Aspartate Amino Transf (AST/SGOT) 56 H Medications Medications Current Medications Magnesium Hydroxide (Milk Of Mag) 30 ml DAILY PRN PO CONSTIPATION Last administered on 02/12/17 10:25; Admin Dose 30 ML; Start 01/30/17 at 11:00 Pantoprazole (Protonix Tab) 40 mg DAILY@06 PO Last administered on 02/13/17 05: 35; Admin Dose 40 MG; Start 01/31/17 at 06:00 Acetaminophen (Tylenol Tab) 650 mg Q6H PRN PO PAIN AND OR ELEVATED TEMP Last administered on 02/12/17 04:08; Admin Dose 650 MG; Start 01/30/17 at 21:30 Acetaminophen/ Hydrocodone Bitart ([place] (5/325)) 1 tab Q6H PRN PO PAIN; Start 01/30/17 at 21:30 Metoprolol Tartrate (Lopressor) 25 mg BID PO Last administered on 02/13/17 09: 12; Admin Dose 25 MG; Start 01/31/17 at 21:00 Polyethylene Glycol (Miralax) 17 gm DAILY PO Last administered on 02/11/17 08: 13; Admin Dose 17 GM; Start 02/02/17 at 09:00 Folic Acid 1 mg 1 mg DAILY PO Last administered on 02/13/17 09:11; Admin Dose 1 MG; Start 02/06/17 at 11:00 Metronidazole 100 ml @ 100 mls/hr Q8 IVPB Last administered on 02/13/17 05:36 ; Admin Dose 100 MLS/HR; Start 02/08/17 at 14:00 Ceftriaxone Sodium (Rocephin) 50 ml @ 100 mls/hr Q24H IVPB Last administered on 02/13/17 13:06; Admin Dose 100 MLS/HR; Start 02/08/17 at 13:00 Furosemide (Lasix) 40 mg DAILY PO Last administered on 02/13/17 09:11; Admin Dose 40 MG; Start 02/09/17 at 09:00 Acetaminophen/ Hydrocodone Bitart ([place] (5/325)) 1 tab Q4H PRN PO PAIN LEVEL 4 -7; Start 02/10/17 at 17:30 Acetaminophen/ Hydrocodone Bitart ([place] (5/325)) 2 tab Q4H PRN PO PAIN LEVEL 7 -10; Start 02/10/17 at 17:30 Hydromorphone HCl (Dilaudid) 0.5 mg Q2 PRN IV PAIN; Start 02/10/17 at 17:30 Hydromorphone HCl (Dilaudid) 1 mg Q2 PRN IV PAIN; Start 02/10/17 at 17:30 Docusate Sodium (Colace) 100 mg BID PRN PO CONSTIPATION; Start 02/10/17 at 17: 30 Bisacodyl (Dulcolax Supp) 10 mg BID PRN [place] CONSTIPATION; Start 02/10/17 at 17: 30 Sodium Biphosphate/ Sodium Phosphate (Fleet Enema) 133 ml BID PRN [place] CONSTIPATION; Start 02/10/17 at 17:30 Bisacodyl (Dulcolax Supp) 10 mg BID PRN [place] CONSTIPATION; Start 02/12/17 at 21:00 Sodium Biphosphate/ Sodium Phosphate (Fleet Enema) 133 ml BID [place] ; Start at 09:00 Docusate Sodium (Colace) 100 mg BID PO Last administered on 02/12/17 22:02; Admin Dose 100 MG; Start 02/12/17 at 09:00 Warfarin Sodium (Coumadin) 5 mg DAILY@17 PO Last administered on 02/12/17 18:19 ; Admin Dose 5 MG; Start 02/12/17 at 17:00 Elias Deleon DO Feb 13, 2017 14:05
[2017-02-13] MEDS: WARFARIN 5 MG TAB PO SCH (17:25)
--- NOTE | 2017-02-13 18:14 | CONS ---
Date/Time of Note Date/Time of Note DATE: 02/13/17 TIME: 18:13 Assessment/Plan Assessment/Plan Chief Complaint/Hosp Course SUBJECTIVE: No acute changes, alert, denies pain, no fevers, nad MICROBIOLOGY: Blood culture on admission grew Clostridium perfringens and coagulase-negative staph species. Repeat blood culture negative. Urine culture negative. DIAGNOSTICS: The patient had a RICHARD that revealed no vegetations. A HIDA scan was compatible with cystic duct obstruction and possible cholecystitis ANTIMICROBIALS: Flagyl, Rocephin PHYSICAL EXAMINATION: GENERAL: This is a morbidly obese elderly man who is alert, in no distress. HEENT: Head atraumatic, normocephalic. Sclerae anicteric. Buccal mucosa pink. NECK: Supple. CHEST: Rise symmetrical. Breath sounds diminished to bases. HEART: S1, S2. ABDOMEN: Obese, soft, bowel sounds present. EXTREMITIES: Without cyanosis. Bilateral edema, right upper extremity more edematous than left. ASSESSMENT: 1. S/p Biliary sepsis. 2. Clostridium perfringens bacteremia secondary to #1. 3. Choledocholithiasis with cystic duct obstruction as per HIDA scan. 4. Right upper extremity edema==> no deep venous thrombosis per US. 5. Coronary artery disease, history of aortic valve replacement. 6. History of met prostate cancer. 7. S/p lap cholecystectomy 8. Reactive leukocytosis PLAN: The patient remains stable, dc abx, lira cx prn DW pt Problems: Consultation Date/Type/Reason Admit Date/Time Jan 30, 2017 at 07:00 Type of Consultation: id Exam/Review of Systems Vital Signs Vitals Vital Signs Date Time Temp Pulse Resp B/P Pulse Ox O2 Delivery O2 Flow Rate FiO2 02/13/17 16:07 89 02/13/17 15:43 97.6 19 133/77 97 02/13/17 08:20 Nasal Cannula 2.0 Intake and Output 02/12/17 02/12/17 02/13/17 15:00 23:00 07:00 Intake Total 850 ml 850 ml Output Total 400 ml Balance 450 ml 850 ml Results Result Diagram: 02/12/17 0409 02/12/17 0409 Results 24 hrs Laboratory Tests Test 02/13/17 06:06 02/13/17 16:22 Prothrombin Time 13.0 Prothrombin Time Ratio 1.0 INR International Normalized Ratio 0.98 Activated Partial Thromboplast Time 86.4 *H 64.0 H Aspartate Amino Transf (AST/SGOT) 56 H Medications Medications Current Medications Magnesium Hydroxide (Milk Of Mag) 30 ml DAILY PRN PO CONSTIPATION Last administered on 02/12/17 10:25; Admin Dose 30 ML; Start 01/30/17 at 11:00 Pantoprazole (Protonix Tab) 40 mg DAILY@06 PO Last administered on 02/13/17 05: 35; Admin Dose 40 MG; Start 01/31/17 at 06:00 Acetaminophen (Tylenol Tab) 650 mg Q6H PRN PO PAIN AND OR ELEVATED TEMP Last administered on 02/12/17 04:08; Admin Dose 650 MG; Start 01/30/17 at 21:30 Acetaminophen/ Hydrocodone Bitart ([place] (5/325)) 1 tab Q6H PRN PO PAIN; Start 01/30/17 at 21:30 Metoprolol Tartrate (Lopressor) 25 mg BID PO Last administered on 02/13/17 09: 12; Admin Dose 25 MG; Start 01/31/17 at 21:00 Polyethylene Glycol (Miralax) 17 gm DAILY PO Last administered on 02/11/17 08: 13; Admin Dose 17 GM; Start 02/02/17 at 09:00 Folic Acid 1 mg 1 mg DAILY PO Last administered on 02/13/17 09:11; Admin Dose 1 MG; Start 02/06/17 at 11:00 Metronidazole 100 ml @ 100 mls/hr Q8 IVPB Last administered on 02/13/17 14:31 ; Admin Dose 100 MLS/HR; Start 02/08/17 at 14:00; Stop 02/13/17 at 22:00 Ceftriaxone Sodium (Rocephin) 50 ml @ 100 mls/hr Q24H IVPB Last administered on 02/13/17 13:06; Admin Dose 100 MLS/HR; Start 02/08/17 at 13:00; Stop 02/13/17 at 22:00 Furosemide (Lasix) 40 mg DAILY PO Last administered on 02/13/17 09:11; Admin Dose 40 MG; Start 02/09/17 at 09:00 Acetaminophen/ Hydrocodone Bitart ([place] (5/325)) 1 tab Q4H PRN PO PAIN LEVEL 4 -7; Start 02/10/17 at 17:30 Acetaminophen/ Hydrocodone Bitart ([place] (5/325)) 2 tab Q4H PRN PO PAIN LEVEL 7 -10; Start 02/10/17 at 17:30 Hydromorphone HCl (Dilaudid) 0.5 mg Q2 PRN IV PAIN; Start 02/10/17 at 17:30 Hydromorphone HCl (Dilaudid) 1 mg Q2 PRN IV PAIN; Start 02/10/17 at 17:30 Docusate Sodium (Colace) 100 mg BID PRN PO CONSTIPATION; Start 02/10/17 at 17: 30 Bisacodyl (Dulcolax Supp) 10 mg BID PRN [place] CONSTIPATION; Start 02/10/17 at 17: 30 Sodium Biphosphate/ Sodium Phosphate (Fleet Enema) 133 ml BID PRN [place] CONSTIPATION; Start 02/10/17 at 17:30 Bisacodyl (Dulcolax Supp) 10 mg BID PRN [place] CONSTIPATION; Start 02/12/17 at 21:00 Sodium Biphosphate/ Sodium Phosphate (Fleet Enema) 133 ml BID [place] ; Start at 09:00 Docusate Sodium (Colace) 100 mg BID PO Last administered on 02/12/17 22:02; Admin Dose 100 MG; Start 02/12/17 at 09:00 Warfarin Sodium (Coumadin) 5 mg DAILY@17 PO Last administered on 02/13/17 17:25 ; Admin Dose 5 MG; Start 02/12/17 at 17:00 JAMES KAPLAN NP Feb 13, 2017 18:14
[2017-02-14] VITALS (12 sets, daily range): BP systolic 117–135; BP diastolic 68–75; PULSE 76–100; RESP 16–20
[2017-02-14] MEDS: PANTOPRAZOLE (EC) 40 MG TAB PO SCH (05:55)
[2017-02-14 07:08] LABS: ADD SCAN DIFF NO
[2017-02-14 07:14] LABS: ABNORMAL IP MESSAGE 1; BASOPHILS % 0.4 % (0.0-2.0); EOSINOPHILS # 0.4 10^3/ul (0.0-0.5); EOSINOPHILS % 5.5 % (0.0-7.0); HEMATOCRIT 27.1 % (42.0-52.0); HEMOGLOBIN 8.4 g/dl (14.0-18.0); LYMPHOCYTES # 1.4 10^3/ul (0.8-2.9); MEAN CORPUSCULAR HEMOGLOBIN 27.7 pg (29.0-33.0); MEAN CORPUSCULAR VOLUME 89.4 fl (82.0-101.0); MONOCYTE # 0.7 10^3/ul (0.3-0.9); MONOCYTES % 9.6 % (0.0-11.0); NEUTROPHIL # 4.3 10^3/ul (1.6-7.5); NEUTROPHILS % 56.1 % (39.0-77.0); NUCLEATED RED BLOOD CELLS% 0.5 /100WBC (0.0-0.0); PLATELET COUNT 241 10^3/UL (140-415); RED BLOOD COUNT 3.03 10^6/ul (4.70-6.10); RED CELL DISTRIBUTION WIDTH 18.1 % (11.5-14.5); WHITE BLOOD COUNT 7.7 10^3/ul (4.8-10.8)
[2017-02-14 07:25] LABS: INR 1.11; PROTIME 14.3 Sec (12.2-14.2); PT RATIO 1.1
[2017-02-14 07:27] LABS: CREATININE 0.7 mg/dl (0.61-1.24); PARTIAL THROMBOPLASTIN TIME 68.3 Sec (25.0-35.0)
[2017-02-14 07:28] LABS: CALCIUM 7.4 mg/dl (8.4-10.2)
--- NOTE | 2017-02-14 08:25 | RADRPT ---
PROCEDURE: XR Chest. CLINICAL INDICATION: Shortness of breath. TECHNIQUE: Single frontal view. COMPARISON: 02/09/2017. FINDINGS: There are low lung volumes with atelectasis at the lung bases, unchanged. The lungs are otherwise c lear. The heart is enlarged. There is calcification in the aorta consistent with atherosclerosis. There are sternal wires. There is no pleural effusion. There is no pneumothorax. IMPRESSION: 1. No change from 02/09/2017. RPTAT: QQ .Curt Lee MD, MD Date Time Electronically viewed and signed by .Curt Lee MD, MD on 02/14/2017 08:24 .R/
--- NOTE | 2017-02-14 08:36 | PN ---
Date/Time of Note Date/Time of Note DATE: 02/14/17 TIME: 08:34 Assessment/Plan VTE Prophylaxis VTE Prophylaxis Intervention: heparin VTE Contraindication Reason: bleeding Lines/Catheters IV Catheter Type (from Nrs): Peripheral IV Urinary Cath still in place: No Assessment/Plan Chief Complaint/Hosp Course see above Problems: Subjective 24 Hr Interval Summary Free Text/Dictation seen on 02/13/2017. [id number] sinus rhythm. denies pain. not ambulating. awaiting Rehab transfer decision. cleared by surgery to stop antibiotics. Physical Examination: alert VS stable Chest clear Abd soft Ext trace edema plan INR LFTs in am. mobilize postop Exam/Review of Systems Vital Signs Vitals Vital Signs Date Time Temp Pulse Resp B/P Pulse Ox O2 Delivery O2 Flow Rate FiO2 02/14/17 07:31 98.0 89 20 117/68 98 02/14/17 03:40 2.0 02/13/17 20:27 Nasal Cannula Intake and Output 02/13/17 02/13/17 02/14/17 15:00 23:00 07:00 Intake Total 150 ml 1150 ml 900 ml Output Total 1200 ml 1050 ml Balance 150 ml -50 ml -150 ml Results Result Diagram: 02/14/17 0637 02/14/17 0637 Results 24 hrs Laboratory Tests Test 02/13/17 16:22 02/14/17 00:47 02/14/17 06:37 Activated Partial Thromboplast Time 64.0 H 64.5 H 68.3 H White Blood Count 7.7 # Red Blood Count 3.03 L Hemoglobin 8.4 L Hematocrit 27.1 L Mean Corpuscular Volume 89.4 Mean Corpuscular Hemoglobin 27.7 L Mean Corpuscular Hemoglobin Concent 31.0 L Red Cell Distribution Width 18.1 H Platelet Count 241 # Mean Platelet Volume 11.0 H Neutrophils % 56.1 Lymphocytes % 18.0 Monocytes % 9.6 Eosinophils % 5.5 Basophils % 0.4 Nucleated Red Blood Cells % 0.5 H Neutrophils # 4.3 Lymphocytes # 1.4 Monocytes # 0.7 Eosinophils # 0.4 Basophils # 0.0 Nucleated Red Blood Cells # 0.0 Prothrombin Time 14.3 H Prothrombin Time Ratio 1.1 INR International Normalized Ratio 1.11 Sodium Level 135 Potassium Level 4.0 Chloride Level 107 Carbon Dioxide Level 23 Anion Gap 9 Blood Urea Nitrogen 10 Creatinine 0.70 Glucose Level 119 Calcium Level 7.4 L Magnesium Level 2.0 Medications Medications Current Medications Magnesium Hydroxide (Milk Of Mag) 30 ml DAILY PRN PO CONSTIPATION Last administered on 02/12/17 10:25; Admin Dose 30 ML; Start 01/30/17 at 11:00 Pantoprazole (Protonix Tab) 40 mg DAILY@06 PO Last administered on 02/14/17 05: 55; Admin Dose 40 MG; Start 01/31/17 at 06:00 Acetaminophen (Tylenol Tab) 650 mg Q6H PRN PO PAIN AND OR ELEVATED TEMP Last administered on 02/12/17 04:08; Admin Dose 650 MG; Start 01/30/17 at 21:30 Acetaminophen/ Hydrocodone Bitart ([place] (5/325)) 1 tab Q6H PRN PO PAIN; Start 01/30/17 at 21:30 Metoprolol Tartrate (Lopressor) 25 mg BID PO Last administered on 02/13/17 21: 00; Admin Dose 25 MG; Start 01/31/17 at 21:00 Polyethylene Glycol (Miralax) 17 gm DAILY PO Last administered on 02/11/17 08: 13; Admin Dose 17 GM; Start 02/02/17 at 09:00 Folic Acid (Folic Acid) 1 mg DAILY PO Last administered on 02/13/17 09:11; Admin Dose 1 MG; Start 02/06/17 at 11:00 Furosemide (Lasix) 40 mg DAILY PO Last administered on 02/13/17 09:11; Admin Dose 40 MG; Start 02/09/17 at 09:00 Acetaminophen/ Hydrocodone Bitart ([place] (5/325)) 1 tab Q4H PRN PO PAIN LEVEL 4 -7; Start 02/10/17 at 17:30 Acetaminophen/ Hydrocodone Bitart ([place] (5/325)) 2 tab Q4H PRN PO PAIN LEVEL 7 -10; Start 02/10/17 at 17:30 Hydromorphone HCl (Dilaudid) 0.5 mg Q2 PRN IV PAIN; Start 02/10/17 at 17:30 Hydromorphone HCl (Dilaudid) 1 mg Q2 PRN IV PAIN; Start 02/10/17 at 17:30 Docusate Sodium (Colace) 100 mg BID PRN PO CONSTIPATION; Start 02/10/17 at 17: 30 Bisacodyl (Dulcolax Supp) 10 mg BID PRN [place] CONSTIPATION; Start 02/10/17 at 17: 30 Sodium Biphosphate/ Sodium Phosphate (Fleet Enema) 133 ml BID PRN [place] CONSTIPATION; Start 02/10/17 at 17:30 Bisacodyl (Dulcolax Supp) 10 mg BID PRN [place] CONSTIPATION; Start 02/12/17 at 21:00 Sodium Biphosphate/ Sodium Phosphate (Fleet Enema) 133 ml BID [place] ; Start at 09:00 Docusate Sodium (Colace) 100 mg BID PO Last administered on 02/13/17 21:59; Admin Dose 100 MG; Start 02/12/17 at 09:00 Warfarin Sodium (Coumadin) 5 mg DAILY@17 PO Last administered on 02/13/17 17:25 ; Admin Dose 5 MG; Start 02/12/17 at 17:00 BETTY CUMMINGS MD Feb 14, 2017 08:36
--- NOTE | 2017-02-14 08:39 | PN ---
Date/Time of Note Date/Time of Note DATE: 02/14/17 TIME: 08:36 Assessment/Plan VTE Prophylaxis VTE Prophylaxis Intervention: heparin VTE Contraindication Reason: bleeding Lines/Catheters IV Catheter Type (from Nrsg): Peripheral IV Urinary Cath still in place: No Assessment/Plan Chief Complaint/Hosp Course see above Problems: Subjective 24 Hr Interval Summary Free Text/Dictation seen 02/14/2017. INR 1.1 on 5mg warfarin. not out of bed POD # 4 awaiting Rehab placement denies pain. VS stable and monitor stable Chest clear Cor crisp valve sounds Abd sofct Ext trace edema Plan: increase warfarin to 7.5mg . D/C planning to Rehab? Exam/Review of Systems Vital Signs Vitals Vital Signs Date Time Temp Pulse Resp B/P Pulse Ox O2 Delivery O2 Flow Rate FiO2 02/14/17 07:31 98.0 89 20 117/68 98 02/14/17 03:40 2.0 02/13/17 20:27 Nasal Cannula Intake and Output 02/13/17 02/13/17 02/14/17 15:00 23:00 07:00 Intake Total 150 ml 1150 ml 900 ml Output Total 1200 ml 1050 ml Balance 150 ml -50 ml -150 ml Results Result Diagram: 02/14/17 0637 02/14/17 0637 Results 24 hrs Laboratory Tests Test 02/13/17 16:22 02/14/17 00:47 02/14/17 06:37 Activated Partial Thromboplast Time 64.0 H 64.5 H 68.3 H White Blood Count 7.7 # Red Blood Count 3.03 L Hemoglobin 8.4 L Hematocrit 27.1 L Mean Corpuscular Volume 89.4 Mean Corpuscular Hemoglobin 27.7 L Mean Corpuscular Hemoglobin Concent 31.0 L Red Cell Distribution Width 18.1 H Platelet Count 241 # Mean Platelet Volume 11.0 H Neutrophils % 56.1 Lymphocytes % 18.0 Monocytes % 9.6 Eosinophils % 5.5 Basophils % 0.4 Nucleated Red Blood Cells % 0.5 H Neutrophils # 4.3 Lymphocytes # 1.4 Monocytes # 0.7 Eosinophils # 0.4 Basophils # 0.0 Nucleated Red Blood Cells # 0.0 Prothrombin Time 14.3 H Prothrombin Time Ratio 1.1 INR International Normalized Ratio 1.11 Sodium Level 135 Potassium Level 4.0 Chloride Level 107 Carbon Dioxide Level 23 Anion Gap 9 Blood Urea Nitrogen 10 Creatinine 0.70 Glucose Level 119 Calcium Level 7.4 L Magnesium Level 2.0 Medications Medications Current Medications Magnesium Hydroxide (Milk Of Mag) 30 ml DAILY PRN PO CONSTIPATION Last administered on 02/12/17 10:25; Admin Dose 30 ML; Start 01/30/17 at 11:00 Pantoprazole (Protonix Tab) 40 mg DAILY@06 PO Last administered on 02/14/17 05: 55; Admin Dose 40 MG; Start 01/31/17 at 06:00 Acetaminophen (Tylenol Tab) 650 mg Q6H PRN PO PAIN AND OR ELEVATED TEMP Last administered on 02/12/17 04:08; Admin Dose 650 MG; Start 01/30/17 at 21:30 Acetaminophen/ Hydrocodone Bitart ([place] (5/325)) 1 tab Q6H PRN PO PAIN; Start 01/30/17 at 21:30 Metoprolol Tartrate (Lopressor) 25 mg BID PO Last administered on 02/13/17 21: 00; Admin Dose 25 MG; Start 01/31/17 at 21:00 Polyethylene Glycol (Miralax) 17 gm DAILY PO Last administered on 02/11/17 08: 13; Admin Dose 17 GM; Start 02/02/17 at 09:00 Folic Acid (Folic Acid) 1 mg DAILY PO Last administered on 02/13/17 09:11; Admin Dose 1 MG; Start 02/06/17 at 11:00 Furosemide (Lasix) 40 mg DAILY PO Last administered on 02/13/17 09:11; Admin Dose 40 MG; Start 02/09/17 at 09:00 Acetaminophen/ Hydrocodone Bitart ([place] (5/325)) 1 tab Q4H PRN PO PAIN LEVEL 4 -7; Start 02/10/17 at 17:30 Acetaminophen/ Hydrocodone Bitart ([place] (5/325)) 2 tab Q4H PRN PO PAIN LEVEL 7 -10; Start 02/10/17 at 17:30 Hydromorphone HCl (Dilaudid) 0.5 mg Q2 PRN IV PAIN; Start 02/10/17 at 17:30 Hydromorphone HCl (Dilaudid) 1 mg Q2 PRN IV PAIN; Start 02/10/17 at 17:30 Docusate Sodium (Colace) 100 mg BID PRN PO CONSTIPATION; Start 02/10/17 at 17: 30 Bisacodyl (Dulcolax Supp) 10 mg BID PRN [place] CONSTIPATION; Start 02/10/17 at 17: 30 Sodium Biphosphate/ Sodium Phosphate (Fleet Enema) 133 ml BID PRN [place] CONSTIPATION; Start 02/10/17 at 17:30 Bisacodyl (Dulcolax Supp) 10 mg BID PRN [place] CONSTIPATION; Start 02/12/17 at 21:00 Sodium Biphosphate/ Sodium Phosphate (Fleet Enema) 133 ml BID [place] ; Start at 09:00 Docusate Sodium (Colace) 100 mg BID PO Last administered on 02/13/17 21:59; Admin Dose 100 MG; Start 02/12/17 at 09:00 Warfarin Sodium (Coumadin) 5 mg DAILY@17 PO Last administered on 02/13/17 17:25 ; Admin Dose 5 MG; Start 02/12/17 at 17:00 BETTY CUMMINGS MD Feb 14, 2017 08:39
[2017-02-14] MEDS: POLYETHYLENE GLYCOL 17 GM PACKET PO SCH (09:00)
[2017-02-14] MEDS: NA PHOSPHATE/BIPHOS 133 ML ENEMA PR SCH (09:00)
[2017-02-14] MEDS: METOPROLOL 25 MG TAB PO SCH ×2 (09:14→20:39)
[2017-02-14] MEDS: DOCUSATE SODIUM 100 MG CAP PO SCH ×2 (09:15→20:38)
[2017-02-14] MEDS: FUROSEMIDE 20 MG TAB PO SCH (09:15)
[2017-02-14] MEDS: FOLIC ACID 1 MG TAB PO SCH (09:15)
[2017-02-14] MEDS: MAGNESIUM HYDROXIDE 30ML CUP PO PRN (09:24)
--- NOTE | 2017-02-14 09:27 | CONS ---
DATE OF ADMISSION: 01/30/2017 DATE OF CONSULTATION: 02/14/2017 HEMATOLOGY/ONCOLOGY PROGRESS NOTE SUBJECTIVE: Mr. Noel states he feels well. He has no complaints of pain. No nausea or vomiting. He is tolerating his diet well. OBJECTIVE: VITAL SIGNS: Temperature of 98, pulse 89 and regular, respiratory rate 20, blood pressure 117/68, p ulse oximetry 98% on room air. SKIN: Pale, but no ecchymoses. No petechiae or rashes other than a large ecchymotic area on the ri ght arm. HEENT: No mucosal lesions. No scleral icterus. NECK: Supple. No jugular venous distention or thyroid enlargement. CHEST: Decreased breath sounds at both bases. There is a sternotomy scar present. ABDOMEN: Obese, without masses or ascites. Bowel sounds are active. There is evidence of a recent laparoscopic cholecystectomy. EXTREMITIES: No clubbing, edema, or cyanosis. NEUROLOGIC: Some weakness on the right side. LABORATORY DATA: White count 7700, hemoglobin 8.4, hematocrit 27.1, platelet count 241,000. Sodium 135, potassium 4, creatinine 0.7 and BUN 110. ASSESSMENT: 1. Status post Clostridium perfringens septicemia. 2. Status post cholecystitis with cholecystectomy. 3. Metastatic prostatic carcinoma. the patient has recovered well from surgery. He has still not been up from bed. I do feel this pat ient would be a good candidate for acute rehabilitation. Dictated By: PIPPA MONTGOMERY MD SR/NTS Conf#: [id number] DID#: [id number]
[2017-02-14] MEDS: HEPARIN 25000 UNITS/250 ML 250 ML IV SCH (12:54)
--- NOTE | 2017-02-14 14:44 | CONS ---
Date/Time of Note Date/Time of Note DATE: 02/14/17 TIME: 14:43 Assessment/Plan Assessment/Plan Chief Complaint/Hosp Course SUBJECTIVE: No fevers/n/v/d, couldn't sleep last night, nad MICROBIOLOGY: Blood culture on admission grew Clostridium perfringens and coagulase-negative staph species. Repeat blood culture negative. Urine culture negative. DIAGNOSTICS: The patient had a RICHARD that revealed no vegetations. A HIDA scan was compatible with cystic duct obstruction and possible cholecystitis PHYSICAL EXAMINATION: GENERAL: This is a morbidly obese elderly man who is alert, in no distress. HEENT: Head atraumatic, normocephalic. Sclerae anicteric. Buccal mucosa pink. NECK: Supple. CHEST: Rise symmetrical. Breath sounds diminished to bases. HEART: S1, S2. ABDOMEN: Obese, soft, bowel sounds present. EXTREMITIES: Without cyanosis. Bilateral edema, right upper extremity more edematous than left. ASSESSMENT: 1. S/p Biliary sepsis. 2. S/p Clostridium perfringens bacteremia secondary to #1. 3. Choledocholithiasis with cystic duct obstruction as per HIDA scan. 4. Right upper extremity edema==> no deep venous thrombosis per US. 5. Coronary artery disease, history of aortic valve replacement. 6. History of met prostate cancer. 7. S/p lap cholecystectomy 8. Reactive leukocytosis PLAN: The patient remains stable, completed abx, will f/u prn DW pt Problems: Consultation Date/Type/Reason Admit Date/Time Jan 30, 2017 at 07:00 Type of Consultation: ID Exam/Review of Systems Vital Signs Vitals Vital Signs Date Time Temp Pulse Resp B/P Pulse Ox O2 Delivery O2 Flow Rate FiO2 02/14/17 12:11 76 02/14/17 11:33 98.3 20 134/75 96 02/14/17 08:20 Nasal Cannula 2.0 Intake and Output 02/13/17 02/13/17 02/14/17 15:00 23:00 07:00 Intake Total 150 ml 1150 ml 900 ml Output Total 1200 ml 1050 ml Balance 150 ml -50 ml -150 ml Results Result Diagram: 02/14/17 0637 02/14/17 0637 Results 24 hrs Laboratory Tests Test 02/13/17 16:22 02/14/17 00:47 02/14/17 06:37 Activated Partial Thromboplast Time 64.0 H 64.5 H 68.3 H White Blood Count 7.7 # Red Blood Count 3.03 L Hemoglobin 8.4 L Hematocrit 27.1 L Mean Corpuscular Volume 89.4 Mean Corpuscular Hemoglobin 27.7 L Mean Corpuscular Hemoglobin Concent 31.0 L Red Cell Distribution Width 18.1 H Platelet Count 241 # Mean Platelet Volume 11.0 H Neutrophils % 56.1 Lymphocytes % 18.0 Monocytes % 9.6 Eosinophils % 5.5 Basophils % 0.4 Nucleated Red Blood Cells % 0.5 H Neutrophils # 4.3 Lymphocytes # 1.4 Monocytes # 0.7 Eosinophils # 0.4 Basophils # 0.0 Nucleated Red Blood Cells # 0.0 Prothrombin Time 14.3 H Prothrombin Time Ratio 1.1 INR International Normalized Ratio 1.11 Sodium Level 135 Potassium Level 4.0 Chloride Level 107 Carbon Dioxide Level 23 Anion Gap 9 Blood Urea Nitrogen 10 Creatinine 0.70 Glucose Level 119 Calcium Level 7.4 L Magnesium Level 2.0 Medications Medications Current Medications Magnesium Hydroxide (Milk Of Mag) 30 ml DAILY PRN PO CONSTIPATION Last administered on 02/14/17 09:24; Admin Dose 30 ML; Start 01/30/17 at 11:00 Pantoprazole (Protonix Tab) 40 mg DAILY@06 PO Last administered on 02/14/17 05: 55; Admin Dose 40 MG; Start 01/31/17 at 06:00 Acetaminophen (Tylenol Tab) 650 mg Q6H PRN PO PAIN AND OR ELEVATED TEMP Last administered on 02/12/17 04:08; Admin Dose 650 MG; Start 01/30/17 at 21:30 Metoprolol Tartrate (Lopressor) 25 mg BID PO Last administered on 02/14/17 09: 14; Admin Dose 25 MG; Start 01/31/17 at 21:00 Folic Acid (Folic Acid) 1 mg DAILY PO Last administered on 02/14/17 09:15; Admin Dose 1 MG; Start 02/06/17 at 11:00 Furosemide (Lasix) 40 mg DAILY PO Last administered on 02/14/17 09:15; Admin Dose 40 MG; Start 02/09/17 at 09:00 Acetaminophen/ Hydrocodone Bitart ([place] (5/325)) 1 tab Q4H PRN PO PAIN LEVEL 4 -7; Start 02/10/17 at 17:30 Acetaminophen/ Hydrocodone Bitart ([place] (5/325)) 2 tab Q4H PRN PO PAIN LEVEL 7 -10; Start 02/10/17 at 17:30 Hydromorphone HCl (Dilaudid) 0.5 mg Q2 PRN IV PAIN; Start 02/10/17 at 17:30 Hydromorphone HCl (Dilaudid) 1 mg Q2 PRN IV PAIN; Start 02/10/17 at 17:30 Docusate Sodium (Colace) 100 mg BID PRN PO CONSTIPATION; Start 02/10/17 at 17: 30 Bisacodyl (Dulcolax Supp) 10 mg BID PRN [place] CONSTIPATION; Start 02/10/17 at 17: 30 Sodium Biphosphate/ Sodium Phosphate (Fleet Enema) 133 ml BID PRN [place] CONSTIPATION; Start 02/10/17 at 17:30 Bisacodyl (Dulcolax Supp) 10 mg BID PRN [place] CONSTIPATION; Start 02/12/17 at 21:00 Docusate Sodium (Colace) 100 mg BID PO Last administered on 02/14/17t 09:15; Admin Dose 100 MG; Start 02/12/17 at 09:00 Warfarin Sodium (Coumadin) 7.5 mg DAILY@17 PO ; Start 02/14/17 at 17:00 JAMES KAPLAN NP Feb 14, 2017 14:44
--- NOTE | 2017-02-14 17:07 | CONS ---
Date/Time of Note Date/Time of Note DATE: 02/14/17 TIME: 17:06 Assessment/Plan Assessment/Plan Additional Assessment/Plan Sepsis with bacteremia (no vegetation seen on RICHARD) Status post cholecystectomy 02/10/2017 Acute decompensated diastolic congestive heart failure, improving History of mechanical aortic valve replacement Preserved ejection fraction Prostate cancer with metastases Aortic aneurysm Anemia -Patient continues to improve from a cardiac standpoint, chest x-ray with slight improvement in pulmonary vascular congestion status, continue maintenance diuretics, continue IV heparin for bridging until INR is greater than 2 then heparin could be stopped. Encourage physical therapy. Consultation Date/Type/Reason Admit Date/Time Jan 30, 2017 at 07:00 Type of Consultation: cv 24 HR Interval Summary Free Text/Dictation Denies shortness of breath, chest pain. Underwent physical therapy today Exam/Review of Systems Vital Signs Vitals Vital Signs Date Time Temp Pulse Resp B/P Pulse Ox O2 Delivery O2 Flow Rate FiO2 02/14/17 16:43 2.0 02/14/17 16:23 84 02/14/17 15:51 97.8 20 135/75 96 02/14/17 08:20 Nasal Cannula Intake and Output 02/13/17 02/13/17 02/14/17 15:00 23:00 07:00 Intake Total 150 ml 1150 ml 900 ml Output Total 1200 ml 1050 ml Balance 150 ml -50 ml -150 ml Exam No apparent distress Constitutional: alert, obese, oriented Head: normocephalic Neck: supple Respiratory: other (Coarse breath sounds bilaterally, no wheezing) Cardiovascular: other (S1-S2 heard), regular rate and rhythm Gastrointestinal: bowel sounds, non-tender, other (No guarding), soft Extremities: edema (Trace), other (No cyanosis) Results Result Diagram: 02/14/17 0637 02/14/1737 Results 24 hrs Laboratory Tests Test 02/14/17 00:47 02/14/17 06:37 Activated Partial Thromboplast Time 64.5 H 68.3 H White Blood Count 7.7 # Red Blood Count 3.03 L Hemoglobin 8.4 L Hematocrit 27.1 L Mean Corpuscular Volume 89.4 Mean Corpuscular Hemoglobin 27.7 L Mean Corpuscular Hemoglobin Concent 31.0 L Red Cell Distribution Width 18.1 H Platelet Count 241 # Mean Platelet Volume 11.0 H Neutrophils % 56.1 Lymphocytes % 18.0 Monocytes % 9.6 Eosinophils % 5.5 Basophils % 0.4 Nucleated Red Blood Cells % 0.5 H Neutrophils # 4.3 Lymphocytes # 1.4 Monocytes # 0.7 Eosinophils # 0.4 Basophils # 0.0 Nucleated Red Blood Cells # 0.0 Prothrombin Time 14.3 H Prothrombin Time Ratio 1.1 INR International Normalized Ratio 1.11 Sodium Level 135 Potassium Level 4.0 Chloride Level 107 Carbon Dioxide Level 23 Anion Gap 9 Blood Urea Nitrogen 10 Creatinine 0.70 Glucose Level 119 Calcium Level 7.4 L Magnesium Level 2.0 Medications Medications Current Medications Magnesium Hydroxide (Milk Of Mag) 30 ml DAILY PRN PO CONSTIPATION Last administered on 02/14/17 09:24; Admin Dose 30 ML; Start 01/30/17 at 11:00 Pantoprazole (Protonix Tab) 40 mg DAILY@06 PO Last administered on 02/14/17 05: 55; Admin Dose 40 MG; Start 01/31/17 at 06:00 Acetaminophen (Tylenol Tab) 650 mg Q6H PRN PO PAIN AND OR ELEVATED TEMP Last administered on 02/12/17 04:08; Admin Dose 650 MG; Start 01/30/17 at 21:30 Metoprolol Tartrate (Lopressor) 25 mg BID PO Last administered on 02/14/17 09: 14; Admin Dose 25 MG; Start 01/31/17 at 21:00 Folic Acid (Folic Acid) 1 mg DAILY PO Last administered on 02/14/17 09:15; Admin Dose 1 MG; Start 02/06/17 at 11:00 Furosemide (Lasix) 40 mg DAILY PO Last administered on 02/14/17 09:15; Admin Dose 40 MG; Start 02/09/17 at 09:00 Acetaminophen/ Hydrocodone Bitart ([place] (5/325)) 1 tab Q4H PRN PO PAIN LEVEL 4 -7; Start 02/10/17 at 17:30 Acetaminophen/ Hydrocodone Bitart ([place] (5/325)) 2 tab Q4H PRN PO PAIN LEVEL 7 -10; Start 02/10/17 at 17:30 Hydromorphone HCl (Dilaudid) 0.5 mg Q2 PRN IV PAIN; Start 02/10/17 at 17:30 Hydromorphone HCl (Dilaudid) 1 mg Q2 PRN IV PAIN; Start 02/10/17 at 17:30 Docusate Sodium (Colace) 100 mg BID PRN PO CONSTIPATION; Start 02/10/17 at 17: 30 Bisacodyl (Dulcolax Supp) 10 mg BID PRN [place] CONSTIPATION; Start 02/10/17 at 17: 30 Sodium Biphosphate/ Sodium Phosphate (Fleet Enema) 133 ml BID PRN [place] CONSTIPATION; Start 02/10/17 at 17:30 Bisacodyl (Dulcolax Supp) 10 mg BID PRN [place] CONSTIPATION; Start 02/12/17 at 21:00 Docusate Sodium (Colace) 100 mg BID PO Last administered on 02/14/17t 09:15; Admin Dose 100 MG; Start 02/12/17 at 09:00 Warfarin Sodium (Coumadin) 7.5 mg DAILY@17 PO ; Start 02/14/17 at 17:00 Elias Deleon DO Feb 14, 2017 17:07
[2017-02-14] MEDS: WARFARIN 7.5 MG TAB PO SCH (17:13)
--- NOTE | 2017-02-14 22:33 | PN ---
Date/Time of Note Date/Time of Note DATE: 02/14/17 TIME: 22:31 Assessment/Plan Lines/Catheters IV Catheter Type (from [facility]): Saline Lock Briones in Place (from [facility]): No Assessment/Plan Assessment/Plan [facility] Progress Note Date of Service: 02/14/17 Today's Impression & Plan: Overall stable post op. Abd remains benign. No major complications or wound issues. With above assessment, I've recommended the following for today: 1. Increase activity 2. Increase ICS 3. Regular diet Thank you again for your great care of this very pleasant patient and wonderful family. If there are any questions, please feel free to call me at [phone]. TOTAL VISIT TIME: 20 minutes of which more than half was spent in sqyc-[id number] discussion with the patient, possibly including family, as well as coordination of care between multiple physicians and providers. Disclaimer: Inadvertent spelling or grammatical errors are likely due to EHR/ dictation software use and do not reflect on the overall quality of patient care. Updated Clinical Summary: The patient is a very pleasant but unfortunate 66-year-old gentleman with likely metastatic prostate cancer who was admitted through the emergency department at [facility] on 01/30/2017 with septic shock and bacteremia. The patient was found to have significant cholelithiasis. Discussed case with Dr. Deleon (his veneer jointer returner). We agreed that we needed a few more days to optimize patient's cardiac condition to minimize his correctable perioperative risk. His gallbladder needed to come out for two main reasons. First, it was the main suspect for the source of patient's bacteremic shock. Secondly, with his need for systemic chemotherapy for his widely metastatic prostate cancer, he would benefit from having his stone filled gallbladder out and not risk the chance of severe cholecystitis during the treatment phase. He received 2 units of PRBC 02/05/17 in preparation for his upcoming surgery. COMORBIDITIES: 1. BMI of 34.2. 2. Prostate cancer diagnosed 3 to 4 years ago, diagnosed after elevation in his PSA was noted. Prostate nodule was found and biopsied and found it to be prostatic carcinoma. Hormonal therapy was initiated with Lupron and bicalutamide for 1 year and then he was taken off Lupron, which was reinitiated recently after rising PSA was noted. Also, with migratory bone pain over the last 2 months with lytic lesions noted on the most recent MRIs. 3. Congenital bicuspid aortic valve, status post replacement with a [facility] valve in 1989, and on chronic anticoagulation with Coumadin. 4. Previous cerebrovascular accident with right-sided weakness and some ataxia. 5. Hypertension. 6. Hyperlipidemia. 7. Septic shock with bacteremia (Clostridium perfringens growing in blood cultures x2 on 01/30/2017). 8. Cholelithiasis with HIDA scan dated 02/02/2017 showing no gallbladder visualization consistent with cystic duct obstruction. The common bile duct was open. Right upper quadrant ultrasound 01/31/2017 showed gallbladder completely filled with gallstones and gallbladder wall thickening was somewhat hampered by the amount of shadowing of the gallstones. No intrahepatic or extrahepatic biliary dilatation was noted. There was mild increased echogenicity of the liver suggestive of hepatic steatosis. 9. CT scan of abdomen and pelvis on 02/03/2017 shows multiple mixed lytic and blastic lesions throughout the visualized ribs, spine and pelvis consistent with metastatic disease as well as presence of retroperitoneal and pelvic lymphadenopathy consistent with neoplasm. There is also cardiomegaly and dilated ascending aorta measuring 5.5 cm. Atherosclerosis was also noted. 10. S/p lap belem 02/11/17 (sig chronic cholecystitis and cholelithiasis) Subjective: No major events or complaints; no major abd pain and under control with medications; no n/v/d; no sob or cp; + flatus; + BM; - activity Objective: Vitals: See below Exam: GENERAL: On exam, the patient was laying in bed and appeared to be comfortable and in no acute distress. ABDOMEN: Soft, nontender and nondistended. Incisions c/d/i w/o obvious e/e/d/h. There are no peritoneal signs or guarding. SKIN: Skin appears to be pink and feels warm to touch. NEUROLOGIC: Patient is awake, alert, and follows commands appropriately. Exam/Review of Systems Vital Signs Vitals Vital Signs Date Time Temp Pulse Resp B/P Pulse Ox O2 Delivery O2 Flow Rate FiO2 02/14/17 21:39 Nasal Cannula 2.0 02/14/17 20:19 98.3 100 18 132/73 96 Intake and Output 4/2/17 4/2/17 4/3/17 15:00 23:00 07:00 Intake Total 150 ml 1150 ml 900 ml Output Total 1200 ml 1050 ml Balance 150 ml -50 ml -150 ml Results Result Diagram: 02/14/17 0637 02/14/17 0637 NEDA FLOOD M.D. Feb 14, 2017 22:33
[2017-02-15] VITALS (11 sets, daily range): BP systolic 115–133; BP diastolic 65–80; PULSE 79–97; RESP 18–20
[2017-02-15] MEDS: PANTOPRAZOLE (EC) 40 MG TAB PO SCH (06:21)
[2017-02-15] MEDS: HEPARIN 25000 UNITS/250 ML 250 ML IV SCH ×2 (06:35→18:44)
--- NOTE | 2017-02-15 08:29 | PN ---
Date/Time of Note Date/Time of Note DATE: 02/15/17 TIME: 08:26 Assessment/Plan VTE Prophylaxis VTE Prophylaxis Intervention: heparin VTE Contraindication Reason: bleeding Lines/Catheters IV [facility] Saline Lock Urinary Cath still in place: No Assessment/Plan Chief Complaint/Hosp Course see above Problems: Subjective 24 Hr Interval Summary Free Text/Dictation seen with RN. INR pending. decision on rehab placement today. not ambulating. had BM last night. stable for transfer to med surg status Exam. VS stable Chest clear Cor re grhythm Ext trace edema CXR clear Plan:transfer to med surg.. Hernan placement? Exam/Review of Systems Vital Signs Vitals Vital Signs Date Time Temp Pulse Resp B/P Pulse Ox O2 Delivery O2 Flow Rate FiO2 02/15/17 08:16 95 02/15/17 07:44 98.3 18 130/80 97 02/15/17 02:58 2.0 02/14/17 21:39 Nasal Cannula Intake and Output 02/14/17 02/14/17 02/15/17 14:59 22:59 06:59 Intake Total 1295 ml 1660 ml Output Total 1200 ml 2050 ml Balance 95 ml -390 ml Results Result Diagram: 02/14/1737 02/14/1737 Medications Medications Current Medications Magnesium Hydroxide (Milk Of Mag) 30 ml DAILY PRN PO CONSTIPATION Last administered on 02/14/17 09:24; Admin Dose 30 ML; Start 01/30/17 at 11:00 Pantoprazole (Protonix Tab) 40 mg DAILY@06 PO Last administered on 02/15/17 06: 21; Admin Dose 40 MG; Start 01/31/17 at 06:00 Acetaminophen (Tylenol Tab) 650 mg Q6H PRN PO PAIN AND OR ELEVATED TEMP Last administered on 02/12/17 04:08; Admin Dose 650 MG; Start 01/30/17 at 21:30 Metoprolol Tartrate (Lopressor) 25 mg BID PO Last administered on 02/14/17 20: 39; Admin Dose 25 MG; Start 01/31/17 at 21:00 Folic Acid (Folic Acid) 1 mg DAILY PO Last administered on 02/14/17 09:15; Admin Dose 1 MG; Start 02/06/17 at 11:00 Furosemide (Lasix) 40 mg DAILY PO Last administered on 02/14/17 09:15; Admin Dose 40 MG; Start 02/09/17 at 09:00 Acetaminophen/ Hydrocodone Bitart ([place] (5/325)) 1 tab Q4H PRN PO PAIN LEVEL 4 -7; Start 02/10/17 at 17:30 Acetaminophen/ Hydrocodone Bitart ([place] (5/325)) 2 tab Q4H PRN PO PAIN LEVEL 7 -10; Start 02/10/17 at 17:30 Hydromorphone HCl (Dilaudid) 0.5 mg Q2 PRN IV PAIN; Start 02/10/17 at 17:30 Hydromorphone HCl (Dilaudid) 1 mg Q2 PRN IV PAIN; Start 02/10/17 at 17:30 Docusate Sodium (Colace) 100 mg BID PRN PO CONSTIPATION; Start 02/10/17 at 17: 30 Bisacodyl (Dulcolax Supp) 10 mg BID PRN [place] CONSTIPATION; Start 02/10/17 at 17: 30 Sodium Biphosphate/ Sodium Phosphate (Fleet Enema) 133 ml BID PRN [place] CONSTIPATION; Start 02/10/17 at 17:30 Bisacodyl (Dulcolax Supp) 10 mg BID PRN [place] CONSTIPATION; Start 02/12/17 at 21:00 Docusate Sodium (Colace) 100 mg BID PO Last administered on 02/14/17 20:38; Admin Dose 100 MG; Start 02/12/17 at 09:00 Warfarin Sodium (Coumadin) 7.5 mg DAILY@17 PO Last administered on 02/14/17 17: 13; Admin Dose 7.5 MG; Start 02/14/17 at 17:00 BETTY CUMMINGS MD Feb 15, 2017 08:29
[2017-02-15 08:36] LABS: INR 1.2; PROTIME 15.3 Sec (12.2-14.2); PT RATIO 1.2
[2017-02-15] MEDS: DOCUSATE SODIUM 100 MG CAP PO SCH ×2 (08:49→21:00)
[2017-02-15] MEDS: FUROSEMIDE 20 MG TAB PO SCH (08:49)
[2017-02-15] MEDS: FOLIC ACID 1 MG TAB PO SCH (08:49)
--- NOTE | 2017-02-15 08:49 | PN ---
Date/Time of Note Date/Time of Note DATE: 02/15/17 TIME: 08:47 Assessment/Plan VTE Prophylaxis VTE Prophylaxis Intervention: heparin Lines/Catheters IV [facility] Saline Lock Urinary Cath still in place: No Assessment/Plan Assessment/Plan Pt is recovering from cholecystectomy uneventfully. He is being assessed for inpatient rehab. Prostate cancer to be addressed later but surgical recovery is needed first. Subjective 24 Hr Interval Summary Free Text/Dictation Pt says he feels alright but is weak. Exam/Review of Systems Vital Signs Vitals Vital Signs Date Time Temp Pulse Resp B/P Pulse Ox O2 Delivery O2 Flow Rate FiO2 02/15/17 08:16 95 02/15/17 07:44 98.3 18 130/80 97 02/15/17 02:58 2.0 02/14/17 21:39 Nasal Cannula Intake and Output 02/14/17 02/14/17 02/15/17 15:00 23:00 07:00 Intake Total 1295 ml 1660 ml Output Total 1200 ml 2050 ml Balance 95 ml -390 ml Exam Constitutional: alert, oriented Psych: no complaints Head: normocephalic Eyes: nl conjunctiva Neck: non-tender, supple Respiratory: clear to auscultation Cardiovascular: regular rate and rhythm Gastrointestinal: non-tender, soft Results Result Diagram: 02/14/17 0637 02/14/17 0637 Results 24 hrs Laboratory Tests Test 02/15/17 06:54 Prothrombin Time 15.3 H Prothrombin Time Ratio 1.2 INR International Normalized Ratio 1.20 Activated Partial Thromboplast Time Pending Medications Medications Current Medications Magnesium Hydroxide (Milk Of Mag) 30 ml DAILY PRN PO CONSTIPATION Last administered on 02/14/17 09:24; Admin Dose 30 ML; Start 01/30/17 at 11:00 Pantoprazole (Protonix Tab) 40 mg DAILY@06 PO Last administered on 02/15/17 06: 21; Admin Dose 40 MG; Start 01/31/17 at 06:00 Acetaminophen (Tylenol Tab) 650 mg Q6H PRN PO PAIN AND OR ELEVATED TEMP Last administered on 02/12/17 04:08; Admin Dose 650 MG; Start 01/30/17 at 21:30 Metoprolol Tartrate (Lopressor) 25 mg BID PO Last administered on 02/14/17 20: 39; Admin Dose 25 MG; Start 01/31/17 at 21:00 Folic Acid (Folic Acid) 1 mg DAILY PO Last administered on 02/14/17 09:15; Admin Dose 1 MG; Start 02/06/17 at 11:00 Furosemide (Lasix) 40 mg DAILY PO Last administered on 02/14/17 09:15; Admin Dose 40 MG; Start 02/09/17 at 09:00 Acetaminophen/ Hydrocodone Bitart ([place] (5/325)) 1 tab Q4H PRN PO PAIN LEVEL 4 -7; Start 02/10/17 at 17:30 Acetaminophen/ Hydrocodone Bitart ([place] (5/325)) 2 tab Q4H PRN PO PAIN LEVEL 7 -10; Start 02/10/17 at 17:30 Hydromorphone HCl (Dilaudid) 0.5 mg Q2 PRN IV PAIN; Start 02/10/17 at 17:30 Hydromorphone HCl (Dilaudid) 1 mg Q2 PRN IV PAIN; Start 02/10/17 at 17:30 Docusate Sodium (Colace) 100 mg BID PRN PO CONSTIPATION; Start 02/10/17 at 17: 30 Bisacodyl (Dulcolax Supp) 10 mg BID PRN [place] CONSTIPATION; Start 02/10/17 at 17: 30 Sodium Biphosphate/ Sodium Phosphate (Fleet Enema) 133 ml BID PRN [place] CONSTIPATION; Start 02/10/17 at 17:30 Bisacodyl (Dulcolax Supp) 10 mg BID PRN [place] CONSTIPATION; Start 02/12/17 at 21:00 Docusate Sodium (Colace) 100 mg BID PO Last administered on 02/14/17 20:38; Admin Dose 100 MG; Start 02/12/17 at 09:00 Warfarin Sodium (Coumadin) 7.5 mg DAILY@17 PO Last administered on 02/14/17 17: 13; Admin Dose 7.5 MG; Start 02/14/17 at 17:00 FELICITAS THURMAN MD Feb 15, 2017 08:49
[2017-02-15] MEDS: METOPROLOL 25 MG TAB PO SCH ×2 (08:50→21:01)
[2017-02-15 09:09] LABS: PARTIAL THROMBOPLASTIN TIME 78.4 Sec (25.0-35.0)
--- NOTE | 2017-02-15 13:04 | CONS ---
Date/Time of Note Date/Time of Note DATE: 02/15/17 TIME: 13:02 Assessment/Plan Assessment/Plan Additional Assessment/Plan Sepsis with bacteremia (no vegetation seen on RICHARD) Status post cholecystectomy 02/10/2017 Acute decompensated diastolic congestive heart failure, improving History of mechanical aortic valve replacement Preserved ejection fraction Prostate cancer with metastases Aortic aneurysm Anemia -Patient continues to improve from a cardiac standpoint, continue maintenance diuretics, continue IV heparin for bridging until INR is greater than 2 then heparin could be stopped. Encourage physical therapy.OK to transfer to med/ surg pending rehab plan Consultation Date/Type/Reason Admit Date/Time Jan 30, 2017 at 07:00 Type of Consultation: cv 24 HR Interval Summary Free Text/Dictation denies cp, sob, dizziness Exam/Review of Systems Vital Signs Vitals Vital Signs Date Time Temp Pulse Resp B/P Pulse Ox O2 Delivery O2 Flow Rate FiO2 02/15/17 12:37 79 02/15/17 08:10 Nasal Cannula 2.0 02/15/17 07:44 98.3 18 130/80 97 Intake and Output 02/14/17 02/14/17 02/15/17 15:00 23:00 07:00 Intake Total 1295 ml 1660 ml Output Total 1200 ml 2050 ml Balance 95 ml -390 ml Exam nad Constitutional: alert, oriented Head: normocephalic Neck: supple Respiratory: other (course bs, no wheeze) Cardiovascular: other (s1s2), regular rate and rhythm, systolic murmur Gastrointestinal: bowel sounds, non-tender, soft Extremities: edema (trace) Results Result Diagram: 02/14/17 0637 02/14/17 0637 Results 24 hrs Laboratory Tests Test 02/15/17 06:54 Prothrombin Time 15.3 H Prothrombin Time Ratio 1.2 INR International Normalized Ratio 1.20 Activated Partial Thromboplast Time 78.4 *H Medications Medications Current Medications Magnesium Hydroxide (Milk Of Mag) 30 ml DAILY PRN PO CONSTIPATION Last administered on 02/14/17 09:24; Admin Dose 30 ML; Start 01/30/17 at 11:00 Pantoprazole (Protonix Tab) 40 mg DAILY@06 PO Last administered on 02/15/17 06: 21; Admin Dose 40 MG; Start 01/31/17 at 06:00 Acetaminophen (Tylenol Tab) 650 mg Q6H PRN PO PAIN AND OR ELEVATED TEMP Last administered on 02/12/17 04:08; Admin Dose 650 MG; Start 01/30/17 at 21:30 Metoprolol Tartrate (Lopressor) 25 mg BID PO Last administered on 02/15/17 08: 50; Admin Dose 25 MG; Start 01/31/17 at 21:00 Folic Acid (Folic Acid) 1 mg DAILY PO Last administered on 02/15/17 08:49; Admin Dose 1 MG; Start 02/06/17 at 11:00 Furosemide (Lasix) 40 mg DAILY PO Last administered on 02/15/17 08:49; Admin Dose 40 MG; Start 02/09/17 at 09:00 Acetaminophen/ Hydrocodone Bitart ([place] (5/325)) 1 tab Q4H PRN PO PAIN LEVEL 4 -7; Start 02/10/17 at 17:30 Acetaminophen/ Hydrocodone Bitart ([place] (5/325)) 2 tab Q4H PRN PO PAIN LEVEL 7 -10; Start 02/10/17 at 17:30 Hydromorphone HCl (Dilaudid) 0.5 mg Q2 PRN IV PAIN; Start 02/10/17 at 17:30 Hydromorphone HCl (Dilaudid) 1 mg Q2 PRN IV PAIN; Start 02/10/17 at 17:30 Docusate Sodium (Colace) 100 mg BID PRN PO CONSTIPATION; Start 02/10/17 at 17: 30 Bisacodyl (Dulcolax Supp) 10 mg BID PRN [place]STIP[place]; Start 02/10/17 at 17: 30 Sodium Biphosphate/ Sodium Phosphate (Fleet Enema) 133 ml BID PRN [place] CONSTIPATION; Start 02/10/17 at 17:30 Bisacodyl (Dulcolax Supp) 10 mg BID PRN [place] CONSTIPATION; Start 02/12/17 at 21:00 Docusate Sodium (Colace) 100 mg BID PO Last administered on 02/15/17 08:49; Admin Dose 100 MG; Start 02/12/17 at 09:00 Warfarin Sodium (Coumadin) 7.5 mg DAILY@17 PO Last administered on 02/14/17 17: 13; Admin Dose 7.5 MG; Start 02/14/17 at 17:00 Elias Deleon DO Feb 15, 2017 13:04
[2017-02-15] MEDS: WARFARIN 7.5 MG TAB PO SCH (18:01)
[2017-02-16] MEDS: HEPARIN 25000 UNITS/250 ML 250 ML IV SCH ×3 (02:22→22:27)
[2017-02-16] MEDS: PANTOPRAZOLE (EC) 40 MG TAB PO SCH (05:51)
[2017-02-16 06:19] LABS: ADD SCAN DIFF NO
[2017-02-16 06:26] LABS: ABNORMAL IP MESSAGE 1; BASOPHILS % 0.3 % (0.0-2.0); EOSINOPHILS # 0.5 10^3/ul (0.0-0.5); HEMOGLOBIN 8.3 g/dl (14.0-18.0); LYMPHOCYTES % 21.5 % (15.0-51.0); MEAN CORPUSCULAR HEMOGLOBIN 27.3 pg (29.0-33.0); MEAN CORPUSCULAR HGB CONC 30.7 g/dl (32.0-37.0); MEAN CORPUSCULAR VOLUME 88.8 fl (82.0-101.0); MEAN PLATELET VOLUME 11.2 fl (7.4-10.4); MONOCYTES % 10.9 % (0.0-11.0); NEUTROPHIL # 4.7 10^3/ul (1.6-7.5); NEUTROPHILS % 51.4 % (39.0-77.0); NUCLEATED RED BLOOD CELLS # 0.1 10^3/ul (0.0-0.0); NUCLEATED RED BLOOD CELLS% 0.9 /100WBC (0.0-0.0); PLATELET COUNT 220 10^3/UL (140-415); RED BLOOD COUNT 3.04 10^6/ul (4.70-6.10); RED CELL DISTRIBUTION WIDTH 18.4 % (11.5-14.5); WHITE BLOOD COUNT 9.1 10^3/ul (4.8-10.8)
[2017-02-16 06:40] LABS: INR 1.3; PROTIME 16.3 Sec (12.2-14.2); PT RATIO 1.3
[2017-02-16 06:42] LABS: PARTIAL THROMBOPLASTIN TIME 68.1 Sec (25.0-35.0)
[2017-02-16 06:47] LABS: POTASSIUM 4.2 mmol/L (3.5-5.1)
[2017-02-16 06:50] LABS: CREATININE 0.73 mg/dl (0.61-1.24)
[2017-02-16 06:51] LABS: CALCIUM 7.5 mg/dl (8.4-10.2)
[2017-02-16 07:25] VITALS: BP 123/68; RESP 18
[2017-02-16] MEDS: FOLIC ACID 1 MG TAB PO SCH (08:06)
[2017-02-16] MEDS: FUROSEMIDE 20 MG TAB PO SCH (08:06)
[2017-02-16] MEDS: DOCUSATE SODIUM 100 MG CAP PO SCH ×2 (08:06→20:52)
[2017-02-16] MEDS: METOPROLOL 25 MG TAB PO SCH ×2 (08:07→20:52)
--- NOTE | 2017-02-16 09:04 | PN ---
Date/Time of Note Date/Time of Note DATE: 02/16/17 TIME: 08:59 Assessment/Plan VTE Prophylaxis VTE Prophylaxis Intervention: heparin Lines/Catheters [facility] [place] Urinary Cath still in place: No Assessment/Plan Chief Complaint/Hosp Course see above Problems: Subjective 24 Hr Interval Summary Free Text/Dictation seen with RN. not being ambulated. declined by Rehab. INR 1.3 on heparin infusion on warfarin 7.5 mg daily Exam: chest clear Cor reg rhythm ext trace edema Plan: increase w3 warfarin to 10mg and discharge planning to rehab SNF when stable Exam/Review of Systems Vital Signs Vitals Vital Signs Date Time Temp Pulse Resp B/P Pulse Ox O2 Delivery O2 Flow Rate FiO2 02/16/17 07:25 98.0 102 18 123/68 96 02/16/17 00:59 2.0 02/15/17 20:00 Nasal Cannula Intake and Output 02/15/17 02/15/17 02/16/17 15:00 23:00 07:00 Intake Total 1575 ml 182 ml Output Total 1500 ml 200 ml Balance 75 ml -18 ml Results Result Diagram: 02/16/17 0550 02/16/17 0550 Results 24 hrs Laboratory Tests Test 02/15/17 17:50 02/16/17 00:50 02/16/17 05:50 Activated Partial Thromboplast Time 77.3 *H 69.1 H 68.1 H White Blood Count 9.1 Red Blood Count 3.04 L Hemoglobin 8.3 L Hematocrit 27.0 L Mean Corpuscular Volume 88.8 Mean Corpuscular Hemoglobin 27.3 L Mean Corpuscular Hemoglobin Concent 30.7 L Red Cell Distribution Width 18.4 H Platelet Count 220 Mean Platelet Volume 11.2 H Neutrophils % 51.4 Lymphocytes % 21.5 Monocytes % 10.9 Eosinophils % 5.0 Basophils % 0.3 Nucleated Red Blood Cells % 0.9 H Neutrophils # 4.7 Lymphocytes # 2.0 Monocytes # 1.0 H Eosinophils # 0.5 Basophils # 0.0 Nucleated Red Blood Cells # 0.1 H Prothrombin Time 16.3 H Prothrombin Time Ratio 1.3 INR International Normalized Ratio 1.30 Sodium Level 138 Potassium Level 4.2 Chloride Level 103 Carbon Dioxide Level 26 Anion Gap 13 Blood Urea Nitrogen 11 Creatinine 0.73 Glucose Level 106 Calcium Level 7.5 L Magnesium Level 2.1 Medications Medications Current Medications Magnesium Hydroxide (Milk Of Mag) 30 ml DAILY PRN PO CONSTIPATION Last administered on 02/14/17 09:24; Admin Dose 30 ML; Start 01/30/17 at 11:00 Pantoprazole (Protonix Tab) 40 mg DAILY@06 PO Last administered on 02/16/17 05: 51; Admin Dose 40 MG; Start 01/31/17 at 06:00 Acetaminophen (Tylenol Tab) 650 mg Q6H PRN PO PAIN AND OR ELEVATED TEMP Last administered on 02/12/17 04:08; Admin Dose 650 MG; Start 01/30/17 at 21:30 Metoprolol Tartrate (Lopressor) 25 mg BID PO Last administered on 02/16/17 08: 07; Admin Dose 25 MG; Start 01/31/17 at 21:00 Folic Acid (Folic Acid) 1 mg DAILY PO Last administered on 02/16/17 08:06; Admin Dose 1 MG; Start 02/06/17 at 11:00 Furosemide (Lasix) 40 mg DAILY PO Last administered on 02/16/17 08:06; Admin Dose 40 MG; Start 02/09/17 at 09:00 Acetaminophen/ Hydrocodone Bitart ([place] (5/325)) 1 tab Q4H PRN PO PAIN LEVEL 4 -7; Start 02/10/17 at 17:30 Acetaminophen/ Hydrocodone Bitart ([place] (5/325)) 2 tab Q4H PRN PO PAIN LEVEL 7 -10; Start 02/10/17 at 17:30 Hydromorphone HCl (Dilaudid) 0.5 mg Q2 PRN IV PAIN; Start 02/10/17 at 17:30 Hydromorphone HCl (Dilaudid) 1 mg Q2 PRN IV PAIN; Start 02/10/17 at 17:30 Docusate Sodium (Colace) 100 mg BID PRN PO CONSTIPATION; Start 02/10/17 at 17: 30 Bisacodyl (Dulcolax Supp) 10 mg BID PRN [place] CONSTIPATION; Start 02/10/17 at 17: 30 Sodium Biphosphate/ Sodium Phosphate (Fleet Enema) 133 ml BID PRN [place] CONSTIPATION; Start 02/10/17 at 17:30 Bisacodyl (Dulcolax Supp) 10 mg BID PRN [place] CONSTIPATION; Start 02/12/17 at 21:00 Docusate Sodium (Colace) 100 mg BID PO Last administered on 02/16/17 08:06; Admin Dose 100 MG; Start 02/12/17 at 09:00 Warfarin Sodium (Coumadin) 7.5 mg DAILY@17 PO Last administered on 02/15/17 18: 01; Admin Dose 7.5 MG; Start 02/14/17 at 17:00 BETTY CUMMINGS MD Feb 16, 2017 09:04
--- NOTE | 2017-02-16 12:39 | CONS ---
Date/Time of Note Date/Time of Note DATE: 02/16/17 TIME: 12:37 Assessment/Plan Assessment/Plan Additional Assessment/Plan Sepsis with bacteremia (no vegetation seen on RICHARD) Status post cholecystectomy 02/10/2017 Acute decompensated diastolic congestive heart failure, improving History of mechanical aortic valve replacement Preserved ejection fraction Prostate cancer with metastases Aortic aneurysm Anemia -Patient continues to improve from a cardiac standpoint, continue maintenance diuretics, continue IV heparin for bridging until INR is greater than 2 then heparin could be stopped. Awaiting rehab placement, if needed, and INR is still subtherapeutic prior to transfer to rehab, could be switched to Lovenox full therapeutic dose for bridging until INR is therapeutic. Encourage physical therapy. Consultation Date/Type/Reason Admit Date/Time Jan 30, 2017 at 07:00 Type of Consultation: cv 24 HR Interval Summary Free Text/Dictation Denies shortness of breath, dizziness or chest pain Exam/Review of Systems Vital Signs Vitals Vital Signs Date Time Temp Pulse Resp B/P Pulse Ox O2 Delivery O2 Flow Rate FiO2 02/16/17 08:00 Nasal Cannula 2.0 02/16/17 07:25 98.0 102 18 123/68 96 Intake and Output 02/15/17 02/15/17 02/16/17 15:00 23:00 07:00 Intake Total 1575 ml 182 ml Output Total 1500 ml 200 ml Balance 75 ml -18 ml Exam No apparent distress Constitutional: alert, obese, oriented Head: normocephalic Neck: supple Respiratory: other (Coarse breath sounds bilaterally, no wheezing) Cardiovascular: other (S1-S2 heard), regular rate and rhythm, systolic murmur Gastrointestinal: bowel sounds, non-tender, soft Extremities: edema (Trace) Results Result Diagram: 02/16/17 0550 02/16/17 0550 Results 24 hrs Laboratory Tests Test 02/15/17 17:50 02/16/17 00:50 02/16/17 05:50 02/16/17 08:10 Activated Partial Thromboplast Time 77.3 *H 69.1 H 68.1 H 70.8 *H White Blood Count 9.1 Red Blood Count 3.04 L Hemoglobin 8.3 L Hematocrit 27.0 L Mean Corpuscular Volume 88.8 Mean Corpuscular Hemoglobin 27.3 L Mean Corpuscular Hemoglobin Concent 30.7 L Red Cell Distribution Width 18.4 H Platelet Count 220 Mean Platelet Volume 11.2 H Neutrophils % 51.4 Lymphocytes % 21.5 Monocytes % 10.9 Eosinophils % 5.0 Basophils % 0.3 Nucleated Red Blood Cells % 0.9 H Neutrophils # 4.7 Lymphocytes # 2.0 Monocytes # 1.0 H Eosinophils # 0.5 Basophils # 0.0 Nucleated Red Blood Cells # 0.1 H Prothrombin Time 16.3 H Prothrombin Time Ratio 1.3 INR International Normalized Ratio 1.30 Sodium Level 138 Potassium Level 4.2 Chloride Level 103 Carbon Dioxide Level 26 Anion Gap 13 Blood Urea Nitrogen 11 Creatinine 0.73 Glucose Level 106 Calcium Level 7.5 L Magnesium Level 2.1 Medications Medications Current Medications Magnesium Hydroxide (Milk Of Mag) 30 ml DAILY PRN PO CONSTIPATION Last administered on 02/14/17 09:24; Admin Dose 30 ML; Start 01/30/17 at 11:00 Pantoprazole (Protonix Tab) 40 mg DAILY@06 PO Last administered on 02/16/17 05: 51; Admin Dose 40 MG; Start 01/31/17 at 06:00 Acetaminophen (Tylenol Tab) 650 mg Q6H PRN PO PAIN AND OR ELEVATED TEMP Last administered on 02/12/17 04:08; Admin Dose 650 MG; Start 01/30/17 at 21:30 Metoprolol Tartrate (Lopressor) 25 mg BID PO Last administered on 02/16/17 08: 07; Admin Dose 25 MG; Start 01/31/17 at 21:00 Folic Acid (Folic Acid) 1 mg DAILY PO Last administered on 02/16/17 08:06; Admin Dose 1 MG; Start 02/06/17 at 11:00 Furosemide (Lasix) 40 mg DAILY PO Last administered on 02/16/17 08:06; Admin Dose 40 MG; Start 02/09/17 at 09:00 Acetaminophen/ Hydrocodone Bitart ([place] (5/325)) 1 tab Q4H PRN PO PAIN LEVEL 4 -7; Start 02/10/17 at 17:30 Acetaminophen/ Hydrocodone Bitart ([place] (5/325)) 2 tab Q4H PRN PO PAIN LEVEL 7 -10; Start 02/10/17 at 17:30 Hydromorphone HCl (Dilaudid) 0.5 mg Q2 PRN IV PAIN; Start 02/10/17 at 17:30 Hydromorphone HCl (Dilaudid) 1 mg Q2 PRN IV PAIN; Start 02/10/17 at 17:30 Docusate Sodium (Colace) 100 mg BID PRN PO CONSTIPATION; Start 02/10/17 at 17: 30 Bisacodyl (Dulcolax Supp) 10 mg BID PRN [place] CONSTIPATION; Start 02/10/17 at 17: 30 Sodium Biphosphate/ Sodium Phosphate (Fleet Enema) 133 ml BID PRN [place] CONSTIPATION; Start 02/10/17 at 17:30 Bisacodyl (Dulcolax Supp) 10 mg BID PRN [place] CONSTIPATION; Start 02/12/17 at 21:00 Docusate Sodium (Colace) 100 mg BID PO Last administered on 02/16/17t 08:06; Admin Dose 100 MG; Start 02/12/17 at 09:00 Warfarin Sodium (Coumadin) 10 mg DAILY@17 PO ; Start 02/16/17 at 17:00 Elias Deleon DO Feb 16, 2017 12:39
[2017-02-16] MEDS ORDERED: WARFARIN 10 MG TAB PO SCH (17:00)
[2017-02-16 19:00] VITALS: BP 118/63; RESP 20
[2017-02-16 20:46] VITALS: BP 118/63; PULSE 109; RESP 19
--- NOTE | 2017-02-16 20:55 | CONS ---
DATE OF ADMISSION: 01/30/2017 DATE OF CONSULTATION: SUBJECTIVE: Mr. Noel is beginning to experience pain again. He complains of pain in the right fem ur and also in the left capsular area. He does state that these are pains that he was experiencing prior to and at the time of admission. PHYSICAL EXAMINATION: VITAL SIGNS: Temperature 98, pulse 102 and regular, respirations 18, blood pressure 123/68. SKIN: Scattered ecchymoses in the area of previous venipuncture sites. No petechiae or rashes. HEENT: No mucosal lesions. No scleral icterus. NECK: Supple, no jugular venous distention or thyroid enlargement. CHEST: Clear to auscultation and percussion. No rhonchi, wheezes, rales or rubs. There is a newell otomy scar present. NODES: No palpable lymphadenopathy. ABDOMEN: Soft, no masses, no ascites. EXTREMITIES: No clubbing. No edema or cyanosis. No palpable cords or Homans sign. NEUROLOGIC: Normal. LABORATORY DATA: White count of 9100, hemoglobin 8.3, hematocrit 27 and platelet count 220,000. Th e white cell differential does include nucleated red blood cells. ASSESSMENT: 1. Corynebacterium perfringens septicemia, resolved. 2. Metastatic prostate carcinoma. PLAN: The patient has apparently not been accepted to acute rehab at [facility]. Hopefully, he can have rehabilitation elsewhere. The patient is now beginning to experience bone pain again. This likely is related to metastatic pr ostate carcinoma which has been demonstrated on various imaging studies. 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 I had planned to initiate therapy with enzalutamide as an outpatient. This does require obtaining m edication to a specialty pharmacy and it is not stocked in the hospital. If the patient is to be ho spitalized for a prolonged period of time or in an extended care facility, I will try to register th e patient and obtain this medication for him. We will obtain a repeat PSA to serve as a baseline pr ior to initiation of such therapy. Dictated By: PIPPA MONTGOMERY MD, SR/MALICK Conf#: [id number] DID#: [id number]
[2017-02-17] MEDS: HEPARIN 25000 UNITS/250 ML 250 ML IV SCH ×2 (04:10→05:33)
[2017-02-17 04:57] LABS: ADD SCAN DIFF NO
[2017-02-17] MEDS: PANTOPRAZOLE (EC) 40 MG TAB PO SCH (05:30)
[2017-02-17 05:32] LABS: ABNORMAL IP MESSAGE 1; BASOPHILS % 0.5 % (0.0-2.0); EOSINOPHILS # 0.4 10^3/ul (0.0-0.5); EOSINOPHILS % 4.1 % (0.0-7.0); HEMATOCRIT 26.5 % (42.0-52.0); HEMOGLOBIN 8.2 g/dl (14.0-18.0); LYMPHOCYTES # 1.9 10^3/ul (0.8-2.9); LYMPHOCYTES % 21.3 % (15.0-51.0); MEAN CORPUSCULAR HEMOGLOBIN 27.4 pg (29.0-33.0); MEAN CORPUSCULAR HGB CONC 30.9 g/dl (32.0-37.0); MEAN CORPUSCULAR VOLUME 88.6 fl (82.0-101.0); MEAN PLATELET VOLUME 11.2 fl (7.4-10.4); MONOCYTES % 11.2 % (0.0-11.0); NEUTROPHIL # 4.7 10^3/ul (1.6-7.5); NEUTROPHILS % 52.6 % (39.0-77.0); NUCLEATED RED BLOOD CELLS # 0.1 10^3/ul (0.0-0.0); PLATELET COUNT 227 10^3/UL (140-415); RED BLOOD COUNT 2.99 10^6/ul (4.70-6.10); RED CELL DISTRIBUTION WIDTH 18.2 % (11.5-14.5); WHITE BLOOD COUNT 8.9 10^3/ul (4.8-10.8)
[2017-02-17 07:17] LABS: INR 1.52; PROTIME 18.4 Sec (12.2-14.2); PT RATIO 1.4
[2017-02-17 07:23] VITALS: BP 120/62; RESP 20
--- NOTE | 2017-02-17 08:35 | PN ---
Date/Time of Note Date/Time of Note DATE: 02/17/17 TIME: 08:34 Assessment/Plan VTE Prophylaxis VTE Prophylaxis Intervention: heparin Lines/Catheters IV Catheter Type (from Nrs): Peripheral IV Urinary Cath still in place: No Assessment/Plan Chief Complaint/Hosp Course see above Problems: Subjective 24 Hr Interval Summary Free Text/Dictation D/C planning in progress. reports bone pain no abdominal pain VS stable Chest clear Cor reg rhythm ext trace edema Plan D/C in am when disposition finalized Exam/Review of Systems Vital Signs Vitals Vital Signs Date Time Temp Pulse Resp B/P Pulse Ox O2 Delivery O2 Flow Rate FiO2 02/17/17 07:23 97.7 102 20 120/62 97 02/16/17 20:44 2.0 02/16/17 20:00 Nasal Cannula Intake and Output 02/16/17 02/16/17 02/17/17 15:00 23:00 07:00 Intake Total 1160 ml 1162.5 ml Output Total 550 ml 900 ml Balance 610 ml 262.5 ml Results Result Diagram: 02/17/17 0433 02/16/17 0550 Results 24 hrs Laboratory Tests Test 02/16/17 15:25 02/16/17 21:05 02/17/17 04:33 Activated Partial Thromboplast Time 66.0 H 70.0 H 53.2 H Prostate Specific Antigen 48.6 H White Blood Count 8.9 Red Blood Count 2.99 L Hemoglobin 8.2 L Hematocrit 26.5 L Mean Corpuscular Volume 88.6 Mean Corpuscular Hemoglobin 27.4 L Mean Corpuscular Hemoglobin Concent 30.9 L Red Cell Distribution Width 18.2 H Platelet Count 227 Mean Platelet Volume 11.2 H Neutrophils % 52.6 Lymphocytes % 21.3 Monocytes % 11.2 H Eosinophils % 4.1 Basophils % 0.5 Nucleated Red Blood Cells % 1.0 H Neutrophils # 4.7 Lymphocytes # 1.9 Monocytes # 1.0 H Eosinophils # 0.4 Basophils # 0.0 Nucleated Red Blood Cells # 0.1 H Prothrombin Time 18.4 H Prothrombin Time Ratio 1.4 INR International Normalized Ratio 1.52 Aspartate Amino Transf (AST/SGOT) 87 H Medications Medications Current Medications Magnesium Hydroxide (Milk Of Mag) 30 ml DAILY PRN PO CONSTIPATION Last administered on 02/14/17 09:24; Admin Dose 30 ML; Start 01/30/17 at 11:00 Pantoprazole (Protonix Tab) 40 mg DAILY@06 PO Last administered on 02/17/17 05: 30; Admin Dose 40 MG; Start 01/31/17 at 06:00 Acetaminophen (Tylenol Tab) 650 mg Q6H PRN PO PAIN AND OR ELEVATED TEMP Last administered on 02/12/17 04:08; Admin Dose 650 MG; Start 01/30/17 at 21:30 Metoprolol Tartrate (Lopressor) 25 mg BID PO Last administered on 02/16/17 20: 52; Admin Dose 25 MG; Start 01/31/17 at 21:00 Folic Acid (Folic Acid) 1 mg DAILY PO Last administered on 02/16/17 08:06; Admin Dose 1 MG; Start 02/06/17 at 11:00 Furosemide (Lasix) 40 mg DAILY PO Last administered on 02/16/17 08:06; Admin Dose 40 MG; Start 02/09/17 at 09:00 Acetaminophen/ Hydrocodone Bitart ([place] (5/325)) 1 tab Q4H PRN PO PAIN LEVEL 4 -7; Start 02/10/17 at 17:30 Acetaminophen/ Hydrocodone Bitart ([place] (5/325)) 2 tab Q4H PRN PO PAIN LEVEL 7 -10; Start 02/10/17 at 17:30 Hydromorphone HCl (Dilaudid) 0.5 mg Q2 PRN IV PAIN; Start 02/10/17 at 17:30 Hydromorphone HCl (Dilaudid) 1 mg Q2 PRN IV PAIN; Start 02/10/17 at 17:30 Docusate Sodium (Colace) 100 mg BID PRN PO CONSTIPATION; Start 02/10/17 at 17: 30 Bisacodyl (Dulcolax Supp) 10 mg BID PRN [place] CONSTIPATION; Start 02/10/17 at 17: 30 Sodium Biphosphate/ Sodium Phosphate (Fleet Enema) 133 ml BID PRN [place] CONSTIPATION; Start 02/10/17 at 17:30 Bisacodyl (Dulcolax Supp) 10 mg BID PRN [place] CONSTIPATION; Start 02/12/17 at 21:00 Docusate Sodium (Colace) 100 mg BID PO Last administered on 02/16/17 20:52; Admin Dose 100 MG; Start 02/12/17 at 09:00 Warfarin Sodium (Coumadin) 10 mg DAILY@17 PO Last administered on 02/16/17t 16: 50; Admin Dose 10 MG; Start 02/16/17 at 17:00 BETTY CUMMINGS MD Feb 17, 2017 08:35
[2017-02-17] MEDS: FUROSEMIDE 20 MG TAB PO SCH (09:04)
[2017-02-17] MEDS: FOLIC ACID 1 MG TAB PO SCH (09:04)
[2017-02-17] MEDS: DOCUSATE SODIUM 100 MG CAP PO SCH (09:04)
[2017-02-17] MEDS: METOPROLOL 25 MG TAB PO SCH (09:04)
--- NOTE | 2017-02-17 11:54 | PN ---
Date/Time of Note Date/Time of Note DATE: 02/17/17 TIME: 11:52 Assessment/Plan VTE Prophylaxis VTE Prophylaxis Intervention: SCD's Lines/Catheters IV Catheter Type (from [facility]): Peripheral IV Urinary Cath still in place: No Assessment/Plan Assessment/Plan Pt is being transferred to ECF. I reminded him to contact Dr. Solis early next week since enzalutamide is being arranged. Subjective 24 Hr Interval Summary Free Text/Dictation Pt stable. He says he is being transferred to ECF this afternoon. Constitutional: no complaints Eyes: no complaints Exam/Review of Systems Vital Signs Vitals Vital Signs Date Time Temp Pulse Resp B/P Pulse Ox O2 Delivery O2 Flow Rate FiO2 02/17/17 08:00 Nasal Cannula 2.0 02/17/17 07:23 97.7 102 20 120/62 97 Intake and Output 02/16/17 02/16/17 02/17/17 15:00 23:00 07:00 Intake Total 1160 ml 1162.5 ml Output Total 550 ml 900 ml Balance 610 ml 262.5 ml Exam Constitutional: alert, oriented Psych: no complaints Head: normocephalic Eyes: nl conjunctiva Neck: supple Respiratory: clear to auscultation Cardiovascular: regular rate and rhythm Results Result Diagram: 02/17/17 0433 02/16/17 0550 Results 24 hrs Laboratory Tests Test 02/16/17 15:25 02/16/17 21:05 02/17/17 04:33 Activated Partial Thromboplast Time 66.0 H 70.0 H 53.2 H Prostate Specific Antigen 48.6 H White Blood Count 8.9 Red Blood Count 2.99 L Hemoglobin 8.2 L Hematocrit 26.5 L Mean Corpuscular Volume 88.6 Mean Corpuscular Hemoglobin 27.4 L Mean Corpuscular Hemoglobin Concent 30.9 L Red Cell Distribution Width 18.2 H Platelet Count 227 Mean Platelet Volume 11.2 H Neutrophils % 52.6 Lymphocytes % 21.3 Monocytes % 11.2 H Eosinophils % 4.1 Basophils % 0.5 Nucleated Red Blood Cells % 1.0 H Neutrophils # 4.7 Lymphocytes # 1.9 Monocytes # 1.0 H Eosinophils # 0.4 Basophils # 0.0 Nucleated Red Blood Cells # 0.1 H Prothrombin Time 18.4 H Prothrombin Time Ratio 1.4 INR International Normalized Ratio 1.52 Aspartate Amino Transf (AST/SGOT) 87 H Medications Medications Current Medications Magnesium Hydroxide (Milk Of Mag) 30 ml DAILY PRN PO CONSTIPATION Last administered on 02/14/17 09:24; Admin Dose 30 ML; Start 01/30/17 at 11:00 Pantoprazole (Protonix Tab) 40 mg DAILY@06 PO Last administered on 02/17/17 05: 30; Admin Dose 40 MG; Start 01/31/17 at 06:00 Acetaminophen (Tylenol Tab) 650 mg Q6H PRN PO PAIN AND OR ELEVATED TEMP Last administered on 02/12/17 04:08; Admin Dose 650 MG; Start 01/30/17 at 21:30 Metoprolol Tartrate (Lopressor) 25 mg BID PO Last administered on 02/17/17 09: 04; Admin Dose 25 MG; Start 01/31/17 at 21:00 Folic Acid (Folic Acid) 1 mg DAILY PO Last administered on 02/17/17 09:04; Admin Dose 1 MG; Start 02/06/17 at 11:00 Furosemide (Lasix) 40 mg DAILY PO Last administered on 02/17/17 09:04; Admin Dose 40 MG; Start 02/09/17 at 09:00 Acetaminophen/ Hydrocodone Bitart ([place] (5/325)) 1 tab Q4H PRN PO PAIN LEVEL 4 -7; Start 02/10/17 at 17:30 Acetaminophen/ Hydrocodone Bitart ([place] (5/325)) 2 tab Q4H PRN PO PAIN LEVEL 7 -10; Start 02/10/17 at 17:30 Hydromorphone HCl (Dilaudid) 0.5 mg Q2 PRN IV PAIN; Start 02/10/17 at 17:30 Hydromorphone HCl (Dilaudid) 1 mg Q2 PRN IV PAIN; Start 02/10/17 at 17:30 Docusate Sodium (Colace) 100 mg BID PRN PO CONSTIPATION; Start 02/10/17 at 17: 30 Bisacodyl (Dulcolax Supp) 10 mg BID PRN [place] CONSTIPATION; Start 02/10/17 at 17: 30 Sodium Biphosphate/ Sodium Phosphate (Fleet Enema) 133 ml BID PRN [place] CONSTIPATION; Start 02/10/17 at 17:30 Bisacodyl (Dulcolax Supp) 10 mg BID PRN [place] CONSTIPATION; Start 02/12/17 at 21:00 Docusate Sodium (Colace) 100 mg BID PO Last administered on 02/17/17 09:04; Admin Dose 100 MG; Start 02/12/17 at 09:00 Warfarin Sodium (Coumadin) 10 mg DAILY@17 PO Last administered on 02/16/17 16: 50; Admin Dose 10 MG; Start 02/16/17 at 17:00 FELICITAS THURMAN MD Feb 17, 2017 11:53
--- NOTE | 2017-02-18 08:27 | DS ---
Date/Time of Note Date/Time of Note DATE: 02/18/17 TIME: 08:23 Discharge Summary Admission/Discharge Info Admit Date/Time Jan 30, 2017 at 07:00 Discharge Date/Time Feb 17, 2017 at 14:25 Final Diagnosis clostridia perfringens bacteremia from acute cholecystitis from cystic duct obstruction; aortic valve replacement; metastatic prostate cancer; CHF; chronic anticoagulation; anemia; ataxia Patient Condition: Stable Consults GI, surgery, cardiology Procedures imaging; diuresis; cardiac monitoring; labs; transfusion of 2 units prbcs; lap cholecystectomy Hx of Present Illness 67 yo male fell at home early this am and was brought to ER. Found to have hypotension, elevated WBC, mild anemia and creatinine of 1.7. stabilized in ER and admitted to telemetry Hospital Course SUBJECTIVE: No fevers/n/v/d, couldn't sleep last night, nad MICROBIOLOGY: Blood culture on admission grew Clostridium perfringens and coagulase-negative staph species. Repeat blood culture negative. Urine culture negative. DIAGNOSTICS: The patient had a RICHARD that revealed no vegetations. A HIDA scan was compatible with cystic duct obstruction and possible cholecystitis PHYSICAL EXAMINATION: GENERAL: This is a morbidly obese elderly man who is alert, in no distress. HEENT: Head atraumatic, normocephalic. Sclerae anicteric. Buccal mucosa pink. NECK: Supple. CHEST: Rise symmetrical. Breath sounds diminished to bases. HEART: S1, S2. ABDOMEN: Obese, soft, bowel sounds present. EXTREMITIES: Without cyanosis. Bilateral edema, right upper extremity more edematous than left. ASSESSMENT: 1. S/p Biliary sepsis. 2. S/p Clostridium perfringens bacteremia secondary to #1. 3. Choledocholithiasis with cystic duct obstruction as per HIDA scan. 4. Right upper extremity edema==> no deep venous thrombosis per US. 5. Coronary artery disease, history of aortic valve replacement. 6. History of met prostate cancer. 7. S/p lap cholecystectomy 8. Reactive leukocytosis PLAN: The patient remains stable, completed abx, will f/u prn DW pt Home Meds Reported Medications Melatonin (Melatonin) 5 Mg Tablet, 5 MG PO HS Y for INSOMNIA, TAB 01/31/17 Tamsulosin Hcl* (Flomax*) 0.4 Mg Cap.er.24h, 0.4 MG PO DAILY, CAP 01/31/17 Metoprolol Tartrate* (Lopressor*) 25 Mg Tab, 25 MG PO BID, #60 TAB 01/31/17 Triamterene-HCTZ* (Triamterene-HCTZ*) 1 Tab Tablet, 1 TAB PO DAILY Triamterene -HCTZ 37.5/25 mg 09/23/13 Simvastatin (Simvastatin) 40 Mg Tablet, 40 MG PO HS 09/23/13 Discontinued Reported Medications Tramadol HCl (Tramadol HCl) 50 Mg Tablet, 50 MG PO Q4H Y for q4H, #120 TAB q4-6 hours PRN pain 01/31/17 Warfarin Sod (Coumadin) 2.5 Mg Tab, 5 MG PO every other day, TAB alternating with Coumadin 7.5 mg every other day 01/31/17 Warfarin Sod (Coumadin) 2.5 Mg Tab, 7.5 MG PO q other day, TAB alternating with 5 mg Coumadin every other day 01/31/17 Follow-up Plan transferred to [facility] for rehab therapy Pending Labs Laboratory Tests Test 02/17/17 13:15 Activated Partial Thromboplast Time 31.6Sec (25.0-35.0) BETTY CUMMINGS MD Feb 18, 2017 08:27
== END 2017-02-17 14:25 | DRG 853 ==
LOC: E/R 04:39 → TEL 07:00 → ICU 01-31 00:08 → TEL 02-04 14:20 → MS3 02-15 15:05 → MS2 02-16 00:58
PROVIDERS: ADMIT Internal Medicine Geriatric Medicine; ATTEND Internal Medicine Geriatric Medicine
PROC: B246ZZ4 Ultrasonography of Right and Left Heart, Transesophageal (ICD-10-PCS; 2017-02-02)
PROC: 30233N1 Transfusion of Nonautologous Red Blood Cells into Peripheral Vein, Percutaneous Approach (ICD-10-PCS; 2017-02-05)
PROC: 0FT44ZZ Resection of Gallbladder, Percutaneous Endoscopic Approach (ICD-10-PCS; principal; 2017-02-10 11:30)
DX: A41.1 Sepsis due to other specified staphylococcus (principal); R65.21 Severe sepsis with septic shock; I50.33 Acute on chronic diastolic (congestive) heart failure; C77.2 Secondary and unspecified malignant neoplasm of intra-abdominal lymph nodes; C61 Malignant neoplasm of prostate; D64.9 Anemia, unspecified; C79.51 Secondary malignant neoplasm of bone; I69.351 Hemiplegia and hemiparesis following cerebral infarction affecting right dominant side; K80.13 Calculus of gallbladder with acute and chronic cholecystitis with obstruction; Z95.2 Presence of prosthetic heart valve; R27.0 Ataxia, unspecified; Z79.02 Long term (current) use of antithrombotics/antiplatelets; I77.811 Abdominal aortic ectasia
CPT/HCPCS: 36415; 36430; 36600; 70450; 71010; 72148; 74176; 76700; 78226; 80048; 80053; 80076; 80202; 80307; 81003; 82270; 82550; 82553; 82607; 82728; 82803; 82962; 83540; 83605; 83735; 83880; 84100; 84153; 84154; 84443; 84450; 84484; 84560; 85025; 85610; 85670; 85730; 86850; 86880; 86885; 86900; 86901; 86920; 87040; 87081; 87086; 87400; 88304; 92610; 93005; 93306; 93308; 93312; 93325; 93923; 93971; 96374; 96375; 97110; 97116; 97162; 97164; 97530; J1940; J3487; A9537; J0282; J0696; J1100; J1644; J1650; J2543; J2710; J3010; J3370; J3475; J3480; J7030; J7040; J7050; J7060; P9016; Q9967

== ENCOUNTER 2017-05-06 13:33 | Inpatient (IN) | payer BC, MEDICARE ==
[~2017-05-06] VITALS: Ht 177.8 cm; Wt 85.0 kg
[~2017-05-06 13:33] MED LIST changes: -BICA50TA PO; +MELA5TAB4 PO; +METO-448 PO; +TAMS-14 PO; -WARF2TAB PO
[2017-05-06] MEDS ORDERED: FOLI-49 PO (14:18)
[2017-05-06] MEDS ORDERED: FURO-110 PO (14:22)
[2017-05-06] MEDS ORDERED: WARF3TAB PO (14:22)
[2017-05-06] MEDS ORDERED: POTA20TA15 PO (14:22)
[2017-05-06] MEDS ORDERED: SERT50TA6 PO (14:24)
[2017-05-06] MEDS ORDERED: PANT40TA4 PO (14:24)
[2017-05-06] MEDS ORDERED: TRAM-40 PO (14:25)
[2017-05-06] MEDS ORDERED: ENZA40CA PO (14:26)
--- NOTE | 2017-05-06 15:48 | ERD ---
ER Documentation Chief Complaint Date/Time DATE: 05/06/17 TIME: 15:44 Chief Complaint bib als c/o weakness, hx stage 4 prostate ca HPI Patient is a 66-year-old male with stage IV prostate cancer sent to the ER by his nurse practitioner due to tachycardia and confusion this morning. The patient is on palliative care and has regular visits from caretakers. His blood pressure was noted to be low normal this morning. His pulse was noted to be in the 110s. The patient's daughter states that he seemed slightly confused and tried to introduce her to someone she had known for a long time. She denies any focal weakness or numbness. She states that he appeared to be speaking in shorter sentences and having heavier breathing. The patient denies chest pain, shortness of breath, fever, dizziness, abdominal pain, vomiting, diarrhea, confusion. He states that he feels fine. ROS All systems reviewed and are negative except as per history of present illness. Medications Home Meds Reported Medications Enzalutamide (XTANDI) 40 Mg Capsule, 40 MG PO QID, CAP 05/06/17 Tramadol Hcl* (Ultram*) 50 Mg Tablet, 50 MG PO Q6H Y for PAIN, TAB 05/06/17 Sertraline Hcl* (Sertraline Hcl*) 50 Mg Tablet, 50 MG PO DAILY, #30 TAB 05/06/17 Pantoprazole* (Pantoprazole*) 40 Mg Tablet.dr, 40 MG PO DAILY, TAB 05/06/17 Potassium Chloride* (K-Dur*) 20 Meq Tab.prt.sr, 20 MEQ PO BID, TAB.SA 05/06/17 Warfarin Sodium* (Coumadin*) 3 Mg Tablet, 4 MG PO DAILY, TAB 05/06/17 Furosemide* (Lasix*) 20 Mg Tablet, 20 MG PO DAILY, TAB 05/06/17 Folic Acid* (Folic Acid*) 1 Mg Tablet, 1 MG PO DAILY, TAB 05/06/17 Melatonin (Melatonin) 5 Mg Tablet, 5 MG PO HS Y for INSOMNIA, TAB 01/31/17 Tamsulosin Hcl* (Flomax*) 0.4 Mg Cap.er.24h, 0.4 MG PO DAILY, CAP 01/31/17 Metoprolol Tartrate* (Lopressor*) 25 Mg Tab, 25 MG PO BID, #60 TAB 3/20/17 Triamterene-HCTZ* (Triamterene-HCTZ*) 1 Tab Tablet, 1 TAB PO DAILY Triamterene -HCTZ 37.5/25 mg 09/23/13 Simvastatin (Simvastatin) 40 Mg Tablet, 40 MG PO HS 09/23/13 Allergies Allergies: Coded Allergies: No Known Allergy (Unverified , 01/30/17) PMhx/Soc Past medical history: Stage IV prostate cancer, hypertension Past surgical history: Cardiac valve replacement Social history: Denies tobacco or alcohol History of Surgery: Yes (TONSILLECTOMY 1959, UMBILICAL HERNIA 1968, AORTIC VALVE REPLACEMENT 1989, ) Anesthesia Reaction: No Hx Neurological Disorder: Yes (multiple tia s) Hx Respiratory Disorders: No Hx Cardiac Disorders: Yes (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 Dry mucous membranes Neck: Full range of motion..~ No meningismus. No JVD Resp: Clear to auscultation bilaterally, no wheezes, no rales Cardio: Regular rate and rhythm, no murmurs Abd: Soft, non tender, non distended. Skin: No petechiae or rashes Back: No midline or flank tenderness Ext: No cyanosis, or edema Neur: Alert and oriented 4, cranial nerves II through IV intact bilaterally, strength and sensation full in 4 extremities Psych: Normal Mood and Affect Result Diagram: 05/06/17 1555 05/06/17 1555 Results 24 hrs Laboratory Tests Test 05/06/17 15:25 05/06/17 15:55 Urine Color YELLOW Urine Clarity CLOUDY Urine pH 5.0 Urine Specific [place] 1.014 Urine Ketones NEGATIVEmg/dL Urine Nitrite NEGATIVEmg/dL Urine Bilirubin NEGATIVEmg/dL Urine Urobilinogen NEGATIVEmg/dL Urine Leukocyte Esterase NEGATIVELeu/ul Urine Microscopic RBC 67/HPF Urine Microscopic WBC 8/HPF Urine Uric Acid Crystals MANY/HPF Urine Mucus MANY/HPF Urine Hemoglobin 3+mg/dL Urine Glucose NEGATIVEmg/dL Urine Total Protein 1+mg/dl White Blood Count 6.810^3/ul Red Blood Count 2.7610^6/ul Hemoglobin 7.7g/dl Hematocrit 24.2% Mean Corpuscular Volume 87.7fl Mean Corpuscular Hemoglobin 27.9pg Mean Corpuscular Hemoglobin Concent 31.8g/dl Red Cell Distribution Width 18.6% Platelet Count 55484^3/UL Mean Platelet Volume 10.1fl Neutrophils % 63.7% Lymphocytes % 18.2% Monocytes % 10.5% Eosinophils % 2.4% Basophils % 0.3% Nucleated Red Blood Cells % 1.0/100WBC Neutrophils # 4.310^3/ul Lymphocytes # 1.210^3/ul Monocytes # 0.710^3/ul Eosinophils # 0.210^3/ul Basophils # 0.010^3/ul Nucleated Red Blood Cells # 0.110^3/ul Prothrombin Time 19.9Sec Prothrombin Time Ratio 1.6 INR International Normalized Ratio 1.68 Sodium Level 128mmol/L Potassium Level 3.8mmol/L Chloride Level 99mmol/L Carbon Dioxide Level 20mmol/L Anion Gap 13 Blood Urea Nitrogen 7mg/dl Creatinine 0.43mg/dl Glucose Level 98mg/dl Calcium Level 6.8mg/dl Total Bilirubin 0.4mg/dl Direct Bilirubin 0.00mg/dl Indirect Bilirubin 0.4mg/dl Aspartate Amino Transf (AST/SGOT) 96IU/L Alanine Aminotransferase (ALT/SGPT) 45IU/L Alkaline Phosphatase 334IU/L Total Protein 6.3g/dl Albumin 3.4g/dl Globulin 2.90g/dl Albumin/Globulin Ratio 1.17 Current Medications Medications (Trade) Dose Ordered Sig/Dario Route PRN Reason Start Time Stop Time Status Last Admin Dose Admin Ondansetron HCl (Zofran Inj) 4 mg BRIDGE ORDER PRN IV NAUSEA AND/OR VOMITING 05/06/17 18:30 05/07/17 18:29 Acetaminophen 650 mg 650 mg ER BRIDGE PRN PO MILD PAIN/FEVER 05/06/17 18:30 05/07/17 18:29 Sodium Chloride (NS) 250 ml @ 0 mls/hr Q0M ONCE IV 05/06/17 18:13 05/06/17 18:17 DC Procedures/MDM EKG read by me: Time 1602, rate 88 Rhythm: Normal sinus Desha: Normal Intervals: Prolonged QTC ST-T waves: no ischemic changes Ectopy: Occasional PVCs Q-waves: Lead III only Impression: Left ventricular hypertrophy, prolonged QTC, occasional PVCs, no ischemic changes MDM: Patient is a 66-year-old male with stage IV prostate cancer who has had recurrent anemia, suspected due to marrow infiltration. He came to the ER today due to tachycardia with slightly low blood pressure measured this morning. There is report that he was slightly altered this morning, but did not have any focal neurologic symptoms. The patient was noted to be slightly tachypneic. In the ER, he has no acute complaints, has a benign exam. He is found to be anemic again. There is no report of dark stools. His hemoglobin was 10.5 two weeks ago according to Dr. Gagnon, his PMD. He also confirmed that the patient has chronic hyponatremia. There are no signs of infection or other significant electrolyte abnormality. Patient has normal vital signs in the ER. I offered to transfuse 1 unit of PRBCs and discharge him home, but the patient requested admission for larger volume transfusion. He will be admitted to observation for transfusion by Dr. Gagnon. Departure Diagnosis: Primary Impression: Anemia Anemia type: unspecified type Qualified Code: D64.9 - Anemia, unspecified type Additional Impressions: Metastatic cancer Hyponatremia Condition: Stable RICK SMITH MD May 06, 2017 15:48
[2017-05-06 16:15] LABS: ADD SCAN DIFF NO
[2017-05-06 16:15] LABS: ADD UMIC YES; UR ASCORBIC ACID NEGATIVE (NEGATIVE); UR BILIRUBIN (Dip) NEGATIVE (NEGATIVE); UR BLOOD (Dip) 3+ mg/dL (NEGATIVE); UR CLARITY CLOUDY (CLEAR); UR COLOR YELLOW (YELLOW); UR GLUCOSE (Dip) NEGATIVE (NEGATIVE); UR KETONES (Dip) NEGATIVE (NEGATIVE); UR LEUKOCYTE ESTERASE (Dip) NEGATIVE Leu/ul (NEGATIVE); UR MUCUS MANY /HPF (NONE SEEN); UR NITRITE (Dip) NEGATIVE (NEGATIVE); UR RBC 67 /HPF (0-5); UR SPECIFIC GRAVITY (Dip) 1.014 (1.003-1.030); UR TOTAL PROTEIN (Dip) 1+ mg/dl (NEGATIVE); UR URIC ACID CRYSTAL MANY /HPF (NONE SEEN); UR UROBILINOGEN (Dip) NEGATIVE (NEGATIVE)
[2017-05-06 16:16] LABS: BASOPHILS % 0.3 % (0.0-2.0); EOSINOPHILS # 0.2 10^3/ul (0.0-0.5); EOSINOPHILS % 2.4 % (0.0-7.0); HEMATOCRIT 24.2 % (42.0-52.0); HEMOGLOBIN 7.7 g/dl (14.0-18.0); LYMPHOCYTES # 1.2 10^3/ul (0.8-2.9); LYMPHOCYTES % 18.2 % (15.0-51.0); MEAN CORPUSCULAR HEMOGLOBIN 27.9 pg (29.0-33.0); MEAN CORPUSCULAR HGB CONC 31.8 g/dl (32.0-37.0); MEAN CORPUSCULAR VOLUME 87.7 fl (82.0-101.0); MEAN PLATELET VOLUME 10.1 fl (7.4-10.4); MONOCYTE # 0.7 10^3/ul (0.3-0.9); MONOCYTES % 10.5 % (0.0-11.0); NEUTROPHIL # 4.3 10^3/ul (1.6-7.5); NEUTROPHILS % 63.7 % (39.0-77.0); NUCLEATED RED BLOOD CELLS # 0.1 10^3/ul (0.0-0.0); PLATELET COUNT 224 10^3/UL (140-415); RED BLOOD COUNT 2.76 10^6/ul (4.70-6.10); RED CELL DISTRIBUTION WIDTH 18.6 % (11.5-14.5); WHITE BLOOD COUNT 6.8 10^3/ul (4.8-10.8)
--- NOTE | 2017-05-06 16:26 | RADRPT ---
PROCEDURE: XR Chest. CLINICAL INDICATION: Shortness of breath. TECHNIQUE: Single frontal view. COMPARISON: 02/14/2017. FINDINGS: There are low lung volumes, unchanged. There is interstitial disease bilaterally which may indicate mild pulmonary edema. The lungs are otherwise clear. The heart is enlarged. There is calcification in the aorta consistent with atherosclerosis. There are sternal wires. There is no pleural effusion. There is no pneumothorax. IMPRESSION: 1. Low lung volumes. 2. Possible mild pulmonary edema. 3. Cardiomegaly and atherosclerosis. RPTAT: QQ .Curt Lee MD, MD Date Time Electronically viewed and signed by .Curt Lee MD, MD on 05/06/2017 16:26 .R/
[2017-05-06 16:33] LABS: INR 1.68; PROTIME 19.9 Sec (12.2-14.2); PT RATIO 1.6
[2017-05-06 16:35] LABS: ALBUMIN 3.4 g/dl (3.3-4.9); ALBUMIN/GLOBULIN RATIO 1.17; BILIRUBIN,INDIRECT 0.4 mg/dl (0-1.1); BILIRUBIN,TOTAL 0.4 mg/dl (0.2-1.3); CALCIUM 6.8 mg/dl (8.4-10.2); CREATININE 0.43 mg/dl (0.61-1.24); POTASSIUM 3.8 mmol/L (3.5-5.1); TOTAL PROTEIN 6.3 g/dl (6.1-8.1)
[2017-05-06] MEDS ORDERED: SOD CHLORIDE 0.9% 250 ML IV ONE (18:13)
[2017-05-06] MEDS ORDERED: ONDANSETRON 4 MG INJ IV PRN (18:30)
[2017-05-06] MEDS ORDERED: ACETAMINOPHEN 325 MG TAB PO PRN ×2 (18:30→19:30)
[2017-05-06] MEDS ORDERED: SOD CHLORIDE 0.9% 250 ML IV* ONE (19:26)
[2017-05-06] MEDS ORDERED: ONDANSETRON 4 MG TAB PO PRN (19:30)
[2017-05-06] MEDS ORDERED: MAGNESIUM HYDROXIDE 30ML CUP PO PRN (19:30)
[2017-05-06] MEDS ORDERED: NACL 0.9% 3 ML SYG IV SCH (19:30)
[2017-05-06] MEDS ORDERED: FUROSEMIDE 40 MG INJ IV ONE ×2 (19:30→22:30)
[2017-05-06] MEDS ORDERED: traMADol 50 MG TAB PO PRN (19:30)
--- NOTE | 2017-05-06 19:37 | HP ---
Date/Time of Note Date/Time of Note DATE: 05/06/17 TIME: 19:32 Assessment/Plan VTE Prophylaxis VTE Prophylaxis Intervention: other VTE Contraindication Reason: bleeding HPI/ROS Admit Date/Time Admit Date/Time PMH/Family/Social Past Medical History 66 yo male with anemia prostate cancer and declining ADLs admitted from home for BP 90s, tachycardia weakness and Hb 7.8. discussed with pt who agrees to transfusion, seen by ER MD. CXR shows CHF and pt has edema Allergies none Meds reviewed and reconciled ROS HEENT poor hearing Chest COPD Cor chronic anticoagulation with AVR and CHF GI neg nocturia Ext gait ataxia Exam BP 96/60 P 110 RR 16 T 98 F HEENT no JVD Chest fairly clear Cor gr1/6 systolic murmur abd soft Ext 1+ pitting edema Assessment : anemia symptomatic, CHF on CXR, AVR, chronic anticoagulation, depression, prostate cancer with mets Plan: full code. transfuse 2 units prbs. furosemide iv. D/c planning for am Social History Smoking Status: Unknown if ever smoked Exam/Review of Systems Vital Signs Vitals Vital Signs Date Time Temp Pulse Resp B/P Pulse Ox O2 Delivery O2 Flow Rate FiO2 05/06/17 14:26 98.4 85 20 95/68 Labs Result Diagram: 05/06/17 1555 05/06/17 1555 Medications Medications Current Medications Ondansetron HCl (Zofran Tab) 4 mg Q6H PRN PO NAUSEA AND/OR VOMITING; Start at 19:30 Furosemide (Lasix) 40 mg ONCE ONCE IV ; Start 05/06/17 at 19:30; Stop 05/06/17 at 19:31 Acetaminophen (Tylenol Tab) 650 mg Q6H PRN PO PAIN LEVEL 1-3 OR FEVER; Start at 19:30 Magnesium Hydroxide (Milk Of Mag) 30 ml DAILY PRN PO CONSTIPATION; Start at 19:30 Pantoprazole (Protonix Tab) 40 mg DAILY@06 PO ; Start 05/07/17 at 06:00 Folic Acid (Folic Acid) 1 mg DAILY PO ; Start 05/07/17 at 09:00; Status UNV Furosemide (Lasix) 20 mg DAILY PO ; Start 05/07/17 at 09:00; Status UNV Metoprolol Tartrate (Lopressor) 25 mg BID PO ; Start 05/06/17 at 21:00; Status UNV Pantoprazole (Protonix Tab) 40 mg DAILY PO ; Start 05/07/17 at 09:00; Status UNV Potassium Chloride (Klor-Con 20) 20 meq BID PO ; Start 05/06/17 at 21:00; Status UNV Sertraline HCl (Zoloft) 50 mg DAILY PO ; Start 05/07/17 at 09:00; Status UNV Tamsulosin HCl (Flomax) 0.4 mg DAILY PO ; Start 05/07/17 at 09:00; Status UNV Tramadol HCl (Ultram) 50 mg Q6H PRN PO PAIN; Start 05/06/17 at 19:30; Status UNV Warfarin Sodium (Coumadin) 2.5 mg DAILY PO ; Start 05/07/17 at 09:00; Status UNV Miscellaneous Information 40 mg HS PO ; Start 05/06/17 at 21:00; Status UNV BETTY CUMMINGS MD May 06, 2017 19:37
[2017-05-06 20:25] VITALS: TEMP 97.8
[2017-05-06] MEDS ORDERED: ATORVASTATIN 20 MG TAB PO SCH (21:00)
[2017-05-06] MEDS: METOPROLOL 25 MG TAB PO SCH (21:00)
[2017-05-06 21:31] VITALS: BP 113/56; RESP 18
[2017-05-06 22:23] VITALS: Ht 177.8 cm; Wt 85.0 kg
[2017-05-06] MEDS: POTASSIUM CHLORIDE (SR) 20 MEQ TAB PO SCH (22:26)
[2017-05-07] MEDS ORDERED: PANTOPRAZOLE (EC) 40 MG TAB PO SCH ×2 (06:00→09:00)
[2017-05-07 07:45] VITALS: BP 100/50; PULSE 98; RESP 18
--- NOTE | 2017-05-07 08:15 | DS ---
Date/Time of Note Date/Time of Note DATE: 05/07/17 TIME: 08:07 Discharge Summary Admission/Discharge Info Admit Date/Time May 07, 2017 at 05:51 Discharge Date/Time admitted 05/06/2017. disharged from short stay 05/07/2017 Discharge Diagnosis discharge diagnosis : symptomatic anemia with hypotension, tachycardia and weakness; metastatic prostate cancer; chf; anemia; depression; ataxia; aortyic valve replacement on chronic anticoagulation with warfarin Patient Condition: Fair Consults none Procedures transfusion of 2 units prbcs Hx of Present Illness recurrent anemia on treatment for metastatic prostate cancer referred to ER by Home health for hypotension weakness and tachycardia. seen in ER and founjd to have Hb<8 Hospital Course transfused 2 units prbcs, seen at 8 am on 05/07/2017. VS stable, feels better, Chest fairly clear Cor reg rhythm Ext 1+ pitting edema . discharged home Home Meds Reported Medications Enzalutamide (XTANDI) 40 Mg Capsule, 40 MG PO QID, CAP 05/06/17 Tramadol Hcl* (Ultram*) 50 Mg Tablet, 50 MG PO Q6H Y for PAIN, TAB 05/06/17 Sertraline Hcl* (Sertraline Hcl*) 50 Mg Tablet, 50 MG PO DAILY, #30 TAB 05/06/17 Pantoprazole* (Pantoprazole*) 40 Mg Tablet.dr, 40 MG PO DAILY, TAB 05/06/17 Potassium Chloride* (K-Dur*) 20 Meq Tab.prt.sr, 20 MEQ PO BID, TAB.SA 05/06/17 Warfarin Sodium* (Coumadin*) 3 Mg Tablet, 4 MG PO DAILY, TAB 05/06/17 Furosemide* (Lasix*) 20 Mg Tablet, 20 MG PO DAILY, TAB 05/06/17 Folic Acid* (Folic Acid*) 1 Mg Tablet, 1 MG PO DAILY, TAB 05/06/17 Melatonin (Melatonin) 5 Mg Tablet, 5 MG PO HS Y for INSOMNIA, TAB 01/31/17 Tamsulosin Hcl* (Flomax*) 0.4 Mg Cap.er.24h, 0.4 MG PO DAILY, CAP 01/31/17 Metoprolol Tartrate* (Lopressor*) 25 Mg Tab, 25 MG PO BID, #60 TAB 01/31/17 Triamterene-HCTZ* (Triamterene-HCTZ*) 1 Tab Tablet, 1 TAB PO DAILY Triamterene -HCTZ 37.5/25 mg 09/23/13 Simvastatin (Simvastatin) 40 Mg Tablet, 40 MG PO HS 09/23/13 Follow-up Plan Oncology followup; [facility]up Primary Care Provider Diego Cummings MD Pending Labs Laboratory Tests Test 05/06/17 15:25 05/06/17 15:55 05/07/17 06:01 Urine Color YELLOW (YELLOW) Urine Clarity CLOUDY (CLEAR) Urine pH 5.0 (5.0-9.0) Urine Specific [place] 1.014 (1.003-1.030) Urine Ketones NEGATIVEmg/dL (NEGATIVE) Urine Nitrite NEGATIVEmg/dL (NEGATIVE) Urine Bilirubin NEGATIVEmg/dL (NEGATIVE) Urine Urobilinogen NEGATIVEmg/dL (NEGATIVE) Urine Leukocyte Esterase NEGATIVELeu/ul (NEGATIVE) Urine Microscopic RBC 67/HPF (0-5) Urine Microscopic WBC 8/HPF (0-5) Urine Uric Acid Crystals MANY/HPF (NONE SEEN) Urine Mucus MANY/HPF (NONE SEEN) Urine Hemoglobin 3+mg/dL (NEGATIVE) Urine Glucose NEGATIVEmg/dL (NEGATIVE) Urine Total Protein 1+mg/dl (NEGATIVE) White Blood Count 6.810^3/ul (4.8-10.8) Red Blood Count 2.7610^6/ul (4.70-6.10) Hemoglobin 7.7g/dl (14.0-18.0) Hematocrit 24.2% (42.0-52.0) Mean Corpuscular Volume 87.7fl (82.0-101.0) Mean Corpuscular Hemoglobin 27.9pg (29.0-33.0) Mean Corpuscular Hemoglobin Concent 31.8g/dl (32.0-37.0) Red Cell Distribution Width 18.6% (11.5-14.5) Platelet Count 55042^3/UL (140-415) Mean Platelet Volume 10.1fl (7.4-10.4) Neutrophils % 63.7% (39.0-77.0) Lymphocytes % 18.2% (15.0-51.0) Monocytes % 10.5% (0.0-11.0) Eosinophils % 2.4% (0.0-7.0) Basophils % 0.3% (0.0-2.0) Nucleated Red Blood Cells % 1.0/100WBC (0.0-0.0) Neutrophils # 4.310^3/ul (1.6-7.5) Lymphocytes # 1.210^3/ul (0.8-2.9) Monocytes # 0.710^3/ul (0.3-0.9) Eosinophils # 0.210^3/ul (0.0-0.5) Basophils # 0.010^3/ul (0.0-0.1) Nucleated Red Blood Cells # 0.110^3/ul (0.0-0.0) Prothrombin Time 19.9Sec (12.2-14.2) Prothrombin Time Ratio 1.6 INR International Normalized Ratio 1.68 Sodium Level 128mmol/L (135-144) Potassium Level 3.8mmol/L (3.5-5.1) Chloride Level 99mmol/L (97-110) Carbon Dioxide Level 20mmol/L (21-31) Anion Gap 13 (8-16) Blood Urea Nitrogen 7mg/dl (7-20) Creatinine 0.43mg/dl (0.61-1.24) Glucose Level 98mg/dl (70-220) Calcium Level 6.8mg/dl (8.4-10.2) Total Bilirubin 0.4mg/dl (0.2-1.3) Direct Bilirubin 0.00mg/dl (0.00-0.20) Indirect Bilirubin 0.4mg/dl (0-1.1) Aspartate Amino Transf (AST/SGOT) 96IU/L (15-46) Alanine Aminotransferase (ALT/SGPT) 45IU/L (13-69) Alkaline Phosphatase 334IU/L (42-121) Total Protein 6.3g/dl (6.1-8.1) Albumin 3.4g/dl (3.3-4.9) Globulin 2.90g/dl (1.3-3.2) Albumin/Globulin Ratio 1.17 Lab Scanned Report BLOOD [id number] DIEGO CUMMINGS MD May 07, 2017 08:15
[2017-05-07] MEDS: POTASSIUM CHLORIDE (SR) 20 MEQ TAB PO SCH (08:38)
[2017-05-07] MEDS: METOPROLOL 25 MG TAB PO SCH (08:39)
[2017-05-07] MEDS ORDERED: TAMSULOSIN (SR) 0.4 MG CAP PO SCH (09:00)
[2017-05-07] MEDS ORDERED: FOLIC ACID 1 MG TAB PO SCH (09:00)
[2017-05-07] MEDS ORDERED: SERTRALINE 50 MG TAB PO SCH (09:00)
[2017-05-07] MEDS ORDERED: FUROSEMIDE 20 MG TAB PO SCH (09:00)
[2017-05-07 09:04] VITALS: BP 100/58; RESP 18
[2017-05-07] MEDS ORDERED: WARFARIN 2.5 MG TAB PO SCH (17:00)
== END 2017-05-07 12:51 | DRG 812 ==
LOC: E/R 13:33 → PP2 18:15 → OBSVTOIN 05-07 05:51
PROVIDERS: ADMIT Internal Medicine Geriatric Medicine; ATTEND Internal Medicine Geriatric Medicine
DX: D64.9 Anemia, unspecified (principal); I95.9 Hypotension, unspecified; C79.82 Secondary malignant neoplasm of genital organs; I50.9 Heart failure, unspecified; E87.1 Hypo-osmolality and hyponatremia; J44.9 Chronic obstructive pulmonary disease, unspecified; F32.9 Major depressive disorder, single episode, unspecified; R60.9 Edema, unspecified; R00.0 Tachycardia, unspecified; R27.0 Ataxia, unspecified; Z51.5 Encounter for palliative care; Z79.01 Long term (current) use of anticoagulants; Z86.73 Personal history of transient ischemic attack (TIA), and cerebral infarction without residual deficits; Z95.2 Presence of prosthetic heart valve
CPT/HCPCS: 36415; 36430; 71010; 80053; 81001; 85025; 85610; 86850; 86900; 86901; 86920; 93005; G0378; J1940; J7040; P9016